=== PATIENT | male | born 1955 | race Caucasian/White ===

== ENCOUNTER 2018-12-29 21:54 | Emergency (ER) | payer MEDICAID ==
[~2018-12-29] VITALS: Ht 177.8 cm; Wt 84.8 kg
--- OUTSIDE RECORDS SUMMARY | 2018-12-29 22:01 | XMS REPORT | Continuity of Care Document ---
Author Organization Unknown Address Unknown Phone Unavailable Allergies Active Description Code Type Severity Reaction Onset Reported/Identified Relationship to Patient Clinical Status Yes PENICILLIN G SODIUM UNKNOWN UNKNOWN Medications Medication Packaging Start Date Stop Date Route Dosage Sig NORMAL SALINE 500CC IV BAG INJ 0.9 % (NS 500CC IV BAG) ml 11/21/2018 12/06/2018 CONTINUOUSEVERY 0 Hour ACETAMINOPHEN ORAL TABLET 325mg(Tylenol) MG 11/21/2018 12/21/2018 PRN EVERY 6 Hour Normal SALINE 0.9 % (NS 100cc) (plain bag) ml 11/21/2018 11/23/2018 CONTINUOUSEVERY 0 Hour NORMAL SALINE 1000CC IV BAG INJ 0.9 % (NS 1000CC IV BAG) ml 11/21/2018 12/06/2018 CONTINUOUSEVERY 0 Hour ALBUTEROL SVN 2.5MG/3CC LIQ 2.5 MG (PROVENTIL ROBERTA 2.5MG/3CC) MG 11/21/2018 12/01/2018 PRN QID ONDANSETRON VIAL INJ 4 MG/2CC (ZOFRAN 2CC VIAL) MG 11/21/2018 11/28/2018 PRN Q4H HALOPERIDOL VIAL INJ 5 MG/CC (HALDOL 1CC VIAL) MG 11/21/2018 11/28/2018 PRN Q4H OLANZAPINE IM VIAL INJ 10 MG/VIAL (ZYPREXA IM VIAL) MG 11/21/2018 12/21/2018 PRN BID LORAZEPAM 1CC VIAL INJ 2 MG/CC (ATIVAN VIAL) MG 11/21/2018 11/28/2018 PRN Q4H DIPHENHYDRAMINE VIAL INJ 50 MG/CC (BENADRYL VIAL) MG 11/21/2018 11/24/2018 PRN Q6H BENZTROPINE TAB 1 MG (COGENTIN) MG 11/21/2018 12/21/2018 BID&0800,2000 QUETIAPINE TAB 100 MG (SEROQUEL) MG 11/21/2018 12/20/2018 QHS&2100 METOPROLOL-XL TAB 50 MG (TOPROL XL) MG 11/21/2018 12/20/2018 QHS&2100 SIMVASTATIN TAB 40 MG (ZOCOR) MG 11/21/2018 12/20/2018 QHS&2100 PANTOPRAZOLE TAB 20 MG (PROTONIX) MG 11/22/2018 12/21/2018 Daily&0600 PAROXETINE TAB 20 MG (PAXIL) MG 11/22/2018 12/21/2018 Daily&0900 LISINOPRIL TAB 10 MG (ZESTRIL) MG 11/22/2018 12/21/2018 Daily&0900 ZONISAMIDE CAP 100 MG (ZONEGRAN) MG 11/22/2018 12/21/2018 Daily&0900 ASPIRIN ENTERIC COATED TAB 81 MG (BABY ASPIRIN EC) MG 11/22/2018 12/21/2018 Daily&0900 FUROSEMIDE TAB 20 MG (LASIX) MG 11/22/2018 12/22/2018 Daily&0900 MONTELUKAST TAB 10 MG (SINGULAIR) MG 11/22/2018 12/21/2018 Daily&0900 CETIRIZINE TAB 10 MG (ZYRTEC) MG 11/22/2018 12/21/2018 Daily&0900 NICOTINE PATCH PAT 14 MG (NICODERM) MG 11/22/2018 11/28/2018 Daily&0900 ACETAMINOPHEN ORAL TABLET 325mg(Tylenol) MG 11/22/2018 12/22/2018 PRN EVERY 6 Hour CLONIDINE TAB 0.1 MG (CATAPRES) MG 11/22/2018 11/29/2018 PRN Q4H CALMOSEPTINE OINT TUBE (RISAMINE OINT) camilla 11/22/2018 11/29/2018 PRN QID LOPERAMIDE CAP 2 MG (IMMODIUM) MG 11/22/2018 11/29/2018 PRN QID POLYETHYLENE GLYCOL POWDER UD PWD (MIRALAX 17GM UNIT DOSE PAKS) gm 11/22/2018 12/02/2018 PRN Q3H ALUM/MAG/SIMETH 30CC LIQ (MYLANTA PLUS) cc 11/22/2018 12/02/2018 PRN Q4H QUETIAPINE TAB 100 MG (SEROQUEL) MG 11/22/2018 12/21/2018 QHS&2000 BENZTROPINE TAB 1 MG (COGENTIN) MG 11/22/2018 12/22/2018 BID&0800,2000 MILK OF SAWYER LUIS ml 11/22/2018 12/22/2018 PRN BID QUETIAPINE TAB 100 MG (SEROQUEL) MG 11/22/2018 12/21/2018 QHS&2099 METOPROLOL-XL TAB 50 MG (TOPROL XL) MG 11/22/2018 12/21/2018 QHS&2100 QUETIAPINE TAB 100 MG (SEROQUEL) MG 11/23/2018 12/22/2018 BID&0800,1999 PAROXETINE TAB 20 MG (PAXIL) MG 11/23/2018 12/22/2018 Daily&0900 LISINOPRIL TAB 10 MG (ZESTRIL) MG 11/23/2018 12/22/2018 Daily&0900 ZONISAMIDE CAP 100 MG (ZONEGRAN) MG 11/23/2018 12/22/2018 Daily&0900 ASPIRIN ENTERIC COATED TAB 81 MG (BABY ASPIRIN EC) MG 11/23/2018 12/22/2018 Daily&0900 MONTELUKAST TAB 10 MG (SINGULAIR) MG 11/23/2018 12/22/2018 Daily&0900 PANTOPRAZOLE TAB 20 MG (PROTONIX) MG 11/23/2018 12/22/2018 Daily&0900 CETIRIZINE TAB 10 MG (ZYRTEC) MG 11/23/2018 12/22/2018 Daily&0900 BISACODYL SUPPOS 10 MG (DULCOLAX SUPPOS) MG 11/23/2018 11/29/2018 PRN Daily NICOTINE PATCH PAT 14 MG (NICODERM) MG 11/23/2018 12/22/2018 Daily&0900 FUROSEMIDE TAB 20 MG (LASIX) MG 11/24/2018 12/24/2018 Daily&0900 Problems Date Dx Coded Attending Type Code Diagnosis Diagnosed By 11/21/2018 Isabel Frankel 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 Results Test Result Range Creatine Kinase - 11/21/18 14:28 CK 272 U/L 26-174 Thyroid Stimulating Hormone - 11/21/18 14:28 TSH 3.34 mIU/mL 0.32-5.00 MRSA Screen - 11/21/18 14:28 FINAL CULTURE RESULTS MRSA Negative Nasal Culture Hemoglobin A1C - 11/21/18 14:35 % A1C 6.30 % 5.40-6.60 AvGlu 146 mg/dL 70-110 EKG - 11/21/18 15:32 EKG Complete Comprehensive Metabolic Panel - 11/22/18 06:57 Albumin 3.9 g/dL 3.6-5.1 ALP 95 U/L 35-130 ALT 32 U/L 6-45 Anion Gap 17 6-14 AST 23 U/L 2-40 BUN 72 mg/dL 5-25 Calcium 8.2 mg/dL 8.3-10.4 Chloride 113 mmol/L 95-114 CO2 16 mEq/L 22-33 Creat 3.96 mg/dL 0.50-1.50 eGFR 15 mL/min/1.73m2 >59 Globulin 2.5 g/dL 2.3-3.5 Glucose 130 mg/dL 70-110 Osmo 309 280-295 Potassium 6.5 mmol/L 3.5-5.3 Sodium 139 mmol/L 134-148 TBil 0.4 mg/dL 0.2-1.2 TP 6.4 g/dL 6.0-8.3 Lipid Panel - 11/22/18 06:57 C/HDL 3.8 3.7-6.7 Cholesterol 102 mg/dL 100-240 HDL 27 mg/dL 30-85 LDL-Calculated 61 mg/dL 0-100 Trig 72 mg/dL 35-160 VLDL 14 mg/dL 0-42 BMP - 11/22/18 13:30 Anion Gap 15 6-14 BUN 71 mg/dL 5-25 Calcium 8.4 mg/dL 8.3-10.4 Chloride 111 mmol/L 95-114 CO2 17 mEq/L 22-33 Creat 3.97 mg/dL 0.50-1.50 eGFR 15 mL/min/1.73m2 >59 Glucose 198 mg/dL 70-110 Osmo 308 280-295 Potassium 5.8 mmol/L 3.5-5.3 Sodium 137 mmol/L 134-148 Encounters ACCT No. Visit Date/Time Discharge Status Pt. Type Provider Facility Loc./Unit Complaint [id number] 01/19/2014 12:02:00 01/19/2014 23:59:59 CLS Outpatient JAY ORTIZ MD [id number] 05/13/2013 11:07:00 05/13/2013 23:59:59 CLS Outpatient JAY ORTIZ MD [id number] 07/23/2018 11:49:27 07/23/2018 23:59:59 DIS Outpatient JAY ORTIZ [facility] KOKI RT G40.219 [id number] 11/21/2018 15:45:00 Document Registration [id number] 11/22/2018 15:00:00 11/22/2018 21:56:00 DIS Inpatient [place] [facility] DONNELL [id number] 11/21/2018 13:51:00 11/22/2018 15:15:00 DIS Outpatient [facility] ICU [id number] 11/21/2018 14:30:21 Document Registration
--- NOTE | 2018-12-29 22:09 | ED Fall/Injury ---
General Chief Complaint: Trauma-Non Activation Stated Complaint: FALL Source: patient (LIMITED HISTORIAN, AND SOMEWHAT MUMBLED SPEECH PATTERN ), correction records (ALL PMH IS FROM OLD RECORDS) History of Present Illness Date Seen by Provider: Dec 29, 2018 Time Seen by Provider: 21:59 Initial Comments PT ARRIVES VIA EMS FROM CUSTODIAL--+ CERVICAL COLLAR PT STATES HE WAS SITTING ON THE SIDE OF THE BED AND HE FELL OFF THE BED, HITTING HIS HEAD ON THE FLOOR CUSTODIAL REPORTED BRIEF LOSS OF CONSCIOUSNESS, PT WAS UNAWARE OF THIS C/O PAIN TO LEFT FOREHEAD AREA NO NECK OR BACK PAIN NO CHEST OR ABDOMINAL PAIN NO PAIN TO ARMS OR LEGS NO DIZZINESS NO VISION CHANGES NO NAUSEA/VOMITING NO PARESTHESIAS OR MOTOR DEFICITS NO INCONTINENCE PT WAS JUST ADMITTED TO THEIR FACILITY 12/16/18--HAD BEEN AT [facility], WITH PREVIOUS ADDRESS IN [place], [place] PCP: DR. CODY Allergies and Home Medications Patient Home Medication List Home Medication List Reviewed: Yes Review of Systems Review of Systems Constitutional: no symptoms reported Eyes: No Symptoms Reported Ears, Nose, Mouth, Throat: no symptoms reported Respiratory: no symptoms reported Cardiovascular: no symptoms reported Gastrointestinal: no symptoms reported Genitourinary: no symptoms reported Musculoskeletal: no symptoms reported Skin: no symptoms reported Psychiatric/Neurological: See HPI Past Lfbboyg-Zdrbos-Ggftjd Hx Patient Social History Recent Foreign Travel: No Contact w/Someone Who Travel: No Past Medical History Cardiac: Yes Coronary Artery Disease, High Cholesterol, Hypertension Genitourinary: Yes Renal Failure Endocrine: Yes Diabetes, Non-Insulin dep Psychosocial: Yes Sleep Difficulties, PTSD, Schizophrenia, Depression Physical Exam Vital Signs Vital Signs - First Documented 12/29/18 21:57 Temp 96.9 Pulse 98 Resp 18 B/P (MAP) 194/105 (134) Pulse Ox 93 O2 Delivery Room Air Capillary Refill : Height, Weight, BMI Height: '" Weight: lbs. oz. kg; BMI Method: General Appearance: WD/WN, no apparent distress, other (UNKEMPT; CERVICAL COLLAR IN PLACE; CONSTANT MOUTH MOVEMENTS) HEENT: other (EDENTULOUS; NO EXTERNAL EVIDENCE OF TRAUMA TO HEAD OR ANYWHERE ELSE ON BODY) Neck: non-tender Cardiovascular: regular rate, rhythm, no murmur Respiratory: chest non-tender, no respiratory distress, no accessory muscle use, other (UPPER AIRWAY NOISE WITH CERVICAL COLLAR IN PLACE) Gastrointestinal: non tender, soft Back: no CVA tenderness, no vertebral tenderness Extremities: normal range of motion, non-tender, normal inspection, no pedal edema, normal capillary refill 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, no motor/sensory deficits, alert, normal mood/affect, oriented x 3 Skin: normal color Yonatan Coma Score Best Eye Response: (4) Open Spontaneously Best Verbal Response: (5) Oriented Best Motor Response: (6) Obeys Commands [place] Total: 15 Progress/Results/Core Measures Results/Orders My Orders Orders - TONY ZAMUDIO DO Ct Head/Face/Cervical Wo (12/29/18 22:02) Chest 1 View, Ap/Pa Only (12/29/18 ) Vital Signs/I&O 12/29/18 12/29/18 21:57 23:05 Temp 96.9 97.9 Pulse 98 106 Resp 18 20 B/P (MAP) 194/105 (134) 171/96 (121) Pulse Ox 93 97 O2 Delivery Room Air Room Air Progress Progress Note : Progress Note 2249--PT RIPPED OFF HIS CERVICAL COLLAR AND IS SITTING UP IN BED, DESPITE BEING TOLD THAT HE NEEDS TO LEAVE IN ON UNTIL CT SCAN RESULTS WERE BACK. UPPER AIRWAY NOISE IS GONE NOW PT DENIES ANY HEAD OR NECK PAIN AT THIS TIME Diagnostic Imaging Comments CXR--CHRONIC APPEARING CHANGES IN LUNG BASES--RIGHT > LEFT, PENDING RADIOLOGIST REVIEW CT HEAD/MAXILLOFACIALS/CERVICAL SPINE--NO ACUTE PROCESS, PER [facility] VIA FAX AT 3900 Reviewed: Reviewed by Me Departure Impression Primary Impression: S/P FALL FROM SITTING POSITION ON BED Additional Impression: MINOR HEAD INJURY WITH BRIEF LOSS OF CONSCIOUSNESS Disposition: 03 XFER SNF Condition: Stable Departure-Patient Inst. Referrals: GIOVANNY CODY DO (PCP/Family) Primary Care Physician Patient Instructions: Concussion, Adult (DC), Preventing Falls in the Older Adult Add. Discharge Instructions: HOME, REST CONTINUE YOUR CURRENT MEDICATIONS PRESCRIBED FOLLOW UP WITH YOUR DR NEEDED All discharge instructions reviewed with patient and/or family. Voiced understanding. TONY ZAMUDIO DO Dec 29, 2018 22:09
--- NOTE | 2018-12-29 22:51 | NUR ---
Upon entering pt room, pt noted to be taking off c-collar despite prompting from ED staff to not do so. Pt reports collar in uncomfortable and doesn't want it on. Risks and benefits of keeping c-collar in placed reviewed with pt whom verbalized understanding.
--- NOTE | 2018-12-29 22:56 | NUR ---
Spoke with Coby from [facility] regarding pt findings and care recieved. This RN request transfer back to facility.
[2018-12-29 23:05] VITALS: BP 171/96
--- NOTE | 2018-12-29 23:08 | NUR ---
[facility] STAFF ONSITE TO TRANSPORT PT, PT LEAVES THE ED AMBULATORY IN STABLE CONDITION
--- NOTE | 2018-12-30 05:53 | Diagnostic Imaging Report ---
PROCEDURE: CT head, face, and cervical spine without contrast. TECHNIQUE: Multiple contiguous axial images were obtained through the head, neck, and facial bones without the use of intravenous contrast. Sagittal and coronal reformations through the cervical spine and facial bones were also performed. Auto Exposure Controls were utilized during the CT exam to meet ALARA standards for radiation dose reduction. INDICATION: Fall. Scalp abrasion. Neck pain. COMPARISON: CT head on 08/23/2010 FINDINGS: CT head: The ventricles and cortical sulci are age-appropriate. There is no midline shift or mass-effect. No acute intracranial hemorrhage is seen. There is no CT evidence of acute territorial ischemia. No focal masses or collections are present. The calvarium is intact. Scalp abrasion is seen overlying the left forehead. CT face: No acute facial fractures are visualized. The mandible and TMJ are intact. The zygomatic processes and pterygoid plates demonstrate no acute fractures. No fracture is seen in the nasal bone or the nasal septum. The nasal septum is slightly deviated to the left posteriorly. The visualized paranasal sinuses are clear. CT cervical spine: No acute fracture or dislocation is seen in the cervical spine. No focal osseous lesions. Vertebral body heights are well-maintained. The craniocervical junction is well-maintained. Mild degenerative changes are seen in the cervical spine with disc osteophyte complexes and uncovertebral arthropathy. Soft tissues of the neck are unremarkable. IMPRESSION: 1. No hemorrhage or focal intra-axial mass. No CT evidence of large acute territorial ischemia. 2. No acute facial fractures 3. No acute fracture or dislocation in the cervical spine. Agree with overnight report. Dictated by: Dictated on workstation # [id number]
--- NOTE | 2018-12-30 07:24 | Diagnostic Imaging Report ---
INDICATION: CONGESTION. TECHNIQUE: Single frontal view of the chest COMPARISON: 09/01/2010 FINDINGS: Lung volumes are normal. Bilateral pleural effusions are seen, right greater than left, with bibasilar opacities. Atelectasis is seen in the mid right lung. No large pneumothorax. Prominent cardiac silhouette with post CABG changes. No evidence of overt pulmonary edema. No acute osseous abnormalities. IMPRESSION: Bilateral pleural effusions with bibasilar opacities. Cardiomegaly without overt pulmonary edema. Dictated by: Dictated on workstation # [id number]
== END 2018-12-29 23:06 | disposition home or self-care (01) ==
LOC: ER 21:58
DX: S06.9X9A Unspecified intracranial injury with loss of consciousness of unspecified duration, initial encounter (principal); I10 Essential (primary) hypertension; E78.00 Pure hypercholesterolemia, unspecified; I25.10 Atherosclerotic heart disease of native coronary artery without angina pectoris; E11.9 Type 2 diabetes mellitus without complications; F32.9 Major depressive disorder, single episode, unspecified; F20.9 Schizophrenia, unspecified; F43.10 Post-traumatic stress disorder, unspecified; W06.XXXA Fall from bed, initial encounter
CPT/HCPCS: 70450; 70486; 71045; 72125

== ENCOUNTER 2018-12-31 02:22 | Inpatient (IN) | payer MEDICAID ==
[2018-12-31] VITALS (8 sets, daily range): BP systolic 124–175; BP diastolic 65–89
[~2018-12-31] VITALS: Ht 172.7 cm; Wt 77.6 kg
[2018-12-31] MEDS ORDERED: NS IV 1000 ML 1,000 ML IV SCH ×2 (02:34)
[2018-12-31 02:36] LABS: ABG BASE EXCESS 1.4 MMOL/L (-2.5-2.5); ABG OXYGEN SATURATION 92 % (94-100); ABG PCO2 46 MMHG (35-45); ABG PH 7.38 (7.37-7.43); ABG PO2 63 MMHG (79-93); ABG TCO2 27.5 MMOL/L (21.0-31.0); ALLENS TEST YES-POS
[2018-12-31 02:37] LABS: INSPIRED O2 ROOM AIR; PATIENT TEMP 98.3; VENTILATOR NO
[2018-12-31] MEDS ORDERED: CARV3.122 PO (02:37)
[2018-12-31] MEDS ORDERED: EXEN2PEN SC (02:37)
[2018-12-31] MEDS ORDERED: GABA-488 PO (02:37)
[2018-12-31] MEDS ORDERED: TAMS0.4C98 PO (02:37)
[2018-12-31] MEDS ORDERED: DIVA125C10 PO (02:37)
[2018-12-31] MEDS ORDERED: ATOR40TA70 PO (02:37)
[2018-12-31] MEDS ORDERED: MONT10TA24 PO (02:37)
[2018-12-31] MEDS ORDERED: SEVE800T7 PO (02:37)
[2018-12-31] MEDS ORDERED: PANT40TA3 PO (02:37)
[2018-12-31] MEDS ORDERED: FLUT16SP22 NS (02:37)
[2018-12-31] MEDS ORDERED: ASPI-983 PO (02:37)
[2018-12-31] MEDS ORDERED: OMEP20CA13 (02:37)
[2018-12-31] MEDS ORDERED: CETI10TA17 PO (02:37)
[2018-12-31 02:43] LABS: BASOPHILS # (AUTO) 0.1 10^3/uL (0.0-0.1); BASOPHILS % (AUTO) 0 % (0-10); EOSINOPHILS # (AUTO) 0.8 10^3/uL (0.0-0.3); EOSINOPHILS % (AUTO) 6 % (0-10); HEMATOCRIT 35 % (40-54); HEMOGLOBIN 11.7 G/DL (13.3-17.7); LYMPHOCYTES % (AUTO) 8 % (12-44); MEAN CORPUSCULAR HEMOGLOBIN 30 PG (25-34); MEAN CORPUSCULAR HGB CONC 33 G/DL (32-36); MEAN CORPUSCULAR VOLUME 91 FL (80-99); MEAN PLATELET VOLUME 9.6 FL (7.4-10.4); MONOCYTES # (AUTO) 0.7 X 10^3 (0.0-1.0); MONOCYTES % (AUTO) 6 % (0-12); NEUTROPHILS # (AUTO) 9.9 X 10^3 (1.8-7.8); NEUTROPHILS % (AUTO) 80 % (42-75); PLATELET COUNT 239 10^3/uL (130-400); RED CELL DISTRIBUTION WIDTH 12.8 % (10.0-14.5); WHITE BLOOD COUNT 12.3 10^3/uL (4.3-11.0)
--- NOTE | 2018-12-31 02:44 | ED Respiratory ---
General Chief Complaint: Respiratory Problems Stated Complaint: CP,SOB Source: patient, EMS, [facility] records Exam Limitations: no limitations History of Present Illness Date Seen by Provider: Dec 31, 2018 Time Seen by Provider: 02:24 Initial Comments Patient presents to ER by EMS from [facility] with chief complaint of shortness of breath cough no fever or chills. His cough was productive of green sputum. No history of COPD or asthma. He does not smoke cigarettes or drink alcohol or use recreational drugs. He had a fall yesterday and was examined in the ER and told he might have a mild concussion. He has a history of coronary disease with CABG. Staff called 911 and reported to EMS he had chest pain that the patient denies having any chest pain. His oxygen sats were 84% per EMS. He had wheezes all rodriguez so EMS gave him a DuoNeb which cleared up his wheezes and his oxygenation improved to 98% on room air. EMS reports blood sugar was in the low 100s. Primary care by Dr. Cody. Allergies and Home Medications Allergies Coded Allergies: Penicillins (Verified Allergy, Unknown, 12/31/18) chlorpromazine (Verified Allergy, Unknown, 12/31/18) Patient Home Medication List Home Medication List Reviewed: Yes Review of Systems Review of Systems Constitutional: No chills, No diaphoresis EENTM: No hearing loss Respiratory: cough, phlegm, short of breath Cardiovascular: No chest pain, No edema; Hx of Intervention; No palpitations, No syncope Gastrointestinal: No abdominal pain, No constipation, No diarrhea, No dysphagia, No heartburn Genitourinary: No discharge, No dysuria Skin: No change in color, No rash Psychiatric/Neurological: Denies Headache, Denies Numbness Past Aeoaxzf-Lplcqu-Qbqjxk Hx Patient Social History Alcohol Use: Denies Use Recreational Drug Use: Yes Drug of Choice: HX THC Smoking Status: Former Smoker Type Used: Cigarettes 2nd Hand Smoke Exposure: Yes Recent Foreign Travel: No Contact w/Someone Who Travel: No Recent Hopitalizations: No Seasonal Allergies Seasonal Allergies: No Past Medical History Surgeries: No Respiratory: No Cardiac: Yes Coronary Artery Disease, High Cholesterol, Hypertension Genitourinary: Yes Renal Failure Musculoskeletal: No Endocrine: Yes Diabetes, Non-Insulin dep HEENT: No Cancer: No Psychosocial: Yes Sleep Difficulties, PTSD, Schizophrenia, Depression Integumentary: No Physical Exam Vital Signs - First Documented 12/31/18 12/31/18 02:25 02:50 Temp 98.7 Pulse 103 Resp 30 B/P (MAP) 148/88 (108) Pulse Ox 93 O2 Delivery Room Air O2 Flow Rate 2.00 Capillary Refill : Height: 5'10.00" Weight: 187lbs. oz. 84.694511lu; BMI Method:Stated General Appearance: WD/WN, no apparent distress Eyes: Bilateral Eye Normal Inspection, Bilateral Eye PERRL, Bilateral Eye EOMI HEENT: PERRL/EOMI, normal ENT inspection, TMs normal, pharynx normal Neck: non-tender, full range of motion, supple, normal inspection Respiratory: chest non-tender, no accessory muscle use, respiratory distress (respiratory rate in the mid 20s) Cardiovascular: normal peripheral pulses, regular rate, rhythm, no edema, tachycardia Gastrointestinal: normal bowel sounds, non tender, soft Neurologic/Psychiatric: alert, normal mood/affect, oriented x 3 Focused Exam Lactate Level 12/31/18 02:34: Lactic Acid Level 1.40 Lactic Acid Level Laboratory Tests Test 12/31/18 02:34 Lactic Acid Level 1.40 MMOL/L (0.50-2.00) Progress/Results/Core Measures Suspected Sepsis SIRS Temperature: Pulse: Respiratory Rate: Laboratory Tests 12/31/18 02:25: White Blood Count 12.3H Blood Pressure / Mean: 12/31/18 02:34: Lactic Acid Level 1.40 Laboratory Tests 12/31/18 02:25: Creatinine 1.64H, INR Comment 1.0, Platelet Count 239, Total Bilirubin 0.2 Results/Orders Lab Results Laboratory Tests Test 12/31/18 02:25 12/31/18 02:28 12/31/18 02:34 Range/Units White Blood Count 12.3 H 4.3-11.0 10^3/uL Red Blood Count 3.88 L 4.35-5.85 10^6/uL Hemoglobin 11.7 L 13.3-17.7 G/DL Hematocrit 35 L 40-54 % Mean Corpuscular Volume 91 80-99 FL Mean Corpuscular Hemoglobin 30 25-34 PG Mean Corpuscular Hemoglobin Concent 33 32-36 G/DL Red Cell Distribution Width 12.8 10.0-14.5 % Platelet Count 239 130-400 10^3/uL Mean Platelet Volume 9.6 7.4-10.4 FL Neutrophils (%) (Auto) 80 H 42-75 % Lymphocytes (%) (Auto) 8 L 12-44 % Monocytes (%) (Auto) 6 0-12 % Eosinophils (%) (Auto) 6 0-10 % Basophils (%) (Auto) 0 0-10 % Neutrophils # (Auto) 9.9 H 1.8-7.8 X 10^3 Lymphocytes # (Auto) 1.0 1.0-4.0 X 10^3 Monocytes # (Auto) 0.7 0.0-1.0 X 10^3 Eosinophils # (Auto) 0.8 H 0.0-0.3 10^3/uL Basophils # (Auto) 0.1 0.0-0.1 10^3/uL Prothrombin Time 13.3 12.2-14.7 SEC INR Comment 1.0 0.8-1.4 Activated Partial Thromboplast Time 33 24-35 SEC Sodium Level 137 135-145 MMOL/L Potassium Level 4.4 3.6-5.0 MMOL/L Chloride Level 101 98-107 MMOL/L Carbon Dioxide Level 24 21-32 MMOL/L Anion Gap 12 5-14 MMOL/L Blood Urea Nitrogen 22 H 7-18 MG/DL Creatinine 1.64 H 0.60-1.30 MG/DL Estimat Glomerular Filtration Rate 43 BUN/Creatinine Ratio 13 Glucose Level 191 H 70-105 MG/DL Calcium Level 9.5 8.5-10.1 MG/DL Corrected Calcium 9.7 8.5-10.1 MG/DL Total Bilirubin 0.2 0.1-1.0 MG/DL Aspartate Amino Transf (AST/SGOT) 14 5-34 U/L Alanine Aminotransferase (ALT/SGPT) 10 0-55 U/L Alkaline Phosphatase 83 40-136 U/L Troponin I 0.043 H <0.028 NG/ML Total Protein 7.3 6.4-8.2 GM/DL Albumin 3.8 3.2-4.5 GM/DL Blood Gas Puncture Site LEFT RADIAL Blood Gas Patient Temperature 98.3 Arterial Blood pH 7.38 7.37-7.43 Arterial Blood Partial Pressure CO2 46 H 35-45 MMHG Arterial Blood Partial Pressure O2 63 L 79-93 MMHG Arterial Blood HCO3 26 23-27 MMOL/L Arterial Blood Total CO2 27.5 21.0-31.0 MMOL/L Arterial Blood Oxygen Saturation 92 L 94-100 % Arterial Blood Base Excess 1.4 -2.5-2.5 MMOL/L Osei Test YES-POS Blood Gas Ventilator Setting NO Blood Gas Inspired Oxygen ROOM AIR Lactic Acid Level 1.40 0.50-2.00 MMOL/L My Orders Orders - FREDRICK MENJIVAR Ekg Tracing (12/31/18 02:23) Continuous Ekg Monitoring (12/31/18 02:23) Arterial Blood Gas (12/31/18 02:30) Cbc With Automated Diff (12/31/18 02:34) Comprehensive Metabolic Panel (12/31/18 02:34) Blood Culture (12/31/18 02:34) Sputum Culture (12/31/18 02:34) Urinalysis (12/31/18 02:34) Urine Culture (12/31/18 02:34) Protime With Inr (12/31/18 02:34) Partial Thromboplastin Time (12/31/18 02:34) Chest 1 View, Ap/Pa Only (12/31/18 02:34) Ed Iv/Invasive Line Start (12/31/18 02:34) Ed Iv/Invasive Line Start (12/31/18 02:34) Troponin I (12/31/18 02:34) Vital Signs Adult Sepsis Patie Q15M (12/31/18 02:34) O2 (12/31/18 02:34) Remove Rings In Anticipation O (12/31/18 02:34) Lactic Acid Analyzer (12/31/18 02:34) Ns Iv 1000 Ml (Sodium Chloride 0.9%) (12/31/18 02:34) Cefepime Injection (Maxipime Injection) (12/31/18 02:45) Ed Iv/Invasive Line Start (12/31/18 02:34) Ns Iv 1000 Ml (Sodium Chloride 0.9%) (12/31/18 02:34) Arterial Blood Draw (12/31/18 02:26) Ekg Tracing (12/31/18 03:03) Aspirin Chewable Tablet (Baby Aspirin Ch (12/31/18 03:15) Medications Given in ED Current Medications Medications Dose Ordered Sig/Juan Route Start Time Stop Time Status Last Admin Dose Admin Cefepime HCl 1000 mg/Sterile Water 10 ml @ 200 mls/hr ONCE ONCE IV 12/31/18 02:45 12/31/18 02:47 DC 12/31/18 02:50 200 MLS/HR Vital Signs/I&O 12/31/18 12/31/18 02:25 02:50 Temp 98.7 Pulse 103 Resp 30 B/P (MAP) 148/88 (108) Pulse Ox 93 93 O2 Delivery Room Air Nasal Cannula O2 Flow Rate 2.00 Capillary Refill : Progress Note #1: Time: 02:45 Progress Note Septic workup, EKG, troponin and an ABG. His DuoNeb per EMS has taken care of his wheezing but he still has some crackles on the right base we will get a chest x-ray. We selected cefepime for healthcare acquired pneumonia most likely and 2 L of IV fluids would be well more than 20 mL/kg. No previous EKGs to compare the nonspecific changes so we will repeat another one in 30 minutes. Progress Note #2: Time: 03:04 Progress Note Troponin is noted to be marginally above negative so we'll plan to repeat it and give the patient aspirin. Delta EKG now. ECG Initial ECG Impression Date: Dec 31, 2018 Initial ECG Impression Time: 02:26 Initial ECG Rate: 102 Initial ECG Rhythm: S.Tach Initial ECG Intervals: QT Initial ECG Impression: Normal, Nonspecific Changes Initial ECG Comparisson: No Previous ECG Available, Unchanged Comment Clinically significant ST elevation or depression but there are some nonspecific changes and bundle-branch block. EKG : EKG Time: 03:07 Rate: 90 Rhythm: Normal Sinus Intervals: QT (504) ECG Comparisson: Unchanged ECG Impression: Normal, Nonspecific Changes Comment Right bundle-branch block with otherwise normal sinus rhythm no longer tachycardic. Unchanged from previous EKG from 0226 today. No clinically significant ST elevation or depression. Diagnostic Imaging Diagonstic Imaging: Xray Plain Films/CT/US/NM/MRI: chest (1v) Comments Right basilar infiltrate. Bilateral mild pleural effusion right worse than left. Reviewed: Reviewed by Me Departure Communication (Admissions) Time/Spoke to Admitting Phy: 03:10 Discussed the case with Dr. Cody and he agrees to admit the patient on cefepime. He agrees with the pain the troponins and consult cardiology in the morning unless the repeat EKG shows something interesting. Impression Primary Impression: Pneumonia Qualified Codes: J18.1 - Lobar pneumonia, unspecified organism Additional Impressions: Chest pain Qualified Codes: R07.9 - Chest pain, unspecified Sepsis Qualified Codes: A41.9 - Sepsis, unspecified organism Disposition: ADMITTED INPATIENT Condition: Stable Admissions Decision to Admit Reason: Admit from ER (General) Decision to Admit/Date: Dec 31, 2018 Time/Decision to Admit Time: 03:07 Departure-Patient Inst. Referrals: GIOVANNY CODY DO (PCP/Family) Primary Care Physician FREDRICK MENJIVAR Dec 31, 2018 02:44
[2018-12-31] MEDS ORDERED: CEFEPIME INJECTION 1,000 MG in WATER (STERILE) FOR INJECTION 10 ML IV ONE (02:45)
[2018-12-31 02:49] LABS: PROTHROMBIN TIME PATIENT 13.3 SEC (12.2-14.7)
[2018-12-31 02:55] LABS: ALBUMIN 3.8 GM/DL (3.2-4.5); BILIRUBIN,TOTAL 0.2 MG/DL (0.1-1.0); CALCIUM 9.5 MG/DL (8.5-10.1); CREATININE SERUM 1.64 MG/DL (0.60-1.30); POTASSIUM 4.4 MMOL/L (3.6-5.0); TOTAL PROTEIN 7.3 GM/DL (6.4-8.2)
[2018-12-31] MEDS ORDERED: ASPIRIN 81 MG CHEW (CHILDREN'S ASA) PO ONE (03:15)
--- OUTSIDE RECORDS SUMMARY | 2018-12-31 03:53 | XMS REPORT | Continuity of Care Document ---
[...] Status Pt. Type Provider Facility Loc./Unit Complaint [id number] 01/19/2014 12:02:00 01/19/2014 23:59:59 CLS Outpatient JAY ORTIZ MD [id number] 05/13/2013 11:07:00 05/13/2013 23:59:59 CLS Outpatient JAY ORTIZ MD [id number] 07/23/2018 11:49:27 07/23/2018 23:59:59 DIS Outpatient JAY ORTIZ [facility] KOKI RT [id number] 11/21/2018 15:45:00 Document Registration [id number] 11/22/2018 15:00:00 11/22/2018 21:56:00 DIS Inpatient [place] [facility] DONNELL [id number] 11/21/2018 13:51:00 11/22/2018 15:15:00 [id number] 11/21/2018 14:30:21 Document Registration
--- OUTSIDE RECORDS SUMMARY | 2018-12-31 03:53 | XMS REPORT | Continuity of Care Document ---
[...] Status Pt. Type Provider Facility Loc./Unit Complaint [id number] 01/19/2014 12:02:00 01/19/2014 23:59:59 CLS Outpatient JAY ORTIZ MD [id number] 05/13/2013 11:07:00 05/13/2013 23:59:59 CLS Outpatient JAY ORTIZ MD [id number] 07/23/2018 11:49:27 07/23/2018 23:59:59 DIS Outpatient JAY ORTIZ [facility] KOKI RT [id number] 11/21/2018 15:45:00 Document Registration [id number] 11/22/2018 15:00:00 11/22/2018 21:56:00 DIS Inpatient [place] [facility] DONNELL [id number] 11/21/2018 13:51:00 11/22/2018 15:15:00 [id number] 11/21/2018 14:30:21 Document Registration
[2018-12-31] MEDS ORDERED: RT-ALBUTEROL/IPRATROPIUM 3 ML (DUONEB) VIAL INH PRN (05:00)
[2018-12-31] MEDS ORDERED: ANTACID SUSP 30 ML UDC (MYLANTA) PO PRN (05:15)
[2018-12-31] MEDS ORDERED: ACETAMINOPHEN 500 MG TAB (TYLENOL) PO PRN (05:15)
[2018-12-31] MEDS ORDERED: morphine INJ 4 MG/ML 1 ML (VIAL/SYRINGE) IV PRN (05:15)
[2018-12-31] MEDS ORDERED: ONDANSETRON 4 MG/2 ML (SDV) Z0FRAN IV PRN (05:15)
[2018-12-31] MEDS ORDERED: NITROGLYCERIN 0.4 MG SL TABS BTL 25'S SL PRN (05:15)
[2018-12-31] MEDS: NS IV 1000 ML 1,000 ML IV SCH ×2 (05:20→17:20)
--- NOTE | 2018-12-31 06:36 | NUR ---
pt was admitted from er dx chest pain pneumonia resp distress.. upon arrival to room 419 pt denies chest pain and is no distress. sl patent o2 2l per nc tele applied.. pt wanting to go home this am.. encouraged pt to rest and wait for dr arrival
[2018-12-31] MEDS: inSUlin ASPART (NovoLOG) 1 UNIT/0.01 ML (CHARGE PER UNIT) SC SCH ×4 (06:45→21:49)
[2018-12-31 06:50] LABS: BASOPHILS % (AUTO) 0 % (0-10); EOSINOPHILS # (AUTO) 0.9 10^3/uL (0.0-0.3); EOSINOPHILS % (AUTO) 6 % (0-10); HEMATOCRIT 33 % (40-54); HEMOGLOBIN 10.8 G/DL (13.3-17.7); LYMPHOCYTES # (AUTO) 0.8 X 10^3 (1.0-4.0); LYMPHOCYTES % (AUTO) 6 % (12-44); MEAN CORPUSCULAR HEMOGLOBIN 30 PG (25-34); MEAN CORPUSCULAR HGB CONC 33 G/DL (32-36); MEAN CORPUSCULAR VOLUME 92 FL (80-99); MEAN PLATELET VOLUME 9.4 FL (7.4-10.4); MONOCYTES # (AUTO) 0.8 X 10^3 (0.0-1.0); MONOCYTES % (AUTO) 6 % (0-12); NEUTROPHILS # (AUTO) 11.1 X 10^3 (1.8-7.8); NEUTROPHILS % (AUTO) 82 % (42-75); PLATELET COUNT 231 10^3/uL (130-400); RED CELL DISTRIBUTION WIDTH 12.7 % (10.0-14.5); WHITE BLOOD COUNT 13.6 10^3/uL (4.3-11.0)
[2018-12-31 07:10] LABS: ALBUMIN 3.4 GM/DL (3.2-4.5); BILIRUBIN,TOTAL 0.2 MG/DL (0.1-1.0); CALCIUM 9.2 MG/DL (8.5-10.1); CREATININE SERUM 1.47 MG/DL (0.60-1.30); POTASSIUM 4.7 MMOL/L (3.6-5.0); TOTAL PROTEIN 6.5 GM/DL (6.4-8.2)
--- NOTE | 2018-12-31 07:40 | Diagnostic Imaging Report ---
INDICATION: Shortness of air and chest pain. TECHNIQUE: Frontal view of the chest. COMPARISON: 12/29/2018. FINDINGS: Right lung volume is mildly low. There is blunting of the right costophrenic angle, appears to represent a mildly increased small right pleural effusion. The cardiac silhouette is stable in size. No pneumothorax is seen. Postsurgical changes are noted in the chest. There are degenerative changes in the spine and shoulders. IMPRESSION: 1. Small right pleural effusion with associated airspace opacities, appears mildly increased compared to the prior study. Dictated by: Dictated on workstation # [id number]
--- NOTE | 2018-12-31 08:03 | History & Physicial ---
History of Present Illness History of Present Illness Reason for visit/HPI Patient resident of detention. Patient short of breath and coughing. Patient coughing up green sputum. Patient complaining of chest pain. Patient brought to the emergency room by EMS. Chest x-ray shows pneumonia. Patient has UTI. Patient has chest pain. Patient admitted area To be evaluated by cardiology Date of Admission Dec 31, 2018 at 03:15 Time Seen by a Provider: 07:59 I consulted on this patient on 12/31/18 07:58 Attending Physician Leonardo Cody DO Admitting Physician Leonardo Cody DO Consult Allergies and Home Medications Allergies Coded Allergies: Penicillins (Verified Allergy, Unknown, 12/31/18) chlorpromazine (Verified Allergy, Unknown, 12/31/18) Patient Home Medication List Home Medication List Reviewed: No Past Plaalue-Pajewl-Lttwsc Hx Patient Social History Employed/Student: unemployed Alcohol Use: Denies Use Recreational Drug Use: Yes Drug of Choice: HX THC Smoking Status: Former Smoker Type Used: Cigarettes 2nd Hand Smoke Exposure: Yes Recent Foreign Travel: No Contact w/other who traveled: No Recent Hopitalizations: No Recent Infectious Disease Expo: No Immunizations Up To Date Tetanus Booster (TDap): Unknown Date of Pneumonia Vaccine: Dec 31, 2017 Seasonal Allergies Seasonal Allergies: No Surgeries Yes CABG, Vasectomy Respiratory No Cardiovascular Yes Coronary Artery Disease, High Cholesterol, Hypertension Neurological No Genitourinary Yes Renal Failure Gastrointestinal Yes Gastroesophageal Reflux Musculoskeletal No Endocrine History of Endocrine Disorders: Yes Endocrine Disorders: Diabetes, Non-Insulin dep HEENT History of HEENT Disorders: No Cancer No Psychosocial History of Psychiatric Problem: Yes Behavioral Health Disorders: Sleep Difficulties, PTSD, Schizophrenia, Depression Integumentary History of Skin or Integumenta: No Blood Transfusions History of Blood Disorders: No Review of Systems Constitutional: weakness EENTM: no symptoms reported Respiratory: cough Cardiovascular: chest pain Gastrointestinal: no symptoms reported Genitourinary: no symptoms reported Physical Exam Vital Signs Vital Signs - First Documented 12/31/18 12/31/18 12/31/18 02:25 02:50 04:41 Temp 98.7 Pulse 103 Resp 30 B/P (MAP) 148/88 (108) Pulse Ox 93 O2 Delivery Room Air O2 Flow Rate 2.00 FiO2 21 Capillary Refill : Less Than 3 SecondsLess Than 3 Seconds Height, Weight, BMI Height: 5'8.00" Weight: 171lbs. 0.0oz. [id number]; 26.0 BMI Method:Stated General Appearance: No Apparent Distress, WD/WN Eyes: Bilateral Eye Normal Inspection HEENT: Normal ENT Inspection Neck: Full Range of Motion, Normal Inspection Respiratory: No Accessory Muscle Use, No Respiratory Distress, Decreased Breath Sounds Cardiovascular: Regular Rate, Rhythm, No Murmur Gastrointestinal: Non Tender, Soft Assessment/Plan Assessment and Plan Renal insufficiency. Pneumonia. Short of breath. Coronary artery disease. Chest pain. Hypoxic pulse ox 84 percent. Wheezing. CABG. Hypertension Admission Diagnosis Admission Status: Inpatient Order (span 2 midnights) Reason for Inpatient Admission: Pneumonia. UTI.. Chest pain. Clinical Quality Measures DVT/VTE Risk/Contraindication: Risk Factor Score Per Nursin RFS Level Per Nursing on Admit: 4+=Very High LEONARDO CODY DO Dec 31, 2018 08:03
[2018-12-31] MEDS: RT-ALBUTEROL/IPRATROPIUM 3 ML (DUONEB) VIAL INH SCH ×3 (08:58→20:42)
[2018-12-31] MEDS ORDERED: PANTOPRAZOLE 40 MG (PROTONIX) VIAL IV SCH (09:00)
[2018-12-31] MEDS: DIVALPROX SPRINKLE 125 MG (DEPAKOTE) CAP PO SCH ×2 (09:56→21:42)
[2018-12-31] MEDS: LORATADINE (CLARITIN) 10 MG TAB PO SCH (09:56)
[2018-12-31] MEDS: PANTOPRAZOLE 40 MG (PROTONIX) TAB PO SCH (09:56)
[2018-12-31] MEDS: ASPIRIN E.C. 81 MG (ECOTRIN) TAB PO SCH (09:56)
[2018-12-31] MEDS: CARVEDILOL 3.125 MG (COREG) TABLET PO SCH ×2 (09:56→21:42)
[2018-12-31] MEDS: ENOXAPARIN 40 MG/0.4 ML (LOVENOX) SYR SC SCH (09:57)
[2018-12-31] MEDS: OLANZapine 5 MG (ZyPREXA) TAB PO SCH ×2 (09:57→21:41)
[2018-12-31] MEDS: lisINopril 5 MG (PRINIVIL) TABLET PO SCH (09:57)
--- NOTE | 2018-12-31 09:57 | Consultation-Cardiology ---
HPI-Cardiology Cardiology Consultation Date of Consultation 12/31/18 Date of Admission Time Seen by Provider: 09:51 Indication: chest pain HPI 63 years old gentleman with history of coronary artery disease, CABG, hypertension hyperlipidemia. Has been having fever and chills, he is a halfway resident, poor historian, unable to provide history, has been having recurrent chest pain. Reducible in the retrosternal area. Had abnormal EKGs. I was called for evaluation for his chest pain Home Medications & Allergies Allergies: Coded Allergies: Penicillins (Verified Allergy, Unknown, 12/31/18) chlorpromazine (Verified Allergy, Unknown, 12/31/18) Home Medication List Reviewed: Yes YWE-Pysxap-Lynmfe Hx Patient Social History Employed/Student: unemployed Alcohol Use: Denies Use Recreational Drug Use: Yes Drug of Choice: HX THC Smoking Status: Former Smoker Type Used: Cigarettes 2nd Hand Smoke Exposure: Yes Recent Foreign Travel: No Recent Infectious Disease Expo: No Recent Hopitalizations: No Immunizations Up To Date Tetanus Booster (TDap): Unknown Date of Pneumonia Vaccine: Dec 31, 2017 Past Medical History discussed below, patient is a poor historian Family Medical History Family Medical Hx noncontributory Review of Systems-General Review of Systems Constitutional: fever, malaise, weakness EENTM: see HPI, no symptoms reported Respiratory: see HPI, cough, dyspnea on exertion; No hemoptysis, No orthopnea, No phlegm, No short of breath, No stridor, No wheezing, No other Cardiovascular: see HPI, chest pain; No edema, No Hx of Intervention, No palpitations, No syncope, No vascular heart diseas, No other Gastrointestinal: no symptoms reported, see HPI Genitourinary: no symptoms reported, see HPI Musculoskeletal: no symptoms reported, see HPI Skin: No change in color, No rash Psychiatric/Neurological: Denies Headache, Denies Numbness Reviewed Test Results Reviewed Test Results Lab Laboratory Tests Test 12/31/18 02:25 12/31/18 02:28 12/31/18 02:34 12/31/18 05:11 Range/Units White Blood Count 12.3 H 4.3-11.0 10^3/uL Red Blood Count 3.88 L 4.35-5.85 10^6/uL Hemoglobin 11.7 L 13.3-17.7 G/DL Hematocrit 35 L 40-54 % Mean Corpuscular Volume 91 80-99 FL Mean Corpuscular Hemoglobin 30 25-34 PG Mean Corpuscular Hemoglobin Concent 33 32-36 G/DL Red Cell Distribution Width 12.8 10.0-14.5 % Platelet Count 239 130-400 10^3/uL Mean Platelet Volume 9.6 7.4-10.4 FL Neutrophils (%) (Auto) 80 H 42-75 % Lymphocytes (%) (Auto) 8 L 12-44 % Monocytes (%) (Auto) 6 0-12 % Eosinophils (%) (Auto) 6 0-10 % Basophils (%) (Auto) 0 0-10 % Neutrophils # (Auto) 9.9 H 1.8-7.8 X 10^3 Lymphocytes # (Auto) 1.0 1.0-4.0 X 10^3 Monocytes # (Auto) 0.7 0.0-1.0 X 10^3 Eosinophils # (Auto) 0.8 H 0.0-0.3 10^3/uL Basophils # (Auto) 0.1 0.0-0.1 10^3/uL Prothrombin Time 13.3 12.2-14.7 SEC INR Comment 1.0 0.8-1.4 Activated Partial Thromboplast Time 33 24-35 SEC Sodium Level 137 135-145 MMOL/L Potassium Level 4.4 3.6-5.0 MMOL/L Chloride Level 101 98-107 MMOL/L Carbon Dioxide Level 24 21-32 MMOL/L Anion Gap 12 5-14 MMOL/L Blood Urea Nitrogen 22 H 7-18 MG/DL Creatinine 1.64 H 0.60-1.30 MG/DL Estimat Glomerular Filtration Rate 43 BUN/Creatinine Ratio 13 Glucose Level 191 H 70-105 MG/DL Calcium Level 9.5 8.5-10.1 MG/DL Corrected Calcium 9.7 8.5-10.1 MG/DL Total Bilirubin 0.2 0.1-1.0 MG/DL Aspartate Amino Transf (AST/SGOT) 14 5-34 U/L Alanine Aminotransferase (ALT/SGPT) 10 0-55 U/L Alkaline Phosphatase 83 40-136 U/L Troponin I 0.043 H <0.028 NG/ML Total Protein 7.3 6.4-8.2 GM/DL Albumin 3.8 3.2-4.5 GM/DL Blood Gas Puncture Site LEFT RADIAL Blood Gas Patient Temperature 98.3 Arterial Blood pH 7.38 7.37-7.43 Arterial Blood Partial Pressure CO2 46 H 35-45 MMHG Arterial Blood Partial Pressure O2 63 L 79-93 MMHG Arterial Blood HCO3 26 23-27 MMOL/L Arterial Blood Total CO2 27.5 21.0-31.0 MMOL/L Arterial Blood Oxygen Saturation 92 L 94-100 % Arterial Blood Base Excess 1.4 -2.5-2.5 MMOL/L Osei Test YES-POS Blood Gas Ventilator Setting NO Blood Gas Inspired Oxygen ROOM AIR Lactic Acid Level 1.40 0.50-2.00 MMOL/L Glucometer 130 H 70-110 MG/DL Test 12/31/18 06:24 12/31/18 08:33 Range/Units White Blood Count 13.6 H 4.3-11.0 10^3/uL Red Blood Count 3.59 L 4.35-5.85 10^6/uL Hemoglobin 10.8 L 13.3-17.7 G/DL Hematocrit 33 L 40-54 % Mean Corpuscular Volume 92 80-99 FL Mean Corpuscular Hemoglobin 30 25-34 PG Mean Corpuscular Hemoglobin Concent 33 32-36 G/DL Red Cell Distribution Width 12.7 10.0-14.5 % Platelet Count 231 130-400 10^3/uL Mean Platelet Volume 9.4 7.4-10.4 FL Neutrophils (%) (Auto) 82 H 42-75 % Lymphocytes (%) (Auto) 6 L 12-44 % Monocytes (%) (Auto) 6 0-12 % Eosinophils (%) (Auto) 6 0-10 % Basophils (%) (Auto) 0 0-10 % Neutrophils # (Auto) 11.1 H 1.8-7.8 X 10^3 Lymphocytes # (Auto) 0.8 L 1.0-4.0 X 10^3 Monocytes # (Auto) 0.8 0.0-1.0 X 10^3 Eosinophils # (Auto) 0.9 H 0.0-0.3 10^3/uL Basophils # (Auto) 0.0 0.0-0.1 10^3/uL Sodium Level 139 135-145 MMOL/L Potassium Level 4.7 3.6-5.0 MMOL/L Chloride Level 105 98-107 MMOL/L Carbon Dioxide Level 26 21-32 MMOL/L Anion Gap 8 5-14 MMOL/L Blood Urea Nitrogen 19 H 7-18 MG/DL Creatinine 1.47 H 0.60-1.30 MG/DL Estimat Glomerular Filtration Rate 49 BUN/Creatinine Ratio 13 Glucose Level 135 H 70-105 MG/DL Calcium Level 9.2 8.5-10.1 MG/DL Corrected Calcium 9.7 8.5-10.1 MG/DL Total Bilirubin 0.2 0.1-1.0 MG/DL Aspartate Amino Transf (AST/SGOT) 11 5-34 U/L Alanine Aminotransferase (ALT/SGPT) 10 0-55 U/L Alkaline Phosphatase 74 40-136 U/L Total Protein 6.5 6.4-8.2 GM/DL Albumin 3.4 3.2-4.5 GM/DL Triglycerides Level 99 <150 MG/DL Cholesterol Level 84 < 200 MG/DL LDL Cholesterol Direct 39 1-129 MG/DL VLDL Cholesterol 20 5-40 MG/DL HDL Cholesterol 28 L 40-60 MG/DL Troponin I 0.099 H <0.028 NG/ML Physical Exam Physical Exam Vital Signs Vital Signs - First Documented 12/31/18 12/31/18 12/31/18 02:25 02:50 04:41 Temp 98.7 Pulse 103 Resp 30 B/P (MAP) 148/88 (108) Pulse Ox 93 O2 Delivery Room Air O2 Flow Rate 2.00 FiO2 21 Capillary Refill : Less Than 3 SecondsLess Than 3 Seconds Height, Weight, BMI Height: 5'8.00" Weight: 171lbs. 0.0oz. 77.152680wt; 26.0 BMI Method:Stated General Appearance: No Apparent Distress, WD/WN Eyes: Bilateral Eye Normal Inspection, Bilateral Eye PERRL, Bilateral Eye EOMI HEENT: Normal ENT Inspection Neck: Full Range of Motion, Normal Inspection Respiratory: No Accessory Muscle Use, No Respiratory Distress, Decreased Breath Sounds Cardiovascular: Regular Rate, Rhythm, No Gallop, No JVD, No Murmur, Systolic M urmur Gastrointestinal: Non Tender, Soft Back: Normal Inspection, No CVA Tenderness, No Vertebral Tenderness Extremity: Normal Capillary Refill, Normal Inspection, Normal Range of Motion, Non Tender, No Calf Tenderness, No Pedal Edema Neurologic/Psychiatric: Alert, Oriented x3, No Motor/Sensory Deficits, Normal Mood/Affect Skin: Normal Color, Warm/Dry Lymphatic: No Adenopathy A/P-Cardiology Admission Diagnosis Chest pain nonspecific etiology Coronary artery disease Pneumonia Hypertension Assessment/Plan chest pain, non-specific etiology, reporting inducible, probably muscu loskeletal, has abnormal EKG, cardiac enzymes are negative. Continue to monitor Coronary artery disease, patient is a poor historian reporting history of CABG and multiple intervention the past. I do not have any records on him. Continue to monitor cardiac enzymes, evaluate echocardiogram Hypertension, restart home medication monitor blood pressure Pneumonia, managed by primary care physician, receiving antibiotics Shortness of breath secondary to pneumonia. Hyperlipidemia, continue current medications Clinical Quality Measures DVT/VTE Risk/Contraindication: Risk Factor Score Per Nursin RFS Level Per Nursing on Admit: 4+=Very High AARON DAWSON MD Dec 31, 2018 09:57
[2018-12-31] MEDS ORDERED: GABA-486 PO (11:29)
[2018-12-31] MEDS ORDERED: OLAN5TAB25 PO ×2 (11:29)
[2018-12-31] MEDS ORDERED: ACET325T38 PO (11:29)
[2018-12-31] MEDS ORDERED: MAG30ORA2 PO (11:29)
--- NOTE | 2018-12-31 11:36 | NUR ---
UPDATED MED REC WITH ORDER SUMMARY REPORT FROM [facility]. THE EXT MED HX SHOWS SEVERAL MEDICATIONS THAT ARE NOT ADDRESSED ON THE MED LIST FROM THE ALF. I CALLED THEM AND THEY VERIFIED THE LIST THEY SENT OVER IS UP TO DATE. THEY REPORT HE WAS IN THE HOSPITAL IN [place] RECENTLY AND THEY MADE SEVERAL CHANGES.
[2018-12-31] MEDS: SEVELAMER CARBONATE 800 MG TABLET (RENVELA) PO SCH ×3 (13:07→17:20)
--- NOTE | 2018-12-31 14:16 | Physician Query Clarification ---
PQ-Conflicting Diagnosis Admission/Discharge Admission Date: Dec 31, 2018 at 03:15 Discharge Date: The medical record reflects the following clinical scenario: History/Risk Factors: Pneumonia UTI Clinical Findings: T98.7, Pulse 103, Resp 30, BP 148/88, WBC 12.3, Lactic acid 1.40. Treatment:IV Cefepime HCI Question: Do you agree with the impression of Sepsis per Dr. Diomedes Aguillon, ED physician? Please document a response in Progress Note or Discharge Summary. 1. Yes 2. No 3. Other, with explanation of clinical findings 4. Clinically undetermined, no explanation for clinical findings. PHYSICIAN RESPONSE Do you agree w/Consulting Dx?: Yes Please remember a lack of response to the above will prompt a phone page by CDI/Coding staff. In responding to this query, please exercise your independent professional judgment. The purpose of this communication is to more accurately reflect the complexity of your patients condition. The fact that a question is asked does not imply that any particular answer is desired or expected. Thank you for your timely response to this clarification. Requestors name: Soraya Mahoney CCS,CCDS Phone # ext [phone] or [phone] THIS PHYSICIAN QUERY FORM IS A PERMANENT PART OF THE MEDICAL RECORD SORAYA MAHONEY Dec 31, 2018 14:15 GIOVANNY CODY DO Jan 04, 2019 07:38
[2018-12-31] MEDS: NICOTINE 21 MG (NICODERM) PATCH TD SCH (15:02)
[2018-12-31] MEDS: TAMSULOSIN 0.4 MG (FLOMAX) CAP PO SCH (17:20)
[2018-12-31] MEDS: CEFEPIME INJECTION 2,000 MG in WATER (STERILE) FOR INJECTION 20 ML IV SCH (21:41)
[2018-12-31] MEDS: GABAPENTIN 100 MG (NEURONTIN) CAP PO SCH (21:42)
[2018-12-31] MEDS: ATORVASTATIN 80 MG (LIPITOR) TABLET PO SCH (21:42)
[2018-12-31] MEDS: MONTELUKAST 10 MG (SINGULAIR) TAB PO SCH (21:43)
[2019-01-01] VITALS: BP 140/78
[2019-01-01] MEDS: RT-ALBUTEROL/IPRATROPIUM 3 ML (DUONEB) VIAL INH SCH ×4 (02:15→20:20)
[2019-01-01 04:00] VITALS: BP 151/90
[2019-01-01 05:50] LABS: BASOPHILS # (AUTO) 0.1 10^3/uL (0.0-0.1); BASOPHILS % (AUTO) 1 % (0-10); EOSINOPHILS # (AUTO) 0.8 10^3/uL (0.0-0.3); EOSINOPHILS % (AUTO) 10 % (0-10); HEMATOCRIT 35 % (40-54); HEMOGLOBIN 11.4 G/DL (13.3-17.7); LYMPHOCYTES # (AUTO) 1.1 X 10^3 (1.0-4.0); LYMPHOCYTES % (AUTO) 13 % (12-44); MEAN CORPUSCULAR HEMOGLOBIN 30 PG (25-34); MEAN CORPUSCULAR HGB CONC 33 G/DL (32-36); MEAN CORPUSCULAR VOLUME 93 FL (80-99); MEAN PLATELET VOLUME 9.4 FL (7.4-10.4); MONOCYTES # (AUTO) 0.8 X 10^3 (0.0-1.0); MONOCYTES % (AUTO) 9 % (0-12); NEUTROPHILS # (AUTO) 5.6 X 10^3 (1.8-7.8); NEUTROPHILS % (AUTO) 68 % (42-75); PLATELET COUNT 215 10^3/uL (130-400); RED CELL DISTRIBUTION WIDTH 12.8 % (10.0-14.5); WHITE BLOOD COUNT 8.3 10^3/uL (4.3-11.0)
[2019-01-01 06:16] LABS: ALBUMIN 3.3 GM/DL (3.2-4.5); BILIRUBIN,TOTAL 0.2 MG/DL (0.1-1.0); CALCIUM 8.9 MG/DL (8.5-10.1); CREATININE SERUM 1.8 MG/DL (0.60-1.30); POTASSIUM 4.5 MMOL/L (3.6-5.0); TOTAL PROTEIN 6.5 GM/DL (6.4-8.2)
[2019-01-01] MEDS: SEVELAMER CARBONATE 800 MG TABLET (RENVELA) PO SCH ×3 (06:28→17:23)
[2019-01-01] MEDS: inSUlin ASPART (NovoLOG) 1 UNIT/0.01 ML (CHARGE PER UNIT) SC SCH ×4 (06:28→22:16)
[2019-01-01 07:47] VITALS: BP 142/75
[2019-01-01] MEDS: CARVEDILOL 3.125 MG (COREG) TABLET PO SCH ×2 (08:59→22:20)
[2019-01-01] MEDS: LORATADINE (CLARITIN) 10 MG TAB PO SCH (08:59)
[2019-01-01] MEDS: lisINopril 5 MG (PRINIVIL) TABLET PO SCH (08:59)
[2019-01-01] MEDS: OLANZapine 5 MG (ZyPREXA) TAB PO SCH ×2 (08:59→22:23)
[2019-01-01] MEDS: ASPIRIN E.C. 81 MG (ECOTRIN) TAB PO SCH (08:59)
[2019-01-01] MEDS: ENOXAPARIN 40 MG/0.4 ML (LOVENOX) SYR SC SCH (08:59)
[2019-01-01] MEDS ORDERED: NICOTINE 21 MG (NICODERM) PATCH TD SCH (09:00)
[2019-01-01] MEDS: NICOTINE 21 MG (NICODERM) PATCH TD SCH (09:00)
[2019-01-01] MEDS: FLUTICASONE NASAL SPRAY (FLONASE) 16 GM BTL NS SCH (09:01)
[2019-01-01] MEDS: DIVALPROX SPRINKLE 125 MG (DEPAKOTE) CAP PO SCH ×2 (09:01→22:20)
[2019-01-01] MEDS: PANTOPRAZOLE 40 MG (PROTONIX) TAB PO SCH (09:04)
[2019-01-01] MEDS: NS IV 1000 ML 1,000 ML IV SCH (09:04)
--- NOTE | 2019-01-01 09:33 | Diagnostic Imaging Report ---
INDICATION: Pneumonia, followup. TECHNIQUE: Two view chest at 8:48 AM CORRELATION STUDY: 12/31/2018 FINDINGS: Poststernotomy changes. Heart size and mediastinum stable. Vasculature perhaps slightly increased. Scattered pulmonary parenchymal densities are noted throughout both lung rodriguez, right greater than left. Likely pleural thickening versus pleural effusions, right greater than left. Visualized osseous structures are unremarkable. IMPRESSION: 1. Scattered pulmonary parenchymal densities along with pleural thickening versus less likely pleural effusion is overall generally stable. No definitive adverse interval change. Dictated by: Dictated on workstation # [id number]
--- NOTE | 2019-01-01 10:41 | Cardiology Progress Note ---
Subjective Date Seen by Provider: Jan 01, 2019 Time Seen by Provider: 10:39 Subjective/Events-last exam patient is laying down in bed, asking to go back to the residential, denied any chest pain or shortness of breath at this time. No palpitation Review of Systems General: No Chills, No Night Sweats, No Fatigue, No Malaise, No Appetite, No Other HEENT: No Head Aches, No Visual Changes, No Eye Pain, No Ear Pain, No Dysphasia, No Sinus Congestion, No Post Nasal Drip, No Sore Throat, No Other Pulmonary: No Dyspnea, No Cough, No Pleuritic Chest Pain, No Other Cardiovascular: No: Chest Pain, Palpitations, Orthopnea, Paroxysmal Noc. Dyspnea, Edema, Lt Headedness, Other Focused Exam Lactate Level 12/31/18 02:34: Lactic Acid Level 1.40 Objective-Cardiology Exam Last Set of Vital Signs Vital Signs 12/31/18 12/31/18 01/01/19 01/01/19 04:41 20:00 07:47 08:00 Temp 97.0 Pulse 72 Resp 20 B/P (MAP) 142/75 (97) Pulse Ox 94 O2 Delivery Room Air O2 Flow Rate 2.00 FiO2 21 Capillary Refill : Less Than 3 SecondsLess Than 3 Seconds I&O Intake and Output 01/01/19 00:00 Intake Total 4770 ml Output Total 1750 ml Balance 3020 ml Intake Oral 2760 ml IV Total 2010 ml Output Urine Total 1750 ml # Voids 4 # Bowel Movements 1 Daily Weight Change No No General: Alert, Oriented X3, Cooperative HEENT: Atraumatic, PERRLA Neck: Supple, No JVD, No Thyromegaly Lungs: Normal Air Movement, Other (bilateral rhonchi) Heart: Regular Rate, Normal S1, Normal S2, No Murmurs Abdomen: Normal Bowel Sounds, Soft, No Tenderness, No Hepatosplenomegaly, No Masses Extremities: No Clubbing, No Cyanosis, No Edema, Normal Pulses, No Tenderness/Swelling Skin: No Rashes, No Breakdown, No Significant Lesion Neuro: Normal Tone, Sensation Intact, Other Psych/Mental Status: Mood NL Results Lab Laboratory Tests 01/01/19 05:18 A/P-Cardiology Admission Diagnosis Chest pain nonspecific etiology Coronary artery disease Pneumonia Hypertension Assessment/Plan Chest pain, non-specific etiology, reporting inducible, probably musculoskeletal, has abnormal EKG, has slight elevation in troponin level, still below 0.3. Continue to monitor the trend and continue on aspirin Coronary artery disease, patient is a poor historian reporting history of CABG and multiple intervention the past. I do not have any records on him. I will evaluate echo, planning to do stress test once clinically more stable Hypertension, good control at this time, continue to monitor blood pressure Pneumonia, managed by primary care physician, receiving antibiotics Shortness of breath, bilateral pulmonary rhonchi, receiving antibiotic. Hyperlipidemia, continue current medications Clinical Quality Measures DVT/VTE Risk/Contraindication: Risk Factor Score Per Nursin RFS Level Per Nursing on Admit: 4+=Very High AARON DAWSON MD Jan 01, 2019 10:41
--- NOTE | 2019-01-01 11:41 | Progress Note - Hospitalist ---
Subjective HPI/CC On Admission Date Seen by Provider: Jan 01, 2019 Time Seen by Provider: 11:00 Subjective/Events-last exam patient is asking when he can go home. patient complains of urinary incontinence. Bladder scan shows a 700 mL residual. he denies shortness of breath. He has been afebrile overnight. Troponin has increased a little bit. Review of Systems Pulmonary: Cough Genitourinary: Incontinence Neurological: Weakness Focused Exam Lactate Level 12/31/18 02:34: Lactic Acid Level 1.40 Objective Exam Vital Signs Vital Signs Date Time Temp Pulse Resp B/P (MAP) Pulse Ox O2 Delivery O2 Flow Rate FiO2 01/02/19 08:00 97.6 76 20 136/86 (103) 91 Room Air 12/31/18 20:00 2.00 12/31/18 04:41 21 Capillary Refill : Less Than 3 SecondsLess Than 3 Seconds General Appearance: Chronically ill HEENT: Other (edentulous) Neck: Limited Range of Motion Respiratory: Chest Non Tender, No Accessory Muscle Use, No Respiratory Distres s, Crackles Cardiovascular: Regular Rate, Rhythm, No Gallop, No Murmur Gastrointestinal: Non Tender, Soft Extremity: No Pedal Edema Neurologic/Psychiatric: Alert, Oriented x3, No Motor/Sensory Deficits, Depressed Affect Results/Procedures Lab Laboratory Tests 01/02/19 05:49 Patient resulted labs reviewed. Assessment/Plan Assessment and Plan Assess & Plan/Chief Complaint 1. Pneumonia- 2. elevated troponin with a history of heart disease appreciate Dr. Cabrales- stress test as patient stabilizes 3. renal failure worsening will need renal sono and consideration for urology consult for urinary retention 4. history of schizophrenia. 5. Tobaccoism Clinical Quality Measures DVT/VTE Risk/Contraindication: Risk Factor Score Per Nursin RFS Level Per Nursing on Admit: 4+=Very High ELDA DAILEY MD Jan 01, 2019 11:41
[2019-01-01 12:00] VITALS: BP 128/67
[2019-01-01 15:35] VITALS: BP 135/81
[2019-01-01] MEDS: TAMSULOSIN 0.4 MG (FLOMAX) CAP PO SCH (17:23)
[2019-01-01 19:40] VITALS: BP 129/79
[2019-01-01] MEDS: ATORVASTATIN 80 MG (LIPITOR) TABLET PO SCH (22:20)
[2019-01-01] MEDS: GABAPENTIN 100 MG (NEURONTIN) CAP PO SCH (22:20)
[2019-01-01] MEDS: MONTELUKAST 10 MG (SINGULAIR) TAB PO SCH (22:20)
[2019-01-01] MEDS: CEFEPIME INJECTION 2,000 MG in WATER (STERILE) FOR INJECTION 20 ML IV SCH ×2 (22:21→23:24)
[2019-01-02 00:21] VITALS: BP 134/75
[2019-01-02 04:25] VITALS: BP 107/72
[2019-01-02 06:03] LABS: BASOPHILS % (AUTO) 1 % (0-10); EOSINOPHILS # (AUTO) 0.7 10^3/uL (0.0-0.3); EOSINOPHILS % (AUTO) 12 % (0-10); HEMATOCRIT 36 % (40-54); HEMOGLOBIN 11.7 G/DL (13.3-17.7); LYMPHOCYTES % (AUTO) 17 % (12-44); MEAN CORPUSCULAR HEMOGLOBIN 30 PG (25-34); MEAN CORPUSCULAR HGB CONC 33 G/DL (32-36); MEAN CORPUSCULAR VOLUME 93 FL (80-99); MEAN PLATELET VOLUME 9.1 FL (7.4-10.4); MONOCYTES # (AUTO) 0.7 X 10^3 (0.0-1.0); MONOCYTES % (AUTO) 11 % (0-12); NEUTROPHILS # (AUTO) 3.5 X 10^3 (1.8-7.8); NEUTROPHILS % (AUTO) 59 % (42-75); PLATELET COUNT 225 10^3/uL (130-400); RED CELL DISTRIBUTION WIDTH 12.9 % (10.0-14.5); WHITE BLOOD COUNT 5.9 10^3/uL (4.3-11.0)
[2019-01-02 06:31] LABS: ALBUMIN 3.2 GM/DL (3.2-4.5); BILIRUBIN,TOTAL 0.2 MG/DL (0.1-1.0); CALCIUM 8.9 MG/DL (8.5-10.1); CREATININE SERUM 1.9 MG/DL (0.60-1.30); POTASSIUM 4.5 MMOL/L (3.6-5.0); TOTAL PROTEIN 6.5 GM/DL (6.4-8.2)
[2019-01-02] MEDS: SEVELAMER CARBONATE 800 MG TABLET (RENVELA) PO SCH ×3 (06:31→17:31)
[2019-01-02] MEDS: inSUlin ASPART (NovoLOG) 1 UNIT/0.01 ML (CHARGE PER UNIT) SC SCH ×4 (06:31→22:59)
[2019-01-02 08:00] VITALS: BP 136/86
[2019-01-02] MEDS: lisINopril 5 MG (PRINIVIL) TABLET PO SCH (08:44)
[2019-01-02] MEDS: CARVEDILOL 3.125 MG (COREG) TABLET PO SCH ×2 (08:44→22:04)
[2019-01-02] MEDS: NICOTINE 21 MG (NICODERM) PATCH TD SCH (08:44)
[2019-01-02] MEDS: LORATADINE (CLARITIN) 10 MG TAB PO SCH (08:44)
[2019-01-02] MEDS: PANTOPRAZOLE 40 MG (PROTONIX) TAB PO SCH (08:44)
[2019-01-02] MEDS: ENOXAPARIN 40 MG/0.4 ML (LOVENOX) SYR SC SCH (08:44)
[2019-01-02] MEDS: ASPIRIN E.C. 81 MG (ECOTRIN) TAB PO SCH (08:44)
[2019-01-02] MEDS: OLANZapine 5 MG (ZyPREXA) TAB PO SCH ×2 (08:44→22:04)
[2019-01-02] MEDS: FLUTICASONE NASAL SPRAY (FLONASE) 16 GM BTL NS SCH (08:45)
[2019-01-02] MEDS: DIVALPROX SPRINKLE 125 MG (DEPAKOTE) CAP PO SCH ×2 (08:45→22:04)
[2019-01-02] MEDS: PATCH REMOVAL TP SCH (08:59)
--- NOTE | 2019-01-02 09:59 | Cardiology Progress Note ---
Subjective Date Seen by Provider: Jan 02, 2019 Time Seen by Provider: 09:56 Subjective/Events-last exam Patient is in bed, feeling better, complaining of incontinence, no chest pain Review of Systems General: No Chills, No Night Sweats, No Fatigue, No Malaise, No Appetite, No Other HEENT: No Head Aches, No Visual Changes, No Eye Pain, No Ear Pain, No Dysphasia, No Sinus Congestion, No Post Nasal Drip, No Sore Throat, No Other Pulmonary: No Dyspnea, No Cough, No Pleuritic Chest Pain, No Other Cardiovascular: No: Chest Pain, Palpitations, Orthopnea, Paroxysmal Noc. Dyspnea, Edema, Lt Headedness, Other Focused Exam Lactate Level 12/31/18 02:34: Lactic Acid Level 1.40 Objective-Cardiology Exam Last Set of Vital Signs Vital Signs 12/31/18 12/31/18 01/02/19 01/02/19 01/02/19 04:41 20:00 04:25 07:00 07:42 Temp 98.5 Pulse 68 Resp 18 B/P (MAP) 107/72 (84) Pulse Ox 94 O2 Delivery Room Air O2 Flow Rate 2.00 FiO2 21 Capillary Refill : Less Than 3 SecondsLess Than 3 Seconds I&O Intake and Output 01/02/19 00:00 Intake Total 2680 ml Balance 2680 ml Intake Oral 1780 ml IV Total 900 ml # Voids 7 # Bowel Movements 2 General: Alert, Oriented X3, Cooperative HEENT: Atraumatic, PERRLA Neck: Supple, No JVD, No Thyromegaly Lungs: Clear to Auscultation, Normal Air Movement Heart: Regular Rate, Normal S1, Normal S2, No Murmurs Abdomen: Normal Bowel Sounds, Soft, No Tenderness, No Hepatosplenomegaly, No Masses Extremities: No Clubbing, No Cyanosis, No Edema, Normal Pulses, No Tenderness/Swelling Skin: No Rashes, No Breakdown, No Significant Lesion Neuro: Normal Tone, Sensation Intact, Other Psych/Mental Status: Mood NL Results Lab Laboratory Tests 01/02/19 05:49 A/P-Cardiology Admission Diagnosis Chest pain nonspecific etiology Coronary artery disease Pneumonia Hypertension Assessment/Plan Chest pain, non-specific etiology, reporting inducible, probably musculoskeletal, has abnormal EKG, has slight elevation in troponin level, still below 0.3. Continue to monitor the trend and continue on aspirin, planning for stress test as an outpatient Coronary artery disease, patient is a poor historian reporting history of CABG and multiple intervention the past. I do not have any records on him, currently stable, continue to monitor Hypertension, good control at this time, continue to monitor blood pressure Acute on chronic renal failure, worsening renal function, could be secondary to SATHISH inhibitor. I will continue to monitor for now. Will consider discontinuation of SATHISH inhibitor if he continued to have worsening renal function Urinary incontinence, probably overflow, managed by primary carenext Diabetes mellitus, followed and managed by primary care physician Pneumonia, managed by primary care physician, receiving antibiotics Shortness of breath, reporting improvement. Continue to monitor Hyperlipidemia, continue current medications Clinical Quality Measures DVT/VTE Risk/Contraindication: Risk Factor Score Per Nursin RFS Level Per Nursing on Admit: 4+=Very High AARON DAWSON MD Jan 02, 2019 09:59
[2019-01-02] MEDS: RT-ALBUTEROL/IPRATROPIUM 3 ML (DUONEB) VIAL INH SCH ×3 (10:19→22:45)
--- NOTE | 2019-01-02 10:32 | Progress Note - Hospitalist ---
Subjective HPI/CC On Admission Date Seen by Provider: Jan 02, 2019 Time Seen by Provider: 10:00 Subjective/Events-last exam patient wants to go back home but he does not know what facility he was at. He continues to complain of incontinence, post void residual was 700 mL. He is already on Flomax, will begin to try and straight catheter him Twice a day to see if that doesn't help. he denies having any chest pain or any shortness of air Review of Systems Genitourinary: Incontinence Focused Exam Lactate Level 12/31/18 02:34: Lactic Acid Level 1.40 Objective Exam Vital Signs Vital Signs Date Time Temp Pulse Resp B/P (MAP) Pulse Ox O2 Delivery O2 Flow Rate FiO2 01/02/19 08:00 97.6 76 20 136/86 (103) 91 Room Air 12/31/18 20:00 2.00 12/31/18 04:41 21 Capillary Refill : Less Than 3 SecondsLess Than 3 Seconds General Appearance: No Apparent Distress, WD/WN HEENT: Other (is edentulous) Neck: Full Range of Motion, Non Tender, Supple Respiratory: Lungs Clear, Normal Breath Sounds, No Accessory Muscle Use, No Respiratory Distress Cardiovascular: Regular Rate, Rhythm, No Gallop, No JVD, No Murmur, Normal Peripheral Pulses Gastrointestinal: Normal Bowel Sounds, Non Tender, Soft Rectal: Deferred Extremity: Normal Capillary Refill, Normal Range of Motion, No Pedal Edema Results/Procedures Lab Laboratory Tests 01/02/19 05:49 Patient resulted labs reviewed. Assessment/Plan Assessment and Plan Assess & Plan/Chief Complaint 1. Pneumonia-chest x-ray is cleared still on cefepime 2. elevated troponin with a history of heart disease appreciate Dr. Cabrales input- stress test as patient stabilizes as an outpatient 3. renal failure worsening will need renal sono in am and consideration for urology consult for urinary retention- we'll begin straight catheter twice a day 4. history of schizophrenia. 5. Tobaccoism- curtailed Clinical Quality Measures DVT/VTE Risk/Contraindication: Risk Factor Score Per Nursin RFS Level Per Nursing on Admit: 4+=Very High ELDA DAILEY MD Jan 02, 2019 10:32
[2019-01-02 12:00] VITALS: BP 155/101
[2019-01-02 16:26] VITALS: BP 176/88
[2019-01-02] MEDS: TAMSULOSIN 0.4 MG (FLOMAX) CAP PO SCH (17:31)
[2019-01-02 19:24] VITALS: BP 170/82
[2019-01-02 19:47] LABS: BILIRUBIN,URINE NEGATIVE (NEGATIVE); CLARITY,URINE MUCOUS; COLOR,URINE YELLOW; GLUCOSE, URINE (UA) NEGATIVE (NEGATIVE); KETONES,URINE NEGATIVE (NEGATIVE); LEUKOCYTE ESTERASE ,URINE 3+ (NEGATIVE); NITRITE,URINE POSITIVE (NEGATIVE); PH,URINE 7 (5-9); PROTEIN,URINE 3+ (NEGATIVE); UROBILINOGEN,URINE NORMAL (NORMAL)
[2019-01-02 19:57] LABS: BACTERIA,URINE LARGE /HPF; SQUAMOUS EPITHELIAL CELL,UR RARE /HPF; WBC,URINE 25-50 /HPF
[2019-01-02] MEDS: ATORVASTATIN 80 MG (LIPITOR) TABLET PO SCH (22:04)
[2019-01-02] MEDS: GABAPENTIN 100 MG (NEURONTIN) CAP PO SCH (22:04)
[2019-01-02] MEDS: CEFEPIME INJECTION 2,000 MG in WATER (STERILE) FOR INJECTION 20 ML IV SCH (22:04)
[2019-01-02] MEDS: MONTELUKAST 10 MG (SINGULAIR) TAB PO SCH (22:05)
[2019-01-03] VITALS (7 sets, daily range): BP systolic 115–173; BP diastolic 63–98
[2019-01-03] MEDS: CEFEPIME INJECTION 2,000 MG in WATER (STERILE) FOR INJECTION 20 ML IV SCH (00:57)
--- NOTE | 2019-01-03 00:58 | NUR ---
patient IV infiltrated when this RN flushed it before administering antibiotics. this RN attempted but failed to start an IV. three more attempts to start an IV were done by two other RNs. After the 4th attempt, patient states he does not want to be poked anymore. This RN explained the importance of receiving the IV antibiotics for his recovery, and the potential outcomes if he does not receive it. Patient still refused getting an IV to receive antibiotics.
[2019-01-03] MEDS: RT-ALBUTEROL/IPRATROPIUM 3 ML (DUONEB) VIAL INH SCH ×3 (03:09→15:00)
[2019-01-03 05:30] LABS: BASOPHILS # (AUTO) 0.1 10^3/uL (0.0-0.1); BASOPHILS % (AUTO) 1 % (0-10); EOSINOPHILS # (AUTO) 0.7 10^3/uL (0.0-0.3); EOSINOPHILS % (AUTO) 11 % (0-10); HEMATOCRIT 35 % (40-54); HEMOGLOBIN 11.8 G/DL (13.3-17.7); LYMPHOCYTES # (AUTO) 1.5 X 10^3 (1.0-4.0); LYMPHOCYTES % (AUTO) 21 % (12-44); MEAN CORPUSCULAR HEMOGLOBIN 31 PG (25-34); MEAN CORPUSCULAR HGB CONC 34 G/DL (32-36); MEAN CORPUSCULAR VOLUME 91 FL (80-99); MEAN PLATELET VOLUME 9.4 FL (7.4-10.4); MONOCYTES # (AUTO) 0.7 X 10^3 (0.0-1.0); MONOCYTES % (AUTO) 10 % (0-12); NEUTROPHILS % (AUTO) 57 % (42-75); PLATELET COUNT 212 10^3/uL (130-400); RED CELL DISTRIBUTION WIDTH 12.3 % (10.0-14.5)
[2019-01-03 05:54] LABS: CALCIUM 8.8 MG/DL (8.5-10.1); CREATININE SERUM 1.82 MG/DL (0.60-1.30); POTASSIUM 4.7 MMOL/L (3.6-5.0)
[2019-01-03] MEDS: inSUlin ASPART (NovoLOG) 1 UNIT/0.01 ML (CHARGE PER UNIT) SC SCH ×2 (06:10→11:00)
[2019-01-03] MEDS: SEVELAMER CARBONATE 800 MG TABLET (RENVELA) PO SCH ×2 (06:25→12:15)
--- NOTE | 2019-01-03 08:13 | Progress Note ---
Subjective Time Seen by a Provider: 08:11 Subjective/Events-last exam Patient refusing IV antibiotics. Patient did not complain of chest pain. GFR 38 yesterday 36 Objective Exam Vital Signs Date Time Temp Pulse Resp B/P (MAP) Pulse Ox O2 Delivery O2 Flow Rate FiO2 01/03/19 07:00 78 01/03/19 04:00 97.9 80 18 115/67 (83) 94 Room Air 01/03/19 01:00 74 01/03/19 00:00 98.6 75 16 173/98 (123) 96 Room Air 01/02/19 20:00 Room Air 01/02/19 19:24 97.9 71 20 170/82 (111) 100 Room Air 01/02/19 19:03 67 01/02/19 16:26 97.6 63 18 176/88 (117) 99 Room Air 01/02/19 16:11 95 Room Air 01/02/19 12:32 74 01/02/19 12:00 97.8 60 20 155/101 (119) 100 Room Air I & O 01/03/19 07:00 Intake Total 3064 ml Balance 3064 ml Capillary Refill : Less Than 3 SecondsLess Than 3 Seconds General Appearance: No Apparent Distress, WD/WN HEENT: Normal ENT Inspection Neck: Full Range of Motion, Normal Inspection Respiratory: No Accessory Muscle Use, No Respiratory Distress, Other (Course) Cardiovascular: Regular Rate, Rhythm, No Murmur Gastrointestinal: non tender, soft Results Lab Laboratory Tests 01/03/19 04:50 Laboratory Tests 01/02/19 11:12: Glucometer 125H 01/02/19 16:29: Glucometer 148H 01/02/19 17:30: Urine Color YELLOW, Urine Clarity MUCOUS, Urine pH 7, Urine Specific [place] 1.010L, Urine Protein 3+H, Urine Glucose (UA) NEGATIVE, Urine Ketones NEGATIVE, Urine Nitrite POSITIVEH, Urine Bilirubin NEGATIVE, Urine Urobilinogen NORMAL, Urine Leukocyte Esterase 3+H, Urine RBC (Auto) 4+H, Urine RBC 10-25H, Urine WBC 25-50H, Urine Squamous Epithelial Cells RARE, Urine Crystals NONE, Urine Bacteria LARGEH, Urine Casts NONE, Urine Mucus LARGEH, Urine Culture Indicated CULTURE PENDING 01/02/19 22:09: Glucometer 226H 01/02/19 22:58: Glucometer 168H 01/03/19 04:50: White Blood Count 7.0, Red Blood Count 3.86L, Hemoglobin 11.8L, Hematocrit 35L, Mean Corpuscular Volume 91, Mean Corpuscular Hemoglobin 31, Mean Corpuscular Hemoglobin Concent 34, Red Cell Distribution Width 12.3, Platelet Count 212, Mean Platelet Volume 9.4, Neutrophils (%) (Auto) 57, Lymphocytes (%) (Auto) 21, Monocytes (%) (Auto) 10, Eosinophils (%) (Auto) 11H, Basophils (%) (Auto) 1, Neutrophils # (Auto) 4.0, Lymphocytes # (Auto) 1.5, Monocytes # (Auto) 0.7, Eosinophils # (Auto) 0.7H, Basophils # (Auto) 0.1, Sodium Level 143, Potassium Level 4.7, Chloride Level 105, Carbon Dioxide Level 25, Anion Gap 13, Blood Urea Nitrogen 37H, Creatinine 1.82H, Estimat Glomerular Filtration Rate 38, BUN/C reatinine Ratio 20, Glucose Level 101, Calcium Level 8.8 01/03/19 05:50: Glucometer 100 Microbiology 12/31/18 Blood Culture - Preliminary, Resulted No growth Assessment/Plan Assessment/Plan Assess & Plan/Chief Complaint Pneumonia. Sepsis. Nonspecific chest pain. Patient feeling better today. Waiting on chest x-ray results. Patient refuses IV antibiotics Clinical Quality Measures Admission Status Admission Dx Renal insufficiency. Pneumonia. Short of breath. Coronary artery disease. Chest pain. Hypoxic pulse ox 84 percent. Wheezing. CABG. Hypertension DVT/VTE Risk/Contraindication: Risk Factor Score Per Nursin RFS Level Per Nursing on Admit: 4+=Very High GIOVANNY CODY DO Jan 03, 2019 08:13
--- NOTE | 2019-01-03 08:53 | Diagnostic Imaging Report ---
PROCEDURE: US Renal Bilateral. TECHNIQUE: Multiple real-time grayscale images were obtained over the kidneys in various projections bilaterally. INDICATION: Renal insufficiency. FINDINGS: Right kidney measures 11.3 x 5.3 x 6.2 cm and the left kidney measures 12.8 x 5.8 x 6.3 cm. Cortical thickness is normal. There is moderate hydronephrosis bilaterally. No calculi are seen. The bladder wall appears to be thickened. Ureteral jets were not visualized. IMPRESSION: Moderate bilateral hydronephrosis. There is also bladder wall thickening, indeterminate between mass versus cystitis. Dictated by: Dictated on workstation # [id number]
[2019-01-03] MEDS ORDERED: CEFDINIR 300 MG (OMNICEF) CAP PO SCH (09:00)
--- NOTE | 2019-01-03 09:01 | Cardiology Progress Note ---
Subjective Date Seen by Provider: Jan 03, 2019 Time Seen by Provider: 09:00 Subjective/Events-last exam Patient is sitting up in bed, no new complaints. Denies any further episode of chest pain. Objective-Cardiology Exam Last Set of Vital Signs Vital Signs 12/31/18 12/31/18 01/03/19 04:41 20:00 08:00 Temp 96.4 Pulse 76 Resp 20 B/P (MAP) 143/83 (103) Pulse Ox 99 O2 Delivery Room Air O2 Flow Rate 2.00 FiO2 21 Capillary Refill : Less Than 3 SecondsLess Than 3 Seconds I&O Intake and Output 01/03/19 00:00 Intake Total 2910 ml Balance 2910 ml Intake Oral 2890 ml IV Total 20 ml # Voids 7 # Bowel Movements 1 General: Alert, Oriented X3, Cooperative HEENT: Atraumatic, PERRLA Neck: Supple, No JVD, No Thyromegaly Lungs: Clear to Auscultation, Normal Air Movement Heart: Regular Rate, Normal S1, Normal S2, No Murmurs Abdomen: Normal Bowel Sounds, Soft, No Tenderness, No Hepatosplenomegaly, No Masses Extremities: No Clubbing, No Cyanosis, No Edema, Normal Pulses, No Tenderness/Swelling Skin: No Rashes, No Breakdown, No Significant Lesion Neuro: Normal Tone, Sensation Intact, Other Psych/Mental Status: Mood NL Results Lab Laboratory Tests 01/03/19 04:50 A/P-Cardiology Admission Diagnosis Chest pain nonspecific etiology Coronary artery disease Pneumonia Hypertension Assessment/Plan Chest pain, non-specific etiology, reporting inducible, probably musculoskeletal, has abnormal EKG, has slight elevation in troponin level, still below 0.3. Continue to monitor the trend and continue on aspirin, planning for stress test as an outpatient Coronary artery disease, patient is a poor historian reporting history of CABG and multiple intervention the past. I do not have any records on him, currently stable, continue to monitor Hypertension, good control at this time, continue to monitor blood pressure Acute on chronic renal failure, worsening renal function, could be secondary to SATHISH inhibitor. I will continue to monitor for now. Will consider discontinuation of SATHISH inhibitor if he continued to have worsening renal function Urinary incontinence, probably overflow, managed by primary carenext Diabetes mellitus, followed and managed by primary care physician Pneumonia, managed by primary care physician, receiving antibiotics Shortness of breath, reporting improvement. Continue to monitor Hyperlipidemia, continue current medications Clinical Quality Measures DVT/VTE Risk/Contraindication: Risk Factor Score Per Nursin RFS Level Per Nursing on Admit: 4+=Very High LAMONT DONAHUE Jan 03, 2019 09:01
[2019-01-03] MEDS: NICOTINE 21 MG (NICODERM) PATCH TD SCH (09:03)
[2019-01-03] MEDS: OLANZapine 5 MG (ZyPREXA) TAB PO SCH (09:04)
[2019-01-03] MEDS: LORATADINE (CLARITIN) 10 MG TAB PO SCH (09:04)
[2019-01-03] MEDS: CARVEDILOL 3.125 MG (COREG) TABLET PO SCH (09:04)
[2019-01-03] MEDS: PANTOPRAZOLE 40 MG (PROTONIX) TAB PO SCH (09:04)
[2019-01-03] MEDS: ENOXAPARIN 40 MG/0.4 ML (LOVENOX) SYR SC SCH (09:04)
[2019-01-03] MEDS: ASPIRIN E.C. 81 MG (ECOTRIN) TAB PO SCH (09:05)
[2019-01-03] MEDS: lisINopril 5 MG (PRINIVIL) TABLET PO SCH (09:05)
[2019-01-03] MEDS: FLUTICASONE NASAL SPRAY (FLONASE) 16 GM BTL NS SCH (09:05)
[2019-01-03] MEDS: PATCH REMOVAL TP SCH (09:05)
--- NOTE | 2019-01-03 09:24 | Diagnostic Imaging Report ---
Examination: Chest one view. History: Followup pneumonia. Findings: Comparison is 01/01/2019. Median sternotomy wires are unchanged. Coronary artery bypass graft clips are seen. Heart size and mediastinal contours are unchanged without cardiomegaly. There is no pneumothorax. Skinfold or overlying clothing projects over the right chest. Right base airspace opacity appears similar to prior exam keeping with pneumonia. There is a small right pleural effusion, unchanged. Impression: 1. Stable right base airspace opacity and small right pleural effusion in keeping with pneumonia. Dictated by: Dictated on workstation # [id number]
--- NOTE | 2019-01-03 09:30 | Cardiology Progress Note ---
Subjective Date Seen by Provider: Jan 03, 2019 Time Seen by Provider: 09:28 Subjective/Events-last exam Patient is in bed, asking to go home, no chest pain Review of Systems General: No Chills, No Night Sweats, No Fatigue, No Malaise, No Appetite, No Other HEENT: No Head Aches, No Visual Changes, No Eye Pain, No Ear Pain, No Dysphasia, No Sinus Congestion, No Post Nasal Drip, No Sore Throat, No Other Pulmonary: No Dyspnea, No Cough, No Pleuritic Chest Pain, No Other Cardiovascular: No: Chest Pain, Palpitations, Orthopnea, Paroxysmal Noc. Dyspnea, Edema, Lt Headedness, Other Objective-Cardiology Exam Last Set of Vital Signs Vital Signs 12/31/18 12/31/18 01/03/19 01/03/19 04:41 20:00 08:00 08:57 Temp 96.4 Pulse 76 Resp 20 B/P (MAP) 143/83 (103) Pulse Ox 95 O2 Delivery Room Air O2 Flow Rate 2.00 FiO2 21 Capillary Refill : Less Than 3 SecondsLess Than 3 Seconds I&O Intake and Output 01/03/19 00:00 Intake Total 2910 ml Balance 2910 ml Intake Oral 2890 ml IV Total 20 ml # Voids 7 # Bowel Movements 1 General: Alert, Oriented X3, Cooperative HEENT: Atraumatic, PERRLA Neck: Supple, No JVD, No Thyromegaly Lungs: Clear to Auscultation, Normal Air Movement Heart: Regular Rate, Normal S1, Normal S2, No Murmurs Abdomen: Normal Bowel Sounds, Soft, No Tenderness, No Hepatosplenomegaly, No Masses Extremities: No Clubbing, No Cyanosis, No Edema, Normal Pulses, No Tenderness/ Swelling Skin: No Rashes, No Breakdown, No Significant Lesion Neuro: Normal Tone, Sensation Intact, Other Psych/Mental Status: Mood NL Other physical findings Laboratory Tests Test 01/02/19 11:12 01/02/19 16:29 01/02/19 17:30 01/02/19 22:09 Range/Units Glucometer 125 H 148 H 226 H 70-110 MG/DL Urine Color YELLOW Urine Clarity MUCOUS Urine pH 7 5-9 Urine Specific [place] 1.010 L 1.016-1.022 Urine Protein 3+ H NEGATIVE Urine Glucose (UA) NEGATIVE NEGATIVE Urine Ketones NEGATIVE NEGATIVE Urine Nitrite POSITIVE H NEGATIVE Urine Bilirubin NEGATIVE NEGATIVE Urine Urobilinogen NORMAL NORMAL MG/DL Urine Leukocyte Esterase 3+ H NEGATIVE Urine RBC (Auto) 4+ H NEGATIVE Urine RBC 10-25 H /HPF Urine WBC 25-50 H /HPF Urine Squamous Epithelial Cells RARE /HPF Urine Crystals NONE /LPF Urine Bacteria LARGE H /HPF Urine Casts NONE /LPF Urine Mucus LARGE H /LPF Urine Culture Indicated CULTURE PENDING Test 01/02/19 22:58 01/03/19 04:50 01/03/19 05:50 Range/Units Glucometer 168 H 100 70-110 MG/DL White Blood Count 7.0 4.3-11.0 10^3/uL Red Blood Count 3.86 L 4.35-5.85 10^6/uL Hemoglobin 11.8 L 13.3-17.7 G/DL Hematocrit 35 L 40-54 % Mean Corpuscular Volume 91 80-99 FL Mean Corpuscular Hemoglobin 31 25-34 PG Mean Corpuscular Hemoglobin Concent 34 32-36 G/DL Red Cell Distribution Width 12.3 10.0-14.5 % Platelet Count 212 130-400 10^3/uL Mean Platelet Volume 9.4 7.4-10.4 FL Neutrophils (%) (Auto) 57 42-75 % Lymphocytes (%) (Auto) 21 12-44 % Monocytes (%) (Auto) 10 0-12 % Eosinophils (%) (Auto) 11 H 0-10 % Basophils (%) (Auto) 1 0-10 % Neutrophils # (Auto) 4.0 1.8-7.8 X 10^3 Lymphocytes # (Auto) 1.5 1.0-4.0 X 10^3 Monocytes # (Auto) 0.7 0.0-1.0 X 10^3 Eosinophils # (Auto) 0.7 H 0.0-0.3 10^3/uL Basophils # (Auto) 0.1 0.0-0.1 10^3/uL Sodium Level 143 135-145 MMOL/L Potassium Level 4.7 3.6-5.0 MMOL/L Chloride Level 105 98-107 MMOL/L Carbon Dioxide Level 25 21-32 MMOL/L Anion Gap 13 5-14 MMOL/L Blood Urea Nitrogen 37 H 7-18 MG/DL Creatinine 1.82 H 0.60-1.30 MG/DL Estimat Glomerular Filtration Rate 38 BUN/Creatinine Ratio 20 Glucose Level 101 70-105 MG/DL Calcium Level 8.8 8.5-10.1 MG/DL Results Lab Laboratory Tests 01/03/19 04:50 A/P-Cardiology Admission Diagnosis Chest pain nonspecific etiology Coronary artery disease Pneumonia Hypertension Assessment/Plan Chest pain, non-specific etiology, reporting inducible, probably musculoskeletal, has abnormal EKG, has slight elevation in troponin level, still below 0.3. Continue to monitor the trend and continue on aspirin, planning for stress test as an outpatient Coronary artery disease, patient is a poor historian reporting history of CABG and multiple intervention the past. I do not have any records on him, currently stable, continue to monitor Hypertension, good control at this time, continue to monitor blood pressure Acute on chronic renal failure, worsening renal function, bilateral hydron ephrosis, incontinence, managed by primary care team Urinary incontinence, probably overflow, managed by primary care Diabetes mellitus, followed and managed by primary care physician Pneumonia, managed by primary care physician, receiving antibiotics Shortness of breath, reporting improvement. Continue to monitor Hyperlipidemia, continue current medications Clinical Quality Measures DVT/VTE Risk/Contraindication: Risk Factor Score Per Nursin RFS Level Per Nursing on Admit: 4+=Very High AARON DAWSON MD Jan 03, 2019 09:30
[2019-01-03] MEDS: DIVALPROX SPRINKLE 125 MG (DEPAKOTE) CAP PO SCH (10:25)
--- NOTE | 2019-01-03 15:33 | NUR ---
CM/SS. Patient has established placement with [facility] and will return there when medically stable. Patient appears to be insured Medicaid [employer] only and, therefore, has no skilled benefits to access. Appropriate services for discharge care plan should be ordered, including therapies, regardless of insurance, but patient can not be "skilled" status. Patient has legal guardian, Sylvia Reece, in [place], [place], appointed 08/10/18 in [place], [place]. Patient has a separate payee, [employer], [address] [place] [address].
[2019-01-03] MEDS ORDERED: CEFD300C3 PO (15:52)
--- NOTE | 2019-01-03 16:00 | NUR ---
PT. WALKED OFF FLOOR AND OUTSIDE. THIS NURSE FOLLOWED PT. AND CALLED DR. CODY THAT PT. WANTED TO GO HOME. PT. STATED HE WOULD COME BACK TO FLOOR IF HE COULD GO HOME. DR. CODY OK'D PT TO GO TO [facility] ON PO ANTIBIOTICS.AND TO FOLLOW UP WITH DR. JARAMILLO ON THURSDAY. APPOINTMENT MADE WITH DR. JARAMILLO.
--- NOTE | 2019-01-03 16:00 | NUR ---
REPORT CALLED TO ADAM SHEN AT [facility].
--- NOTE | 2019-01-03 16:45 | NUR ---
CAPO KELLEY demonstrates understanding of discharge instructions and accurately returns instructions upon questioning. Copy of Post-Discharge Instructions given to PT. CAPO KELLEY is able to manage continuing needs after discharge WITH [facility]ANCE OF [facility]. Patients belongings returned to PT. Patient discharged from [facility] on 01/03/19 at 1645. CAPO KELLEY left floor via W/C, accompanied by STAFF AND FAMILY PER AUTO.
--- NOTE | 2019-01-04 07:51 | Discharge Summary ---
Diagnosis/Chief Complaint Date of Admission Dec 31, 2018 at 03:15 Date of Discharge Jan 03, 2019 at 16:45 Discharge Date: Jan 03, 2019 Discharge Time: 07:48 Discharge Diagnosis Right lower lobe pneumonia. Chest pain. Minimally elevated troponin. Anemia. Renal insufficiency. Urine culture contamination. Bladder wall thickness. Bilateral moderate hydronephrosis. Coronary artery disease. CABG. Hypertension. Fever. Hypoxia Reason Hospital Visit Patient resident of group home. Patient short of breath and coughing. Patient coughing up green sputum. Patient complaining of chest pain. Patient brought to the emergency room by EMS. Chest x-ray shows pneumonia. Patient has UTI. Patient has chest pain. Patient admitted area To be evaluated by cardiology Discharge Summary Consultations Cardiology Discharge Physical Examination Allergies: Coded Allergies: Penicillins (Verified Allergy, Unknown, 12/31/18) chlorpromazine (Verified Allergy, Unknown, 12/31/18) Vitals & I&Os Vital Signs Date Time Temp Pulse Resp B/P (MAP) Pulse Ox O2 Delivery O2 Flow Rate FiO2 01/03/19 16:45 71 18 130/63 94 Room Air 01/03/19 16:00 97.4 01/03/19 15:02 21 12/31/18 20:00 2.00 Hospital Course Patient left the hospital to walk back to the group home. Patient told to go back to hospital and will discharge him Patient to see urologist as outpatient next week since urologist on vacation this week Labs (last 24 hrs) Laboratory Tests 12/31/18 02:25: White Blood Count 12.3H, Red Blood Count 3.88L, Hemoglobin 11.7L, Hematocrit 35L , Mean Corpuscular Volume 91, Mean Corpuscular Hemoglobin 30, Mean Corpuscular Hemoglobin Concent 33, Red Cell Distribution Width 12.8, Platelet Count 239, Mean Platelet Volume 9.6, Neutrophils (%) (Auto) 80H, Lymphocytes (%) (Auto) 8L, Monocytes (%) (Auto) 6, Eosinophils (%) (Auto) 6, Basophils (%) (Auto) 0, Neutrophils # (Auto) 9.9H, Lymphocytes # (Auto) 1.0, Monocytes # (Auto) 0.7, Eosinophils # (Auto) 0.8H, Basophils # (Auto) 0.1, Prothrombin Time 13.3, INR Comment 1.0, Activated Partial Thromboplast Time 33, Sodium Level 137, Potassium Level 4.4, Chloride Level 101, Carbon Dioxide Level 24, Anion Gap 12, Blood Urea Nitrogen 22H, Creatinine 1.64H, Estimat Glomerular Filtration Rate 43, BUN/Creatinine Ratio 13, Glucose Level 191H, Calcium Level 9.5, Corrected Calcium 9.7, Total Bilirubin 0.2, Aspartate Amino Transf (AST/SGOT) 14, Alanine Aminotransferase (ALT/SGPT) 10, Alkaline Phosphatase 83, Troponin I 0.043H, Total Protein 7.3, Albumin 3.8 12/31/18 02:28: Blood Gas Puncture Site LEFT RADIAL, Blood Gas Patient Temperature 98.3, Arterial Blood pH 7.38, Arterial Blood Partial Pressure CO2 46H, Arterial Blood Partial Pressure O2 63L, Arterial Blood HCO3 26, Arterial Blood Total CO2 27.5, Arterial Blood Oxygen Saturation 92L, Arterial Blood Base Excess 1.4, Osei Test YES-POS, Blood Gas Ventilator Setting NO, Blood Gas Inspired Oxygen ROOM AIR 12/31/18 02:34: Lactic Acid Level 1.40 12/31/18 05:11: Glucometer 130H 12/31/18 06:24: White Blood Count 13.6H, Red Blood Count 3.59L, Hemoglobin 10.8L, Hematocrit 33L , Mean Corpuscular Volume 92, Mean Corpuscular Hemoglobin 30, Mean Corpuscular Hemoglobin Concent 33, Red Cell Distribution Width 12.7, Platelet Count 231, Mean Platelet Volume 9.4, Neutrophils (%) (Auto) 82H, Lymphocytes (%) (Auto) 6L, Monocytes (%) (Auto) 6, Eosinophils (%) (Auto) 6, Basophils (%) (Auto) 0, Neutrophils # (Auto) 11.1H, Lymphocytes # (Auto) 0.8L, Monocytes # (Auto) 0.8, Eosinophils # (Auto) 0.9H, Basophils # (Auto) 0.0, Sodium Level 139, Potassium Level 4.7, Chloride Level 105, Carbon Dioxide Level 26, Anion Gap 8, Blood Urea Nitrogen 19H, Creatinine 1.47H, Estimat Glomerular Filtration Rate 49, BUN/Creatinine Ratio 13, Glucose Level 135H, Calcium Level 9.2, Corrected Calcium 9.7, Total Bilirubin 0.2, Aspartate Amino Transf (AST/SGOT) 11, Alanine Aminotransferase (ALT/SGPT) 10, Alkaline Phosphatase 74, Total Protein 6.5, Albumin 3.4, Triglycerides Level 99, Cholesterol Level 84, LDL Cholesterol Direct 39, VLDL Cholesterol 20, HDL Cholesterol 28L 12/31/18 08:33: Troponin I 0.099H 12/31/18 11:17: Glucometer 186H 12/31/18 14:47: Troponin I 0.101H 12/31/18 16:11: Glucometer 138H 12/31/18 21:24: Glucometer 161H 01/01/19 05:18: White Blood Count 8.3, Red Blood Count 3.76L, Hemoglobin 11.4L, Hematocrit 35L, Mean Corpuscular Volume 93, Mean Corpuscular Hemoglobin 30, Mean Corpuscular Hemoglobin Concent 33, Red Cell Distribution Width 12.8, Platelet Count 215, Mean Platelet Volume 9.4, Neutrophils (%) (Auto) 68, Lymphocytes (%) (Auto) 13, Monocytes (%) (Auto) 9, Eosinophils (%) (Auto) 10, Basophils (%) (Auto) 1, Neutrophils # (Auto) 5.6, Lymphocytes # (Auto) 1.1, Monocytes # (Auto) 0.8, Eosinophils # (Auto) 0.8H, Basophils # (Auto) 0.1, Sodium Level 142, Potassium Level 4.5, Chloride Level 105, Carbon Dioxide Level 25, Anion Gap 12, Blood Urea Nitrogen 31H, Creatinine 1.80H, Estimat Glomerular Filtration Rate 38, BUN/Creatinine Ratio 17, Glucose Level 122H, Calcium Level 8.9, Corrected Calcium 9.5, Total Bilirubin 0.2, Aspartate Amino Transf (AST/SGOT) 12, Alanine Aminotransferase (ALT/SGPT) 13, Alkaline Phosphatase 67, Total Protein 6.5, Albumin 3.3 01/01/19 06:14: Glucometer 109 01/01/19 11:16: Glucometer 112H 01/01/19 16:14: Glucometer 226H 01/01/19 20:39: Glucometer 168H 01/02/19 05:19: Glucometer 102 01/02/19 05:49: White Blood Count 5.9, Red Blood Count 3.85L, Hemoglobin 11.7L, Hematocrit 36L, Mean Corpuscular Volume 93, Mean Corpuscular Hemoglobin 30, Mean Corpuscular Hemoglobin Concent 33, Red Cell Distribution Width 12.9, Platelet Count 225, Mean Platelet Volume 9.1, Neutrophils (%) (Auto) 59, Lymphocytes (%) (Auto) 17, Monocytes (%) (Auto) 11, Eosinophils (%) (Auto) 12H, Basophils (%) (Auto) 1, Neutrophils # (Auto) 3.5, Lymphocytes # (Auto) 1.0, Monocytes # (Auto) 0.7, Eosinophils # (Auto) 0.7H, Basophils # (Auto) 0.0, Sodium Level 144, Potassium Level 4.5, Chloride Level 107, Carbon Dioxide Level 22, Anion Gap 15H, Blood Urea Nitrogen 34H, Creatinine 1.90H, Estimat Glomerular Filtration Rate 36, BUN/ Creatinine Ratio 18, Glucose Level 107H, Calcium Level 8.9, Corrected Calcium 9 .5, Total Bilirubin 0.2, Aspartate Amino Transf (AST/SGOT) 9, Alanine Aminotransferase (ALT/SGPT) 8, Alkaline Phosphatase 74, Total Protein 6.5, Albumin 3.2 01/02/19 11:12: Glucometer 125H 01/02/19 16:29: Glucometer 148H 01/02/19 17:30: Urine Color YELLOW, Urine Clarity MUCOUS, Urine pH 7, Urine Specific [place] 1.010L, Urine Protein 3+H, Urine Glucose (UA) NEGATIVE, Urine Ketones NEGATIVE, Urine Nitrite POSITIVEH, Urine Bilirubin NEGATIVE, Urine Urobilinogen NORMAL, Urine Leukocyte Esterase 3+H, Urine RBC (Auto) 4+H, Urine RBC 10-25H, Urine WBC 25-50H, Urine Squamous Epithelial Cells RARE, Urine Crystals NONE, Urine Bacteria LARGEH, Urine Casts NONE, Urine Mucus LARGEH, Urine Culture Indicated CULTURE PENDING 01/02/19 22:09: Glucometer 226H 01/02/19 22:58: Glucometer 168H 01/03/19 04:50: White Blood Count 7.0, Red Blood Count 3.86L, Hemoglobin 11.8L, Hematocrit 35L, Mean Corpuscular Volume 91, Mean Corpuscular Hemoglobin 31, Mean Corpuscular Hemoglobin Concent 34, Red Cell Distribution Width 12.3, Platelet Count 212, Mean Platelet Volume 9.4, Neutrophils (%) (Auto) 57, Lymphocytes (%) (Auto) 21, Monocytes (%) (Auto) 10, Eosinophils (%) (Auto) 11H, Basophils (%) (Auto) 1, Neutrophils # (Auto) 4.0, Lymphocytes # (Auto) 1.5, Monocytes # (Auto) 0.7, Eosinophils # (Auto) 0.7H, Basophils # (Auto) 0.1, Sodium Level 143, Potassium Level 4.7, Chloride Level 105, Carbon Dioxide Level 25, Anion Gap 13, Blood Urea Nitrogen 37H, Creatinine 1.82H, Estimat Glomerular Filtration Rate 38, BUN/Creatinine Ratio 20, Glucose Level 101, Calcium Level 8.8 01/03/19 05:50: Glucometer 100 01/03/19 11:23: Glucometer 103 01/03/19 15:25: Glucometer 178H Microbiology 12/31/18 Blood Culture - Preliminary, Resulted No growth 01/02/19 Urine Culture - Final, Complete 3 or more isolates Laboratory Tests 12/31/18 02:25 12/31/18 06:24 01/01/19 05:18 01/02/19 05:49 01/03/19 04:50 Pending Labs Microbiology Date/Time Source Procedure Growth Status 12/31/18 02:50 Peripheral Rt Ac Blood Culture - Preliminary No growth Resulted 12/31/18 02:34 Peripheral Lt Ac Blood Culture - Preliminary No growth Resulted 01/02/19 17:30 Urine Clean Catch Urine Culture - Final 3 or more isolates Complete Laboratory Tests 12/31/18 02:25: White Blood Count 12.3, Red Blood Count 3.88, Hemoglobin 11.7, Hematocrit 35, Mean Corpuscular Volume 91, Mean Corpuscular Hemoglobin 30, Mean Corpuscular Hemoglobin Concent 33, Red Cell Distribution Width 12.8, Platelet Count 239, Sameera n Platelet Volume 9.6, Neutrophils (%) (Auto) 80, Lymphocytes (%) (Auto) 8, Monocytes (%) (Auto) 6, Eosinophils (%) (Auto) 6, Basophils (%) (Auto) 0, Neutrophils # (Auto) 9.9, Lymphocytes # (Auto) 1.0, Monocytes # (Auto) 0.7, Eosinophils # (Auto) 0.8, Basophils # (Auto) 0.1, Prothrombin Time 13.3, INR Comment 1.0, Activated Partial Thromboplast Time 33, Sodium Level 137, Potassium Level 4.4, Chloride Level 101, Carbon Dioxide Level 24, Anion Gap 12, Blood Urea Nitrogen 22, Creatinine 1.64, Estimat Glomerular Filtration Rate 43, BUN/Creatinine Ratio 13, Glucose Level 191, Calcium Level 9.5, Corrected Calcium 9.7, Total Bilirubin 0.2, Aspartate Amino Transf (AST/SGOT) 14, Alanine Aminotransferase (ALT/SGPT) 10, Alkaline Phosphatase 83, Troponin I 0.043, Total Protein 7.3, Albumin 3.8 12/31/18 02:28: Blood Gas Puncture Site LEFT RADIAL, Blood Gas Patient Temperature 98.3, Arterial Blood pH 7.38, Arterial Blood Partial Pressure CO2 46, Arterial Blood Partial Pressure O2 63, Arterial Blood HCO3 26, Arterial Blood Total CO2 27.5, Arterial Blood Oxygen Saturation 92, Arterial Blood Base Excess 1.4, Osei Test YES-POS, Blood Gas Ventilator Setting NO, Blood Gas Inspired Oxygen ROOM AIR 12/31/18 02:34: Lactic Acid Level 1.40 12/31/18 05:11: Glucometer 130 12/31/18 06:24: White Blood Count 13.6, Red Blood Count 3.59, Hemoglobin 10.8, Hematocrit 33, Mean Corpuscular Volume 92, Mean Corpuscular Hemoglobin 30, Mean Corpuscular Hemoglobin Concent 33, Red Cell Distribution Width 12.7, Platelet Count 231, Mean Platelet Volume 9.4, Neutrophils (%) (Auto) 82, Lymphocytes (%) (Auto) 6, Monocytes (%) (Auto) 6, Eosinophils (%) (Auto) 6, Basophils (%) (Auto) 0, Neutrophils # (Auto) 11.1, Lymphocytes # (Auto) 0.8, Monocytes # (Auto) 0.8, Eosinophils # (Auto) 0.9, Basophils # (Auto) 0.0, Sodium Level 139, Potassium Level 4.7, Chloride Level 105, Carbon Dioxide Level 26, Anion Gap 8, Blood Urea Nitrogen 19, Creatinine 1.47, Estimat Glomerular Filtration Rate 49, BUN/Creatinine Ratio 13, Glucose Level 135, Calcium Level 9.2, Corrected Calcium 9.7, Total Bilirubin 0.2, Aspartate Amino Transf (AST/SGOT) 11, Alanine Aminotransferase (ALT/SGPT) 10, Alkaline Phosphatase 74, Total Protein 6.5, Albumin 3.4, Triglycerides Level 99, Cholesterol Level 84, LDL Cholesterol Direct 39, VLDL Cholesterol 20, HDL Cholesterol 28 8/9/19 08:33: Troponin I 0.099 12/31/18 11:17: Glucometer 186 12/31/18 14:47: Troponin I 0.101 12/31/18 16:11: Glucometer 138 12/31/18 21:24: Glucometer 161 01/01/19 05:18: White Blood Count 8.3, Red Blood Count 3.76, Hemoglobin 11.4, Hematocrit 35, Mean Corpuscular Volume 93, Mean Corpuscular Hemoglobin 30, Mean Corpuscular Hemoglobin Concent 33, Red Cell Distribution Width 12.8, Platelet Count 215, Mean Platelet Volume 9.4, Neutrophils (%) (Auto) 68, Lymphocytes (%) (Auto) 13, Monocytes (%) (Auto) 9, Eosinophils (%) (Auto) 10, Basophils (%) (Auto) 1, Neutrophils # (Auto) 5.6, Lymphocytes # (Auto) 1.1, Monocytes # (Auto) 0.8, Eosinophils # (Auto) 0.8, Basophils # (Auto) 0.1, Sodium Level 142, Potassium Level 4.5, Chloride Level 105, Carbon Dioxide Level 25, Anion Gap 12, Blood Urea Nitrogen 31, Creatinine 1.80, Estimat Glomerular Filtration Rate 38, BUN/Creatinine Ratio 17, Glucose Level 122, Calcium Level 8.9, Corrected Calcium 9.5, Total Bilirubin 0.2, Aspartate Amino Transf (AST/SGOT) 12, Alanine Aminotransferase (ALT/SGPT) 13, Alkaline Phosphatase 67, Total Protein 6.5, Albumin 3.3 01/01/19 06:14: Glucometer 109 01/01/19 11:16: Glucometer 112 01/01/19 16:14: Glucometer 226 01/01/19 20:39: Glucometer 168 01/02/19 05:19: Glucometer 102 01/02/19 05:49: White Blood Count 5.9, Red Blood Count 3.85, Hemoglobin 11.7, Hematocrit 36, Mean Corpuscular Volume 93, Mean Corpuscular Hemoglobin 30, Mean Corpuscular Hemoglobin Concent 33, Red Cell Distribution Width 12.9, Platelet Count 225, Mean Platelet Volume 9.1, Neutrophils (%) (Auto) 59, Lymphocytes (%) (Auto) 17, Monocytes (%) (Auto) 11, Eosinophils (%) (Auto) 12, Basophils (%) (Auto) 1, Neutrophils # (Auto) 3.5, Lymphocytes # (Auto) 1.0, Monocytes # (Auto) 0.7, Eosinophils # (Auto) 0.7, Basophils # (Auto) 0.0, Sodium Level 144, Potassium Level 4.5, Chloride Level 107, Carbon Dioxide Level 22, Anion Gap 15, Blood Urea Nitrogen 34, Creatinine 1.90, Estimat Glomerular Filtration Rate 36, BUN/Creatinine Ratio 18, Glucose Level 107, Calcium Level 8.9, Corrected Calcium 9.5, Total Bilirubin 0.2, Aspartate Amino Transf (AST/SGOT) 9, Alanine Aminotransferase (ALT/SGPT) 8, Alkaline Phosphatase 74, Total Protein 6.5, Albumin 3.2 01/02/19 11:12: Glucometer 125 01/02/19 16:29: Glucometer 148 01/02/19 17:30: Urine Color YELLOW, Urine Clarity MUCOUS, Urine pH 7, Urine Specific [place] 1.010, Urine Protein 3+, Urine Glucose (UA) NEGATIVE, Urine Ketones NEGATIVE, Urine Nitrite POSITIVE, Urine Bilirubin NEGATIVE, Urine Urobilinogen NORMAL, Urine Leukocyte Esterase 3+, Urine RBC (Auto) 4+, Urine RBC 10-25, Urine WBC 25- 50, Urine Squamous Epithelial Cells RARE, Urine Crystals NONE, Urine Bacteria LARGE, Urine Casts NONE, Urine Mucus LARGE, Urine Culture Indicated CULTURE PENDING 01/02/19 22:09: Glucometer 226 01/02/19 22:58: Glucometer 168 01/03/19 04:50: White Blood Count 7.0, Red Blood Count 3.86, Hemoglobin 11.8, Hematocrit 35, Mean Corpuscular Volume 91, Mean Corpuscular Hemoglobin 31, Mean Corpuscular Hemoglobin Concent 34, Red Cell Distribution Width 12.3, Platelet Count 212, Mean Platelet Volume 9.4, Neutrophils (%) (Auto) 57, Lymphocytes (%) (Auto) 21, Monocytes (%) (Auto) 10, Eosinophils (%) (Auto) 11, Basophils (%) (Auto) 1, Neutrophils # (Auto) 4.0, Lymphocytes # (Auto) 1.5, Monocytes # (Auto) 0.7, Eosinophils # (Auto) 0.7, Basophils # (Auto) 0.1, Sodium Level 143, Potassium Level 4.7, Chloride Level 105, Carbon Dioxide Level 25, Anion Gap 13, Blood Urea Nitrogen 37, Creatinine 1.82, Estimat Glomerular Filtration Rate 38, BUN/Crea tinine Ratio 20, Glucose Level 101, Calcium Level 8.8 01/03/19 05:50: Glucometer 100 01/03/19 11:23: Glucometer 103 01/03/19 15:25: Glucometer 178 Discussion & Recommendations Patient to be seen by urologist. Patient to be seen by me in the office Discharge Home Medications: Active Scripts Active Cefdinir 300 Mg Capsule 300 Mg PO BID Reported Olanzapine 5 Mg Tablet 10 Mg PO HS Olanzapine 5 Mg Tablet 5 Mg PO DAILY Mylanta Suspension (Al Hydrox/Mg Hydrox/Simethicone) 30 Ml Oral.susp 30 Ml PO Q4H PRN Tylenol (Acetaminophen) 325 Mg Tablet 650 Mg PO Q6H PRN Gabapentin 100 Mg Capsule 100 Mg PO HS Montelukast Sodium 10 Mg Tablet 10 Mg PO DAILY Renvela (Sevelamer Carbonate) 800 Mg Tablet 800 Mg PO WM Flomax (Tamsulosin HCl) 0.4 Mg Cap 0.4 Mg PO HS Aspirin EC (Aspirin) 81 Mg Tablet.dr 81 Mg PO DAILY Cetirizine HCl 10 Mg Tablet 10 Mg PO DAILY Pantoprazole Sodium 40 Mg Tablet.dr 40 Mg PO DAILY Bydureon Pen (Exenatide Microspheres) 2 Mg/0.65 Ml Pen.injctr 2 Mg SC MO Carvedilol 3.125 Mg Tablet 3.125 Mg PO BID Atorvastatin Calcium 40 Mg Tablet 40 Mg PO HS Divalproex Sodium 125 Mg Cap.sprink 750 Mg PO BID TAKES 6 (125MG) CAPSULES Fluticasone Propionate 16 Gm [place].susp 2 Sprays NS DAILY 10 Days 10 DAY SUPPLY START DATE 12-31-18 END DATE 01-10-19 Instructions to patient/family Please see electronic discharge instructions given to patient. Clinical Quality Measures DVT/VTE Risk/Contraindication: Risk Factor Score Per Nursin RFS Level Per Nursing on Admit: 4+=Very High GIOVANNY CODY DO Jan 04, 2019 07:51
== END 2019-01-03 16:45 | DRG 871 ==
LOC: EDUNIT# 02:22 → ER 02:23 → 4TH 03:15
PROVIDERS: ADMIT Family Medicine; ATTEND Family Medicine
DX: A41.9 Sepsis, unspecified organism (principal); J18.1 Lobar pneumonia, unspecified organism; N13.6 Pyonephrosis; R07.89 Other chest pain; N17.9 Acute kidney failure, unspecified; R09.02 Hypoxemia; I12.9 Hypertensive chronic kidney disease with stage 1 through stage 4 chronic kidney disease, or unspecified chronic kidney disease; N18.9 Chronic kidney disease, unspecified; R94.31 Abnormal electrocardiogram [ECG] [EKG]; I25.10 Atherosclerotic heart disease of native coronary artery without angina pectoris; E78.5 Hyperlipidemia, unspecified; E11.9 Type 2 diabetes mellitus without complications; R78.89 Finding of other specified substances, not normally found in blood; G47.9 Sleep disorder, unspecified; F43.10 Post-traumatic stress disorder, unspecified; F20.9 Schizophrenia, unspecified; F32.9 Major depressive disorder, single episode, unspecified; Z95.1 Presence of aortocoronary bypass graft; Z87.891 Personal history of nicotine dependence
CPT/HCPCS: 36415; 36600; 71045; 71046; 76770; 80048; 80053; 80061; 81000; 82805; 82962; 83605; 84484; 85025; 85610; 85730; 87040; 87088; 93005; 93306; 94640; 94664; 94760

== ENCOUNTER → 2019-01-10 | Outpatient (CLI) | payer MEDICAID ==
[~2019-01-10] MED LIST: ACET325T38 PO; ASPI-983 PO; ATOR40TA70 PO; CARV3.122 PO; CEFD300C3 PO; CETI10TA17 PO; DIVA125C10 PO; EXEN2PEN SC; FLUT16SP22 NS; GABA-486 PO; GABA-488 PO; MAG30ORA2 PO; MONT10TA24 PO; OLAN5TAB25 PO; OMEP20CA13; PANT40TA3 PO; SEVE800T7 PO; TAMS0.4C98 PO
== END ==
LOC: LAB 15:57
PROVIDERS: ATTEND Urology
DX: N40.1 Benign prostatic hyperplasia with lower urinary tract symptoms (principal)
CPT/HCPCS: 36415; 84153

== ENCOUNTER → 2019-01-27 | Outpatient (CLI) | payer MEDICAID ==
[2019-01-27 14:57] LABS: BASOPHILS # (AUTO) 0.1 10^3/uL (0.0-0.1); BASOPHILS % (AUTO) 1 % (0-10); EOSINOPHILS # (AUTO) 1.3 10^3/uL (0.0-0.3); EOSINOPHILS % (AUTO) 13 % (0-10); HEMATOCRIT 36 % (40-54); HEMOGLOBIN 11.7 G/DL (13.3-17.7); LYMPHOCYTES # (AUTO) 1.3 X 10^3 (1.0-4.0); LYMPHOCYTES % (AUTO) 13 % (12-44); MEAN CORPUSCULAR HEMOGLOBIN 31 PG (25-34); MEAN CORPUSCULAR HGB CONC 32 G/DL (32-36); MEAN CORPUSCULAR VOLUME 95 FL (80-99); MEAN PLATELET VOLUME 8.8 FL (7.4-10.4); MONOCYTES % (AUTO) 10 % (0-12); NEUTROPHILS # (AUTO) 6.3 X 10^3 (1.8-7.8); NEUTROPHILS % (AUTO) 63 % (42-75); PLATELET COUNT 228 10^3/uL (130-400); RED CELL DISTRIBUTION WIDTH 13.9 % (10.0-14.5)
--- NOTE | 2019-01-27 15:00 | Diagnostic Imaging Report ---
INDICATION: Shortness of air. Wheezing. COMPARISON: 01/03/2019 FINDINGS: Frontal and lateral radiographic views of the chest were obtained and show persistent mild to moderate right-sided effusion and trace left basilar effusion. There are patchy alveolar opacities as well, right greater than left. No pneumothorax is seen on either side. Cardiac silhouette and pulmonary vasculature are within normal limits. Sternotomy wires are noted. IMPRESSION: 1. Persistent bilateral pleural effusions, right greater than left. 2. Patchy alveolar opacities concerning for infiltrate as well, right greater than left. Dictated by: Dictated on workstation # [id number]
[2019-01-27 15:19] LABS: CALCIUM 8.6 MG/DL (8.5-10.1); CREATININE SERUM 1.75 MG/DL (0.60-1.30)
[2019-01-27 16:08] LABS: BAND NEUTROPHILS 2 %; EOSINOPHILS % (MANUAL) 17 %; LYMPHOCYTES % (MANUAL) 18 %; MONOCYTES % (MANUAL) 9 %; NEUTROPHILS % (MANUAL) 54 %; RBC MORPH NORMAL
== END ==
LOC: LAB 14:12
PROVIDERS: ATTEND Family Medicine
DX: J90 Pleural effusion, not elsewhere classified (principal)
CPT/HCPCS: 36415; 71046; 80048; 83880; 85007; 85027

== ENCOUNTER → 2019-04-27 | Outpatient (CLI) | payer MEDICAID ==
[~2019-04-27] MED LIST changes: +AZIT250T PO; +ONDA4TAB10 PO; +RT-ALBUINH INH
--- NOTE | 2019-04-27 11:09 | Diagnostic Imaging Report ---
INDICATION: Cough, wheeze, tremors. TECHNIQUE: Two-view chest at 10:19 a.m. CORRELATION STUDY: 01/27/2019. FINDINGS: Post-sternotomy changes. Heart size and mediastinal configuration are stable. Vasculature appears unchanged. Scattered pulmonary parenchymal densities and likely pleural thickening, right greater than left, appear generally stable. Slight improvement in aeration at the right lung base. Underlying right pleural effusion however is suspected. IMPRESSION: 1. Scattered pulmonary parenchymal densities persisting, overall relatively stable to slightly improved at the particularly right lung base. Likely small right pleural effusion. Dictated by: Dictated on workstation # [id number]
== END ==
LOC: RAD 10:06
PROVIDERS: ATTEND Family Medicine
DX: J98.4 Other disorders of lung (principal); R05 Cough; R06.2 Wheezing; R25.1 Tremor, unspecified; R06.02 Shortness of breath
CPT/HCPCS: 71046

== ENCOUNTER 2019-05-02 08:02 | Inpatient (IN) | payer MEDICAID ==
[2019-05-02] VITALS (7 sets, daily range): BP systolic 118–188; BP diastolic 79–133
[~2019-05-02] VITALS: Ht 175.3 cm; Wt 87.8 kg
[~2019-05-02 08:02] MED LIST changes: -AZIT250T PO; -ONDA4TAB10 PO; -RT-ALBUINH INH
[2019-05-02 08:41] LABS: BASOPHILS % (AUTO) 0 % (0-10); EOSINOPHILS # (AUTO) 0.5 10^3/uL (0.0-0.3); EOSINOPHILS % (AUTO) 4 % (0-10); HEMATOCRIT 45 % (40-54); HEMOGLOBIN 15.1 G/DL (13.3-17.7); LYMPHOCYTES # (AUTO) 1.2 X 10^3 (1.0-4.0); LYMPHOCYTES % (AUTO) 10 % (12-44); MEAN CORPUSCULAR HEMOGLOBIN 31 PG (25-34); MEAN CORPUSCULAR HGB CONC 34 G/DL (32-36); MEAN CORPUSCULAR VOLUME 91 FL (80-99); MEAN PLATELET VOLUME 8.6 FL (7.4-10.4); MONOCYTES # (AUTO) 1.2 X 10^3 (0.0-1.0); MONOCYTES % (AUTO) 9 % (0-12); NEUTROPHILS # (AUTO) 9.6 X 10^3 (1.8-7.8); NEUTROPHILS % (AUTO) 77 % (42-75); PLATELET COUNT 303 10^3/uL (130-400); RED CELL DISTRIBUTION WIDTH 14.3 % (10.0-14.5); WHITE BLOOD COUNT 12.6 10^3/uL (4.3-11.0)
--- NOTE | 2019-05-02 08:42 | ED Cough/URI ---
General Chief Complaint: Respiratory Problems Stated Complaint: CONGESTION,SOB Nursing Triage Note: Pt c/o SOB and productive cough with white sputum that has persisted for a couple days. Sepsis Screen: No Definite Risk Source: caregiver Exam Limitations: no limitations History of Present Illness Date Seen by Provider: May 02, 2019 Time Seen by Provider: 08:36 Initial Comments This 61-year-old white male presents with progressive shortness of breath and productive cough for the last several days. The patient has end-stage renal failure. He denies fever or chills. He has had no chest pain. He denies palpitations, nausea or vomiting, or dysuria. Allergies and Home Medications Allergies Coded Allergies: Penicillins (Verified Allergy, Unknown, 12/31/18) chlorpromazine (Verified Allergy, Unknown, 12/31/18) Home Medications Acetaminophen 325 Mg Tablet, 650 MG PO Q6H PRN for PAIN-MILD, (Reported) Aspirin 81 Mg Tablet.dr, 81 MG PO DAILY, (Reported) Atorvastatin Calcium 40 Mg Tablet, 40 MG PO HS, (Reported) Carvedilol 3.125 Mg Tablet, 3.125 MG PO BID, (Reported) Cefdinir 300 Mg Capsule, 300 MG PO BID Prescribed by: GIL PRUETT on 01/03/19 1552 Cetirizine HCl 10 Mg Tablet, 10 MG PO DAILY, (Reported) Divalproex Sodium 125 Mg Cap.sprink, 750 MG PO BID, (Reported) TAKES 6 (125MG) CAPSULES Exenatide Microspheres 2 Mg/0.65 Ml Pen.injctr, 2 MG SC Mo, (Reported) Fluticasone Propionate 16 Gm [place].susp, 2 SPRAYS NS DAILY, (Reported) 10 DAY SUPPLY START DATE 12-31-18 END DATE 01-10-19 Gabapentin 100 Mg Capsule, 100 MG PO HS, (Reported) Mag Hydrox/Al Hydrox/Simeth 30 Ml Oral.susp, 30 ML PO Q4H PRN for INDIGESTION, (Reported) Montelukast Sodium 10 Mg Tablet, 10 MG PO DAILY, (Reported) Olanzapine 5 Mg Tablet, 5 MG PO DAILY, (Reported) Olanzapine 5 Mg Tablet, 10 MG PO HS, (Reported) Pantoprazole Sodium 40 Mg Tablet.dr, 40 MG PO DAILY, (Reported) Sevelamer Carbonate 800 Mg Tablet, 800 MG PO WM, (Reported) Tamsulosin HCl 0.4 Mg Cap, 0.4 MG PO HS, (Reported) Patient Home Medication List Home Medication List Reviewed: Yes Review of Systems Review of Systems Constitutional: No chills, No fever EENTM: no symptoms reported Respiratory: see HPI, cough, phlegm, short of breath Cardiovascular: No chest pain, No palpitations Gastrointestinal: No abdominal pain, No diarrhea, No nausea, No vomiting Genitourinary: No dysuria, No frequency Musculoskeletal: No back pain Skin: No change in color, No rash Psychiatric/Neurological: Other (schizophrenia) Hematologic/Lymphatic: No Symptoms Reported Immunological/Allergic: no symptoms reported Past Ielrnxp-Scjrod-Lgtuze Hx Past Med/Social Hx: Reviewed Nursing Past Med/Soc Hx Patient Social History Alcohol Use: Denies Use Recreational Drug Use: Yes Drug of Choice: HX THC Smoking Status: Current Everyday Smoker Type Used: Cigarettes 2nd Hand Smoke Exposure: Yes Recent Foreign Travel: No Contact w/Someone Who Travel: No Recent Infectious Disease Expo: No Recent Hopitalizations: No Physical Abuse: No Sexual Abuse: No Mistreated: No Fear: No Immunizations Up To Date Tetanus Booster (TDap): Unknown Date of Pneumonia Vaccine: Dec 31, 2017 Seasonal Allergies Seasonal Allergies: No Past Medical History Surgeries: Yes CABG, Vasectomy Respiratory: No Cardiac: Yes Coronary Artery Disease, High Cholesterol, Hypertension Neurological: No Genitourinary: Yes Renal Failure Gastrointestinal: Yes Gastroesophageal Reflux Musculoskeletal: No Endocrine: Yes Diabetes, Non-Insulin dep HEENT: No Cancer: No Psychosocial: Yes Sleep Difficulties, PTSD, Schizophrenia, Depression Integumentary: No Blood Disorders: No Physical Exam Vital Signs - First Documented 05/02/19 05/02/19 08:05 08:17 Temp 36.1 Pulse 96 Resp 27 B/P (MAP) 147/96 (113) Pulse Ox 91 O2 Delivery Room Air O2 Flow Rate 2.00 Capillary Refill : Less Than 3 Seconds Height: 5'8.00" Weight: 171lbs. 0.0oz. 77.752470kg; 29.00 BMI Method:Stated General Appearance: WD/WN, mild distress Eyes: Bilateral Eye Normal Inspection HEENT: normal ENT inspection Neck: full range of motion, supple Respiratory: decreased breath sounds Cardiovascular: regular rate, rhythm Gastrointestinal: normal bowel sounds, non tender Extremities: normal range of motion, non-tender Neurologic/Psychiatric: no motor/sensory deficits, alert, normal mood/affect Skin: normal color, warm/dry Focused Exam Lactate Level 05/02/19 08:17: Lactic Acid Level 2.96*H Lactic Acid Level Laboratory Tests Test 05/02/19 08:17 Lactic Acid Level 2.96 MMOL/L (0.50-2.00) *H Progress/Results/Core Measures Suspected Sepsis Recent Fever Within 48 Hours: No Infection Criteria Present: None New/Unexplained Altered Menta: No Sepsis Screen: No Definite Risk SIRS Temperature: Pulse: 96 Respiratory Rate: 27 Laboratory Tests 05/02/19 08:17: White Blood Count 12.6H Blood Pressure 147 /96 Mean: 113 05/02/19 08:17: Lactic Acid Level 2.96*H Laboratory Tests 05/02/19 08:17: Creatinine 1.76H, Platelet Count 303, Total Bilirubin 0.2 Results/Orders Lab Results Laboratory Tests Test 05/02/19 08:17 05/02/19 09:54 Range/Units White Blood Count 12.6 H 4.3-11.0 10^3/uL Red Blood Count 4.92 4.35-5.85 10^6/uL Hemoglobin 15.1 13.3-17.7 G/DL Hematocrit 45 40-54 % Mean Corpuscular Volume 91 80-99 FL Mean Corpuscular Hemoglobin 31 25-34 PG Mean Corpuscular Hemoglobin Concent 34 32-36 G/DL Red Cell Distribution Width 14.3 10.0-14.5 % Platelet Count 303 130-400 10^3/uL Mean Platelet Volume 8.6 7.4-10.4 FL Neutrophils (%) (Auto) 77 H 42-75 % Lymphocytes (%) (Auto) 10 L 12-44 % Monocytes (%) (Auto) 9 0-12 % Eosinophils (%) (Auto) 4 0-10 % Basophils (%) (Auto) 0 0-10 % Neutrophils # (Auto) 9.6 H 1.8-7.8 X 10^3 Lymphocytes # (Auto) 1.2 1.0-4.0 X 10^3 Monocytes # (Auto) 1.2 H 0.0-1.0 X 10^3 Eosinophils # (Auto) 0.5 H 0.0-0.3 10^3/uL Basophils # (Auto) 0.0 0.0-0.1 10^3/uL D-Dimer 0.83 H 0.00-0.49 UG/ML Sodium Level 132 L 135-145 MMOL/L Potassium Level 4.8 3.6-5.0 MMOL/L Chloride Level 92 L 98-107 MMOL/L Carbon Dioxide Level 27 21-32 MMOL/L Anion Gap 13 5-14 MMOL/L Blood Urea Nitrogen 16 7-18 MG/DL Creatinine 1.76 H 0.60-1.30 MG/DL Estimat Glomerular Filtration Rate 39 BUN/Creatinine Ratio 9 Glucose Level 399 H 70-105 MG/DL Lactic Acid Level 2.96 *H 0.50-2.00 MMOL/L Calcium Level 9.1 8.5-10.1 MG/DL Corrected Calcium 9.0 8.5-10.1 MG/DL Total Bilirubin 0.2 0.1-1.0 MG/DL Aspartate Amino Transf (AST/SGOT) 15 5-34 U/L Alanine Aminotransferase (ALT/SGPT) 11 0-55 U/L Alkaline Phosphatase 75 40-136 U/L B-Type Natriuretic Peptide 360.9 H <100.0 PG/ML Total Protein 7.7 6.4-8.2 GM/DL Albumin 4.1 3.2-4.5 GM/DL My Orders Orders - JULIO RODRIGUES MD Cbc With Automated Diff (05/02/19 08:25) Comprehensive Metabolic Panel (05/02/19 08:25) BNP (05/02/19 08:25) Blood Culture (05/02/19 08:25) Fibrin Degradation Products (05/02/19 08:25) Ekg Tracing (05/02/19:25) O2 (05/02/19 08:25) Ed Iv/Invasive Line Start (05/02/19 08:25) Monitor-Rhythm Ecg Trace Only (05/02/19 08:25) Lactic Acid Analyzer (05/02/19 08:25) Ua Culture If Indicated (05/02/19 08:25) Chest Pa/Lat (2 View) (05/02/19 08:25) Ns Iv 1000 Ml (Sodium Chloride 0.9%) (05/02/19 08:45) Sputum Culture (05/02/19 08:34) Albuterol/Ipra Inhalation Soln (Duoneb I (05/02/19 08:45) Svn Small Volume Nebulizer (05/02/19 08:35) Ceftriaxone For Iv Use (Rocephin For I (05/02/19 10:15) Azithromycin Injection (Zithromax Inject (05/02/19 10:15) Normal Saline Bolus 3,000ml (05/02/19 10:15) Medications Given in ED Current Medications Medications Dose Ordered Sig/Juan Route Start Time Stop Time Status Last Admin Dose Admin Albuterol/ Ipratropium 3 ml ONCE ONCE INH 05/02/19 08:45 05/02/19 08:46 DC 05/02/19 08:47 3 ML Vital Signs/I&O 05/02/19 05/02/19 05/02/19 08:05 08:17 08:48 Temp 36.1 Pulse 96 Resp 27 B/P (MAP) 147/96 (113) Pulse Ox 91 92 95 O2 Delivery Room Air Nasal Cannula Nasal Cannula O2 Flow Rate 2.00 2.00 Capillary Refill : Less Than 3 Seconds Blood Pressure Mean: 113 POS Progress Note : Time: 10:15 Progress Note Patient demonstrated a leukocytosis and a lactic acid of 3. Chest x-ray was consistent with an infiltrative process. Telephone consultation was undertaken with Dr. Cody who is kind enough to admit the patient. Dr. Heard was consulted. Sepsis orders written. Rocephin and azithromycin were initiated. Departure Communication (Admissions) Time/Spoke to Admitting Phy: 10:16 Dr. Cody Time/Spoke to Consulting Phy: 10:16 Dr. Heard Impression Primary Impression: Sepsis due to pneumonia Disposition: ADMITTED INPATIENT Condition: Improved Admissions Decision to Admit Reason: Admit from ER (General) Decision to Admit/Date: May 02, 2019 Time/Decision to Admit Time: 10:17 Departure-Patient Inst. Referrals: GIOVANNY CODY DO (PCP/Family) Primary Care Physician JULIO RODRIGUES MD May 02, 2019 08:42 POS
[2019-05-02] MEDS ORDERED: RT-ALBUTEROL/IPRATROPIUM 3 ML (DUONEB) VIAL INH ONE (08:45)
[2019-05-02] MEDS ORDERED: NS IV 1000 ML 1,000 ML IV SCH ×2 (08:45→10:15)
[2019-05-02 08:53] LABS: ALBUMIN 4.1 GM/DL (3.2-4.5); BILIRUBIN,TOTAL 0.2 MG/DL (0.1-1.0); CALCIUM 9.1 MG/DL (8.5-10.1); CREATININE SERUM 1.76 MG/DL (0.60-1.30); POTASSIUM 4.8 MMOL/L (3.6-5.0); TOTAL PROTEIN 7.7 GM/DL (6.4-8.2)
--- NOTE | 2019-05-02 09:28 | Diagnostic Imaging Report ---
INDICATION: Congestion, shortness of breath. TECHNIQUE: Two view chest 9:04 AM CORRELATION STUDY: 04/27/2019 FINDINGS: Poststernotomy changes. Heart size and mediastinal configuration appearing generally stable. Vasculature appears unchanged. Scattered pulmonary parenchymal densities are again demonstrated. This appears most pronounced at the right lung base, does appear to be slightly increased. Likely underlying pleural effusion or pleural thickening is present. Mildly advanced degenerative changes thoracic spine. Cholecystectomy clips in the right upper quadrant. IMPRESSION: 1. Post sternotomy changes. Vasculature appears unchanged. 2. Scattered pulmonary parenchymal densities are again demonstrated. Overall appears slightly increased at the right lung base. Dictated by: Dictated on workstation # [id number]
[2019-05-02 10:15] LABS: BILIRUBIN,URINE NEGATIVE (NEGATIVE); CLARITY,URINE CLEAR; COLOR,URINE YELLOW; GLUCOSE, URINE (UA) 3+ (NEGATIVE); KETONES,URINE NEGATIVE (NEGATIVE); LEUKOCYTE ESTERASE ,URINE NEGATIVE (NEGATIVE); NITRITE,URINE NEGATIVE (NEGATIVE); PROTEIN,URINE 1+ (NEGATIVE)
[2019-05-02] MEDS ORDERED: cefTRIAXone FOR IV USE 2,000 MG in WATER (STERILE) FOR INJECTION 20 ML IV ONE (10:15)
[2019-05-02] MEDS ORDERED: AZITHROMYCIN INJECTION 500 MG in NS (IVPB) 250 ML IV ONE (10:15)
[2019-05-02 10:22] LABS: BACTERIA,URINE NEGATIVE /HPF; RBC,URINE RARE /HPF; SQUAMOUS EPITHELIAL CELL,UR RARE /HPF
--- NOTE | 2019-05-02 11:45 | NUR ---
CAPO KELLEY admitted to room 432-1, with an admitting diagnosis of PNEUMONIA AND SEPSIS, on 05/02/19 from ED via W/C, accompanied by ED STAFF. CAPO KELLEY introduced to surroundings, call light, bed controls, phone, TV, temperature control, lights, meal times, smoking policy, visitor policy, side rail policy, bathrooms and showers. Patient Rights given to patient in the handbook. CAPO KELLEY verbalizes understanding that [facility] is not responsible for the loss or damage to any personal effects or valuables that are kept in the patients possession during their hospitalization.
[2019-05-02] MEDS: NS IV 1000 ML 1,000 ML IV SCH ×4 (12:17→20:49)
[2019-05-02 12:22] LABS: ABG OXYGEN SATURATION 96 % (94-100); ABG PCO2 49 MMHG (35-45); ABG PO2 78 MMHG (79-93); ABG TCO2 31.2 MMOL/L (21.0-31.0)
[2019-05-02 12:24] LABS: ALLENS TEST YES-POS; INSPIRED O2 2L; PATIENT TEMP 36.7; VENTILATOR NO
[2019-05-02] MEDS ORDERED: ONDA4TAB10 PO (14:03)
[2019-05-02] MEDS ORDERED: RT-ALBUINH INH (14:03)
--- NOTE | 2019-05-02 14:07 | NUR ---
UPDATED MED REC WITH MAR FROM [facility] AND [facility]. THE MAR DID NOT INCLUDE THE BYDUREON. I CALLED AND THEY VERIFIED THE PATIENT IS STILL RECEIVING THAT WEEKLY ON MONDAYS BUT HE DID NOT GET IT THIS MORNING BEFORE BEING ADMITTED. HE DID RECEIVE IT LAST Thursday04-25-19. THEY ALSO VERIFIED THE ALBUTEROL INHALER IS 2 PUFFS, THIS WAS CUT OFF ON THE FAX.
--- NOTE | 2019-05-02 19:04 | Diagnostic Imaging Report ---
EXAMINATION: Chest radiograph, portable AP view. DATE: 05/02/2019 6:59 PM hours. INDICATION: 63-year-old male, shortness of breath. COMPARISON: May 02, 2019 at 0904 hours. FINDINGS: There are median sternotomy wires. Stable overall appearance of the cardiomediastinal silhouette. There is no identified pneumothorax. There is blunting of the right lateral costophrenic angle. There is nonspecific airspace consolidation in both lungs which appears more prominent since earlier exam. IMPRESSION: 1. Nonspecific multifocal lung consolidation bilaterally which appears more prominent since comparison exam. 2. Probable right pleural effusion. Dictated by: Dictated on workstation # [id number]
--- NOTE | 2019-05-02 19:13 | Consultation-Cardiology ---
HPI-Cardiology Cardiology Consultation Date of Consultation 05/02/19 Date of Admission Time Seen by Provider: 19:08 Indication: hypertensive emergency HPI 63 years old gentleman with history of coronary artery disease, hypertension hyperlipidemia, mental disability, has been in the half-way, return for evaluation for increasing shortness of breath and fatigue. Patient does not know why he is in the hospital. Has been having shortness of breath and wheezing. No chest pain. No palpitation. Was noted to be in renal failure, during monitoring him on the floor he was noted to have severe hypertension, patient was transferred to the intensive care unit and I was called for consultation. Home Medications & Allergies Allergies: Coded Allergies: Penicillins (Verified Allergy, Unknown, 12/31/18) chlorpromazine (Verified Allergy, Unknown, 12/31/18) Home Medication List Reviewed: Yes RXI-Onrqok-Bsvwqv Hx Patient Social History Marital Status: single Employed/Student: unemployed Alcohol Use: Denies Use Recreational Drug Use: Yes Drug of Choice: HX THC Smoking Status: Current Everyday Smoker Type Used: Cigarettes 2nd Hand Smoke Exposure: Yes Recent Foreign Travel: No Recent Infectious Disease Expo: No Recent Hopitalizations: No Immunizations Up To Date Tetanus Booster (TDap): Unknown Date of Pneumonia Vaccine: Dec 31, 2017 Date of Influenza Vaccine: Mar 11, 2019 Past Medical History Discussed below Family Medical History Family Medical Hx Non contributory Review of Systems-General Review of Systems Constitutional: see HPI; No chills, No fever; malaise, weakness EENTM: see HPI, no symptoms reported Respiratory: see HPI, cough, dyspnea on exertion, phlegm, short of breath Cardiovascular: see HPI; No chest pain, No edema, No Hx of Intervention, No palpitations, No syncope, No vascular heart diseas, No other Gastrointestinal: no symptoms reported, see HPI; No abdominal pain, No diarrhea, No nausea, No vomiting Genitourinary: see HPI; No dysuria, No frequency Musculoskeletal: no symptoms reported, see HPI; No back pain Skin: no symptoms reported, see HPI; No change in color, No rash Psychiatric/Neurological: Anxiety, Other (schizophrenia) Reviewed Test Results Reviewed Test Results Lab Laboratory Tests Test 05/02/19 08:17 05/02/19 09:54 05/02/19 10:20 05/02/19 12:12 Range/Units White Blood Count 12.6 H 4.3-11.0 10^3/uL Red Blood Count 4.92 4.35-5.85 10^6/uL Hemoglobin 15.1 13.3-17.7 G/DL Hematocrit 45 40-54 % Mean Corpuscular Volume 91 80-99 FL Mean Corpuscular Hemoglobin 31 25-34 PG Mean Corpuscular Hemoglobin Concent 34 32-36 G/DL Red Cell Distribution Width 14.3 10.0-14.5 % Platelet Count 303 130-400 10^3/uL Mean Platelet Volume 8.6 7.4-10.4 FL Neutrophils (%) (Auto) 77 H 42-75 % Lymphocytes (%) (Auto) 10 L 12-44 % Monocytes (%) (Auto) 9 0-12 % Eosinophils (%) (Auto) 4 0-10 % Basophils (%) (Auto) 0 0-10 % Neutrophils # (Auto) 9.6 H 1.8-7.8 X 10^3 Lymphocytes # (Auto) 1.2 1.0-4.0 X 10^3 Monocytes # (Auto) 1.2 H 0.0-1.0 X 10^3 Eosinophils # (Auto) 0.5 H 0.0-0.3 10^3/uL Basophils # (Auto) 0.0 0.0-0.1 10^3/uL D-Dimer 0.83 H 0.00-0.49 UG/ML Sodium Level 132 L 135-145 MMOL/L Potassium Level 4.8 3.6-5.0 MMOL/L Chloride Level 92 L 98-107 MMOL/L Carbon Dioxide Level 27 21-32 MMOL/L Anion Gap 13 5-14 MMOL/L Blood Urea Nitrogen 16 7-18 MG/DL Creatinine 1.76 H 0.60-1.30 MG/DL Estimat Glomerular Filtration Rate 39 BUN/Creatinine Ratio 9 Glucose Level 399 H 70-105 MG/DL Lactic Acid Level 2.96 *H 2.26 *H 0.50-2.00 MMOL/L Calcium Level 9.1 8.5-10.1 MG/DL Corrected Calcium 9.0 8.5-10.1 MG/DL Total Bilirubin 0.2 0.1-1.0 MG/DL Aspartate Amino Transf (AST/SGOT) 15 5-34 U/L Alanine Aminotransferase (ALT/SGPT) 11 0-55 U/L Alkaline Phosphatase 75 40-136 U/L B-Type Natriuretic Peptide 360.9 H <100.0 PG/ML Total Protein 7.7 6.4-8.2 GM/DL Albumin 4.1 3.2-4.5 GM/DL Urine Color YELLOW Urine Clarity CLEAR Urine pH 7.0 5-9 Urine Specific [place] 1.015 L 1.016-1.022 Urine Protein 1+ H NEGATIVE Urine Glucose (UA) 3+ H NEGATIVE Urine Ketones NEGATIVE NEGATIVE Urine Nitrite NEGATIVE NEGATIVE Urine Bilirubin NEGATIVE NEGATIVE Urine Urobilinogen 0.2 < = 1.0 MG/DL Urine Leukocyte Esterase NEGATIVE NEGATIVE Urine RBC (Auto) NEGATIVE NEGATIVE Urine RBC RARE /HPF Urine WBC NONE /HPF Urine Squamous Epithelial Cells RARE /HPF Urine Crystals NONE /LPF Urine Bacteria NEGATIVE /HPF Urine Casts NONE /LPF Urine Mucus NEGATIVE /LPF Urine Culture Indicated NO Blood Gas Puncture Site LR Blood Gas Patient Temperature 36.7 Arterial Blood pH 7.40 7.37-7.43 Arterial Blood Partial Pressure CO2 49 H 35-45 MMHG Arterial Blood Partial Pressure O2 78 L 79-93 MMHG Arterial Blood HCO3 30 H 23-27 MMOL/L Arterial Blood Total CO2 31.2 H 21.0-31.0 MMOL/L Arterial Blood Oxygen Saturation 96 94-100 % Arterial Blood Base Excess 5.0 H -2.5-2.5 MMOL/L Osei Test YES-POS Blood Gas Ventilator Setting NO Blood Gas Inspired Oxygen 2L Test 05/02/19 17:00 Range/Units Lactic Acid Level 1.38 0.50-2.00 MMOL/L Physical Exam Physical Exam Vital Signs Vital Signs - First Documented 05/02/19 05/02/19 08:05 08:17 Temp 36.1 Pulse 96 Resp 27 B/P (MAP) 147/96 (113) Pulse Ox 91 O2 Delivery Room Air O2 Flow Rate 2.00 Capillary Refill : Less Than 3 Seconds Height, Weight, BMI Height: 5'8.00" Weight: 171lbs. 0.0oz. 77.562498ip; 30.16 BMI Method:Stated General Appearance: WD/WN, Mild Distress Eyes: Bilateral Eye Normal Inspection HEENT: PERRL/EOMI, TMs Normal, Normal ENT Inspection, Pharynx Normal, Moist Mucous Membranes Neck: Full Range of Motion, Normal Inspection, Non Tender, Supple, Carotid Bruit Respiratory: Chest Non Tender, Normal Breath Sounds, No Accessory Muscle Use, No Respiratory Distress Cardiovascular: Regular Rate, Rhythm, No JVD, Normal Peripheral Pulses, Systolic Murmur, Gallop/S3 Gastrointestinal: Normal Bowel Sounds, No Organomegaly, No Pulsatile Mass, Non Tender, Soft Back: Normal Inspection, No CVA Tenderness, No Vertebral Tenderness Extremity: Normal Capillary Refill, Normal Inspection, Normal Range of Motion, Non Tender, No Calf Tenderness, No Pedal Edema Neurologic/Psychiatric: Alert, Oriented x3, No Motor/Sensory Deficits, Normal Mood/Affect Skin: Normal Color, Warm/Dry Lymphatic: No Adenopathy A/P-Cardiology Admission Diagnosis Shortness of breath Hypertensive urgency Coronary artery disease Congestive heart failure Assessment/Plan Shortness of breath, worsening recently, appear to have mild degree of congestive heart failure and fluid overload, probably acute left ventricular diastolic dysfunction secondary to hypertensive heart disease Hypertensive emergency, transferred to intensive care unit, restart Coreg and start nitroglycerin drip and titrate to achieve adequate blood pressure control. Coronary artery disease, patient is a poor historian reporting history of CABG and multiple intervention the past. unable to provide any history. Continue to monitor for now Acute on chronic renal failure, worsening renal function, bilateral hydronephrosis, incontinence, managed by primary care team Urinary incontinence, probably overflow, managed by primary care Diabetes mellitus, followed and managed by primary care physician Shortness of breath, reporting improvement. Continue to monitor Hyperlipidemia, continue current medications Clinical Quality Measures DVT/VTE Risk/Contraindication: Risk Factor Score Per Nursin RFS Level Per Nursing on Admit: 4+=Very High AARON DAWSON MD May 02, 2019 19:13 POS
[2019-05-02] MEDS: NITRO DRIP 25000 MCG/D5W 250 ML IV SCH (19:22)
--- NOTE | 2019-05-02 19:37 | History & Physical ---
History of Present Illness History of Present Illness Reason for visit/HPI Patient resident of [facility]. I received a call from nurse at patient's pulse ox went down and having trouble breathing. Patient sent out to the emergency room. Lactic acid 2.9. X-ray shows pneumonia. Patient in room in hospital has malignant hypertension. Blood pressure 220. Patient transferred to ICU patient has malignant hypertension, pneumonia, sepsis, schizophrenia Date of Admission May 02, 2019 at 10:15 Time Seen by a Provider: 19:32 I consulted on this patient on 05/02/19 19:31 Attending Physician Leonardo Cody DO Admitting Physician Leonardo Cody DO Consult Allergies and Home Medications Allergies Coded Allergies: Penicillins (Verified Allergy, Unknown, 12/31/18) chlorpromazine (Verified Allergy, Unknown, 12/31/18) Home Medications Acetaminophen 325 Mg Tablet, 650 MG PO Q6H PRN for PAIN-MILD, (Reported) Albuterol Sulfate 1 Puff Puff, 2 PUFF INH QID, (Reported) Aspirin 81 Mg Tablet.dr, 81 MG PO DAILY, (Reported) Atorvastatin Calcium 40 Mg Tablet, 40 MG PO HS, (Reported) Carvedilol 3.125 Mg Tablet, 3.125 MG PO BID, (Reported) Cetirizine HCl 10 Mg Tablet, 10 MG PO DAILY, (Reported) Divalproex Sodium 125 Mg Cap.sprink, 750 MG PO BID, (Reported) TAKES 6 (125MG) CAPSULES Exenatide Microspheres 2 Mg/0.65 Ml Pen.injctr, 2 MG SC Mo, (Reported) Gabapentin 100 Mg Capsule, 100 MG PO HS, (Reported) Mag Hydrox/Al Hydrox/Simeth 30 Ml Oral.susp, 30 ML PO Q4H PRN for INDIGESTION, (Reported) Montelukast Sodium 10 Mg Tablet, 10 MG PO DAILY, (Reported) Olanzapine 5 Mg Tablet, 5 MG PO DAILY, (Reported) Olanzapine 5 Mg Tablet, 10 MG PO HS, (Reported) Ondansetron HCl 4 Mg Tablet, 4 MG PO Q8H PRN for NAUSEA/VOMITING-1ST LINE, (Reported) Pantoprazole Sodium 40 Mg Tablet.dr, 40 MG PO DAILY, (Reported) Sevelamer Carbonate 800 Mg Tablet, 800 MG PO TIDWM, (Reported) Tamsulosin HCl 0.4 Mg Cap, 0.4 MG PO HS, (Reported) Patient Home Medication List Home Medication List Reviewed: Yes Past Yehfezx-Uovbvm-Jmoaqo Hx Past Med/Social Hx: Reviewed Nursing Past Med/Soc Hx Patient Social History Marrital Status: single Employed/Student: unemployed Alcohol Use: Denies Use Recreational Drug Use: Yes Drug of Choice: HX THC Smoking Status: Current Everyday Smoker Type Used: Cigarettes 2nd Hand Smoke Exposure: Yes Recent Foreign Travel: No Contact w/other who traveled: No Recent Hopitalizations: No Recent Infectious Disease Expo: No Immunizations Up To Date Tetanus Booster (TDap): Unknown Date of Pneumonia Vaccine: Dec 31, 2017 Date of Influenza Vaccine: Mar 11, 2019 Seasonal Allergies Seasonal Allergies: No Past Medical History Surgeries: CABG, Vasectomy Respiratory: COPD Cardiac: Coronary Artery Disease, High Cholesterol, Hypertension Genitourinary: Renal Failure Gastrointestinal: Gastroesophageal Reflux Endocrine: Diabetes, Non-Insulin dep Psychosocial: Sleep Difficulties, PTSD, Schizophrenia, Depression History of Blood Disorders: No Review of Systems Constitutional: weakness EENTM: no symptoms reported Respiratory: dyspnea on exertion, short of breath Gastrointestinal: no symptoms reported Genitourinary: no symptoms reported Psychiatric/Neurological: Other (Schizophrenic) Physical Exam Vital Signs Vital Signs - First Documented 05/02/19 05/02/19 08:05 08:17 Temp 36.1 Pulse 96 Resp 27 B/P (MAP) 147/96 (113) Pulse Ox 91 O2 Delivery Room Air O2 Flow Rate 2.00 Capillary Refill : Less Than 3 Seconds Height, Weight, BMI Height: 5'8.00" Weight: 171lbs. 0.0oz. 77.500687or; 30.16 BMI Method:Stated General Appearance: No Apparent Distress, WD/WN Eyes: Bilateral Eye Normal Inspection HEENT: Normal ENT Inspection Neck: Full Range of Motion, Normal Inspection Respiratory: No Accessory Muscle Use, No Respiratory Distress, Decreased Breath Sounds Cardiovascular: Regular Rate, Rhythm Gastrointestinal: Non Tender, Soft Assessment/Plan Assessment and Plan Sepsis. Pneumonia. Dyspnea. Malignant hypertension. Schizophrenia area Renal insufficiency Admission Diagnosis Admission Status: Inpatient Order (span 2 midnights) Reason for Inpatient Admission: Malignant hypertension. Sepsis. COPD Clinical Quality Measures DVT/VTE Risk/Contraindication: Risk Factor Score Per Nursin RFS Level Per Nursing on Admit: 4+=Very High LEONARDO CODY DO May 02, 2019 19:37 POS
[2019-05-02] MEDS ORDERED: ACETAMINOPHEN 325 MG TABLET PO PRN (19:45)
[2019-05-02] MEDS ORDERED: NON-FORMULARY MEDICATION 1 EA EA (Olanzapine 10 MG) PO SCH (21:00)
[2019-05-02] MEDS ORDERED: NON-FORMULARY MEDICATION 1 EA EA (Carvedilol 3.125 MG) PO SCH (21:00)
[2019-05-02 21:04] LABS: BASOPHILS % (AUTO) 0 % (0-10); EOSINOPHILS # (AUTO) 0.4 10^3/uL (0.0-0.3); EOSINOPHILS % (AUTO) 2 % (0-10); HEMATOCRIT 41 % (40-54); HEMOGLOBIN 13.6 G/DL (13.3-17.7); LYMPHOCYTES # (AUTO) 0.7 X 10^3 (1.0-4.0); LYMPHOCYTES % (AUTO) 4 % (12-44); MEAN CORPUSCULAR HEMOGLOBIN 31 PG (25-34); MEAN CORPUSCULAR HGB CONC 33 G/DL (32-36); MEAN CORPUSCULAR VOLUME 93 FL (80-99); MEAN PLATELET VOLUME 8.5 FL (7.4-10.4); MONOCYTES # (AUTO) 1.4 X 10^3 (0.0-1.0); MONOCYTES % (AUTO) 9 % (0-12); NEUTROPHILS # (AUTO) 13.8 X 10^3 (1.8-7.8); NEUTROPHILS % (AUTO) 85 % (42-75); PLATELET COUNT 263 10^3/uL (130-400); WHITE BLOOD COUNT 16.3 10^3/uL (4.3-11.0)
[2019-05-02 21:20] LABS: ALBUMIN 3.7 GM/DL (3.2-4.5); BILIRUBIN,TOTAL 0.2 MG/DL (0.1-1.0); CALCIUM 8.6 MG/DL (8.5-10.1); CREATININE SERUM 1.4 MG/DL (0.60-1.30); POTASSIUM 5.1 MMOL/L (3.6-5.0); TOTAL PROTEIN 7.1 GM/DL (6.4-8.2)
[2019-05-02 21:24] LABS: BAND NEUTROPHILS 2 %; EOSINOPHILS % (MANUAL) 1 %; LYMPHOCYTES % (MANUAL) 6 %; MONOCYTES % (MANUAL) 9 %; NEUTROPHILS % (MANUAL) 82 %
[2019-05-02] MEDS: DIVALPROX SPRINKLE 125 MG (DEPAKOTE) CAP PO SCH (21:24)
[2019-05-02] MEDS: OLANZapine 5 MG (ZyPREXA) TAB PO SCH (21:24)
[2019-05-02] MEDS: CARVEDILOL 3.125 MG (COREG) TABLET PO SCH (21:24)
[2019-05-02] MEDS: GABAPENTIN 100 MG (NEURONTIN) CAP PO SCH (21:24)
[2019-05-02] MEDS: TAMSULOSIN 0.4 MG (FLOMAX) CAP PO SCH (21:24)
[2019-05-02] MEDS: ENOXAPARIN 40 MG/0.4 ML (LOVENOX) SYR SC SCH (21:29)
[2019-05-03] VITALS (14 sets, daily range): BP systolic 82–179; BP diastolic 52–95
[2019-05-03] MEDS: NS IV 1000 ML 1,000 ML IV SCH ×4 (02:30→23:58)
[2019-05-03 03:23] LABS: BASOPHILS % (AUTO) 0 % (0-10); EOSINOPHILS # (AUTO) 0.5 10^3/uL (0.0-0.3); EOSINOPHILS % (AUTO) 3 % (0-10); HEMATOCRIT 41 % (40-54); HEMOGLOBIN 13.4 G/DL (13.3-17.7); LYMPHOCYTES # (AUTO) 1.7 X 10^3 (1.0-4.0); LYMPHOCYTES % (AUTO) 12 % (12-44); MEAN CORPUSCULAR HEMOGLOBIN 30 PG (25-34); MEAN CORPUSCULAR HGB CONC 33 G/DL (32-36); MEAN CORPUSCULAR VOLUME 93 FL (80-99); MEAN PLATELET VOLUME 8.8 FL (7.4-10.4); MONOCYTES # (AUTO) 1.5 X 10^3 (0.0-1.0); MONOCYTES % (AUTO) 10 % (0-12); NEUTROPHILS # (AUTO) 10.9 X 10^3 (1.8-7.8); NEUTROPHILS % (AUTO) 75 % (42-75); PLATELET COUNT 254 10^3/uL (130-400); WHITE BLOOD COUNT 14.7 10^3/uL (4.3-11.0)
[2019-05-03 03:47] LABS: ALBUMIN 3.5 GM/DL (3.2-4.5); BILIRUBIN,TOTAL 0.2 MG/DL (0.1-1.0); CALCIUM 8.7 MG/DL (8.5-10.1); CREATININE SERUM 1.25 MG/DL (0.60-1.30); POTASSIUM 4.8 MMOL/L (3.6-5.0); TOTAL PROTEIN 6.8 GM/DL (6.4-8.2)
[2019-05-03 04:40] LABS: MAGNESIUM 1.6 MG/DL (1.6-2.4); PHOSPHORUS 3.9 MG/DL (2.3-4.7)
[2019-05-03] MEDS ORDERED: MAGNESIUM 1 GM/100 ML IVPB 200 ML IV ONE (05:16)
[2019-05-03] MEDS ORDERED: FUROSEMIDE 40 MG/4 ML INJ (LASIX) IVP ONE (05:45)
[2019-05-03] MEDS: MAGNESIUM 1 GM/100 ML IVPB 100 ML IV SCH ×3 (05:52→07:00)
[2019-05-03] MEDS: cefTRIAXone FOR IV USE 1,000 MG in WATER (STERILE) FOR INJECTION 10 ML IV SCH (06:28)
[2019-05-03] MEDS: KCL 20 MEQ TAB (K-DUR) PO SCH (06:30)
[2019-05-03] MEDS: POTASSIUM CL 10MEQ/50ML IVPB 50 ML IV SCH (06:30)
[2019-05-03] MEDS: inSUlin ASPART (NovoLOG) 1 UNIT/0.01 ML (CHARGE PER UNIT) SC SCH ×4 (07:00→20:14)
--- NOTE | 2019-05-03 07:13 | Diagnostic Imaging Report ---
INDICATION: Pneumonia, sepsis. TECHNIQUE: Single view chest 3:44 AM. CORRELATION STUDY: 05/02/2016 FINDINGS: Poststernotomy changes. Cardiac enlargement, prominent mediastinum overall stable. Bilateral pulmonary infiltrates are present but overall does appear to be slightly improved. More pronounced areas of consolidation at the right lung base does remain. Blunting of the right costophrenic angle. IMPRESSION: 1. Some overall improvement aeration through the lung rodriguez. Residual infiltrate or perhaps scarring at the right lung base along with blunting right costophrenic angle does persist. Dictated by: Dictated on workstation # [id number]
--- NOTE | 2019-05-03 07:23 | Cardiology Progress Note ---
Subjective Date Seen by Provider: May 03, 2019 Time Seen by Provider: 07:21 Subjective/Events-last exam Patient is laying down in bed, feeling better, breathing better. Asking to go home. Review of Systems General: No Chills, No Night Sweats; Fatigue; No Malaise, No Appetite, No Other HEENT: No Head Aches, No Visual Changes, No Eye Pain, No Ear Pain, No Dysphasia, No Sinus Congestion, No Post Nasal Drip, No Sore Throat, No Other Pulmonary: No Dyspnea, No Cough, No Pleuritic Chest Pain, No Other Cardiovascular: No: Chest Pain, Palpitations, Orthopnea, Paroxysmal Noc. Dyspnea, Edema, Lt Headedness, Other Focused Exam Lactate Level 05/02/19 08:17: Lactic Acid Level 2.96*H 05/02/19 10:20: Lactic Acid Level 2.26*H 05/02/19 17:00: Lactic Acid Level 1.38 Objective-Cardiology Exam Last Set of Vital Signs Vital Signs 05/03/19 05/03/19 04:15 06:00 Temp 36.9 Pulse 98 Resp 30 B/P (MAP) 149/90 (109) Pulse Ox 96 O2 Delivery Nasal Cannula O2 Flow Rate 2.00 Capillary Refill : Less Than 3 Seconds I&O Intake and Output 05/03/19 00:00 Intake Total 4410 ml Output Total 1375 ml Balance 3035 ml Intake Oral 1140 ml IV Total 3270 ml Output Urine Total 1375 ml # Voids 2 # Urine Diapers 2 # Bowel Movements 1 Daily Weight Change No No General: Alert, Oriented X3, Cooperative HEENT: Atraumatic, PERRLA Neck: Supple, No JVD, No Thyromegaly Lungs: Normal Air Movement, Other (Vanessa,) Heart: Regular Rate, Normal S1, Normal S2, No Murmurs Abdomen: Normal Bowel Sounds, Soft, No Tenderness, No Hepatosplenomegaly, No Masses Extremities: No Clubbing, No Cyanosis, No Edema, Normal Pulses, No Tenderness/Swelling Skin: No Rashes, No Breakdown, No Significant Lesion Neuro: Strength at 5/5 X4 Ext, Normal Tone, Sensation Intact Psych/Mental Status: Mental Status NL, Mood NL Results Lab Laboratory Tests 05/02/19 08:17 05/02/19 20:55 05/03/19 03:00 A/P-Cardiology Admission Diagnosis Shortness of breath Hypertensive urgency Coronary artery disease Congestive heart failure Assessment/Plan Shortness of breath, pneumonia and sepsis, receiving antibiotic, managed by Dr. Perez. Type II myocardial infarction, mild elevation in troponin secondary to malignant hypertension and hypoxemia. Has history of coronary artery disease, conservative management is recommended Hypertensive emergency, blood pressure is better, still having some elevation in his blood pressure. Continue to monitor Coronary artery disease, patient is a poor historian reporting history of CABG and multiple intervention the past. unable to provide any history. Will consider stress test as an outpatient Acute on chronic renal failure, worsening renal function, bilateral hydronephrosis, incontinence, managed by primary care team Urinary incontinence, probably overflow, managed by primary care Diabetes mellitus, followed and managed by primary care physician Shortness of breath, reporting improvement. Continue to monitor Hyperlipidemia, continue current medications Clinical Quality Measures DVT/VTE Risk/Contraindication: Risk Factor Score Per Nursin RFS Level Per Nursing on Admit: 4+=Very High AARON DAWSON MD May 03, 2019 07:23 POS
--- NOTE | 2019-05-03 08:36 | Progress Note ---
Subjective Time Seen by a Provider: 08:34 Subjective/Events-last exam Patient feeling better today. Blood pressure has improved. BNP elevated. Troponin minimally elevated. Schizophrenia Focused Exam Lactate Level 05/02/19 08:17: Lactic Acid Level 2.96*H 05/02/19 10:20: Lactic Acid Level 2.26*H 05/02/19 17:00: Lactic Acid Level 1.38 Objective Exam Vital Signs Date Time Temp Pulse Resp B/P (MAP) Pulse Ox O2 Delivery O2 Flow Rate FiO2 05/03/19 08:10 36.6 05/03/19 08:03 91 Nasal Cannula 4.00 05/03/19 08:00 96 32 172/94 (120) Nasal Cannula 2.00 05/03/19 07:00 96 05/03/19 07:00 102 22 179/95 (123) Nasal Cannula 2.00 05/03/19 06:00 98 30 149/90 (109) 96 Nasal Cannula 2.00 05/03/19 05:00 83 11 117/68 (84) 95 Nasal Cannula 2.00 05/03/19 04:15 36.9 05/03/19 04:00 85 26 103/64 (77) 89 Nasal Cannula 2.00 05/03/19 04:00 92 Nasal Cannula 4.00 05/03/19 03:00 93 25 136/85 (102) 95 Nasal Cannula 2.00 05/03/19 02:00 86 10 140/83 (102) 92 Nasal Cannula 2.00 05/03/19 01:00 84 26 114/69 (84) 92 Nasal Cannula 2.00 05/03/19 00:45 87 05/03/19 00:00 37.1 05/03/19 00:00 78 24 90/52 (65) 91 Nasal Cannula 2.00 05/03/19 00:00 95 Nasal Cannula 4.00 05/02/19 23:30 77/47 05/02/19 23:00 105 20 141/79 (99) 93 Nasal Cannula 2.00 05/02/19 22:00 105 8 168/98 (121) 90 Nasal Cannula 2.00 05/02/19 21:00 114 17 118/82 (94) 95 Nasal Cannula 2.00 05/02/19 20:59 112 05/02/19 20:00 101 38 173/133 (146) 98 Nasal Cannula 2.00 05/02/19 20:00 37.0 05/02/19 20:00 95 Nasal Cannula 4.00 05/02/19 19:22 201/121 05/02/19 19:00 19 188/117 (140) 94 Nasal Cannula 2.00 05/02/19 16:53 36.7 88 22 141/84 (103) 96 Nasal Cannula 2.00 05/02/19 15:09 Nasal Cannula 2.00 05/02/19 13:18 86 05/02/19 12:29 36.7 73 18 144/80 97 Room Air 05/02/19 11:03 73 20 149/97 93 Nasal Cannula 2.00 05/02/19 08:48 95 Nasal Cannula 2.00 I & O 05/03/19 07:00 Intake Total 5680 ml Output Total 1375 ml Balance 4305 ml Capillary Refill : Less Than 3 Seconds General Appearance: No Apparent Distress, WD/WN HEENT: Normal ENT Inspection Neck: Full Range of Motion, Normal Inspection Respiratory: No Accessory Muscle Use, No Respiratory Distress, Decreased Breath Sounds Cardiovascular: Regular Rate, Rhythm, No Murmur Gastrointestinal: non tender, soft Results Lab Laboratory Tests 05/02/19 20:55 05/03/19 03:00 Laboratory Tests 05/02/19 09:54: Urine Color YELLOW, Urine Clarity CLEAR, Urine pH 7.0, Urine Specific [place] 1.015L, Urine Protein 1+H, Urine Glucose (UA) 3+H, Urine Ketones NEGATIVE, Urine Nitrite NEGATIVE, Urine Bilirubin NEGATIVE, Urine Urobilinogen 0.2, Urine Leukocyte Esterase NEGATIVE, Urine RBC (Auto) NEGATIVE, Urine RBC RARE, Urine WBC NONE, Urine Squamous Epithelial Cells RARE, Urine Crystals NONE, Urine Bacteria NEGATIVE, Urine Casts NONE, Urine Mucus NEGATIVE, Urine Culture Indicated NO 05/02/19 10:20: Lactic Acid Level 2.26*H 05/02/19 12:12: Blood Gas Puncture Site LR, Blood Gas Patient Temperature 36.7, Arterial Blood pH 7.40, Arterial Blood Partial Pressure CO2 49H, Arterial Blood Partial Pressure O2 78L, Arterial Blood HCO3 30H, Arterial Blood Total CO2 31.2H, Arterial Blood Oxygen Saturation 96, Arterial Blood Base Excess 5.0H, Osei Test YES-POS, Blood Gas Ventilator Setting NO, Blood Gas Inspired Oxygen 2L 05/02/19 17:00: Lactic Acid Level 1.38 05/02/19 20:55: White Blood Count 16.3H, Red Blood Count 4.42, Hemoglobin 13.6, Hematocrit 41, Mean Corpuscular Volume 93, Mean Corpuscular Hemoglobin 31, Mean Corpuscular Hemoglobin Concent 33, Red Cell Distribution Width 14.0, Platelet Count 263, Mean Platelet Volume 8.5, Neutrophils (%) (Auto) 85H, Lymphocytes (%) (Auto) 4L, Monocytes (%) (Auto) 9, Eosinophils (%) (Auto) 2, Basophils (%) (Auto) 0, Neutrophils # (Auto) 13.8H, Lymphocytes # (Auto) 0.7L, Monocytes # (Auto) 1.4H, Eosinophils # (Auto) 0.4H, Basophils # (Auto) 0.0, Neutrophils % (Manual) 82, Lymphocytes % (Manual) 6, Monocytes % (Manual) 9, Eosinophils % (Manual) 1, Band Neutrophils 2, Blood Morphology Comment N, Sodium Level 135, Potassium Level 5.1H, Chloride Level 97L, Carbon Dioxide Level 27, Anion Gap 11, Blood Urea Nitrogen 11, Creatinine 1.40H, Estimat Glomerular Filtration Rate 51, BUN/Creatinine Ratio 8, Glucose Level 303H, Calcium Level 8.6, Corrected Calcium 8.8, Total Bilirubin 0.2, Aspartate Amino Transf (AST/SGOT) 17, Alanine Aminotransferase (ALT/SGPT) 15, Alkaline Phosphatase 72, Troponin I 0.110H, B- Type Natriuretic Peptide 515.0H, Total Protein 7.1, Albumin 3.7 05/03/19 03:00: White Blood Count 14.7H, Red Blood Count 4.41, Hemoglobin 13.4, Hematocrit 41, Mean Corpuscular Volume 93, Mean Corpuscular Hemoglobin 30, Mean Corpuscular Hemoglobin Concent 33, Red Cell Distribution Width 14.0, Platelet Count 254, Mean Platelet Volume 8.8, Neutrophils (%) (Auto) 75, Lymphocytes (%) (Auto) 12, Monocytes (%) (Auto) 10, Eosinophils (%) (Auto) 3, Basophils (%) (Auto) 0, Neutrophils # (Auto) 10.9H, Lymphocytes # (Auto) 1.7, Monocytes # (Auto) 1.5H, Eosinophils # (Auto) 0.5H, Basophils # (Auto) 0.0, Sodium Level 137, Potassium Level 4.8, Chloride Level 100, Carbon Dioxide Level 25, Anion Gap 12, Blood Urea Nitrogen 11, Creatinine 1.25, Estimat Glomerular Filtration Rate 59, BUN/Creatinine Ratio 9, Glucose Level 180H, Calcium Level 8.7, Corrected Calcium 9.1, Total Bilirubin 0.2, Aspartate Amino Transf (AST/SGOT) 15, Alanine Aminotransferase (ALT/SGPT) 14, Alkaline Phosphatase 70, Total Protein 6.8, Albumin 3.5, Phosphorus Level 3.9, Magnesium Level 1.6 05/03/19 06:57: Glucometer 173H Microbiology 05/02/19 Gram Stain - Final, Resulted 05/02/19 Sputum Culture, Resulted Pending Assessment/Plan Assessment/Plan Assess & Plan/Chief Complaint Pneumonia. Sepsis. Short of breath. Hypertensive urgency. CAD. CHF type II [place]. . Schizophrenia Clinical Quality Measures Admission Status Admission Dx Sepsis. Pneumonia. Dyspnea. Malignant hypertension. Schizophrenia area Renal insufficiency DVT/VTE Risk/Contraindication: Risk Factor Score Per Nursin RFS Level Per Nursing on Admit: 4+=Very High GIOVANNY CODY DO May 03, 2019 08:36 POS
[2019-05-03] MEDS ORDERED: AZITHROMYCIN INJECTION 250 MG in NS (IVPB) 250 ML IV SCH (09:00)
[2019-05-03] MEDS ORDERED: NON-FORMULARY MEDICATION 1 EA EA (Olanzapine 5 MG) PO SCH (09:00)
[2019-05-03 09:20] LABS: RBC MORPH NORMAL
[2019-05-03] MEDS: DIVALPROX SPRINKLE 125 MG (DEPAKOTE) CAP PO SCH ×2 (09:59→20:09)
[2019-05-03] MEDS: OLANZapine 5 MG (ZyPREXA) TAB PO SCH ×2 (10:00→20:10)
[2019-05-03] MEDS: CARVEDILOL 3.125 MG (COREG) TABLET PO SCH ×2 (10:00→20:10)
[2019-05-03] MEDS: ASPIRIN E.C. 81 MG (ECOTRIN) TAB PO SCH (10:00)
[2019-05-03] MEDS: PANTOPRAZOLE 40 MG (PROTONIX) TAB PO SCH (10:00)
--- NOTE | 2019-05-03 13:05 | NUR ---
Report received, patient to room 415, call light within reach, will assume care of patient at this time.
--- NOTE | 2019-05-03 13:34 | NUR ---
Report given to Marie SHEN. Pt transported to 415 at 1305 via wheel chair. Pt belongings transported with pt. RN to assume care at this time
--- NOTE | 2019-05-03 14:45 | NUR ---
Report given to Josiah SHEN at this time.
[2019-05-03] MEDS: ENOXAPARIN 40 MG/0.4 ML (LOVENOX) SYR SC SCH (20:09)
[2019-05-03] MEDS: TAMSULOSIN 0.4 MG (FLOMAX) CAP PO SCH (20:10)
[2019-05-03] MEDS: GABAPENTIN 100 MG (NEURONTIN) CAP PO SCH (20:10)
[2019-05-03] MEDS: NITRO DRIP 25000 MCG/D5W 250 ML IV SCH (20:14)
[2019-05-04] VITALS (7 sets, daily range): BP systolic 112–166; BP diastolic 61–98
[2019-05-04 04:31] LABS: BASOPHILS % (AUTO) 0 % (0-10); EOSINOPHILS # (AUTO) 0.5 10^3/uL (0.0-0.3); EOSINOPHILS % (AUTO) 5 % (0-10); HEMATOCRIT 41 % (40-54); HEMOGLOBIN 13.3 G/DL (13.3-17.7); LYMPHOCYTES % (AUTO) 18 % (12-44); MEAN CORPUSCULAR HEMOGLOBIN 31 PG (25-34); MEAN CORPUSCULAR HGB CONC 33 G/DL (32-36); MEAN CORPUSCULAR VOLUME 94 FL (80-99); MEAN PLATELET VOLUME 8.6 FL (7.4-10.4); MONOCYTES # (AUTO) 1.3 X 10^3 (0.0-1.0); MONOCYTES % (AUTO) 11 % (0-12); NEUTROPHILS # (AUTO) 7.6 X 10^3 (1.8-7.8); NEUTROPHILS % (AUTO) 67 % (42-75); PLATELET COUNT 221 10^3/uL (130-400); WHITE BLOOD COUNT 11.4 10^3/uL (4.3-11.0)
[2019-05-04 04:49] LABS: CALCIUM 7.9 MG/DL (8.5-10.1); CREATININE SERUM 1.57 MG/DL (0.60-1.30); MAGNESIUM 1.6 MG/DL (1.6-2.4); PHOSPHORUS 3.9 MG/DL (2.3-4.7); POTASSIUM 5.1 MMOL/L (3.6-5.0)
[2019-05-04] MEDS ORDERED: cefTRIAXone 1,000 MG IV (ROCEPHIN) VIAL ONE (05:14)
[2019-05-04] MEDS ORDERED: WATER (STERILE) FOR INJECTION 10 ML ONE (05:14)
[2019-05-04] MEDS: NS IV 1000 ML 1,000 ML IV SCH ×2 (05:18→21:32)
[2019-05-04] MEDS: KCL 20 MEQ TAB (K-DUR) PO SCH (05:20)
[2019-05-04] MEDS: cefTRIAXone FOR IV USE 1,000 MG in WATER (STERILE) FOR INJECTION 10 ML IV SCH (05:20)
[2019-05-04] MEDS: POTASSIUM CL 10MEQ/50ML IVPB 50 ML IV SCH (05:20)
[2019-05-04] MEDS: MAGNESIUM 1 GM/100 ML IVPB 100 ML IV SCH (05:20)
[2019-05-04] MEDS: inSUlin ASPART (NovoLOG) 1 UNIT/0.01 ML (CHARGE PER UNIT) SC SCH ×4 (05:35→21:20)
--- NOTE | 2019-05-04 07:57 | Progress Note ---
Subjective Time Seen by a Provider: 07:54 Subjective/Events-last exam Patient feeling better today. Malignant hypertension good. Patient has pneumonia due to Moraxella catarrhalis. Sepsis better. GFR 45 today. Troponin 0.074 minimally elevated Focused Exam Lactate Level 05/02/19 08:17: Lactic Acid Level 2.96*H 05/02/19 10:20: Lactic Acid Level 2.26*H 05/02/19 17:00: Lactic Acid Level 1.38 Objective Exam Vital Signs Date Time Temp Pulse Resp B/P (MAP) Pulse Ox O2 Delivery O2 Flow Rate FiO2 05/04/19 07:37 36.6 71 20 160/87 (111) 94 Nasal Cannula 5.00 05/04/19 07:00 82 05/04/19 04:06 36.7 78 20 124/87 (99) 95 Nasal Cannula 5.00 05/04/19 00:30 36.8 86 18 112/61 (78) 92 Nasal Cannula 4.00 05/03/19 21:00 93 Room Air 4.00 05/03/19 19:45 37.0 82 20 120/65 (83) 93 Room Air 05/03/19 16:16 36.6 77 18 117/68 (84) 94 Nasal Cannula 4.00 05/03/19 15:40 Nasal Cannula 4.00 05/03/19 13:03 36.6 86 20 146/70 (95) 97 Nasal Cannula 4.00 05/03/19 12:37 75 05/03/19 12:25 36.7 80 18 134/93 (107) 93 Nasal Cannula 2.00 05/03/19 09:00 83 26 96/60 (72) Nasal Cannula 2.00 05/03/19 08:10 36.6 05/03/19 08:03 91 Nasal Cannula 4.00 05/03/19 08:00 96 32 172/94 (120) Nasal Cannula 2.00 I & O 05/04/19 07:00 Intake Total 2630 ml Output Total 3375 ml Balance -745 ml Capillary Refill : Less Than 3 SecondsLess Than 3 Seconds General Appearance: No Apparent Distress, WD/WN HEENT: Normal ENT Inspection Neck: Full Range of Motion, Normal Inspection Respiratory: Chest Non Tender, Lungs Clear, No Accessory Muscle Use, No Respiratory Distress Cardiovascular: Regular Rate, Rhythm, No Murmur Gastrointestinal: non tender, soft Results Lab Laboratory Tests 05/04/19 04:00 Laboratory Tests 05/03/19 10:11: Glucometer 148H 05/03/19 14:31: Glucometer 274H 05/03/19 19:27: Glucometer 129H 05/04/19 04:00: White Blood Count 11.4H, Red Blood Count 4.36, Hemoglobin 13.3, Hematocrit 41, Mean Corpuscular Volume 94, Mean Corpuscular Hemoglobin 31, Mean Corpuscular Hemoglobin Concent 33, Red Cell Distribution Width 14.0, Platelet Count 221, Mean Platelet Volume 8.6, Neutrophils (%) (Auto) 67, Lymphocytes (%) (Auto) 18, Monocytes (%) (Auto) 11, Eosinophils (%) (Auto) 5, Basophils (%) (Auto) 0, Neutrophils # (Auto) 7.6, Lymphocytes # (Auto) 2.0, Monocytes # (Auto) 1.3H, Eosinophils # (Auto) 0.5H, Basophils # (Auto) 0.0, Sodium Level 139, Potassium Level 5.1H, Chloride Level 101, Carbon Dioxide Level 27, Anion Gap 11, Blood Urea Nitrogen 15, Creatinine 1.57H, Estimat Glomerular Filtration Rate 45, BUN/Creatinine Ratio 10, Glucose Level 154H, Calcium Level 7.9L, Phosphorus Level 3.9, Magnesium Level 1.6, B-Type Natriuretic Peptide 233.3H 05/04/19 06:23: Troponin I 0.074H Microbiology 05/02/19 Blood Culture - Preliminary, Resulted No growth 05/02/19 Gram Stain - Final, Resulted 05/02/19 Sputum Culture - Preliminary, Resulted Moraxella catarrhalis Usual upper respiratory paulina Assessment/Plan Assessment/Plan Assess & Plan/Chief Complaint Pneumonia. Sepsis. Short of breath. Hypertensive urgency. CAD. CHF type II [place]. . Schizophrenia. . 05/04/19. Pneumonia due to Moraxella catarrhalis. Sepsis. Short of breath. Hypertensive urgency. CHF. Coronary artery disease. Type II [place] Clinical Quality Measures Admission Status Admission Dx Sepsis. Pneumonia. Dyspnea. Malignant hypertension. Schizophrenia area Renal insufficiency DVT/VTE Risk/Contraindication: Risk Factor Score Per Nursin RFS Level Per Nursing on Admit: 4+=Very High GIOVANNY CODY DO May 04, 2019 07:57 POS
[2019-05-04] MEDS: CARVEDILOL 3.125 MG (COREG) TABLET PO SCH ×2 (08:45→21:22)
[2019-05-04] MEDS: DIVALPROX SPRINKLE 125 MG (DEPAKOTE) CAP PO SCH ×2 (08:45→21:21)
[2019-05-04] MEDS: ASPIRIN E.C. 81 MG (ECOTRIN) TAB PO SCH (08:46)
[2019-05-04] MEDS: PANTOPRAZOLE 40 MG (PROTONIX) TAB PO SCH (08:46)
[2019-05-04] MEDS: OLANZapine 5 MG (ZyPREXA) TAB PO SCH ×2 (08:46→21:22)
[2019-05-04] MEDS: AZITHROMYCIN 250 MG TAB (ZITHROMAX) PO SCH (08:49)
--- NOTE | 2019-05-04 09:06 | Diagnostic Imaging Report ---
INDICATION: Pneumonia. COMPARISON: 05/03/2019. FINDINGS: There is right basilar atelectasis and/or pneumonitis. There is a right pleural effusion. There is cardiomegaly. There is no pneumothorax. There has been a previous median sternotomy. The mediastinum is unremarkable. IMPRESSION: Right basilar atelectasis and/or pneumonitis and a right pleural effusion. Cardiomegaly. Dictated by: Dictated on workstation # [id number]
--- NOTE | 2019-05-04 11:36 | NUR ---
CM/SS visited patient to assess for needs upon discharge. Plan: The patient plans to return to [facility] at discharge. The patient has been residing there for a while. Summary: The patient verbalized that he was told he would be leaving today. He reported that he did not have any other needs at this time. CM/SS will follow notes and speak with a nurse to arrange discharge with [facility].
--- NOTE | 2019-05-04 15:46 | NUR ---
Pastoral care visit.
--- NOTE | 2019-05-04 16:35 | Cardiology Progress Note ---
Subjective Date Seen by Provider: May 04, 2019 Time Seen by Provider: 16:34 Subjective/Events-last exam patient is laying down in bed, asking to go home. Review of Systems General: No Chills, No Night Sweats, No Fatigue, No Malaise, No Appetite, No Other HEENT: No Head Aches, No Visual Changes, No Eye Pain, No Ear Pain, No Dysphasia, No Sinus Congestion, No Post Nasal Drip, No Sore Throat, No Other Pulmonary: No Dyspnea, No Cough, No Pleuritic Chest Pain, No Other Cardiovascular: No: Chest Pain, Palpitations, Orthopnea, Paroxysmal Noc. Dyspnea, Edema, Lt Headedness, Other Focused Exam Lactate Level 05/02/19 08:17: Lactic Acid Level 2.96*H 05/02/19 10:20: Lactic Acid Level 2.26*H 05/02/19 17:00: Lactic Acid Level 1.38 Objective-Cardiology Exam Last Set of Vital Signs Vital Signs 05/04/19 16:31 Temp 36.7 Pulse 73 Resp 24 B/P (MAP) 164/84 (110) Pulse Ox 99 O2 Delivery Nasal Cannula O2 Flow Rate 4.00 Capillary Refill : Less Than 3 SecondsLess Than 3 Seconds I&O Intake and Output 05/04/19 00:00 Intake Total 3420 ml Output Total 2075 ml Balance 1345 ml Intake Oral 1320 ml IV Total 2100 ml Output Urine Total 2075 ml # Voids 2 # Urine Diapers 2 General: Alert, Oriented X3, Cooperative HEENT: Atraumatic, PERRLA Neck: Supple, No JVD, No Thyromegaly Lungs: Normal Air Movement, Other (Vanessa,) Heart: Regular Rate, Normal S1, Normal S2, No Murmurs Abdomen: Normal Bowel Sounds, Soft, No Tenderness, No Hepatosplenomegaly, No Masses Extremities: No Clubbing, No Cyanosis, No Edema, Normal Pulses, No Tenderness/Swelling Skin: No Rashes, No Breakdown, No Significant Lesion Neuro: Strength at 5/5 X4 Ext, Normal Tone, Sensation Intact Psych/Mental Status: Mental Status NL, Mood NL Results Lab Laboratory Tests 05/04/19 04:00 A/P-Cardiology Admission Diagnosis Shortness of breath Hypertensive urgency Coronary artery disease Congestive heart failure Assessment/Plan Shortness of breath, pneumonia and sepsis, receiving antibiotic, managed by Dr. Perez. Type II myocardial infarction, mild elevation in troponin secondary to malignant hypertension and hypoxemia. Has history of coronary artery disease, conservative management is recommended Hypertensive emergency, blood pressure is better, continue to monitor blood pressure Coronary artery disease, patient is a poor historian reporting history of CABG and multiple intervention the past. unable to provide any history. Will consider stress test as an outpatient Acute on chronic renal failure, worsening renal function, bilateral hydr onephrosis, incontinence, managed by primary care team Urinary incontinence, probably overflow, managed by primary care Diabetes mellitus, followed and managed by primary care physician Shortness of breath, reporting improvement. Continue to monitor Hyperlipidemia, continue current medications Schizophrenia, managed by primary care physician Clinical Quality Measures DVT/VTE Risk/Contraindication: Risk Factor Score Per Nursin RFS Level Per Nursing on Admit: 4+=Very High AARON DAWSON MD May 04, 2019 16:34 POS
[2019-05-04] MEDS: ENOXAPARIN 40 MG/0.4 ML (LOVENOX) SYR SC SCH (21:19)
[2019-05-04] MEDS: TAMSULOSIN 0.4 MG (FLOMAX) CAP PO SCH (21:21)
[2019-05-04] MEDS: GABAPENTIN 100 MG (NEURONTIN) CAP PO SCH (21:21)
[2019-05-05 03:00] VITALS: BP 99/64
[2019-05-05 05:12] LABS: BASOPHILS % (AUTO) 0 % (0-10); EOSINOPHILS # (AUTO) 0.4 10^3/uL (0.0-0.3); EOSINOPHILS % (AUTO) 5 % (0-10); HEMATOCRIT 42 % (40-54); HEMOGLOBIN 13.9 G/DL (13.3-17.7); LYMPHOCYTES # (AUTO) 1.3 X 10^3 (1.0-4.0); LYMPHOCYTES % (AUTO) 14 % (12-44); MEAN CORPUSCULAR HEMOGLOBIN 30 PG (25-34); MEAN CORPUSCULAR HGB CONC 33 G/DL (32-36); MEAN CORPUSCULAR VOLUME 92 FL (80-99); MEAN PLATELET VOLUME 8.7 FL (7.4-10.4); MONOCYTES # (AUTO) 1.1 X 10^3 (0.0-1.0); MONOCYTES % (AUTO) 12 % (0-12); NEUTROPHILS # (AUTO) 6.8 X 10^3 (1.8-7.8); NEUTROPHILS % (AUTO) 70 % (42-75); PLATELET COUNT 197 10^3/uL (130-400); RED CELL DISTRIBUTION WIDTH 13.6 % (10.0-14.5); WHITE BLOOD COUNT 9.7 10^3/uL (4.3-11.0)
[2019-05-05 05:28] LABS: CALCIUM 8.8 MG/DL (8.5-10.1); CREATININE SERUM 1.35 MG/DL (0.60-1.30); MAGNESIUM 1.7 MG/DL (1.6-2.4); PHOSPHORUS 4.1 MG/DL (2.3-4.7); POTASSIUM 4.6 MMOL/L (3.6-5.0)
[2019-05-05] MEDS: KCL 20 MEQ TAB (K-DUR) PO SCH (05:43)
[2019-05-05] MEDS: POTASSIUM CL 10MEQ/50ML IVPB 50 ML IV SCH (05:43)
[2019-05-05] MEDS: MAGNESIUM 1 GM/100 ML IVPB 100 ML IV SCH (05:43)
[2019-05-05] MEDS ORDERED: cefTRIAXone 1,000 MG IV (ROCEPHIN) VIAL ONE (05:57)
[2019-05-05] MEDS ORDERED: WATER (STERILE) FOR INJECTION 10 ML ONE (05:57)
[2019-05-05] MEDS: cefTRIAXone FOR IV USE 1,000 MG in WATER (STERILE) FOR INJECTION 10 ML IV SCH (06:05)
[2019-05-05] MEDS: inSUlin ASPART (NovoLOG) 1 UNIT/0.01 ML (CHARGE PER UNIT) SC SCH ×2 (06:05→09:52)
--- NOTE | 2019-05-05 07:40 | Progress Note ---
Subjective Time Seen by a Provider: 07:37 Subjective/Events-last exam Patient doing okay today. Patient breathing good. Plan to discharge patient today. Focused Exam Lactate Level 05/02/19 08:17: Lactic Acid Level 2.96*H 05/02/19 10:20: Lactic Acid Level 2.26*H 05/02/19 17:00: Lactic Acid Level 1.38 Objective Exam Vital Signs Date Time Temp Pulse Resp B/P (MAP) Pulse Ox O2 Delivery O2 Flow Rate FiO2 05/05/19 03:00 36.8 68 20 99/64 (76) 96 Nasal Cannula 5.00 05/05/19 01:00 81 05/04/19 23:25 36.7 85 21 152/82 (105) 95 Nasal Cannula 5.00 05/04/19 21:00 96 Nasal Cannula 5.00 05/04/19 19:30 36.7 87 22 166/98 (120) 94 Nasal Cannula 5.00 05/04/19 19:00 72 05/04/19 16:31 36.7 73 24 164/84 (110) 99 Nasal Cannula 4.00 05/04/19 13:00 91 05/04/19 11:21 36.8 146/83 (104) 92 Nasal Cannula 5.00 05/04/19 09:00 94 Nasal Cannula 200.00 I & O 05/05/19 07:00 Intake Total 3493 ml Output Total 3075 ml Balance 418 ml Capillary Refill : Less Than 3 SecondsLess Than 3 Seconds General Appearance: No Apparent Distress, WD/WN HEENT: Normal ENT Inspection Neck: Full Range of Motion, Normal Inspection Respiratory: Lungs Clear, No Accessory Muscle Use, No Respiratory Distress, Decreased Breath Sounds Cardiovascular: Regular Rate, Rhythm Gastrointestinal: non tender, soft Results Lab Laboratory Tests 05/05/19 04:54 Laboratory Tests 05/04/19 09:30: Glucometer 163H 05/04/19 14:20: Glucometer 161H 05/04/19 19:32: Glucometer 132H 05/05/19 04:54: White Blood Count 9.7, Red Blood Count 4.59, Hemoglobin 13.9, Hematocrit 42, Mean Corpuscular Volume 92, Mean Corpuscular Hemoglobin 30, Mean Corpuscular Hemoglobin Concent 33, Red Cell Distribution Width 13.6, Platelet Count 197, Mean Platelet Volume 8.7, Neutrophils (%) (Auto) 70, Lymphocytes (%) (Auto) 14, Monocytes (%) (Auto) 12, Eosinophils (%) (Auto) 5, Basophils (%) (Auto) 0, Neutrophils # (Auto) 6.8, Lymphocytes # (Auto) 1.3, Monocytes # (Auto) 1.1H, Eosinophils # (Auto) 0.4H, Basophils # (Auto) 0.0, Sodium Level 140, Potassium Level 4.6, Chloride Level 100, Carbon Dioxide Level 28, Anion Gap 12, Blood Urea Nitrogen 19H, Creatinine 1.35H, Estimat Glomerular Filtration Rate 54, BUN/Creatinine Ratio 14, Glucose Level 97, Calcium Level 8.8, Phosphorus Level 4.1, Magnesium Level 1.7 Microbiology 05/02/19 Blood Culture - Preliminary, Resulted No growth 05/03/19 MRSA Screen - Final, Complete MRSA not isolated Assessment/Plan Assessment/Plan Assess & Plan/Chief Complaint Pneumonia. Sepsis. Short of breath. Hypertensive urgency. CAD. CHF type II [place]. . Schizophrenia. . 05/04/19. Pneumonia due to Moraxella catarrhalis. Sepsis. Short of breath. Hypertensive urgency. CHF. Coronary artery disease. Type II [place]. . 05/05/19 pneumonia due to Moraxella catarrhalis. Sepsis. Right basilar pneumonia. Right pleural effusion. Hypertension urgency. Short of breath. CHF. Type II [place]. Patient doing better and plan to discharge today Clinical Quality Measures Admission Status Admission Dx Sepsis. Pneumonia. Dyspnea. Malignant hypertension. Schizophrenia area Renal insufficiency DVT/VTE Risk/Contraindication: Risk Factor Score Per Nursin RFS Level Per Nursing on Admit: 4+=Very High GIOVANNY CODY DO May 05, 2019 07:40 POS
[2019-05-05] MEDS ORDERED: AZIT250T PO (07:55)
[2019-05-05 08:00] VITALS: BP 126/76
--- NOTE | 2019-05-05 08:29 | Cardiology Progress Note ---
Subjective Date Seen by Provider: May 05, 2019 Time Seen by Provider: 08:27 Subjective/Events-last exam Patient is in bed, asking to go home. Denies any chest pain or dyspnea. Focused Exam Lactate Level 05/02/19 10:20: Lactic Acid Level 2.26*H 05/02/19 17:00: Lactic Acid Level 1.38 Objective-Cardiology Exam Last Set of Vital Signs Vital Signs 05/05/19 05/05/19 03:00 07:00 Temp 36.8 Pulse 77 Resp 20 B/P (MAP) 99/64 (76) Pulse Ox 96 O2 Delivery Nasal Cannula O2 Flow Rate 5.00 Capillary Refill : Less Than 3 SecondsLess Than 3 Seconds I&O Intake and Output 05/05/19 00:00 Intake Total 3298 ml Output Total 3150 ml Balance 148 ml Intake Oral 3298 ml Output Urine Total 3150 ml # Voids 3 # Bowel Movements 2 General: Alert, Oriented X3, Cooperative HEENT: Atraumatic, PERRLA Neck: Supple, No JVD, No Thyromegaly Lungs: Normal Air Movement, Other (bilateral rhonchi) Heart: Regular Rate, Normal S1, Normal S2, No Murmurs Abdomen: Normal Bowel Sounds, Soft, No Tenderness, No Hepatosplenomegaly, No Masses Extremities: No Clubbing, No Cyanosis, No Edema, Normal Pulses, No Tenderness/Swelling Skin: No Rashes, No Breakdown, No Significant Lesion Neuro: Strength at 5/5 X4 Ext, Normal Tone, Sensation Intact Psych/Mental Status: Mental Status NL, Mood NL Results Lab Laboratory Tests 05/05/19 04:54 A/P-Cardiology Admission Diagnosis Shortness of breath Hypertensive urgency Coronary artery disease Congestive heart failure Assessment/Plan Shortness of breath, pneumonia and sepsis, receiving antibiotic, managed by Dr. Perez. Type II myocardial infarction, mild elevation in troponin secondary to malignant hypertension and hypoxemia. Has history of coronary artery disease, conservative management is recommended Hypertensive emergency, blood pressure is better, continue to monitor blood pr essure Coronary artery disease, patient is a poor historian reporting history of CABG and multiple intervention the past. unable to provide any history. Will consider stress test as an outpatient Acute on chronic renal failure, worsening renal function, bilateral hydronephro sis, incontinence, managed by primary care team Urinary incontinence, probably overflow, managed by primary care Diabetes mellitus, followed and managed by primary care physician Doritaness of breath, reporting improvement. Continue to monitor Hyperlipidemia, continue current medications Schizophrenia, managed by primary care physician Clinical Quality Measures DVT/VTE Risk/Contraindication: Risk Factor Score Per Nursin RFS Level Per Nursing on Admit: 4+=Very High LAMONT DONAHUE May 05, 2019 08:28 POS
[2019-05-05] MEDS: CARVEDILOL 3.125 MG (COREG) TABLET PO SCH (08:36)
[2019-05-05] MEDS: AZITHROMYCIN 250 MG TAB (ZITHROMAX) PO SCH (08:36)
[2019-05-05] MEDS: DIVALPROX SPRINKLE 125 MG (DEPAKOTE) CAP PO SCH (08:36)
[2019-05-05] MEDS: ASPIRIN E.C. 81 MG (ECOTRIN) TAB PO SCH (08:36)
[2019-05-05] MEDS: PANTOPRAZOLE 40 MG (PROTONIX) TAB PO SCH (08:36)
[2019-05-05] MEDS: OLANZapine 5 MG (ZyPREXA) TAB PO SCH (08:36)
--- NOTE | 2019-05-05 09:16 | Diagnostic Imaging Report ---
PA and lateral chest at 8:43. Indication: Pneumonia. The heart size is within normal limits and the heart does seem less prominent than noted on the prior exam of 05/04/2019. The atelectasis/infiltrate and fluid involving the right lung base seen previously is also diminished since the prior exam. The right upper lung and left lung are generally clear. There are still a thin band atelectasis/infiltrate in the periphery of the left midlung. The sternotomy wires and surgical clips noted present are again evident and no different. The mediastinum is not widened. The osseous structures are intact. Impression: The appearance of the chest has improved since the prior exam as the right lung base does seem better aerated. There are still some residual atelectasis/infiltrate and fluid present however. A followup exam would be recommended for continued evaluation. Dictated by: Dictated on workstation # [id number]
--- NOTE | 2019-05-05 09:52 | NUR ---
REFUSED 2U INSULIN STATING "I AM DISCHARGED."
--- NOTE | 2019-05-05 11:10 | NUR ---
[facility]HEL[facility] AMBULATORY WITH PHR STAFF; R Addendum: 05/05/19 at 1115 by KAILEE BYERS RN REPORT CALLED TO PHR.
== END 2019-05-05 11:10 | DRG 871 ==
LOC: EDUNIT# 08:02 → ER 08:03 → 4TH 10:15 → ICU 18:45 → CSD 05-03 09:45 → 4TH 05-03 13:03
PROVIDERS: ADMIT Family Medicine; ATTEND Family Medicine
DX: A41.59 Other Gram-negative sepsis (principal); J18.9 Pneumonia, unspecified organism; I16.0 Hypertensive urgency; R09.02 Hypoxemia; I21.A1 Myocardial infarction type 2; I13.2 Hypertensive heart and chronic kidney disease with heart failure and with stage 5 chronic kidney disease, or end stage renal disease; N18.6 End stage renal disease; I50.31 Acute diastolic (congestive) heart failure; J44.0 Chronic obstructive pulmonary disease with (acute) lower respiratory infection; N13.30 Unspecified hydronephrosis; N17.9 Acute kidney failure, unspecified; N39.490 Overflow incontinence; I25.10 Atherosclerotic heart disease of native coronary artery without angina pectoris; E78.5 Hyperlipidemia, unspecified; E11.9 Type 2 diabetes mellitus without complications; F17.210 Nicotine dependence, cigarettes, uncomplicated; K21.9 Gastro-esophageal reflux disease without esophagitis; F20.9 Schizophrenia, unspecified; F41.9 Anxiety disorder, unspecified; G47.9 Sleep disorder, unspecified; F43.10 Post-traumatic stress disorder, unspecified; F32.9 Major depressive disorder, single episode, unspecified; Z95.1 Presence of aortocoronary bypass graft
CPT/HCPCS: 36415; 36600; 71045; 71046; 80048; 80053; 81000; 82805; 82962; 83605; 83735; 83880; 84100; 84443; 84484; 85007; 85025; 85027; 85379; 87040; 87070; 87077; 87081; 87185; 87205; 93005; 93041; 94640; 96361; 96374; 96375

== ENCOUNTER → 2019-06-03 | Outpatient (CLI) | payer MEDICAID ==
[~2019-06-03] MED LIST changes: +AZIT250T PO; +ONDA4TAB10 PO; +RT-ALBUINH INH
[2019-06-03 10:31] LABS: BASOPHILS # (AUTO) 0.1 10^3/uL (0.0-0.1); BASOPHILS % (AUTO) 1 % (0-10); EOSINOPHILS # (AUTO) 0.5 10^3/uL (0.0-0.3); EOSINOPHILS % (AUTO) 7 % (0-10); HEMATOCRIT 43 % (40-54); LYMPHOCYTES # (AUTO) 1.3 X 10^3 (1.0-4.0); LYMPHOCYTES % (AUTO) 16 % (12-44); MEAN CORPUSCULAR HEMOGLOBIN 30 PG (25-34); MEAN CORPUSCULAR HGB CONC 33 G/DL (32-36); MEAN CORPUSCULAR VOLUME 92 FL (80-99); MEAN PLATELET VOLUME 8.8 FL (7.4-10.4); MONOCYTES # (AUTO) 0.9 X 10^3 (0.0-1.0); MONOCYTES % (AUTO) 12 % (0-12); NEUTROPHILS # (AUTO) 5.3 X 10^3 (1.8-7.8); NEUTROPHILS % (AUTO) 66 % (42-75); PLATELET COUNT 202 10^3/uL (130-400); RED CELL DISTRIBUTION WIDTH 14.4 % (10.0-14.5); WHITE BLOOD COUNT 8.1 10^3/uL (4.3-11.0)
[2019-06-03 10:56] LABS: ALBUMIN 3.8 GM/DL (3.2-4.5); BILIRUBIN,TOTAL 0.2 MG/DL (0.1-1.0); CREATININE SERUM 1.67 MG/DL (0.60-1.30); TOTAL PROTEIN 7.4 GM/DL (6.4-8.2)
--- NOTE | 2019-06-03 11:14 | Diagnostic Imaging Report ---
INDICATION: Pneumonia, follow-up. TIME OF EXAM: 10:27 a.m. COMPARISON: Correlation is made with prior chest from 05/05/2019. FINDINGS: Heart size is stable. Changes of median sternotomy are noted. A right basilar infiltrate is similar. Left lung demonstrates some mild interstitial changes. Mid and upper lung rodriguez are clear. No effusion is seen. There is no pneumothorax. IMPRESSION: Stable right basilar infiltrate with some mild interstitial changes in the left base when compared with examination from one month earlier. Dictated by: Dictated on workstation # [id number]
== END ==
LOC: RAD 10:14
PROVIDERS: ATTEND Family Medicine
DX: J18.9 Pneumonia, unspecified organism (principal)
CPT/HCPCS: 36415; 71046; 80053; 84443; 85025

== ENCOUNTER 2019-08-02 08:59 | Emergency (ER) | payer MEDICAID ==
[~2019-08-02] VITALS: Ht 182.8 cm; Wt 95.3 kg
[~2019-08-02 08:59] MED LIST changes: -MONT10TA24 PO; +MONT10TA26 PO; -OMEP20CA13; +OMEP20CA18; +ONDA-105 PO; -ONDA4TAB10 PO; -TAMS0.4C98 PO; +TMSL.4C PO
[2019-08-02] MEDS ORDERED: NS IV 500 ML 500 ML IV ONE (09:16)
[2019-08-02 09:25] LABS: BASOPHILS % (AUTO) 1 % (0-10); EOSINOPHILS # (AUTO) 0.6 10^3/uL (0.0-0.3); EOSINOPHILS % (AUTO) 8 % (0-10); HEMATOCRIT 43 % (40-54); HEMOGLOBIN 14.5 G/DL (13.3-17.7); LYMPHOCYTES # (AUTO) 1.2 X 10^3 (1.0-4.0); LYMPHOCYTES % (AUTO) 17 % (12-44); MEAN CORPUSCULAR HEMOGLOBIN 31 PG (25-34); MEAN CORPUSCULAR HGB CONC 34 G/DL (32-36); MEAN CORPUSCULAR VOLUME 91 FL (80-99); MEAN PLATELET VOLUME 8.9 FL (7.4-10.4); MONOCYTES # (AUTO) 0.9 X 10^3 (0.0-1.0); MONOCYTES % (AUTO) 13 % (0-12); NEUTROPHILS # (AUTO) 4.3 X 10^3 (1.8-7.8); NEUTROPHILS % (AUTO) 61 % (42-75); PLATELET COUNT 190 10^3/uL (130-400); WHITE BLOOD COUNT 7.1 10^3/uL (4.3-11.0)
[2019-08-02] MEDS ORDERED: RT-ALBUTEROL/IPRATROPIUM 3 ML (DUONEB) VIAL INH ONE (09:30)
--- NOTE | 2019-08-02 09:32 | NUR ---
patient states he does cough up phlegm but doesn't know the color since he swallows it; RT encouraged patient to spit it out. He is on O2 at 1 L but does not use any O2 at NH
--- NOTE | 2019-08-02 09:40 | ED General ---
General Chief Complaint: Neurological Problems Stated Complaint: SEIZURE Nursing Triage Note: PT RBOUGHT IN BY [facility] FROM [facility] WITH COMPLAINT OF ABSENTEE SEIZURES AND WHEEZING. PER NH, PT HAD TWO EPISODES OF STARING OFF INTO SPACE. PT DENIES PAIN. Nursing Sepsis Screen: No Definite Risk Source of Information: Patient Exam Limitations: No Limitations History of Present Illness Date Seen by Provider: Aug 02, 2019 Time Seen by Provider: 09:02 Initial Comments Here by EMS with report of seizures while standing (absence seizures) and wheezing. Patient had 2 episodes today of the seizures which is not uncommon for him and he has seizures at least weekly. Also notes that he is wheezing and feels short of breath. States he is normally short of breath but more so today. Does smoke and does have history of COPD as well. No report of fevers recently. Denies nausea, vomiting, diarrhea or chest pain. Timing/Duration: 1 Hour Severity: Moderate Associated Systoms: No Chest Pain; Cough; No Fever/Chills, No Nausea/Vomiting; Seizure, Shortness of Air; No Weakness Allergies and Home Medications Allergies Coded Allergies: Penicillins (Verified Allergy, Unknown, 12/31/18) chlorpromazine (Verified Allergy, Unknown, 12/31/18) Home Medications Acetaminophen 325 Mg Tablet, 650 MG PO Q6H PRN for PAIN-MILD, (Reported) Albuterol Sulfate 1 Puff Puff, 2 PUFF INH QID, (Reported) Aspirin 81 Mg Tablet.dr, 81 MG PO DAILY, (Reported) Atorvastatin Calcium 40 Mg Tablet, 40 MG PO HS, (Reported) Azithromycin 250 Mg Tablet, 250 MG PO DAILY Prescribed by: KAILEE BYERS on 05/05/19 7465 Carvedilol 3.125 Mg Tablet, 3.125 MG PO BID, (Reported) Cetirizine HCl 10 Mg Tablet, 10 MG PO DAILY, (Reported) Divalproex Sodium 125 Mg Cap.sprink, 750 MG PO BID, (Reported) TAKES 6 (125MG) CAPSULES Exenatide Microspheres 2 Mg/0.65 Ml Pen.injctr, 2 MG SC Mo, (Reported) Gabapentin 100 Mg Capsule, 100 MG PO HS, (Reported) Mag Hydrox/Al Hydrox/Simeth 30 Ml Oral.susp, 30 ML PO Q4H PRN for INDIGESTION, (Reported) Montelukast Sodium 10 Mg Tablet, 10 MG PO DAILY, (Reported) Olanzapine 5 Mg Tablet, 5 MG PO DAILY, (Reported) Olanzapine 5 Mg Tablet, 10 MG PO HS, (Reported) Ondansetron HCl 4 Mg Tablet, 4 MG PO Q8H PRN for NAUSEA/VOMITING-1ST LINE, (Reported) Pantoprazole Sodium 40 Mg Tablet.dr, 40 MG PO DAILY, (Reported) Sevelamer Carbonate 800 Mg Tablet, 800 MG PO TIDWM, (Reported) Tamsulosin HCl 0.4 Mg Cap, 0.4 MG PO HS, (Reported) Patient Home Medication List Home Medication List Reviewed: Yes Review of Systems Review of Systems Constitutional: see HPI; No chills, No fever EENTM: no symptoms reported Respiratory: see HPI, short of breath, wheezing Cardiovascular: no symptoms reported Gastrointestinal: no symptoms reported Genitourinary: no symptoms reported Musculoskeletal: no symptoms reported Skin: no symptoms reported Psychiatric/Neurological: See HPI, Seizure, Weakness All Other Systems Reviewed Negative Unless Noted: Yes Past [id number]-[id number] Hx Past Med/Social Hx: Reviewed Nursing Past Med/Soc Hx Patient Social History Alcohol Use: Denies Use Recreational Drug Use: Yes Drug of Choice: HX THC Smoking Status: Current Everyday Smoker Type Used: Cigarettes 2nd Hand Smoke Exposure: Yes Recent Foreign Travel: No Contact w/Someone Who Travel: No Recent Infectious Disease Expo: No Recent Hopitalizations: No Physical Abuse: No Sexual Abuse: No Mistreated: No Fear: No Immunizations Up To Date Tetanus Booster (TDap): Unknown Date of Pneumonia Vaccine: Dec 31, 2017 Date of Influenza Vaccine: Mar 11, 2019 Seasonal Allergies Seasonal Allergies: No Past Medical History Surgeries: Yes CABG, Vasectomy Respiratory: No Cardiac: Yes Coronary Artery Disease, High Cholesterol, Hypertension Neurological: No Genitourinary: Yes Renal Failure Gastrointestinal: Yes Gastroesophageal Reflux Musculoskeletal: No Endocrine: Yes Diabetes, Non-Insulin dep HEENT: No Cancer: No Psychosocial: Yes Sleep Difficulties, PTSD, Schizophrenia, Depression Integumentary: No Blood Disorders: No Family Medical History Reviewed Nursing Family Hx Physical Exam Vital Signs Vital Signs - First Documented 08/02/19 08/02/19 09:00 09:24 Pulse 95 Resp 20 B/P (MAP) 144/103 (117) Pulse Ox 94 O2 Delivery Room Air O2 Flow Rate 1.00 Capillary Refill : Less Than 3 Seconds Height, Weight, BMI Height: 5'8.00" Weight: 171lbs. 0.0oz. 77.310226gv; 28.00 BMI Method:Stated General Appearance: WD/WN, Mild Distress HEENT: PERRL/EOMI, Pharynx Normal Neck: Non Tender, Supple Respiratory: Accessory Muscle Use, Decreased Breath Sounds, Wheezing Cardiovascular: Regular Rate, Rhythm, No Murmur Gastrointestinal: Non Tender, Soft Back: Normal Inspection, No CVA Tenderness, No Vertebral Tenderness Extremity: Normal Range of Motion, Non Tender Neurologic/Psychiatric: Alert, Oriented x3 Skin: Normal Color, Warm/Dry Progress/Results/Core Measures Suspected Sepsis Recent Fever Within 48 Hours: No Infection Criteria Present: None New/Unexplained Altered Menta: No Sepsis Screen: No Definite Risk SIRS Temperature: Pulse: 95 Respiratory Rate: 20 Laboratory Tests 08/02/19 09:10: White Blood Count 7.1 Blood Pressure 144 /103 Mean: 117 Laboratory Tests 08/02/19 09:10: Creatinine 1.42H, Platelet Count 190, Total Bilirubin 0.2 Results/Orders Lab Results Laboratory Tests Test 08/02/19 09:10 08/02/19 10:45 Range/Units White Blood Count 7.1 4.3-11.0 10^3/uL Red Blood Count 4.75 4.35-5.85 10^6/uL Hemoglobin 14.5 13.3-17.7 G/DL Hematocrit 43 40-54 % Mean Corpuscular Volume 91 80-99 FL Mean Corpuscular Hemoglobin 31 25-34 PG Mean Corpuscular Hemoglobin Concent 34 32-36 G/DL Red Cell Distribution Width 14.0 10.0-14.5 % Platelet Count 190 130-400 10^3/uL Mean Platelet Volume 8.9 7.4-10.4 FL Neutrophils (%) (Auto) 61 42-75 % Lymphocytes (%) (Auto) 17 12-44 % Monocytes (%) (Auto) 13 H 0-12 % Eosinophils (%) (Auto) 8 0-10 % Basophils (%) (Auto) 1 0-10 % Neutrophils # (Auto) 4.3 1.8-7.8 X 10^3 Lymphocytes # (Auto) 1.2 1.0-4.0 X 10^3 Monocytes # (Auto) 0.9 0.0-1.0 X 10^3 Eosinophils # (Auto) 0.6 H 0.0-0.3 10^3/uL Basophils # (Auto) 0.0 0.0-0.1 10^3/uL Sodium Level 135 135-145 MMOL/L Potassium Level 4.7 3.6-5.0 MMOL/L Chloride Level 97 L 98-107 MMOL/L Carbon Dioxide Level 29 21-32 MMOL/L Anion Gap 9 5-14 MMOL/L Blood Urea Nitrogen 19 H 7-18 MG/DL Creatinine 1.42 H 0.60-1.30 MG/DL Estimat Glomerular Filtration Rate 50 BUN/Creatinine Ratio 13 Glucose Level 257 H 70-105 MG/DL Calcium Level 8.9 8.5-10.1 MG/DL Corrected Calcium 9.1 8.5-10.1 MG/DL Magnesium Level 1.7 1.6-2.4 MG/DL Total Bilirubin 0.2 0.1-1.0 MG/DL Aspartate Amino Transf (AST/SGOT) 13 5-34 U/L Alanine Aminotransferase (ALT/SGPT) 10 0-55 U/L Alkaline Phosphatase 74 40-136 U/L C-Reactive Protein High Sensitivity 1.33 H 0.00-0.50 MG/DL Total Protein 7.4 6.4-8.2 GM/DL Albumin 3.8 3.2-4.5 GM/DL Urine Color YELLOW Urine Clarity SL CLOUDY Urine pH 7.5 5-9 Urine Specific [place] 1.015 L 1.016-1.022 Urine Protein 1+ H NEGATIVE Urine Glucose (UA) NEGATIVE NEGATIVE Urine Ketones NEGATIVE NEGATIVE Urine Nitrite NEGATIVE NEGATIVE Urine Bilirubin NEGATIVE NEGATIVE Urine Urobilinogen 0.2 < = 1.0 MG/DL Urine Leukocyte Esterase NEGATIVE NEGATIVE Urine RBC (Auto) NEGATIVE NEGATIVE Urine RBC NONE /HPF Urine WBC NONE /HPF Urine Squamous Epithelial Cells RARE /HPF Urine Crystals NONE /LPF Urine Bacteria NEGATIVE /HPF Urine Casts NONE /LPF Urine Mucus NEGATIVE /LPF Urine Culture Indicated NO Micro Results Microbiology 08/02/19 Influenza Types A,B Antigen (ED) - Final, Complete My Orders Orders - СЕРГЕЙ GANDARA MD Albuterol/Ipra Inhalation Soln (Duoneb I (08/02/19 09:30) Chest 1 View, Ap/Pa Only (08/02/19 09:16) Cbc With Automated Diff (08/02/19 09:16) Comprehensive Metabolic Panel (08/02/19 09:16) Hs C Reactive Protein (08/02/19 09:16) Magnesium (08/02/19 09:16) Ed Iv/Invasive Line Start (08/02/19 09:16) Ns Iv 500 Ml (Sodium Chloride 0.9%) (08/02/19 09:16) Svn Small Volume Nebulizer (08/02/19 09:16) Influenza A And B Antigens (08/02/19 09:40) Ua Culture If Indicated (08/02/19 10:46) Medications Given in ED Current Medications Medications Dose Ordered Sig/Juan Route Start Time Stop Time Status Last Admin Dose Admin Albuterol/ Ipratropium 3 ml ONCE ONCE INH 08/02/19 09:30 08/02/19 09:31 DC 08/02/19 09:23 3 ML Sodium Chloride 500 ml @ 0 mls/hr Q0M ONCE IV 08/02/19 09:16 08/02/19 09:17 DC 08/02/19 10:03 500 MLS/HR Vital Signs/I&O 08/02/19 08/02/19 09:00 09:24 Pulse 95 Resp 20 B/P (MAP) 144/103 (117) Pulse Ox 94 94 O2 Delivery Room Air Nasal Cannula O2 Flow Rate 1.00 Capillary Refill : Less Than 3 Seconds Blood Pressure Mean: 117 Progress Note : Progress Note Seen and evaluated. IV by EMS. Labs, chest x-ray and DuoNeb ordered. We will check influenza. Monitor patient. 1126: Overall doing better and patient would like to go back to skilled nursing. No significant acute findings currently. I believe this is likely his typical seizure and COPD disorder. Responded well with one treatment. Discharged home with return precautions. Patient verbalize understanding instructions and agreement with plan. Diagnostic Imaging Diagonstic Imaging: Xray Plain Films/CT/US/NM/MRI: chest Comments [facility]. [place], [place] NAME: CAPO KELLEY [facility] REC#: [id number] PT STATUS: REG ER : 1955 PHYSICIAN: СЕРГЕЙ GANDARA MD ADMIT DATE: 08/02/19/ER Signed Date of Exam:08/02/19 CHEST 1 VIEW, AP/PA ONLY INDICATION: Seizures and wheezing. Frontal chest obtained at 10:12 a.m. compared to 06/03/2019. FINDINGS: Heart is borderline in size. Patient has had prior sternotomy. There are chronic appearing increased interstitial markings with some right basilar scarring. There is chronic appearing blunting of the right costophrenic angle. There is no pneumothorax or new infiltrate. IMPRESSION: Poststernotomy changes. Chronic interstitial prominence and chronic scarring right lung base. No acute consolidation or pleural fluid. Dictated by: Dictated on workstation # [id number] Dict: 08/02/19 1021 Trans: 08/02/19 1054 [id number] Interpreted by: JOZEF STONE MD Electronically signed by: JOZEF STONE MD 08/02/19 1054 Departure Impression Primary Impression: Chronic bronchitis Qualified Codes: J42 - Unspecified chronic bronchitis Additional Impression: Seizure disorder Disposition: HOME, SELF-CARE Condition: Stable Departure-Patient Inst. Decision time for Depature: 11:27 Referrals: GIOVANNY CODY DO (PCP/Family) Primary Care Physician Patient Instructions: Seizures, Adult (DC), Chronic Bronchitis (DC) Add. Discharge Instructions: All discharge instructions reviewed with patient and/or family. Voiced understanding. Continue previous medications as prescribed. Continue breathing treatments as needed. Follow-up with your doctor this week for recheck and further evaluation. Return for worse pain, fever, vomiting, weakness, breathing problems or other concerns as needed. Copy Copies To 1: GIOVANNY CODY TIMOTHY D MD Aug 02, 2019 09:40
[2019-08-02 09:47] LABS: ALBUMIN 3.8 GM/DL (3.2-4.5); BILIRUBIN,TOTAL 0.2 MG/DL (0.1-1.0); CALCIUM 8.9 MG/DL (8.5-10.1); CREATININE SERUM 1.42 MG/DL (0.60-1.30); MAGNESIUM 1.7 MG/DL (1.6-2.4); POTASSIUM 4.7 MMOL/L (3.6-5.0); TOTAL PROTEIN 7.4 GM/DL (6.4-8.2)
--- NOTE | 2019-08-02 10:35 | Diagnostic Imaging Report ---
INDICATION: Seizures and wheezing. Frontal chest obtained at 10:12 a.m. compared to 06/03/2019. FINDINGS: Heart is borderline in size. Patient has had prior sternotomy. There are chronic appearing increased interstitial markings with some right basilar scarring. There is chronic appearing blunting of the right costophrenic angle. There is no pneumothorax or new infiltrate. IMPRESSION: Poststernotomy changes. Chronic interstitial prominence and chronic scarring right lung base. No acute consolidation or pleural fluid. Dictated by: Dictated on workstation # [id number]
[2019-08-02 10:51] LABS: BILIRUBIN,URINE NEGATIVE (NEGATIVE); CLARITY,URINE SL CLOUDY; COLOR,URINE YELLOW; GLUCOSE, URINE (UA) NEGATIVE (NEGATIVE); KETONES,URINE NEGATIVE (NEGATIVE); LEUKOCYTE ESTERASE ,URINE NEGATIVE (NEGATIVE); NITRITE,URINE NEGATIVE (NEGATIVE); PH,URINE 7.5 (5-9); PROTEIN,URINE 1+ (NEGATIVE)
[2019-08-02 11:04] LABS: BACTERIA,URINE NEGATIVE /HPF; SQUAMOUS EPITHELIAL CELL,UR RARE /HPF
[2019-08-02 11:38] VITALS: BP 136/83
--- OUTSIDE RECORDS SUMMARY | 2019-08-04 09:37 | XMS REPORT | Continuity of Care Document ---
Demographics Preferred Language Unknown Marital Status Unknown Buddhist Affiliation Unknown Race Unknown Ethnic Group Unknown Author Organization Unknown Address Unknown Phone Unavailable Allergies Active Description Code Type Severity Reaction Onset Reported/Identified Relationship to Patient Clinical Status Yes PENICILLIN G SODIUM UNKNOWN UNKNOWN Yes chlorpromazine [id number] Dr garcia Allergy Unknown N/A 12/31/2018 Yes Penicillins [id number] Drug Aller gy Unknown N/A 12/31/2018 Medications Medication Packaging Start Date St op Date Route Dosage Sig NORMAL SALINE 500CC IV BAG I NJ 0.9 % (NS 500CC IV BAG) ml [...] HALOPERIDOL VIAL INJ 5 MG/CC (HALDOL 1CC V IAL) MG 11/21/2018 11/28/2018 PRN Q4H OLANZAPINE IM VIAL INJ 10 MG /VIAL (ZYPREXA IM VIAL) MG 11/21/2018 12/21/2018 PRN BID LORAZEPAM 1CC VIAL INJ 2 MG/CC (ATIVAN VIA L) MG 11/21/2018 11/28/2018 PRN Q4H DIPHENHYDRAMINE VIAL [...] 11/22/2018 12/21/2018 Daily&0900 ASPIRIN ENTERIC COATED TAB 8 1 MG (BABY ASPIRIN EC) MG 11/22/2018 12/21/2018 [...] 11/22/2018 11/29/2018 PRN QID POLYETHYLENE GLYCOL POWDER U D PWD (MIRALAX 17GM UNIT DOSE PAKS) gm 11/22/2018 12/02/2018 PRN Q3H ALUM/MAG/SIMETH 30CC LIQ (MYLANTA PLUS) cc 11/22/2018 12/02/2018 PRN Q4H QUETIAPINE TAB 100 MG (SEROQUEL) MG 11/22/2018 12/21/2018 QHS&2000 BENZTROPINE TAB 1 MG (COGENTIN) MG 11/22/2018 12/22/2018 BID&0800,1999 MILK OF SAWYER RODRIGUEZQ ml 11/22/2018 12/22/2018 PRN BID QUETIAPINE TAB 100 MG (SEROQUEL) MG 11/22/2018 12/21/2018 QHS&2100 METOPROLOL-XL TAB 50 MG (TOPROL XL) MG 11/22/2018 12/21/2018 QHS&2100 QUETIAPINE TAB 100 MG (SEROQUEL) MG 11/23/2018 12/22/2018 BID&0800,2000 PAROXETINE TAB 20 MG (PAXIL) MG 11/23/2018 12/22/2018 Daily&0900 LISINOPRIL TAB 10 MG (ZESTRIL) MG 11/23/2018 12/22/2018 Daily&0900 ZONISAMIDE CAP 100 MG (ZONEGRAN) MG 11/23/2018 12/22/2018 Daily&0900 ASPIRIN ENTERIC COATED TAB 8 1 MG (BABY ASPIRIN EC) MG 11/23/2018 12/22/2018 [...] 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 11/22/2018 Isabel Frankel W 250.00 DIABETES MELLITUS WITHOUT MENTION OF COMPLICATION, TYPE II OR UNSPECIFIED TYPE, NOT STATED UNCONTROLLED 11/22/2018 Isabel Frankel W 272.4 OTHER AND UNSPECIFIED HYPERLIPIDEMIA 11/22/2018 Isabel Frankel W 276.51 DEHYDRATION 11/22/2018 Isabel Frankel W 295.80 OTHER SPECIFIED TYPES OF SCHIZOPHRENIA, UNSPECIFIED STATE 11/22/2018 Isabel Frankel W 401.0 MALIGNANT ESSENTIAL HYPERTENSION 11/22/2018 Isabel Frankel W 530.81 ESOPHAGEAL REFLUX 11/22/2018 Isabel Frankel W 585.9 CHRONIC KIDNEY DISEASE, UNSPECIFIED 11/22/2018 Isabel Frankel W 787.3 FLATULENCE, ERUCTATION, AND GAS PAIN 11/22/2018 Isabel Frankel W 992.6 HEAT FATIGUE, TRANSIENT 11/22/2018 Isabel Frankel W E11.9 TYPE 2 DIABETES MELLITUS WITHOUT COMPLICATIONS 11/22/2018 Isabel Frankel W E78.5 HYPERLIPIDEMIA, UNSPECIFIED 11/22/2018 Isabel Frankel W E86.0 DEHYDRATION 11/22/2018 Isabel Frankel W F20.89 OTHER SCHIZOPHRENIA 11/22/2018 Isabel Frankel W I10 ESSENTIAL (PRIMARY) HYPERTENSION 11/22/2018 Isabel Frankel W K21.9 GASTRO- ESOPHAGEAL REFLUX DISEASE WITHOUT ESOPHAGITIS 11/22/2018 Isabel Frankel W N17.9 ACUTE KIDNEY FAILURE, UNSPECIFIED 11/22/2018 Isabel Frankel W N18.9 CHRONIC KIDNEY DISEASE, UNSPECIFIED 11/22/2018 Isabel Frankel W R14.0 ABDOMINAL DISTENSION (GASEOUS) 11/22/2018 Isabel Frankel W T67.6XXA HEAT FATIGUE, TRANSIENT, INITIAL ENCOUNTER 11/22/2018 Isabel Frankel V15.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 11/22/2018 Isabel Frankel 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 11/22/2018 Isabel Frankel W 250.00 DIABETES MELLITUS WITHOUT MENTION OF COMPLICATION, TYPE II OR UNSPECIFIED TYPE, NOT STATED UNCONTROLLED 11/22/2018 Isabel Frankel W 272.4 OTHER AND UNSPECIFIED HYPERLIPIDEMIA 11/22/2018 Isabel Frankel W 295.70 SCHIZOAFFECTIVE DISORDER, UNSPECIFIED 11/22/2018 Isabel Frankel W 401.0 MALIGNANT ESSENTIAL HYPERTENSION 11/22/2018 Isabel Frankel W 530.81 ESOPHAGEAL REFLUX 11/22/2018 FrankelIsabel rosas W 584.9 ACUTE KIDNEY FAILURE, UNSPECIFIED 11/22/2018 FrankelIsabel rosas W 585.9 CHRONIC KIDNEY DISEASE, UNSPECIFIED 11/22/2018 Isabel Frankel W E11.9 TYPE 2 DIABETES MELLITUS WITHOUT COMPLICATIONS 11/22/2018 Isabel Frankel W E78.5 HYPERLIPIDEMIA, UNSPECIFIED 11/22/2018 Isabel Frankel W E86.0 DEHYDRATION 11/22/2018 Isabel Frankel W F20.89 OTHER SCHIZOPHRENIA 11/22/2018 Isabel Frankel W F25.0 SCHIZOAFFECTIVE DISORDER, BIPOLAR TYPE 11/22/2018 Isabel Frankel W I10 ESSENTIAL (PRIMARY) HYPERTENSION 11/22/2018 Isabel Frankel W K21.9 GASTRO- ESOPHAGEAL REFLUX DISEASE WITHOUT ESOPHAGITIS 11/22/2018 Jostin Isabel W N17.9 ACUTE KIDNEY FAILURE, UNSPECIFIED 11/22/2018 Isabel Frankel W N18.9 CHRONIC KIDNEY DISEASE, UNSPECIFIED 11/22/2018 Jostin Isabel W R14.0 ABDOMINAL DISTENSION (GASEOUS) 11/22/2018 oJstin Isabel W T67.6XXA HEAT FATIGUE, TRANSIENT, INITIAL ENCOUNTER 11/22/2018 Isabel Frankel W 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 12/29/2018 TONY ZAMUDIO DO Ot E11.9 TYPE 2 DIABETES MELLITUS WITHOUT COMPLIC 12/29/2018 TONY ZAMUDIO DO Ot E78.00 PURE HYPERCHOLESTEROLEMIA, UNSPECIFIED 12/29/2018 TONY ZAMUDIO DO Ot F20.9 SCHIZOPHRENIA, UNSPECIFIED 12/29/2018 TONY ZAMUDIO DO Ot F32.9 MAJOR DEPRESSIVE DISORDER, SINGLE EPISOD 12/29/2018 TONY ZAMUDIO DO Ot F43.10 POST-TRAUMATIC STRESS DISORDER, UNSPECIF 12/29/2018 TONY ZAMUDIO DO Ot I10 ESSENTIAL (PRIMARY) HYPERTENSION 12/29/2018 ROBB , TONY Senior Ot I25.10 ATHSCL HEART DISEASE OF [place] CORONARY 12/29/2018 ROBB , TONY Senior Ot S06.9X9 A UNSP INTRACRANIAL INJURY W LOC OF UNSP D 12/29/2018 ROBB GARCIA, TONY Senior Ot S09.90X A UNSPECIFIED INJURY OF HEAD, INITIAL ENCO 12/29/2018 ROBB GARCIA, TONY Senior Ot W06.XXX A FALL FROM BED, INITIAL ENCOUNTER 01/03/[address] [facility], GIOVANNY Bailey Ot E11.9 TYPE 2 DIABETES MELLITUS WITHOUT COMPLIC 01/03/[address] [facility], GIOVANNY Bailey Ot E78.00 PURE HYPERCHOLESTEROLEMIA, UNSPECIFIED 01/03/[address] [facility], GIOVANNY Bailey Ot F20.9 SCHIZOPHRENIA, UNSPECIFIED 01/03/[address] [facility], GIOVANNY Bailey Ot F32.9 MAJOR DEPRESSIVE DISORDER, SINGLE EPISOD 01/03/[address] [facility], GIOVANNY Bailey Ot F43.10 POST-TRAUMATIC STRESS DISORDER, UNSPECIF 01/03/[address] [facility], GIOVANNY Bailey Ot G47.9 SLEEP DISORDER, UNSPECIFIED 01/03/[address] [facility], GIOVANNY Bailey Ot I10 ESSENTIAL (PRIMARY) HYPERTENSION 01/03/[address] [facility], GIOVANNY Bailey Ot I25.10 ATHSCL HEART DISEASE OF [place] CORONARY 01/03/[address] [facility], GIOVANNY Bailey Ot J18.1 LOBAR PNEUMONIA, UNSPECIFIED ORGANISM 01/03/[address] [facility] Ot N28.9 DISORDER OF KIDNEY AND URETER, UNSPECIFI 01/03/[address] [facility] Ot N39.0 URINARY TRACT INFECTION, SITE NOT SPECIF 01/03/[address] [facility] Ot R07.89 OTHER CHEST PAIN 01/03/[address] Ot R09.02 HYPOXEMIA 01/03/[address] [facility] Ot R94.31 ABNORMAL ELECTROCARDIOGRAM [ECG] [EKG] 01/03/[address] [facility] Ot Z87.891 PERSONAL HISTORY OF NICOTINE DEPENDENCE 01/03/[address] [facility] Ot Z95.1 PRESENCE OF AORTOCORONARY BYPASS GRAFT 01/03/[address] Ot A41.9 SEPSIS, UNSPECIFIED ORGANISM 01/03/2019 GELLENDER DO, GIOVANNY Bailey Ot E11.9 TYPE 2 DIABETES MELLITUS WITHOUT COMPLIC 01/03/2019 GELDER DO, GIOVANNY Bailey Ot E78.00 PURE HYPERCHOLESTEROLEMIA, UNSPECIFIED 01/03/2019 GELLENDER DO, GIOVANNY Bailey Ot E78.5 HYPERLIPIDEMIA, UNSPECIFIED 01/03/2019 GELLENDER DO, GIOVANNY Bailey Ot F20.9 SCHIZOPHRENIA, UNSPECIFIED 01/03/2019 GELLENDER DO, GIOVANNY Bailey Ot F32.9 MAJOR DEPRESSIVE DISORDER, SINGLE EPISOD 01/03/2019 GELDER DO, GIOVANNY Bailey Ot F43.10 POST-TRAUMATIC STRESS DISORDER, UNSPECIF 01/03/2019 GELLENDER DO, GIOVANNY Bailey Ot G47.9 SLEEP DISORDER, UNSPECIFIED 01/03/2019 GELLENDER DO, GIOVANNY Bailey Ot I10 ESSENTIAL (PRIMARY) HYPERTENSION 01/03/2019 GELDER , GIOVANNY Bailey Ot I12.9 HYPERTENSIVE CHRONIC KIDNEY DISEASE W ST 01/03/2019 GELDER , GIOVANNY Bailey Ot I25.10 ATHSCL HEART DISEASE OF [place] CORONARY 01/03/2019, GIOVANNY Bailey Ot J18.1 LOBAR PNEUMONIA, UNSPECIFIED ORGANISM 01/03/2019 GELDER DO, GIOVANNY Bailey Ot N13.6 PYONEPHROSIS 01/03/2019 GELDER DO, GIOVANNY Bailey Ot N17.9 ACUTE KIDNEY FAILURE, UNSPECIFIED 01/03/2019 GELDER DO, GIOVANNY Bailey Ot N18.9 CHRONIC KIDNEY DISEASE, UNSPECIFIED 01/03/2019 GELLENDER DO, GIOVANNY Bailey Ot N28.9 DISORDER OF KIDNEY AND URETER, UNSPECIFI [facility]/03/[facility] Ot N39.0 URINARY TRACT INFECTION, SITE NOT SPECIF 01/03/2019 GELLENDER DO, GIOVANNY Bailey Ot R07.89 OTHER CHEST PAIN 01/03/2019 GELLENDER DO, GIOVANNY Bailey Ot R09.02 HYPOXEMIA 01/03/2019 GELLENDER DO, GIOVANNY Bailey Ot R78.89 FINDING OF OTH SUBSTANCES, NOT NORMALLY 01/03/2019 GELLENDER DO, GIOVANNY Bailey Ot R94.31 ABNORMAL ELECTROCARDIOGRAM [ECG] [EKG] 01/03/2019 GELDER DO, GIOVANNY Bailey Ot Z87.891 PERSONAL HISTORY OF NICOTINE DEPENDENCE [facility]/03/2019 [facility] Bailey Ot Z95.1 PRESENCE OF AORTOCORONARY BYPASS GRAFT 01/05/2019 ROBB , TONY Senior Ot E11.9 TYPE 2 DIABETES MELLITUS WITHOUT COMPLIC 01/05/2019 [place]A TONY GARCIA Ot E78.00 PURE HYPERCHOLESTEROLEMIA, UNSPECIFIED 01/05/2019 [place] , TONY Senior Ot F20.9 SCHIZOPHRENIA, UNSPECIFIED 01/05/2019 ROBB TONY Senior Ot F32.9 MAJOR DEPRESSIVE DISORDER, SINGLE EPISOD 01/05/2019 [place] TONY Senior Ot F43.10 POST-TRAUMATIC STRESS DISORDER, UNSPECIF 01/05/2019 ROBB TONY Senior Ot I10 ESSENTIAL (PRIMARY) HYPERTENSION 01/05/2019 [facility] TONY Senior Ot I25.10 ATHSCL HEART DISEASE OF [place] CORONARY 01/05/2019 ROBB TONY Senior Ot S06.9X9 A UNSP INTRACRANIAL INJURY W LOC OF UNSP D 01/05/2019 ROBB TONY GARCIA Ot S09.90X A UNSPECIFIED INJURY OF HEAD, INITIAL ENCO 01/05/2019 ROBB GARCIA TONY Senior Ot W06.XXX A FALL FROM BED, INITIAL ENCOUNTER 01/12/2019 [place], ESTUARDO Bailey Ot N40.1 BENIGN PROSTATIC HYPERPLASIA WITH LOWER 01/25/2019 [place], ESTUARDO Bailey Ot N40.1 BENIGN PROSTATIC HYPERPLASIA WITH LOWER 01/27/2019 [place], ESTUARDO Bailey Ot N40.1 BENIGN PROSTATIC HYPERPLASIA WITH LOWER 01/28/2019 [place], ESTUARDO Bailey Ot N40.1 BENIGN PROSTATIC HYPERPLASIA WITH LOWER 04/29/2019 GELLENDER DO, GIOVANNY Bailey Ot J98.4 OTHER DISORDERS OF LUNG 04/29/2019 GELLENDER DO, GIOVANNY Bailey Ot R05 COUGH 04/29/2019 GELLENDER DOGIOVANNY Ot R06.02 SHORTNESS OF BREATH 04/29/2019 GELLENDER DO, GIOVANNY Bailey Ot R06.2 WHEEZING 04/29/2019 GELLENDER DOGIOVANNY Ot R25.1 TREMOR, UNSPECIFIED 05/04/2019 GELLENDER DOGIOVANNY Ot A41.9 SEPSIS, UNSPECIFIED ORGANISM 05/04/2019 GELLENDER DOGIOVANNY Ot E11.9 TYPE 2 DIABETES MELLITUS WITHOUT COMPLIC 05/04/2019 GELLENDER DOGIOVANNY Ot E78.00 PURE HYPERCHOLESTEROLEMIA, UNSPECIFIED 05/04/2019 [facility] Bailey Ot F17.210 NICOTINE DEPENDENCE, CIGARETTES, UNCOMPL 05/04/2019 [facility] INCLUDES THE [facility] DO, GIOVANNY Bailey Ot F20.9 SCHIZOPHRENIA, UNSPECIFIED 05/04/2019 [facility] GIOV[facility]NY Bailey Ot F32.9 MAJOR DEPRESSIVE DISORDER, SINGLE EPISOD 05/04/2019 [facility] GIOVANNY aBiley Ot F41.9 ANXIETY DISORDER, UNSPECIFIED 05/04/2019 [facility] GIOVANNY Bailey Ot F43.10 POST-TRAUMATIC STRESS DISORDER, UNSPECIF 05/04/2019 [facility] GIOVANNY Bailey Ot G47.9 SLEEP DISORDER, UNSPECIFIED 05/04/2019 [facility] GIOVANNY Bailey Ot 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, GIOVANNY Bailey Ot I21.A1 MYOCARDIAL INFARCTION TYPE 2 05/04/[address] [facility] Ot I25.10 ATHSCL HEART DISEASE OF [place] CORONARY 05/04/[address] [facility], GIOVANNY Bailey Ot I50.31 ACUTE DIASTOLIC (CONGESTIVE) HEART FAILU 05/04/[address] [facility], GIOVANNY Bailey Ot J18.9 PNEUMONIA, UNSPECIFIED ORGANISM 05/04/[address] [facility], GIOVANNY Bailey Ot J44.0 CHR OBSTRUCTIVE PULMON DISEASE WITH (ACU 05/04/2019 [facility] Ot K21.9 GASTRO-ESOPHAGEAL REFLUX DISEASE WITHOUT 05/04/2019 [facility] Ot N13.30 UNSPECIFIED HYDRONEPHROSIS 05/04/[address] [facility] [address] Ot N18.6 END STAGE RENAL DISEASE 05/04/[address] [address] Ot N39.490 OVERFLOW INCONTINENCE 05/04/[address] [address] Ot R09.02 HYPOXEMIA 05/04/[address] [address] Ot Z95.1 PRESENCE OF AORTOCORONARY BYPASS GRAFT 05/05/2019 [facility] Ot A41.59 OTHER GRAM-NEGATIVE SEPSIS 05/05/[address] [facility] Ot A41.9 SEPSIS, UNSPECIFIED ORGANISM 05/05/[address] Ot E11.9 TYPE 2 DIABETES MELLITUS WITHOUT COMPLIC 05/05/2019 GELLENDER DO, GIOVANNY Bailey Ot E78.00 PURE HYPERCHOLESTEROLEMIA, UNSPECIFIED 05/05/2019 GELLENDER DO, GIOVANNY Bailey Ot E78.5 HYPERLIPIDEMIA, UNSPECIFIED 05/05/2019 GELLENDER DO, GIOVANNY Bailey Ot F17.210 NICOTINE DEPENDENCE, CIGARETTES, UNCOMPL 05/05/2019 GELLENDER DO, GIOVANNY Bailey Ot F20.9 SCHIZOPHRENIA, UNSPECIFIED 05/05/2019 GELLENDER DO, GIOVANNY Bailey Ot F32.9 MAJOR DEPRESSIVE DISORDER, SINGLE EPISOD 05/05/2019 GELDER DO, GIOVANNY Bailey Ot F41.9 ANXIETY DISORDER, UNSPECIFIED 05/05/2019 GELLENDER DO, GIOVANNY Bailey Ot F43.10 POST-TRAUMATIC STRESS DISORDER, UNSPECIF 05/05/2019 GELLENDER DO, GIOVANNY Bailey Ot G47.9 SLEEP DISORDER, UNSPECIFIED 05/05/2019 GELLENDER DO, GIOVANNY Bailey Ot 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 05/05/2019 GELLENDER , GIOVANNY Bailey Ot I16.0 HYPERTENSIVE URGENCY 05/05/2019 GELDER , GIOVANNY Bailey Ot I21.A1 MYOCARDIAL INFARCTION TYPE 2 05/05/2019 GELDER , GIOVANNY Bailey Ot I25.10 ATHSCL HEART DISEASE OF [place] CORONARY 05/05/2019, GIOVANNY Bailey Ot I50.31 ACUTE DIASTOLIC (CONGESTIVE) HEART FAILU 05/05/2019 GELLENDER DO, GIOVANNY Bailey Ot J15.6 PNEUMONIA DUE TO OTHER GRAM-NEGATIVE CARO 05/05/2019 GELDER , GIOVANNY Bailey Ot J18.9 PNEUMONIA, UNSPECIFIED ORGANISM 05/05/2019 GELLENDER , GIOVANNY Bailey Ot J44.0 CHR OBSTRUCTIVE PULMON DISEASE WITH (ACU 05/05/2019 GELLENDER DO, GIOVANNY Bailey Ot K21.9 GASTRO-ESOPHAGEAL REFLUX DISEASE WITHOUT 05/05/2019 GELLENDER DO, GIOVANNY Bailey Ot N13.30 UNSPECIFIED HYDRONEPHROSIS 05/05/2019 GELLENDER DO, GIOVANNY Bailey Ot N17.9 ACUTE KIDNEY FAILURE, UNSPECIFIED 05/05/2019 GELLENDER DO, GIOVANNY Bailey Ot N18.6 END STAGE RENAL DISEASE 05/05/2019 GELLENDER DO, GIOVANNY Bailey Ot N39.490 OVERFLOW INCONTINENCE 05/05/2019 GELLENDER DO, GIOVANNY Bailey Ot R09.02 HYPOXEMIA 05/05/2019 GIOVANNY CODY DO Ot Z95.1 PRESENCE OF AORTOCORONARY BYPASS GRAFT 05/11/2019 GIOVANNY CODY DO Ot J98.4 OTHER DISORDERS OF LUNG 05/11/2019 [facility] R05 COUGH 05/11/2019 GIOVANNY CODY DO Ot R06.02 SHORTNESS OF BREATH 05/11/2019 [facility] Ot R06.2 WHEEZING 05/11/2019 [facility] Ot R25.1 TREMOR, UNSPECIFIED 06/06/2019 GIOVANNY CODY DO Ot J18.9 PNEUMONIA, UNSPECIFIED ORGANISM 06/06/2019 [facility] GIOVANNY Bailey Ot J18.9 PNEUMONIA, UNSPECIFIED ORGANISM Procedures There is no data. Results Test Result Range Creatine Kinase - 11/21/18 14:28 CK 272 U/L 26-174 Thyroid Stimulating Hormone - 11/21/18 1 4:28 TSH 3.34 mIU/mL 0.32-5.00 MRSA Screen - [...] 5.8 mmol/L 3.5-5.3 Sodium 137 mmol/L 134-148 Complete blood count (CBC) with automate d white blood cell (WBC) differential - 12/31/18 02:25 Blood leukocytes automated count (number/volume) 12.3 10*3/uL 4.3-11.0 Blood erythrocytes automated count (number/volume) 3.88 10*6/uL 4.35-5.85 Venous blood hemoglobin measurement (mass/volume) 11.7 g/dL 13.3-17.7 Blood hematocrit (volume fraction) 35 % 40-54 Automated erythrocyte mean corpuscular volume 91 [ foz_us] 80-99 Automated erythrocyte mean corpuscular h emoglobin (mass per erythrocyte) 30 pg 25-34 Automated erythrocyte mean corpuscular h emoglobin concentration measurement (mass/volume) 33 g/dL 32-36 Automated erythrocyte distribution width ratio 12. 8 % 10.0- 14.5 Automated blood platelet count (count/volume) 239 10*3/uL 130-400 Automated blood platelet mean volume measurement 9.6 [foz_us] 7.4-10.4 Automated blood neutrophils/100 leukocytes 80 % 42-75 Automated blood lymphocytes/100 leukocytes 8 % 12-44 Blood monocytes/100 leukocytes 6 % 0-12 Automated blood eosinophils/100 leukocytes 6 % 0-10 Automated blood basophils/100 leukocytes 0 % 0-10 Blood neutrophils automated count (number/volume) 9.9 10*3 1.8-7.8 Blood lymphocytes automated count (number/volume) 1.0 10*3 1.0-4.0 Blood monocytes automated count (number/volume) 0. 7 10*3 0.0-1.0 Automated eosinophil count 0.8 10*3/uL 0 .0-0.3 Automated blood basophil count (count/volume) 0.1 10*3/uL 0.0-0.1 PT panel in platelet poor plasma by coag ulation assay - 12/31/18 02:25 Prothrombin time (PT) in platelet poor plasma by coagu lation assay 13.3 s 12.2-14.7 INR in platelet poor plasma or blood by coagulation as say 1.0 0.8-1.4 Activated partial thromboplastin time (a PTT) in platelet poor plasma bycoagulation assay - 12/31/18 02:25 Activated partial thromboplastin time (a PTT) in platelet poor plasma bycoagulation assay 33 s 24-35 Comprehensive metabolic panel - 12/31/18 02:25 Serum or plasma sodium measurement (moles/volume) 137 mmol/L 135-145 Serum or plasma potassium measurement (moles/volume) 4.4 mmol/L 3.6-5.0 Serum or plasma chloride measurement (moles/volume) 101 mmol/L 98-107 Carbon dioxide 24 mmol/L 21-32 Serum or plasma anion gap determination (moles/volume) 12 mmol/L 5-14 Serum or plasma urea nitrogen measurement (mass/volume ) 22 mg/dL 7-18 Serum or plasma creatinine measurement (mass/volume) 1.64 mg/dL 0.60-1.30 Serum or plasma urea nitrogen/creatinine mass ratio 13 NRG Serum or plasma creatinine measurement w ith calculation of estimated glomerular filtration rate 43 NRG Serum or plasma glucose measurement (mass/volume) 191 mg/dL 70-105 Serum or plasma calcium measurement (mass/volume) 9.5 mg/dL 8.5-10.1 Serum or plasma total bilirubin measurement (mass/volu me) 0.2 mg/dL 0.1-1.0 Serum or plasma alkaline phosphatase ana paula surement (enzymatic activity/volume) 83 U/L 40-136 Serum or plasma aspartate aminotransfera se measurement (enzymatic activity/volume) 14 U/L 5-34 Serum or plasma alanine aminotransferase measurement (enzymatic activity/volume) 10 U/L 0-55 Serum or plasma protein measurement (mass/volume) 7.3 g/dL 6.4-8.2 Serum or plasma albumin measurement (mass/volume) 3.8 g/dL 3.2-4.5 CALCIUM CORRECTED 9.7 mg/dL 8.5-10.1 Serum or plasma troponin i.cardiac measu rement (mass/volume) - 12/31/18 02:25 Serum or plasma troponin i.cardiac measurement (mass/v olume) 0.043 ng/mL <0.028 Arterial blood gas measurement - 9 02:28 Blood pCO2 46 mm[Hg] 35-45 Blood pO2 63 mm[Hg] 79-93 Arterial blood bicarbonate measurement (moles/volume) 26 mmol/L 23-27 Arterial blood base excess by calculation 1.4 mmol /L -2.5-2.5 Arterial blood oxygen saturation measurement 92 % 94-100 * Inhaled oxygen flow rate ROOM AIR NRG Arterial blood pH measurement with patient temperature correction 7.38 7.37-7.43 Arterial blood carbon dioxide, total measurement (mole s/volume) 27.5 mmol/L 21.0-31.0 Body site LEFT RADIAL NRG Assessment of wrist artery patency prior to arterial p uncture YES-POS NRG Setting of ventilation mode NO NR G Measurement of body temperature 98.3 NRG Blood lactic acid measurement (moles/vol ume) - 12/31/18 02:34 Blood lactic acid measurement (moles/volume) 1.40 mmol/L 0.50-2.00 Bacterial blood culture - 12/31/18 02:34 Bacterial blood culture NG NRG Bacterial blood culture - 12/31/18 02:50 Bacterial blood culture NG NRG Capillary blood glucose measurement by g lucometer (mass/volume) - 12/31/18 05:11 Capillary blood glucose measurement by glucometer (mas s/volume) 130 mg/dL 70-110 Complete blood count (CBC) with automate d white blood cell (WBC) differential - 12/31/18 06:24 Blood leukocytes automated count (number/volume) 13.6 10*3/uL 4.3-11.0 Blood erythrocytes automated count (number/volume) 3.59 10*6/uL 4.35-5.85 Venous blood hemoglobin measurement (mass/volume) 10.8 g/dL 13.3-17.7 Blood hematocrit (volume fraction) 33 % 40-54 Automated erythrocyte mean corpuscular volume 92 [ foz_us] 80-99 Automated erythrocyte mean corpuscular h emoglobin (mass per erythrocyte) 30 pg 25-34 Automated erythrocyte mean corpuscular h emoglobin concentration measurement (mass/volume) 33 g/dL 32-36 Automated erythrocyte distribution width ratio 12. 7 % 10.0- 14.5 Automated blood platelet count (count/volume) 231 10*3/uL 130-400 Automated blood platelet mean volume measurement 9.4 [foz_us] 7.4-10.4 Automated blood neutrophils/100 leukocytes 82 % 42-75 Automated blood lymphocytes/100 leukocytes 6 % 12-44 Blood monocytes/100 leukocytes 6 % 0-12 Automated blood eosinophils/100 leukocytes 6 % 0-10 Automated blood basophils/100 leukocytes 0 % 0-10 Blood neutrophils automated count (number/volume) 11.1 10*3 1.8-7.8 Blood lymphocytes automated count (number/volume) 0.8 10*3 1.0-4.0 Blood monocytes automated count (number/volume) 0. 8 10*3 0.0-1.0 Automated eosinophil count 0.9 10*3/uL 0 .0-0.3 Automated blood basophil count (count/volume) 0.0 10*3/uL 0.0-0.1 Comprehensive metabolic panel - 12/31/18 06:24 Serum or plasma sodium measurement (moles/volume) 139 mmol/L 135-145 Serum or plasma potassium measurement (moles/volume) 4.7 mmol/L 3.6-5.0 Serum or plasma chloride measurement (moles/volume) 105 mmol/L 98-107 Carbon dioxide 26 mmol/L 21-32 Serum or plasma anion gap determination (moles/volume) 8 mmol/L 5-14 Serum or plasma urea nitrogen measurement (mass/volume ) 19 mg/dL 7-18 Serum or plasma creatinine measurement (mass/volume) 1.47 mg/dL 0.60-1.30 Serum or plasma urea nitrogen/creatinine mass ratio 13 NRG Serum or plasma creatinine measurement w ith calculation of estimated glomerular filtration rate 49 NRG Serum or plasma glucose measurement (mass/volume) 135 mg/dL 70-105 Serum or plasma calcium measurement (mass/volume) 9.2 mg/dL 8.5-10.1 Serum or plasma total bilirubin measurement (mass/volu me) 0.2 mg/dL 0.1-1.0 Serum or plasma alkaline phosphatase ana paula surement (enzymatic activity/volume) 74 U/L 40-136 Serum or plasma aspartate aminotransfera se measurement (enzymatic activity/volume) 11 U/L 5-34 Serum or plasma alanine aminotransferase measurement (enzymatic activity/volume) 10 U/L 0-55 Serum or plasma protein measurement (mass/volume) 6.5 g/dL 6.4-8.2 Serum or plasma albumin measurement (mass/volume) 3.4 g/dL 3.2-4.5 CALCIUM CORRECTED 9.7 mg/dL 8.5-10.1 Lipid 1996 panel - 12/31/18 06:24 Serum or plasma triglyceride measurement (mass/volume) 99 mg/dL <150 Serum or plasma cholesterol measurement (mass/volume) 84 mg/dL < 200 Serum or plasma cholesterol in HDL measurement (mass/v olume) 28 mg/dL 40-60 Cholesterol in LDL [mass/volume] in serum or plasma by direct assay 39 mg/dL 1-129 Serum or plasma cholesterol in VLDL measurement (mass/ volume) 20 mg/dL 5-40 Serum or plasma troponin i.cardiac measu rement (mass/volume) - 12/31/18 08:33 Serum or plasma troponin i.cardiac measurement (mass/v olume) 0.099 ng/mL <0.028 Capillary blood glucose measurement by g lucometer (mass/volume) - 12/31/18 11:17 Capillary blood glucose measurement by glucometer (mas s/volume) 186 mg/dL 70-110 Serum or plasma troponin i.cardiac measu rement (mass/volume) - 12/31/18 14:47 Serum or plasma troponin i.cardiac measurement (mass/v olume) 0.101 ng/mL <0.028 Capillary blood glucose measurement by g lucometer (mass/volume) - 12/31/18 16:11 Capillary blood glucose measurement by glucometer (mas s/volume) 138 mg/dL 70-110 Capillary blood glucose measurement by g lucometer (mass/volume) - 12/31/18 21:24 Capillary blood glucose measurement by glucometer (mas s/volume) 161 mg/dL 70-110 Complete blood count (CBC) with automate d white blood cell (WBC) differential - 01/01/19 05:18 Blood leukocytes automated count (number/volume) 8.3 10*3/uL 4.3-11.0 Blood erythrocytes automated count (number/volume) 3.76 10*6/uL 4.35-5.85 Venous blood hemoglobin measurement (mass/volume) 11.4 g/dL 13.3-17.7 Blood hematocrit (volume fraction) 35 % 40-54 Automated erythrocyte mean corpuscular volume 93 [ foz_us] 80-99 Automated erythrocyte mean corpuscular h emoglobin (mass per erythrocyte) 30 pg 25-34 Automated erythrocyte mean corpuscular h emoglobin concentration measurement (mass/volume) 33 g/dL 32-36 Automated erythrocyte distribution width ratio 12. 8 % 10.0- 14.5 Automated blood platelet count (count/volume) 215 10*3/uL 130-400 Automated blood platelet mean volume measurement 9.4 [foz_us] 7.4-10.4 Automated blood neutrophils/100 leukocytes 68 % 42-75 Automated blood lymphocytes/100 leukocytes 13 % 12-44 Blood monocytes/100 leukocytes 9 % 0-12 Automated blood eosinophils/100 leukocytes 10 % 0-10 Automated blood basophils/100 leukocytes 1 % 0-10 Blood neutrophils automated count (number/volume) 5.6 10*3 1.8-7.8 Blood lymphocytes automated count (number/volume) 1.1 10*3 1.0-4.0 Blood monocytes automated count (number/volume) 0. 8 10*3 0.0-1.0 Automated eosinophil count 0.8 10*3/uL 0 .0-0.3 Automated blood basophil count (count/volume) 0.1 10*3/uL 0.0-0.1 Comprehensive metabolic panel - 01/01/19 05:18 Serum or plasma sodium measurement (moles/volume) 142 mmol/L 135-145 Serum or plasma potassium measurement (moles/volume) 4.5 mmol/L 3.6-5.0 Serum or plasma chloride measurement (moles/volume) 105 mmol/L 98-107 Carbon dioxide 25 mmol/L 21-32 Serum or plasma anion gap determination (moles/volume) 12 mmol/L 5-14 Serum or plasma urea nitrogen measurement (mass/volume ) 31 mg/dL 7-18 Serum or plasma creatinine measurement (mass/volume) 1.80 mg/dL 0.60-1.30 Serum or plasma urea nitrogen/creatinine mass ratio 17 NRG Serum or plasma creatinine measurement w ith calculation of estimated glomerular filtration rate 38 NRG Serum or plasma glucose measurement (mass/volume) 122 mg/dL 70-105 Serum or plasma calcium measurement (mass/volume) 8.9 mg/dL 8.5-10.1 Serum or plasma total bilirubin measurement (mass/volu me) 0.2 mg/dL 0.1-1.0 Serum or plasma alkaline phosphatase ana paula surement (enzymatic activity/volume) 67 U/L 40-136 Serum or plasma aspartate aminotransfera se measurement (enzymatic activity/volume) 12 U/L 5-34 Serum or plasma alanine aminotransferase measurement (enzymatic activity/volume) 13 U/L 0-55 Serum or plasma protein measurement (mass/volume) 6.5 g/dL 6.4-8.2 Serum or plasma albumin measurement (mass/volume) 3.3 g/dL 3.2-4.5 CALCIUM CORRECTED 9.5 mg/dL 8.5-10.1 Capillary blood glucose measurement by g lucometer (mass/volume) - 01/01/19 06:14 Capillary blood glucose measurement by glucometer (mas s/volume) 109 mg/dL 70-110 Capillary blood glucose measurement by g lucometer (mass/volume) - 01/01/19 11:16 Capillary blood glucose measurement by glucometer (mas s/volume) 112 mg/dL 70-110 Capillary blood glucose measurement by g lucometer (mass/volume) - 01/01/19 16:14 Capillary blood glucose measurement by glucometer (mas s/volume) 226 mg/dL 70-110 Capillary blood glucose measurement by g lucometer (mass/volume) - 01/01/19 20:39 Capillary blood glucose measurement by glucometer (mas s/volume) 168 mg/dL 70-110 Capillary blood glucose measurement by g lucometer (mass/volume) - 01/02/19 05:19 Capillary blood glucose measurement by glucometer (mas s/volume) 102 mg/dL 70-110 Complete blood count (CBC) with automate d white blood cell (WBC) differential - 01/02/19 05:49 Blood leukocytes automated count (number/volume) 5.9 10*3/uL 4.3-11.0 Blood erythrocytes automated count (number/volume) 3.85 10*6/uL 4.35-5.85 Venous blood hemoglobin measurement (mass/volume) 11.7 g/dL 13.3-17.7 Blood hematocrit (volume fraction) 36 % 40-54 Automated erythrocyte mean corpuscular volume 93 [ foz_us] 80-99 Automated erythrocyte mean corpuscular h emoglobin (mass per erythrocyte) 30 pg 25-34 Automated erythrocyte mean corpuscular h emoglobin concentration measurement (mass/volume) 33 g/dL 32-36 Automated erythrocyte distribution width ratio 12. 9 % 10.0- 14.5 Automated blood platelet count (count/volume) 225 10*3/uL 130-400 Automated blood platelet mean volume measurement 9.1 [foz_us] 7.4-10.4 Automated blood neutrophils/100 leukocytes 59 % 42-75 Automated blood lymphocytes/100 leukocytes 17 % 12-44 Blood monocytes/100 leukocytes 11 % 0-12 Automated blood eosinophils/100 leukocytes 12 % 0-10 Automated blood basophils/100 leukocytes 1 % 0-10 Blood neutrophils automated count (number/volume) 3.5 10*3 1.8-7.8 Blood lymphocytes automated count (number/volume) 1.0 10*3 1.0-4.0 Blood monocytes automated count (number/volume) 0. 7 10*3 0.0-1.0 Automated eosinophil count 0.7 10*3/uL 0 .0-0.3 Automated blood basophil count (count/volume) 0.0 10*3/uL 0.0-0.1 Comprehensive metabolic panel - 01/02/19 05:49 Serum or plasma sodium measurement (moles/volume) 144 mmol/L 135-145 Serum or plasma potassium measurement (moles/volume) 4.5 mmol/L 3.6-5.0 Serum or plasma chloride measurement (moles/volume) 107 mmol/L 98-107 Carbon dioxide 22 mmol/L 21-32 Serum or plasma anion gap determination (moles/volume) 15 mmol/L 5-14 Serum or plasma urea nitrogen measurement (mass/volume ) 34 mg/dL 7-18 Serum or plasma creatinine measurement (mass/volume) 1.90 mg/dL 0.60-1.30 Serum or plasma urea nitrogen/creatinine mass ratio 18 NRG Serum or plasma creatinine measurement w ith calculation of estimated glomerular filtration rate 36 NRG Serum or plasma glucose measurement (mass/volume) 107 mg/dL 70-105 Serum or plasma calcium measurement (mass/volume) 8.9 mg/dL 8.5-10.1 Serum or plasma total bilirubin measurement (mass/volu me) 0.2 mg/dL 0.1-1.0 Serum or plasma alkaline phosphatase ana paula surement (enzymatic activity/volume) 74 U/L 40-136 Serum or plasma aspartate aminotransfera se measurement (enzymatic activity/volume) 9 U/L 5-34 Serum or plasma alanine aminotransferase measurement (enzymatic activity/volume) 8 U/L 0-55 Serum or plasma protein measurement (mass/volume) 6.5 g/dL 6.4-8.2 Serum or plasma albumin measurement (mass/volume) 3.2 g/dL 3.2-4.5 CALCIUM CORRECTED 9.5 mg/dL 8.5-10.1 Capillary blood glucose measurement by g lucometer (mass/volume) - 01/02/19 11:12 Capillary blood glucose measurement by glucometer (mas s/volume) 125 mg/dL 70-110 Capillary blood glucose measurement by g lucometer (mass/volume) - 01/02/19 16:29 Capillary blood glucose measurement by glucometer (mas s/volume) 148 mg/dL 70-110 Complete urinalysis with reflex to cultu re - 01/02/19 17:30 Urine color determination YELLOW NRG Urine clarity determination MUCOUS NR G Urine pH measurement by test strip 7 5-9 Specific gravity of urine by test strip 1.010 1.016-1.022 Urine protein assay by test strip, semi-quantitative 3+ NEGATIVE Urine glucose detection by automated test strip NE GATIVE NEGATIVE Erythrocytes detection in urine sediment by light micr oscopy 4+ NEGATIVE Urine ketones detection by automated test strip NE GATIVE NEGATIVE Urine nitrite detection by test strip POSITIVE NEGATIVE Urine total bilirubin detection by test strip NEGA TIVE NEGATIVE Urine urobilinogen measurement by automated test strip (mass/volume) NORMAL NORMAL Urine leukocyte esterase detection by dipstick 3+ NEGATIVE Automated urine sediment erythrocyte cou nt by microscopy (number/high power field) [HPF] NRG Automated urine sediment leukocyte count by microscopy (number/high power field) [HPF] NRG Bacteria detection in urine sediment by light microsco py LARGE NRG Squamous epithelial cells detection in u rine sediment by light microscopy RARE NRG Crystals detection in urine sediment by light microsco py NONE NRG Casts detection in urine sediment by light microscopy NONE NRG Mucus detection in urine sediment by light microscopy LARGE NRG Complete urinalysis with reflex to culture CULTURE PENDING NRG Bacterial urine culture - 01/02/19 17:30 Bacterial urine culture 3 OR MORE NRG COLONY COUNT 40,000 CFU/ML NRG FTX;REPORTABLE (GRAM POSITIVE) SUGGESTING PROBABLE NRG FREE TEXT ENTRY 2 COLLECTION CONTAMINATION WITH SK IN NRG FREE TEXT ENTRY 3 SOTO. NO SUSCEPTIBILITY PERFOR MED NRG Capillary blood glucose measurement by g lucometer (mass/volume) - 01/02/19 22:09 Capillary blood glucose measurement by glucometer (mas s/volume) 226 mg/dL 70-110 Capillary blood glucose measurement by g lucometer (mass/volume) - 01/02/19 22:58 Capillary blood glucose measurement by glucometer (mas s/volume) 168 mg/dL 70-110 Complete blood count (CBC) with automate d white blood cell (WBC) differential - 01/03/19 04:50 Blood leukocytes automated count (number/volume) 7.0 10*3/uL 4.3-11.0 Blood erythrocytes automated count (number/volume) 3.86 10*6/uL 4.35-5.85 Venous blood hemoglobin measurement (mass/volume) 11.8 g/dL 13.3-17.7 Blood hematocrit (volume fraction) 35 % 40-54 Automated erythrocyte mean corpuscular volume 91 [ foz_us] 80-99 Automated erythrocyte mean corpuscular h emoglobin (mass per erythrocyte) 31 pg 25-34 Automated erythrocyte mean corpuscular h emoglobin concentration measurement (mass/volume) 34 g/dL 32-36 Automated erythrocyte distribution width ratio 12. 3 % 10.0- 14.5 Automated blood platelet count (count/volume) 212 10*3/uL 130-400 Automated blood platelet mean volume measurement 9.4 [foz_us] 7.4-10.4 Automated blood neutrophils/100 leukocytes 57 % 42-75 Automated blood lymphocytes/100 leukocytes 21 % 12-44 Blood monocytes/100 leukocytes 10 % 0-12 Automated blood eosinophils/100 leukocytes 11 % 0-10 Automated blood basophils/100 leukocytes 1 % 0-10 Blood neutrophils automated count (number/volume) 4.0 10*3 1.8-7.8 Blood lymphocytes automated count (number/volume) 1.5 10*3 1.0-4.0 Blood monocytes automated count (number/volume) 0. 7 10*3 0.0-1.0 Automated eosinophil count 0.7 10*3/uL 0 .0-0.3 Automated blood basophil count (count/volume) 0.1 10*3/uL 0.0-0.1 Whole blood basic metabolic panel - 12/23 07/13 04:50 Serum or plasma sodium measurement (moles/volume) 143 mmol/L 135-145 Serum or plasma potassium measurement (moles/volume) 4.7 mmol/L 3.6-5.0 Serum or plasma chloride measurement (moles/volume) 105 mmol/L 98-107 Carbon dioxide 25 mmol/L 21-32 Serum or plasma anion gap determination (moles/volume) 13 mmol/L 5-14 Serum or plasma urea nitrogen measurement (mass/volume ) 37 mg/dL 7-18 Serum or plasma creatinine measurement (mass/volume) 1.82 mg/dL 0.60-1.30 Serum or plasma urea nitrogen/creatinine mass ratio 20 NRG Serum or plasma creatinine measurement w ith calculation of estimated glomerular filtration rate 38 NRG Serum or plasma glucose measurement (mass/volume) 101 mg/dL 70-105 Serum or plasma calcium measurement (mass/volume) 8.8 mg/dL 8.5-10.1 Capillary blood glucose measurement by g lucometer (mass/volume) - 01/03/19 05:50 Capillary blood glucose measurement by glucometer (mas s/volume) 100 mg/dL 70-110 Capillary blood glucose measurement by g lucometer (mass/volume) - 01/03/19 11:23 Capillary blood glucose measurement by glucometer (mas s/volume) 103 mg/dL 70-110 Capillary blood glucose measurement by g lucometer (mass/volume) - 01/03/19 15:25 Capillary blood glucose measurement by glucometer (mas s/volume) 178 mg/dL 70-110 Prostate specific ag [mass/volume] in se rum or plasma - 01/10/19 16:00 PSA EQUIMOLAR (LIAN) 0.50 % 0.00-4.0 0 Complete blood count (CBC) with automate d white blood cell (WBC) differential - 01/27/19 14:54 Blood leukocytes automated count (number/volume) 10.0 10*3/uL 4.3-11.0 Blood erythrocytes automated count (number/volume) 3.83 10*6/uL 4.35-5.85 Venous blood hemoglobin measurement (mass/volume) 11.7 g/dL 13.3-17.7 Blood hematocrit (volume fraction) 36 % 40-54 Automated erythrocyte mean corpuscular volume 95 [ foz_us] 80-99 Automated erythrocyte mean corpuscular h emoglobin (mass per erythrocyte) 31 pg 25-34 Automated erythrocyte mean corpuscular h emoglobin concentration measurement (mass/volume) 32 g/dL 32-36 Automated erythrocyte distribution width ratio 13. 9 % 10.0- 14.5 Automated blood platelet count (count/volume) 228 10*3/uL 130-400 Automated blood platelet mean volume measurement 8.8 [foz_us] 7.4-10.4 Automated blood neutrophils/100 leukocytes 63 % 42-75 Automated blood lymphocytes/100 leukocytes 13 % 12-44 Blood monocytes/100 leukocytes 10 % 0-12 Automated blood eosinophils/100 leukocytes 13 % 0-10 Automated blood basophils/100 leukocytes 1 % 0-10 Blood neutrophils automated count (number/volume) 6.3 10*3 1.8-7.8 Blood lymphocytes automated count (number/volume) 1.3 10*3 1.0-4.0 Blood monocytes automated count (number/volume) 1. 0 10*3 0.0-1.0 Automated eosinophil count 1.3 10*3/uL 0 .0-0.3 Automated blood basophil count (count/volume) 0.1 10*3/uL 0.0-0.1 Whole blood basic metabolic panel - 10/10 14:54 Serum or plasma sodium measurement (moles/volume) 137 mmol/L 135-145 Serum or plasma potassium measurement (moles/volume) 5.0 mmol/L 3.6-5.0 Serum or plasma chloride measurement (moles/volume) 100 mmol/L 98-107 Carbon dioxide 28 mmol/L 21-32 Serum or plasma anion gap determination (moles/volume) 9 mmol/L 5-14 Serum or plasma urea nitrogen measurement (mass/volume ) 25 mg/dL 7-18 Serum or plasma creatinine measurement (mass/volume) 1.75 mg/dL 0.60-1.30 Serum or plasma urea nitrogen/creatinine mass ratio 14 NRG Serum or plasma creatinine measurement w ith calculation of estimated glomerular filtration rate 40 NRG Serum or plasma glucose measurement (mass/volume) 320 mg/dL 70-105 Serum or plasma calcium measurement (mass/volume) 8.6 mg/dL 8.5-10.1 Serum or plasma lithium measurement (mol es/volume) - 01/27/19 14:54 BNP PT 319.9 pg/mL <100.0 Manual absolute plasma cell count - 10/10 14:54 Blood monocytes/100 leukocytes 9 % NRG Manual blood segmented neutrophils/100 leukocytes 54 % NRG Blood band neutrophils/100 leukocytes 2 % NRG Manual blood lymphocytes/100 leukocytes 18 % NRG Manual eosinophils/100 leukocytes in nose 17 % NRG Blood erythrocyte morphology finding identification NORMAL NRG Complete blood count (CBC) with automate d white blood cell (WBC) differential - 05/02/19 08:17 Blood leukocytes automated count (number/volume) 12.6 10*3/uL 4.3-11.0 Blood erythrocytes automated count (number/volume) 4.92 10*6/uL 4.35-5.85 Venous blood hemoglobin measurement (mass/volume) 15.1 g/dL 13.3-17.7 Blood hematocrit (volume fraction) 45 % 40-54 Automated erythrocyte mean corpuscular volume 91 [ foz_us] 80-99 Automated erythrocyte mean corpuscular h emoglobin (mass per erythrocyte) 31 pg 25-34 Automated erythrocyte mean corpuscular h emoglobin concentration measurement (mass/volume) 34 g/dL 32-36 Automated erythrocyte distribution width ratio 14. 3 % 10.0- 14.5 Automated blood platelet count (count/volume) 303 10*3/uL 130-400 Automated blood platelet mean volume measurement 8.6 [foz_us] 7.4-10.4 Automated blood neutrophils/100 leukocytes 77 % 42-75 Automated blood lymphocytes/100 leukocytes 10 % 12-44 Blood monocytes/100 leukocytes 9 % 0-12 Automated blood eosinophils/100 leukocytes 4 % 0-10 Automated blood basophils/100 leukocytes 0 % 0-10 Blood neutrophils automated count (number/volume) 9.6 10*3 1.8-7.8 Blood lymphocytes automated count (number/volume) 1.2 10*3 1.0-4.0 Blood monocytes automated count (number/volume) 1. 2 10*3 0.0-1.0 Automated eosinophil count 0.5 10*3/uL 0 .0-0.3 Automated blood basophil count (count/volume) 0.0 10*3/uL 0.0-0.1 Fibrin D-dimer FEU measurement in platel et poor plasma (mass/volume) - 05/02/19 08:17 Fibrin D-dimer FEU measurement in platelet poor plasma (mass/volume) 0.83 ug/mL 0.00-0.49 Comprehensive metabolic panel - 05/02/19 08:17 Serum or plasma sodium measurement (moles/volume) 132 mmol/L 135-145 Serum or plasma potassium measurement (moles/volume) 4.8 mmol/L 3.6-5.0 Serum or plasma chloride measurement (moles/volume) 92 mmol/L 98-107 Carbon dioxide 27 mmol/L 21-32 Serum or plasma anion gap determination (moles/volume) 13 mmol/L 5-14 Serum or plasma urea nitrogen measurement (mass/volume ) 16 mg/dL 7-18 Serum or plasma creatinine measurement (mass/volume) 1.76 mg/dL 0.60-1.30 Serum or plasma urea nitrogen/creatinine mass ratio 9 NRG Serum or plasma creatinine measurement w ith calculation of estimated glomerular filtration rate 39 NRG Serum or plasma glucose measurement (mass/volume) 399 mg/dL 70-105 Serum or plasma calcium measurement (mass/volume) 9.1 mg/dL 8.5-10.1 Serum or plasma total bilirubin measurement (mass/volu me) 0.2 mg/dL 0.1-1.0 Serum or plasma alkaline phosphatase ana paula surement (enzymatic activity/volume) 75 U/L 40-136 Serum or plasma aspartate aminotransfera se measurement (enzymatic activity/volume) 15 U/L 5-34 Serum or plasma alanine aminotransferase measurement (enzymatic activity/volume) 11 U/L 0-55 Serum or plasma protein measurement (mass/volume) 7.7 g/dL 6.4-8.2 Serum or plasma albumin measurement (mass/volume) 4.1 g/dL 3.2-4.5 CALCIUM CORRECTED 9.0 mg/dL 8.5-10.1 Serum or plasma lithium measurement (mol es/volume) - 05/02/19 08:17 BNP PT 360.9 pg/mL <100.0 Blood lactic acid measurement (moles/vol ume) - 05/02/19 08:17 Blood lactic acid measurement (moles/volume) 2.96 mmol/L 0.50-2.00 Sputum Gram stain - 05/02/19 08:17 Sputum Gram stain Mixed Bacterial Soto NRG Bacterial sputum culture - 05/02/19 08:1 7 FREE TEXT EXTERNAL BETA LACTAMASE POSITIVE NRG QUANTITY OF GROWTH . NRG Bacterial sputum culture SEE COMMEN NRG Bacterial blood culture - 05/02/19 08:17 Bacterial blood culture NG NRG Complete urinalysis with reflex to cultu re - 05/02/19 09:54 Urine color determination YELLOW NRG Urine clarity determination CLEAR NR G Urine pH measurement by test strip 7.0 5-9 Specific gravity of urine by test strip 1.015 1.016-1.022 Urine protein assay by test strip, semi-quantitative 1+ NEGATIVE Urine glucose detection by automated test strip 3+ NEGATIVE Erythrocytes detection in urine sediment by light micr oscopy NEGATIVE NEGATIVE Urine ketones detection by automated test strip NE GATIVE NEGATIVE Urine nitrite detection by test strip NEGATIVE NEGATIVE Urine total bilirubin detection by test strip NEGA TIVE NEGATIVE Urine urobilinogen measurement by automated test strip (mass/volume) 0.2 mg/dL < = 1.0 Urine leukocyte esterase detection by dipstick NEG ATIVE NEGATIVE Automated urine sediment erythrocyte cou nt by microscopy (number/high power field) RARE NRG Automated urine sediment leukocyte count by microscopy (number/high power field) NONE NRG Bacteria detection in urine sediment by light microsco py NEGATIVE NRG Squamous epithelial cells detection in u rine sediment by light microscopy RARE NRG Crystals detection in urine sediment by light microsco py NONE NRG Casts detection in urine sediment by light microscopy NONE NRG Mucus detection in urine sediment by light microscopy NEGATIVE NRG Complete urinalysis with reflex to culture NO NRG Serum or plasma lactate measurement (mol es/volume) - 05/02/19 10:20 Serum or plasma lactate measurement (moles/volume) 2.26 mmol/L 0.50-2.00 Bacterial blood culture - 05/02/19 10:20 Bacterial blood culture NG NRG Arterial blood gas measurement - 9 12:12 Blood pCO2 49 mm[Hg] 35-45 Blood pO2 78 mm[Hg] 79-93 Arterial blood bicarbonate measurement (moles/volume) 30 mmol/L 23-27 Arterial blood base excess by calculation 5.0 mmol /L -2.5-2.5 Arterial blood oxygen saturation measurement 96 % 94-100 * Inhaled oxygen flow rate 2L NRG Arterial blood pH measurement with patient temperature correction 7.40 7.37-7.43 Arterial blood carbon dioxide, total measurement (mole s/volume) 31.2 mmol/L 21.0-31.0 Body site LR NRG Assessment of wrist artery patency prior to arterial p uncture YES-POS NRG Setting of ventilation mode NO NR G Measurement of body temperature 36.7 NRG Blood lactic acid measurement (moles/vol ume) - 05/02/19 17:00 Blood lactic acid measurement (moles/volume) 1.38 mmol/L 0.50-2.00 Complete blood count (CBC) with automate d white blood cell (WBC) differential - 05/02/19 20:55 Blood leukocytes automated count (number/volume) 16.3 10*3/uL 4.3-11.0 Blood erythrocytes automated count (number/volume) 4.42 10*6/uL 4.35-5.85 Venous blood hemoglobin measurement (mass/volume) 13.6 g/dL 13.3-17.7 Blood hematocrit (volume fraction) 41 % 40-54 Automated erythrocyte mean corpuscular volume 93 [ foz_us] 80-99 Automated erythrocyte mean corpuscular h emoglobin (mass per erythrocyte) 31 pg 25-34 Automated erythrocyte mean corpuscular h emoglobin concentration measurement (mass/volume) 33 g/dL 32-36 Automated erythrocyte distribution width ratio 14. 0 % 10.0- 14.5 Automated blood platelet count (count/volume) 263 10*3/uL 130-400 Automated blood platelet mean volume measurement 8.5 [foz_us] 7.4-10.4 Automated blood neutrophils/100 leukocytes 85 % 42-75 Automated blood lymphocytes/100 leukocytes 4 % 12-44 Blood monocytes/100 leukocytes 9 % 0-12 Automated blood eosinophils/100 leukocytes 2 % 0-10 Automated blood basophils/100 leukocytes 0 % 0-10 Blood neutrophils automated count (number/volume) 13.8 10*3 1.8-7.8 Blood lymphocytes automated count (number/volume) 0.7 10*3 1.0-4.0 Blood monocytes automated count (number/volume) 1. 4 10*3 0.0-1.0 Automated eosinophil count 0.4 10*3/uL 0 .0-0.3 Automated blood basophil count (count/volume) 0.0 10*3/uL 0.0-0.1 Comprehensive metabolic panel - 05/02/19 20:55 Serum or plasma sodium measurement (moles/volume) 135 mmol/L 135-145 Serum or plasma potassium measurement (moles/volume) 5.1 mmol/L 3.6-5.0 Serum or plasma chloride measurement (moles/volume) 97 mmol/L 98-107 Carbon dioxide 27 mmol/L 21-32 Serum or plasma anion gap determination (moles/volume) 11 mmol/L 5-14 Serum or plasma urea nitrogen measurement (mass/volume ) 11 mg/dL 7-18 Serum or plasma creatinine measurement (mass/volume) 1.40 mg/dL 0.60-1.30 Serum or plasma urea nitrogen/creatinine mass ratio 8 NRG Serum or plasma creatinine measurement w ith calculation of estimated glomerular filtration rate 51 NRG Serum or plasma glucose measurement (mass/volume) 303 mg/dL 70-105 Serum or plasma calcium measurement (mass/volume) 8.6 mg/dL 8.5-10.1 Serum or plasma total bilirubin measurement (mass/volu me) 0.2 mg/dL 0.1-1.0 Serum or plasma alkaline phosphatase ana paula surement (enzymatic activity/volume) 72 U/L 40-136 Serum or plasma aspartate aminotransfera se measurement (enzymatic activity/volume) 17 U/L 5-34 Serum or plasma alanine aminotransferase measurement (enzymatic activity/volume) 15 U/L 0-55 Serum or plasma protein measurement (mass/volume) 7.1 g/dL 6.4-8.2 Serum or plasma albumin measurement (mass/volume) 3.7 g/dL 3.2-4.5 CALCIUM CORRECTED 8.8 mg/dL 8.5-10.1 Manual absolute plasma cell count - 02/10 20:55 Blood monocytes/100 leukocytes 9 % NRG Manual blood segmented neutrophils/100 leukocytes 82 % NRG Blood band neutrophils/100 leukocytes 2 % NRG Manual blood lymphocytes/100 leukocytes 6 % NRG Manual eosinophils/100 leukocytes in nose 1 % NRG Blood erythrocyte morphology finding identification NORMAL NRG Serum or plasma troponin i.cardiac measu rement (mass/volume) - 05/02/19 20:55 Serum or plasma troponin i.cardiac measurement (mass/v olume) 0.110 ng/mL <0.028 Serum or plasma lithium measurement (mol es/volume) - 05/02/19 20:55 BNP PT 515.0 pg/mL <100.0 Complete blood count (CBC) with automate d white blood cell (WBC) differential - 05/03/19 03:00 Blood leukocytes automated count (number/volume) 14.7 10*3/uL 4.3-11.0 Blood erythrocytes automated count (number/volume) 4.41 10*6/uL 4.35-5.85 Venous blood hemoglobin measurement (mass/volume) 13.4 g/dL 13.3-17.7 Blood hematocrit (volume fraction) 41 % 40-54 Automated erythrocyte mean corpuscular volume 93 [ foz_us] 80-99 Automated erythrocyte mean corpuscular h emoglobin (mass per erythrocyte) 30 pg 25-34 Automated erythrocyte mean corpuscular h emoglobin concentration measurement (mass/volume) 33 g/dL 32-36 Automated erythrocyte distribution width ratio 14. 0 % 10.0- 14.5 Automated blood platelet count (count/volume) 254 10*3/uL 130-400 Automated blood platelet mean volume measurement 8.8 [foz_us] 7.4-10.4 Automated blood neutrophils/100 leukocytes 75 % 42-75 Automated blood lymphocytes/100 leukocytes 12 % 12-44 Blood monocytes/100 leukocytes 10 % 0-12 Automated blood eosinophils/100 leukocytes 3 % 0-10 Automated blood basophils/100 leukocytes 0 % 0-10 Blood neutrophils automated count (number/volume) 10.9 10*3 1.8-7.8 Blood lymphocytes automated count (number/volume) 1.7 10*3 1.0-4.0 Blood monocytes automated count (number/volume) 1. 5 10*3 0.0-1.0 Automated eosinophil count 0.5 10*3/uL 0 .0-0.3 Automated blood basophil count (count/volume) 0.0 10*3/uL 0.0-0.1 Comprehensive metabolic panel - 05/03/19 03:00 Serum or plasma sodium measurement (moles/volume) 137 mmol/L 135-145 Serum or plasma potassium measurement (moles/volume) 4.8 mmol/L 3.6-5.0 Serum or plasma chloride measurement (moles/volume) 100 mmol/L 98-107 Carbon dioxide 25 mmol/L 21-32 Serum or plasma anion gap determination (moles/volume) 12 mmol/L 5-14 Serum or plasma urea nitrogen measurement (mass/volume ) 11 mg/dL 7-18 Serum or plasma creatinine measurement (mass/volume) 1.25 mg/dL 0.60-1.30 Serum or plasma urea nitrogen/creatinine mass ratio 9 NRG Serum or plasma creatinine measurement w ith calculation of estimated glomerular filtration rate 59 NRG Serum or plasma glucose measurement (mass/volume) 180 mg/dL 70-105 Serum or plasma calcium measurement (mass/volume) 8.7 mg/dL 8.5-10.1 Serum or plasma total bilirubin measurement (mass/volu me) 0.2 mg/dL 0.1-1.0 Serum or plasma alkaline phosphatase ana paula surement (enzymatic activity/volume) 70 U/L 40-136 Serum or plasma aspartate aminotransfera se measurement (enzymatic activity/volume) 15 U/L 5-34 Serum or plasma alanine aminotransferase measurement (enzymatic activity/volume) 14 U/L 0-55 Serum or plasma protein measurement (mass/volume) 6.8 g/dL 6.4-8.2 Serum or plasma albumin measurement (mass/volume) 3.5 g/dL 3.2-4.5 CALCIUM CORRECTED 9.1 mg/dL 8.5-10.1 Serum or plasma phosphate measurement (m ass/volume) - 05/03/19 03:00 Serum or plasma phosphate measurement (mass/volume) 3.9 mg/dL 2.3-4.7 Magnesium - 05/03/19 03:00 Magnesium 1.6 mg/dL 1.6-2.4 THYROID STIMULATING HORMONE - 05/03/19 0 3:00 THYROID STIMULATING HORMONE 1.47 u[iU]/mL 0.35-4.94 Capillary blood glucose measurement by g lucometer (mass/volume) - 05/03/19 06:57 Capillary blood glucose measurement by glucometer (mas s/volume) 173 mg/dL 70-110 Capillary blood glucose measurement by g lucometer (mass/volume) - 05/03/19 10:11 Capillary blood glucose measurement by glucometer (mas s/volume) 148 mg/dL 70-110 Capillary blood glucose measurement by g lucometer (mass/volume) - 05/03/19 14:31 Capillary blood glucose measurement by glucometer (mas s/volume) 274 mg/dL 70-110 Methicillin resistant Staphylococcus aur eus (MRSA) screening culture - 05/03/19 15:15 Methicillin resistant Staphylococcus aureus (MRSA) scr eening culture NEG NRG Capillary blood glucose measurement by g lucometer (mass/volume) - 05/03/19 19:27 Capillary blood glucose measurement by glucometer (mas s/volume) 129 mg/dL 70-110 Complete blood count (CBC) with automate d white blood cell (WBC) differential - 05/04/19 04:00 Blood leukocytes automated count (number/volume) 11.4 10*3/uL 4.3-11.0 Blood erythrocytes automated count (number/volume) 4.36 10*6/uL 4.35-5.85 Venous blood hemoglobin measurement (mass/volume) 13.3 g/dL 13.3-17.7 Blood hematocrit (volume fraction) 41 % 40-54 Automated erythrocyte mean corpuscular volume 94 [ foz_us] 80-99 Automated erythrocyte mean corpuscular h emoglobin (mass per erythrocyte) 31 pg 25-34 Automated erythrocyte mean corpuscular h emoglobin concentration measurement (mass/volume) 33 g/dL 32-36 Automated erythrocyte distribution width ratio 14. 0 % 10.0- 14.5 Automated blood platelet count (count/volume) 221 10*3/uL 130-400 Automated blood platelet mean volume measurement 8.6 [foz_us] 7.4-10.4 Automated blood neutrophils/100 leukocytes 67 % 42-75 Automated blood lymphocytes/100 leukocytes 18 % 12-44 Blood monocytes/100 leukocytes 11 % 0-12 Automated blood eosinophils/100 leukocytes 5 % 0-10 Automated blood basophils/100 leukocytes 0 % 0-10 Blood neutrophils automated count (number/volume) 7.6 10*3 1.8-7.8 Blood lymphocytes automated count (number/volume) 2.0 10*3 1.0-4.0 Blood monocytes automated count (number/volume) 1. 3 10*3 0.0-1.0 Automated eosinophil count 0.5 10*3/uL 0 .0-0.3 Automated blood basophil count (count/volume) 0.0 10*3/uL 0.0-0.1 Whole blood basic metabolic panel - 04/24 06/12 04:00 Serum or plasma sodium measurement (moles/volume) 139 mmol/L 135-145 Serum or plasma potassium measurement (moles/volume) 5.1 mmol/L 3.6-5.0 Serum or plasma chloride measurement (moles/volume) 101 mmol/L 98-107 Carbon dioxide 27 mmol/L 21-32 Serum or plasma anion gap determination (moles/volume) 11 mmol/L 5-14 Serum or plasma urea nitrogen measurement (mass/volume ) 15 mg/dL 7-18 Serum or plasma creatinine measurement (mass/volume) 1.57 mg/dL 0.60-1.30 Serum or plasma urea nitrogen/creatinine mass ratio 10 NRG Serum or plasma creatinine measurement w ith calculation of estimated glomerular filtration rate 45 NRG Serum or plasma glucose measurement (mass/volume) 154 mg/dL 70-105 Serum or plasma calcium measurement (mass/volume) 7.9 mg/dL 8.5-10.1 Serum or plasma phosphate measurement (m ass/volume) - 05/04/19 04:00 Serum or plasma phosphate measurement (mass/volume) 3.9 mg/dL 2.3-4.7 Magnesium - 05/04/19 04:00 Magnesium 1.6 mg/dL 1.6-2.4 Serum or plasma lithium measurement (mol es/volume) - 05/04/19 04:00 BNP PT 233.3 pg/mL <100.0 Serum or plasma troponin i.cardiac measu rement (mass/volume) - 05/04/19 06:23 Serum or plasma troponin i.cardiac measurement (mass/v olume) 0.074 ng/mL <0.028 Capillary blood glucose measurement by g lucometer (mass/volume) - 05/04/19 09:30 Capillary blood glucose measurement by glucometer (mas s/volume) 163 mg/dL 70-110 Capillary blood glucose measurement by g lucometer (mass/volume) - 05/04/19 14:20 Capillary blood glucose measurement by glucometer (mas s/volume) 161 mg/dL 70-110 Capillary blood glucose measurement by g lucometer (mass/volume) - 05/04/19 19:32 Capillary blood glucose measurement by glucometer (mas s/volume) 132 mg/dL 70-110 Complete blood count (CBC) with automate d white blood cell (WBC) differential - 05/05/19 04:54 Blood leukocytes automated count (number/volume) 9.7 10*3/uL 4.3-11.0 Blood erythrocytes automated count (number/volume) 4.59 10*6/uL 4.35-5.85 Venous blood hemoglobin measurement (mass/volume) 13.9 g/dL 13.3-17.7 Blood hematocrit (volume fraction) 42 % 40-54 Automated erythrocyte mean corpuscular volume 92 [ foz_us] 80-99 Automated erythrocyte mean corpuscular h emoglobin (mass per erythrocyte) 30 pg 25-34 Automated erythrocyte mean corpuscular h emoglobin concentration measurement (mass/volume) 33 g/dL 32-36 Automated erythrocyte distribution width ratio 13. 6 % 10.0- 14.5 Automated blood platelet count (count/volume) 197 10*3/uL 130-400 Automated blood platelet mean volume measurement 8.7 [foz_us] 7.4-10.4 Automated blood neutrophils/100 leukocytes 70 % 42-75 Automated blood lymphocytes/100 leukocytes 14 % 12-44 Blood monocytes/100 leukocytes 12 % 0-12 Automated blood eosinophils/100 leukocytes 5 % 0-10 Automated blood basophils/100 leukocytes 0 % 0-10 Blood neutrophils automated count (number/volume) 6.8 10*3 1.8-7.8 Blood lymphocytes automated count (number/volume) 1.3 10*3 1.0-4.0 Blood monocytes automated count (number/volume) 1. 1 10*3 0.0-1.0 Automated eosinophil count 0.4 10*3/uL 0 .0-0.3 Automated blood basophil count (count/volume) 0.0 10*3/uL 0.0-0.1 Whole blood basic metabolic panel - 04/24 07/13 04:54 Serum or plasma sodium measurement (moles/volume) 140 mmol/L 135-145 Serum or plasma potassium measurement (moles/volume) 4.6 mmol/L 3.6-5.0 Serum or plasma chloride measurement (moles/volume) 100 mmol/L 98-107 Carbon dioxide 28 mmol/L 21-32 Serum or plasma anion gap determination (moles/volume) 12 mmol/L 5-14 Serum or plasma urea nitrogen measurement (mass/volume ) 19 mg/dL 7-18 Serum or plasma creatinine measurement (mass/volume) 1.35 mg/dL 0.60-1.30 Serum or plasma urea nitrogen/creatinine mass ratio 14 NRG Serum or plasma creatinine measurement w ith calculation of estimated glomerular filtration rate 54 NRG Serum or plasma glucose measurement (mass/volume) 97 mg/dL 70-105 Serum or plasma calcium measurement (mass/volume) 8.8 mg/dL 8.5-10.1 Serum or plasma phosphate measurement (m ass/volume) - 05/05/19 04:54 Serum or plasma phosphate measurement (mass/volume) 4.1 mg/dL 2.3-4.7 Magnesium - 05/05/19 04:54 Magnesium 1.7 mg/dL 1.6-2.4 Capillary blood glucose measurement by g lucometer (mass/volume) - 05/05/19 09:47 Capillary blood glucose measurement by glucometer (mas s/volume) 132 mg/dL 70-110 Complete blood count (CBC) with automate d white blood cell (WBC) differential - 06/03/19 10:27 Blood leukocytes automated count (number/volume) 8.1 10*3/uL 4.3-11.0 Blood erythrocytes automated count (number/volume) 4.62 10*6/uL 4.35-5.85 Venous blood hemoglobin measurement (mass/volume) 14.0 g/dL 13.3-17.7 Blood hematocrit (volume fraction) 43 % 40-54 Automated erythrocyte mean corpuscular volume 92 [ foz_us] 80-99 Automated erythrocyte mean corpuscular h emoglobin (mass per erythrocyte) 30 pg 25-34 Automated erythrocyte mean corpuscular h emoglobin concentration measurement (mass/volume) 33 g/dL 32-36 Automated erythrocyte distribution width ratio 14. 4 % 10.0- 14.5 Automated blood platelet count (count/volume) 202 10*3/uL 130-400 Automated blood platelet mean volume measurement 8.8 [foz_us] 7.4-10.4 Automated blood neutrophils/100 leukocytes 66 % 42-75 Automated blood lymphocytes/100 leukocytes 16 % 12-44 Blood monocytes/100 leukocytes 12 % 0-12 Automated blood eosinophils/100 leukocytes 7 % 0-10 Automated blood basophils/100 leukocytes 1 % 0-10 Blood neutrophils automated count (number/volume) 5.3 10*3 1.8-7.8 Blood lymphocytes automated count (number/volume) 1.3 10*3 1.0-4.0 Blood monocytes automated count (number/volume) 0. 9 10*3 0.0-1.0 Automated eosinophil count 0.5 10*3/uL 0 .0-0.3 Automated blood basophil count (count/volume) 0.1 10*3/uL 0.0-0.1 Comprehensive metabolic panel - 06/03/19 10:27 Serum or plasma sodium measurement (moles/volume) 132 mmol/L 135-145 Serum or plasma potassium measurement (moles/volume) 5.0 mmol/L 3.6-5.0 Serum or plasma chloride measurement (moles/volume) 96 mmol/L 98-107 Carbon dioxide 25 mmol/L 21-32 Serum or plasma anion gap determination (moles/volume) 11 mmol/L 5-14 Serum or plasma urea nitrogen measurement (mass/volume ) 26 mg/dL 7-18 Serum or plasma creatinine measurement (mass/volume) 1.67 mg/dL 0.60-1.30 Serum or plasma urea nitrogen/creatinine mass ratio 16 NRG Serum or plasma creatinine measurement w ith calculation of estimated glomerular filtration rate 42 NRG Serum or plasma glucose measurement (mass/volume) 350 mg/dL 70-105 Serum or plasma calcium measurement (mass/volume) 9.0 mg/dL 8.5-10.1 Serum or plasma total bilirubin measurement (mass/volu me) 0.2 mg/dL 0.1-1.0 Serum or plasma alkaline phosphatase ana paula surement (enzymatic activity/volume) 72 U/L 40-136 Serum or plasma aspartate aminotransfera se measurement (enzymatic activity/volume) 12 U/L 5-34 Serum or plasma alanine aminotransferase measurement (enzymatic activity/volume) 10 U/L 0-55 Serum or plasma protein measurement (mass/volume) 7.4 g/dL 6.4-8.2 Serum or plasma albumin measurement (mass/volume) 3.8 g/dL 3.2-4.5 CALCIUM CORRECTED 9.2 mg/dL 8.5-10.1 THYROID STIMULATING HORMONE - 06/03/19 1 0:27 THYROID STIMULATING HORMONE 2.27 u[iU]/mL 0.35-4.94 Complete blood count (CBC) with automate d white blood cell (WBC) differential - 08/02/19 09:10 Blood leukocytes automated count (number/volume) 7.1 10*3/uL 4.3-11.0 Blood erythrocytes automated count (number/volume) 4.75 10*6/uL 4.35-5.85 Venous blood hemoglobin measurement (mass/volume) 14.5 g/dL 13.3-17.7 Blood hematocrit (volume fraction) 43 % 40-54 Automated erythrocyte mean corpuscular volume 91 [ foz_us] 80-99 Automated erythrocyte mean corpuscular h emoglobin (mass per erythrocyte) 31 pg 25-34 Automated erythrocyte mean corpuscular h emoglobin concentration measurement (mass/volume) 34 g/dL 32-36 Automated erythrocyte distribution width ratio 14. 0 % 10.0- 14.5 Automated blood platelet count (count/volume) 190 10*3/uL 130-400 Automated blood platelet mean volume measurement 8.9 [foz_us] 7.4-10.4 Automated blood neutrophils/100 leukocytes 61 % 42-75 Automated blood lymphocytes/100 leukocytes 17 % 12-44 Blood monocytes/100 leukocytes 13 % 0-12 Automated blood eosinophils/100 leukocytes 8 % 0-10 Automated blood basophils/100 leukocytes 1 % 0-10 Blood neutrophils automated count (number/volume) 4.3 10*3 1.8-7.8 Blood lymphocytes automated count (number/volume) 1.2 10*3 1.0-4.0 Blood monocytes automated count (number/volume) 0. 9 10*3 0.0-1.0 Automated eosinophil count 0.6 10*3/uL 0 .0-0.3 Automated blood basophil count (count/volume) 0.0 10*3/uL 0.0-0.1 Comprehensive metabolic panel - 08/02/19 09:10 Serum or plasma sodium measurement (moles/volume) 135 mmol/L 135-145 Serum or plasma potassium measurement (moles/volume) 4.7 mmol/L 3.6-5.0 Serum or plasma chloride measurement (moles/volume) 97 mmol/L 98-107 Carbon dioxide 29 mmol/L 21-32 Serum or plasma anion gap determination (moles/volume) 9 mmol/L 5-14 Serum or plasma urea nitrogen measurement (mass/volume ) 19 mg/dL 7-18 Serum or plasma creatinine measurement (mass/volume) 1.42 mg/dL 0.60-1.30 Serum or plasma urea nitrogen/creatinine mass ratio 13 NRG Serum or plasma creatinine measurement w ith calculation of estimated glomerular filtration rate 50 NRG Serum or plasma glucose measurement (mass/volume) 257 mg/dL 70-105 Serum or plasma calcium measurement (mass/volume) 8.9 mg/dL 8.5-10.1 Serum or plasma total bilirubin measurement (mass/volu me) 0.2 mg/dL 0.1-1.0 Serum or plasma alkaline phosphatase ana paula surement (enzymatic activity/volume) 74 U/L 40-136 Serum or plasma aspartate aminotransfera se measurement (enzymatic activity/volume) 13 U/L 5-34 Serum or plasma alanine aminotransferase measurement (enzymatic activity/volume) 10 U/L 0-55 Serum or plasma protein measurement (mass/volume) 7.4 g/dL 6.4-8.2 Serum or plasma albumin measurement (mass/volume) 3.8 g/dL 3.2-4.5 CALCIUM CORRECTED 9.1 mg/dL 8.5-10.1 Magnesium - 08/02/19 09:10 Magnesium 1.7 mg/dL 1.6-2.4 Serum or plasma C reactive protein measu rement (mass/volume) - 08/02/19 09:10 Serum or plasma C reactive protein measurement (mass/v olume) 1.33 mg/dL 0.00-0.50 Influenza virus A and B antigen detectio n - 08/02/19 10:25 FLU RESULT NEGATIVE FOR INFLUENZA A AND B ANTIGENS BY IA NRG Complete urinalysis with reflex to cultu re - 08/02/19 10:45 Urine color determination YELLOW NRG Urine clarity determination SL CLOUDY N RG Urine pH measurement by test strip 7.5 5-9 Specific gravity of urine by test strip 1.015 1.016-1.022 Urine protein assay by test strip, semi-quantitative 1+ NEGATIVE Urine glucose detection by automated test strip NE GATIVE NEGATIVE Erythrocytes detection in urine sediment by light micr oscopy NEGATIVE NEGATIVE Urine ketones detection by automated test strip NE GATIVE NEGATIVE Urine nitrite detection by test strip NEGATIVE NEGATIVE Urine total bilirubin detection by test strip NEGA TIVE NEGATIVE Urine urobilinogen measurement by automated test strip (mass/volume) 0.2 mg/dL < = 1.0 Urine leukocyte esterase detection by dipstick NEG ATIVE NEGATIVE Automated urine sediment erythrocyte cou nt by microscopy (number/high power field) NONE NRG Automated urine sediment leukocyte count by microscopy (number/high power field) NONE NRG Bacteria detection in urine sediment by light microsco py NEGATIVE NRG Squamous epithelial cells detection in u rine sediment by light microscopy RARE NRG Crystals detection in urine sediment by light microsco py NONE NRG Casts detection in urine sediment by light microscopy NONE NRG Mucus detection in urine sediment by light microscopy NEGATIVE NRG Complete urinalysis with reflex to culture NO NRG Encounters ACCT No. Visit Date/Time Discharge Status Pt. Type Provider Facility Loc./Unit Complaint [id number] 11/26/2018 12:30:12 Document Registration [id number] 07/23/2018 11:49:27 23:59:59 DIS Outpatient JAY ORTIZ [facility] KOKI RT G40.219 [id number] 01/19/2014 12:02:00 01/19/2014 23:59: 59 CLS Outpatient JAY ORTIZ MD [id number] 05/13/2013 11:07:00 05/13/2013 23:59: 59 CLS Outpatient JAY ORTIZ MD [id number] 11/21/2018 15:45:00 Document Registration [id number] 08/02/2019 09:00:00 11:47:00 DIS Emergency СЕРГЕЙ GNADARA MD [facility] ER SEIZURE [id number] 06/03/2019 10:14:00 23:59:59 CLS Outpatient GIOVANNY CODY DO [facility] RAD PNEUMONIA [id number] 05/02/2019 10:15:00 11:10:00 DIS Outpatient GIOVANNY CODY DO [facility] 4TH PNEUMONIA, SEPS IS [id number] 04/27/2019 10:06:00 23:59:59 CLS Outpatient GIOVANNY CODY DO [facility] RAD SOB, WHEEZING, TREMORS [id number] 01/27/2019 14:12:00 23:59:59 CLS Outpatient GIOVANNY CODY DO [facility] LAB SOB [id number] 01/25/2019 15:05:00 23:59:59 CLS Preadmit ESTUARDO JARAMILLO MD [facility] RAD BILATERAL HYDEONEPHROSI S BY US [id number] 01/10/2019 15:57:00 23:59:59 CLS Outpatient ESTUARDO JARAMILLO MD [facility] LAB N40.1 [id number] 12/31/2018 03:15:00 16:45:00 DIS Inpatient GIOVANNY CODY DO [facility] 4TH PNA,SEPSIS,CP R /O ACS ANGINA,ACUTE RESP DISTRESS W [id number] 12/29/2018 21:58:00 23:06:00 DIS Emergency TONY ZAMUDIO DO a [facility] ER FALL [id number] 11/22/2018 15:00:00 11/22/2018 21:56: 00 DIS Inpatient [facility] enter DONNELL [id number] 11/21/2018 13:51:00 11/22/2018 15:15: 00 DIS Outpatient [facility] ICU [id number] 11/21/2018 14:30:21 Document Registration
== END 2019-08-02 11:47 | disposition home or self-care (01) ==
LOC: EDUNIT# 08:59 → ER 09:00
DX: J42 Unspecified chronic bronchitis (principal); G40.909 Epilepsy, unspecified, not intractable, without status epilepticus; I10 Essential (primary) hypertension; E78.00 Pure hypercholesterolemia, unspecified; I25.10 Atherosclerotic heart disease of native coronary artery without angina pectoris; J44.9 Chronic obstructive pulmonary disease, unspecified; E11.9 Type 2 diabetes mellitus without complications; K21.9 Gastro-esophageal reflux disease without esophagitis; F32.9 Major depressive disorder, single episode, unspecified; F20.9 Schizophrenia, unspecified; F17.210 Nicotine dependence, cigarettes, uncomplicated; Z95.1 Presence of aortocoronary bypass graft; Z88.0 Allergy status to penicillin; Z88.8 Allergy status to other drugs, medicaments and biological substances; Z79.82 Long term (current) use of aspirin
CPT/HCPCS: 36415; 71045; 80053; 81000; 83735; 85025; 86141; 87804; 94640

== ENCOUNTER 2019-11-07 16:00 | Emergency (ER) | payer MEDICAID ==
[~2019-11-07] VITALS: Ht 182 cm; Wt 95.0 kg
--- NOTE | 2019-11-07 16:08 | ED General ---
General Stated Complaint: FALL Source of Information: Patient Exam Limitations: No Limitations History of Present Illness Date Seen by Provider: Nov 07, 2019 Time Seen by Provider: 16:07 Initial Comments To ER by EMS from [place]. Rehabilitation with reports of a fall and subsequent head injury. He states that he was outside got dizzy and fell backwards striking the back of his head. Complains of a little pain at the back of his head. He does not feel dizzy anymore, otherwise feels fine. Timing/Duration: 1/2 Hour Severity: Mild Associated Systoms: Denies Symptoms Allergies and Home Medications Allergies Coded Allergies: Penicillins (Verified Allergy, Unknown, 12/31/18) chlorpromazine (Verified Allergy, Unknown, 12/31/18) Home Medications Acetaminophen 325 Mg Tablet, 650 MG PO Q6H PRN for PAIN-MILD, (Reported) Albuterol Sulfate 1 Puff Puff, 2 PUFF INH QID, (Reported) Aspirin 81 Mg Tablet.dr, 81 MG PO DAILY, (Reported) Atorvastatin Calcium 40 Mg Tablet, 40 MG PO HS, (Reported) Azithromycin 250 Mg Tablet, 250 MG PO DAILY Prescribed by: KAILEE BYERS on 05/05/19 0755 Carvedilol 3.125 Mg Tablet, 3.125 MG PO BID, (Reported) Cetirizine HCl 10 Mg Tablet, 10 MG PO DAILY, (Reported) Divalproex Sodium 125 Mg Cap.sprink, 750 MG PO BID, (Reported) TAKES 6 (125MG) CAPSULES Exenatide Microspheres 2 Mg/0.65 Ml Pen.injctr, 2 MG SC Mo, (Reported) Gabapentin 100 Mg Capsule, 100 MG PO HS, (Reported) Mag Hydrox/Al Hydrox/Simeth 30 Ml Oral.susp, 30 ML PO Q4H PRN for INDIGESTION, (Reported) Montelukast Sodium 10 Mg Tablet, 10 MG PO DAILY, (Reported) Olanzapine 5 Mg Tablet, 5 MG PO DAILY, (Reported) Olanzapine 5 Mg Tablet, 10 MG PO HS, (Reported) Ondansetron HCl 4 Mg Tablet, 4 MG PO Q8H PRN for NAUSEA/VOMITING-1ST LINE, (Reported) Pantoprazole Sodium 40 Mg Tablet.dr, 40 MG PO DAILY, (Reported) Sevelamer Carbonate 800 Mg Tablet, 800 MG PO TIDWM, (Reported) Tamsulosin HCl 0.4 Mg Cap, 0.4 MG PO HS, (Reported) Patient Home Medication List Home Medication List Reviewed: Yes Review of Systems Review of Systems Constitutional: see HPI EENTM: see HPI Respiratory: no symptoms reported Cardiovascular: no symptoms reported Genitourinary: no symptoms reported Musculoskeletal: no symptoms reported Skin: no symptoms reported Psychiatric/Neurological: Headache Hematologic/Lymphatic: No Symptoms Reported Past [id number]-[id number]-[id number] Hx Patient Social History Drug of Choice: HX THC Type Used: Cigarettes 2nd Hand Smoke Exposure: Yes Recent Hopitalizations: No Immunizations Up To Date Tetanus Booster (TDap): Unknown Date of Pneumonia Vaccine: Dec 31, 2017 Date of Influenza Vaccine: Mar 11, 2019 Seasonal Allergies Seasonal Allergies: No Past Medical History Surgeries: Yes CABG, Vasectomy Respiratory: No Cardiac: Yes Coronary Artery Disease, High Cholesterol, Hypertension Neurological: No Genitourinary: Yes Renal Failure Gastrointestinal: Yes Gastroesophageal Reflux Musculoskeletal: No Endocrine: Yes Diabetes, Non-Insulin dep HEENT: No Cancer: No Psychosocial: Yes Sleep Difficulties, PTSD, Schizophrenia, Depression Integumentary: No Blood Disorders: No Physical Exam Vital Signs Vital Signs - First Documented 11/07/19 16:00 Temp 37.6 Pulse 103 Resp 18 B/P (MAP) 131/83 (99) Pulse Ox 94 O2 Delivery Room Air Capillary Refill : Height, Weight, BMI Height: 5'8.00" Weight: 171lbs. 0.0oz. 77.858844jd; 28.00 BMI Method:Stated General Appearance: No Apparent Distress, WD/WN Eyes: Bilateral Eye Normal Inspection, Bilateral Eye PERRL, Bilateral Eye EOMI HEENT: PERRL/EOMI, TMs Normal Respiratory: No Accessory Muscle Use, No Respiratory Distress Cardiovascular: Regular Rate, Rhythm, Normal Peripheral Pulses Gastrointestinal: Non Tender, Soft Extremity: Normal Capillary Refill, Normal Inspection Neurologic/Psychiatric: Alert, Oriented x3 Skin: Normal Color, Warm/Dry Progress/Results/Core Measures Suspected Sepsis SIRS Temperature: Pulse: Respiratory Rate: Laboratory Tests 11/07/19 16:25: White Blood Count 8.0 Blood Pressure / Mean: Laboratory Tests 11/07/19 16:25: Creatinine 1.44H, Platelet Count 213 Results/Orders Lab Results Laboratory Tests Test 11/07/19 16:25 11/07/19 16:32 Range/Units White Blood Count 8.0 4.3-11.0 10^3/uL Red Blood Count 4.47 4.35-5.85 10^6/uL Hemoglobin 14.0 13.3-17.7 G/DL Hematocrit 41 40-54 % Mean Corpuscular Volume 92 80-99 FL Mean Corpuscular Hemoglobin 31 25-34 PG Mean Corpuscular Hemoglobin Concent 34 32-36 G/DL Red Cell Distribution Width 13.6 10.0-14.5 % Platelet Count 213 130-400 10^3/uL Mean Platelet Volume 9.0 7.4-10.4 FL Neutrophils (%) (Auto) 62 42-75 % Lymphocytes (%) (Auto) 22 12-44 % Monocytes (%) (Auto) 9 0-12 % Eosinophils (%) (Auto) 7 0-10 % Basophils (%) (Auto) 0 0-10 % Neutrophils # (Auto) 5.0 1.8-7.8 X 10^3 Lymphocytes # (Auto) 1.8 1.0-4.0 X 10^3 Monocytes # (Auto) 0.7 0.0-1.0 X 10^3 Eosinophils # (Auto) 0.6 H 0.0-0.3 10^3/uL Basophils # (Auto) 0.0 0.0-0.1 10^3/uL Sodium Level 137 135-145 MMOL/L Potassium Level 4.1 3.6-5.0 MMOL/L Chloride Level 98 98-107 MMOL/L Carbon Dioxide Level 28 21-32 MMOL/L Anion Gap 11 5-14 MMOL/L Blood Urea Nitrogen 20 H 7-18 MG/DL Creatinine 1.44 H 0.60-1.30 MG/DL Estimat Glomerular Filtration Rate 50 BUN/Creatinine Ratio 14 Glucose Level 269 H 70-105 MG/DL Calcium Level 8.9 8.5-10.1 MG/DL Urine Color YELLOW Urine Clarity CLEAR Urine pH 7.0 5-9 Urine Specific [place] <=1.005 1.016-1.022 Urine Protein 1+ H NEGATIVE Urine Glucose (UA) 1+ H NEGATIVE Urine Ketones NEGATIVE NEGATIVE Urine Nitrite NEGATIVE NEGATIVE Urine Bilirubin NEGATIVE NEGATIVE Urine Urobilinogen 0.2 < = 1.0 MG/DL Urine Leukocyte Esterase NEGATIVE NEGATIVE Urine RBC (Auto) NEGATIVE NEGATIVE Urine RBC NONE /HPF Urine WBC NONE /HPF Urine Squamous Epithelial Cells NONE /HPF Urine Crystals NONE /LPF Urine Bacteria NEGATIVE /HPF Urine Casts NONE /LPF Urine Mucus NEGATIVE /LPF Urine Culture Indicated NO My Orders Orders - SAM RODRIGUEZ APRN Cbc With Automated Diff (11/07/19 16:05) Basic Metabolic Panel (11/07/19 16:05) Ct Head/Cervical Spine Wo (11/07/19 16:15) Ns Iv 1000 Ml (Sodium Chloride 0.9%) (11/07/19 16:30) Ed Iv/Invasive Line Start (11/07/19 16:28) Vital Signs/I&O 11/07/19 16:00 Temp 37.6 Pulse 103 Resp 18 B/P (MAP) 131/83 (99) Pulse Ox 94 O2 Delivery Room Air Capillary Refill : Departure Impression Primary Impression: Orthostatic hypotension Additional Impressions: Fall Minor head injury Disposition: 01 HOME, SELF-CARE Condition: Stable Departure-Patient Inst. Decision time for Depature: 17:37 Referrals: GIOVANNY CODY DO (PCP/Family) Primary Care Physician Patient Instructions: Preventing Falls SAM RODRIGUEZ APRN Nov 07, 2019 16:08
[2019-11-07] MEDS ORDERED: NS IV 1000 ML 1,000 ML IV SCH (16:30)
[2019-11-07 16:33] LABS: BASOPHILS % (AUTO) 0 % (0-10); EOSINOPHILS # (AUTO) 0.6 10^3/uL (0.0-0.3); EOSINOPHILS % (AUTO) 7 % (0-10); HEMATOCRIT 41 % (40-54); LYMPHOCYTES # (AUTO) 1.8 X 10^3 (1.0-4.0); LYMPHOCYTES % (AUTO) 22 % (12-44); MEAN CORPUSCULAR HEMOGLOBIN 31 PG (25-34); MEAN CORPUSCULAR HGB CONC 34 G/DL (32-36); MEAN CORPUSCULAR VOLUME 92 FL (80-99); MONOCYTES # (AUTO) 0.7 X 10^3 (0.0-1.0); MONOCYTES % (AUTO) 9 % (0-12); NEUTROPHILS % (AUTO) 62 % (42-75); PLATELET COUNT 213 10^3/uL (130-400); RED CELL DISTRIBUTION WIDTH 13.6 % (10.0-14.5)
[2019-11-07 16:40] LABS: BILIRUBIN,URINE NEGATIVE (NEGATIVE); CLARITY,URINE CLEAR; COLOR,URINE YELLOW; GLUCOSE, URINE (UA) 1+ (NEGATIVE); KETONES,URINE NEGATIVE (NEGATIVE); LEUKOCYTE ESTERASE ,URINE NEGATIVE (NEGATIVE); NITRITE,URINE NEGATIVE (NEGATIVE); PROTEIN,URINE 1+ (NEGATIVE)
[2019-11-07 16:49] LABS: BACTERIA,URINE NEGATIVE /HPF
[2019-11-07 16:50] LABS: CALCIUM 8.9 MG/DL (8.5-10.1); CREATININE SERUM 1.44 MG/DL (0.60-1.30); POTASSIUM 4.1 MMOL/L (3.6-5.0)
--- NOTE | 2019-11-07 17:35 | Diagnostic Imaging Report ---
PROCEDURE: CT head and CT cervical spine without contrast. TECHNIQUE: Multiple contiguous axial images were obtained through the brain and cervical spine without the use of intravenous contrast. Sagittal and coronal reformations through the cervical spine were then performed. Auto Exposure Controls were utilized during the CT exam to meet ALARA standards for radiation dose reduction. INDICATION: Fall. Trauma to the head. Dizziness. COMPARISON: 12/29/2018. FINDINGS: CT head: There is moderate image degradation secondary to motion artifact. The ventricles and cortical sulci are diffusely prominent, compatible with age-related volume loss. There are confluent areas of abnormal, low attenuation in the periventricular white matter. This is consistent with chronic small vessel ischemic changes. There is no midline shift or mass-effect. No acute intra-axial hemorrhage is seen. There are no abnormal areas of increased or decreased density to suggest acute hemorrhage or edema. No extra-axial masses or collections are present. The bony calvarium is intact. The visualized paranasal sinuses are unremarkable. The mastoid air cells are clear. CT cervical spine: Moderate image degradation of the cervical spine is also present secondary to motion artifact. Evaluation of static alignment shows mild grade 1 anterolisthesis at C4-C5. There is no evidence of jumped facets. Vertebral body heights are grossly maintained. There is no convincing evidence of acute fracture. No bony fragments are seen within the spinal canal. There are multilevel degenerative changes consistent with intervertebral disc height loss as well as multilevel facet arthropathy. Pre and paravertebral soft tissue structures are unremarkable. Note is made of calcified carotid atherosclerosis. Included portions of the lung apices are clear. IMPRESSION: 1. Moderate image degradation of the head and cervical spine secondary to motion artifact. 2. No gross acute intracranial abnormality. No CT evidence of mass, acute infarct or intracranial hemorrhage. 3. Chronic small vessel ischemic changes in the deep white matter. 4. No gross acute fracture or dislocation of the cervical spine. Dictated by: Dictated on workstation # [id number]
[2019-11-07 18:14] VITALS: BP 131/83
--- OUTSIDE RECORDS SUMMARY | 2019-11-07 20:14 | XMS REPORT ---
Author Author Bakari Loya Doctor Organization [facility] Address Unknown Phone Unavailable Care Team Providers Care Reconciliation Coordinator Name Role Phone Migration, Doctor Unavailable Unavailable PROBLEMS Unknown Problems ALLERGIES No Information ENCOUNTERS [facility]counter [facility] Date [facility] [address] [place] [address] Dec, [facility] [address] [facility] [id number] [place] [id number] Dec, [facility] [address] [place] [address] Apr, [facility] [address] [facility] [id number] [address] [place] [address] Apr, IMMUNIZATIONS No Known Immunizations SOCIAL HISTORY Never Assessed REASON FOR VISIT PLAN OF CARE VITAL SIGNS MEDICATIONS Unknown Medications RESULTS No Results PROCEDURES No Known procedures INSTRUCTIONS MEDICATIONS ADMINISTERED No Known Medications
--- OUTSIDE RECORDS SUMMARY | 2019-11-07 20:15 | XMS REPORT | Continuity of Care Document ---
Demographics Preferred Language Unknown Marital Status Unknown Mandaen Affiliation Unknown Race Unknown Ethnic Group Unknown Author Organization Unknown Address Unknown Phone Unavailable Allergies Active Description Code Type Severity Reaction Onset Reported/Identified Relationship to Patient Clinical Status Yes PENICILLIN G SODIUM UNKNOWN UNKNOWN Yes chlorpromazine [id number] Dr garcia Allergy Unknown N/A 12/31/2018 Yes Penicillins [id number] Drug Aller gy Unknown N/A 12/31/2018 Medications [...] Isabel W R14.0 ABDOMINAL DISTENSION (GASEOUS) 11/22/2018 Jostin Isabel W T67.6XXA HEAT FATIGUE, TRANSIENT, INITIAL [...] Senior Ot I25.10 ATHSCL HEART DISEASE OF [place] CORONARY 12/29/2018 ROBB , TONY Senior Ot S06.9X9 A UNSP INTRACRANIAL INJURY W LOC OF UNSP D 12/29/2018 ROBB GARCIA, TONY Senior Ot S09.90X A UNSPECIFIED INJURY OF HEAD, INITIAL ENCO 12/29/2018 ROBB GARCIA, TONY Senior Ot W06.XXX A FALL FROM BED, INITIAL ENCOUNTER 01/03/2019 [facility], GIOVANNY Bailey Ot E11.9 TYPE 2 DIABETES MELLITUS WITHOUT COMPLIC 01/03/2019 [facility], GIOVANNY Bailey Ot E78.00 PURE HYPERCHOLESTEROLEMIA, UNSPECIFIED 01/03/2019 [facility], GIOVANNY Bailey Ot F20.9 SCHIZOPHRENIA, UNSPECIFIED 01/03/2019 [facility], GIOVANNY Bailey Ot F32.9 MAJOR DEPRESSIVE DISORDER, SINGLE EPISOD 01/03/2019 [facility], GIOVANNY Bailey Ot F43.10 POST-TRAUMATIC STRESS DISORDER, UNSPECIF 01/03/2019 [facility], GIOVANNY Bailey Ot G47.9 SLEEP DISORDER, UNSPECIFIED 01/03/2019 [facility], GIOVANNY Bailey Ot I10 ESSENTIAL (PRIMARY) HYPERTENSION 01/03/2019 [facility], GIOVANNY Bailey Ot I25.10 ATHSCL HEART DISEASE OF [place] CORONARY 01/03/2019 [facility], GIOVANNY Bailey Ot J18.1 LOBAR PNEUMONIA, UNSPECIFIED ORGANISM 01/03/2019 [facility] Ot N28.9 DISORDER OF KIDNEY AND URETER, UNSPECIFI 01/03/2019 [facility] N39.0 URINARY TRACT INFECTION, SITE NOT SPECIF 01/03/2019 [facility] R07.89 OTHER CHEST PAIN 01/03/2019 [facility] R09.02 HYPOXEMIA 01/03/2019 [facility] R94.31 ABNORMAL ELECTROCARDIOGRAM [ECG] [EKG] 01/03/2019 [facility] Z87.891 PERSONAL HISTORY OF NICOTINE DEPENDENCE 01/03/2019 [facility] Z95.1 PRESENCE OF AORTOCORONARY BYPASS GRAFT 01/03/2019 [facility] Ot A41.9 SEPSIS, UNSPECIFIED ORGANISM 01/03/2019 GELLENDER [...] Bailey Ot I25.10 ATHSCL HEART DISEASE OF [place] CORONARY 01/03/2019, GIOVANNY Bailey Ot J18.1 LOBAR PNEUMONIA, UNSPECIFIED ORGANISM 01/03/2019 GELDER DO, GIOVANNY Bailey Ot N13.6 PYONEPHROSIS 01/03/2019 GELDER DO, GIOVANNY Bailey Ot N17.9 ACUTE KIDNEY FAILURE, UNSPECIFIED 01/03/2019 GELDER DO, GIOVANNY Bailey Ot N18.9 CHRONIC KIDNEY DISEASE, UNSPECIFIED 01/03/2019 GELLENDER DO, GIOVANNY Bailey Ot N28.9 DISORDER OF KIDNEY AND URETER, UNSPECIFI [facility] N39.0 [...] Z87.891 PERSONAL HISTORY OF NICOTINE DEPENDENCE 01/03/2019 [facility] GI[facility] Bailey Ot Z95.1 PRESENCE OF AORTOCORONARY BYPASS GRAFT 01/05/2019 ROBB , TONY Senior Ot E11.9 TYPE 2 DIABETES MELLITUS WITHOUT COMPLIC 01/05/2019 [place] TONY GARCIA Ot E78.00 PURE HYPERCHOLESTEROLEMIA, UNSPECIFIED 01/05/2019 [place] , TONY Senoir Ot F20.9 SCHIZOPHRENIA, UNSPECIFIED 01/05/2019 ROBB TONY Senior Ot F32.9 MAJOR DEPRESSIVE DISORDER, SINGLE EPISOD 01/05/2019 [place] TONY Senior Ot F43.10 POST-TRAUMATIC STRESS DISORDER, UNSPECIF 01/05/2019 ROBB TONY Senior Ot I10 ESSENTIAL (PRIMARY) HYPERTENSION 01/05/2019 [facility] TONY Senior Ot I25.10 ATHSCL HEART DISEASE OF [place] CORONARY 01/05/2019 ROBB TONY Senior Ot S06.9X9 [...] DOGIOVANNY Ot E78.00 PURE HYPERCHOLESTEROLEMIA, UNSPECIFIED 05/04/2019 [facility], GIOVANNY Bailey Ot F17.210 NICOTINE DEPENDENCE, CIGARETTES, UNCOMPL 05/04/2019 [facility], GIOVANNY Bailey Ot F20.9 SCHIZOPHRENIA, UNSPECIFIED 05/04/2019 [facility], GIOVANNY Bailey Ot F32.9 MAJOR DEPRESSIVE DISORDER, SINGLE EPISOD 05/04/2019 [facility], GIOVANNY Bailey Ot F41.9 ANXIETY DISORDER, UNSPECIFIED 05/04/2019 [facility], GIOVANNY Bailey Ot F43.10 POST-TRAUMATIC STRESS DISORDER, UNSPECIF 05/04/2019 [facility], GIOVANNY Bailey Ot G47.9 SLEEP DISORDER, UNSPECIFIED 05/04/2019 [facility], GIOVANNY Bailey Ot 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 05/04/2019 [facility], GIOVANNY Bailey Ot I16.0 HYPERTENSIVE URGENCY 05/04/2019 [facility], GIOVANNY Bailey Ot I21.A1 MYOCARDIAL INFARCTION TYPE 2 05/04/2019 [facility] I25.10 ATHSCL HEART DISEASE OF [place] CORONARY 05/04/2019 [facility], GIOVANNY Bailey Ot I50.31 ACUTE DIASTOLIC (CONGESTIVE) HEART FAILU 05/04/2019 [facility], GIOVANNY Bailey Ot J18.9 PNEUMONIA, UNSPECIFIED ORGANISM 05/04/2019 [facility], GIOVANNY Bailey Ot J44.0 CHR OBSTRUCTIVE PULMON DISEASE WITH (ACU 05/04/2019 [facility] GIOVANNY Ot K21.9 GASTRO-ESOPHAGEAL REFLUX DISEASE WITHOUT 05/04/2019 [facility] GIOVANNY Ot N13.30 UNSPECIFIED HYDRONEPHROSIS 05/04/2019 [facility] N18.6 END STAGE RENAL DISEASE 05/04/2019 [facility] N39.490 OVERFLOW INCONTINENCE 05/04/2019 [facility] Ot R09.02 HYPOXEMIA 05/04/2019 [facility] Ot Z95.1 PRESENCE OF AORTOCORONARY BYPASS GRAFT 05/05/2019 [facility] GIOVANNY Ot A41.59 OTHER GRAM-NEGATIVE SEPSIS 05/05/2019 [facility] A41.9 SEPSIS, UNSPECIFIED ORGANISM 05/05/2019 [facility] E11.9 TYPE 2 DIABETES MELLITUS WITHOUT [...] Bailey Ot I25.10 ATHSCL HEART DISEASE OF [place] CORONARY 05/05/2019, GIOVANNY Bailey Ot I50.31 ACUTE [...] DO, GIOVANNY Bailey Ot R09.02 HYPOXEMIA 05/05/2019 RUBENDER DO, GIOVANNY Bailey Ot Z95.1 PRESENCE OF AORTOCORONARY BYPASS GRAFT 05/11/2019 ESCOBAR DO, GIOVANNY Bailey Ot J98.4 OTHER DISORDERS OF LUNG 05/11/2019 JATINDERLENDER DO, GIOVANNY Bailey Ot R05 COUGH 05/11/2019 GELLENDER DO, GIOVANNY Bailey Ot R06.02 SHORTNESS OF BREATH 05/11/2019 GELLENDER DO, GIOVANNY Bailey Ot R06.2 WHEEZING 05/11/2019 GELLENDER DO, GIOVANNY Bailey Ot R25.1 TREMOR, UNSPECIFIED 06/06/2019 GELLENDER DO, GIOVANNY Leo Ot J18.9 PNEUMONIA, UNSPECIFIED ORGANISM 06/06/2019 GELLENDER DO, GIOVANNY Leo Ot J18.9 PNEUMONIA, UNSPECIFIED ORGANISM 08/02/2019 СЕРГЕЙ GANDARA MD Ot E11.9 TYPE 2 DIABETES MELLITUS WITHOUT COMPLIC 08/02/2019 СЕРГЕЙ GANDARA MD Ot E78.00 PURE HYPERCHOLESTEROLEMIA, UNSPECIFIED 08/02/2019 СЕРГЕЙ GANDARA MD Ot F17.210 NICOTINE DEPENDENCE, CIGARETTES, UNCOMPL 08/02/2019 СЕРГЕЙ GANDARA MD Ot F20.9 SCHIZOPHRENIA, UNSPECIFIED 08/02/2019 СЕРГЕЙ GANDARA MD Ot F32.9 MAJOR DEPRESSIVE DISORDER, SINGLE EPISOD 08/02/2019 СЕРГЕЙ GANDARA MD Ot G40.909 EPILEPSY, UNSP, NOT INTRACTABLE, WITHOUT 08/02/2019 СЕРГЕЙ GANDARA MD Ot I10 ESSENTIAL (PRIMARY) HYPERTENSION 08/02/2019 СЕРГЕЙ GANDARA MD Ot I25.10 ATHSCL HEART DISEASE OF [place] CORONARY 08/02/2019 СЕРГЕЙ GANDARA MD Ot J42 UNSPECIFIED CHRONIC BRONCHITIS 08/02/2019 СЕГРЕЙ GANDARA MD Ot J44.9 CHRONIC OBSTRUCTIVE PULMONARY DISEASE, U 08/02/2019 СЕРГЕЙ GANDARA MD Ot K21.9 GASTRO-ESOPHAGEAL REFLUX DISEASE WITHOUT 08/02/2019 СЕРГЕЙ GANDARA MD Ot R56.9 UNSPECIFIED CONVULSIONS 08/02/2019 СЕРГЕЙ GANDARA MD Ot Z79.82 HALF-WAY (CURRENT) USE OF ASPIRIN 08/02/2019 СЕРГЕЙ GANDARA MD Ot Z88.0 ALLERGY STATUS TO PENICILLIN 08/02/2019 NICHOL MATA, СЕРГЕЙ Smith Ot Z88.8 ALLERGY STATUS TO OTH DRUG/MEDS/BIOL SUB 08/02/2019 NICHOL MATA, СЕРГЕЙ Smith Ot Z95.1 PRESENCE OF AORTOCORONARY BYPASS GRAFT Procedures There is no data. Results Test Result Range Creatine Kinase - 11/21/18 14:28 CK 272 U/L 26-174 Thyroid Stimulating Hormone - 11/21/18 1 4:28 TSH 3.34 mIU/mL 0.32-5.00 MRSA Screen - 11/21/18 14:28 FINAL CULTURE RESULTS MRSA Negative Nasal Culture Hemoglobin A1C - 11/21/18 14:35 % A1C 6.30 % 5.40-6.60 AvGlu 146 mg/dL 70-110 EKG - 11/21/18 15:32 EKG Complete Lipid Panel - 11/22/18 06:57 C/HDL 3.8 3.7-6.7 Cholesterol 102 mg/dL 100-240 HDL 27 mg/dL 30-85 LDL-Calculated 61 mg/dL 0-100 Trig 72 mg/dL 35-160 VLDL 14 mg/dL 0-42 Comprehensive Metabolic Panel - 11/22/18 06:57 Albumin [...] 0.4 mg/dL 0.2-1.2 TP 6.4 g/dL 6.0-8.3 [place] - 11/22/18 13:30 Anion Gap 15 6-14 [...] 8.5-10.1 Manual absolute plasma cell count - 1202/10 20:55 Blood monocytes/100 leukocytes 9 % NRG [...] urinalysis with reflex to culture NO NRG Complete blood count (CBC) with automate d white blood cell (WBC) differential - 11/07/19 16:25 Blood leukocytes automated count (number/volume) 8.0 10*3/uL 4.3-11.0 Blood erythrocytes automated count (number/volume) 4.47 10*6/uL 4.35-5.85 Venous blood hemoglobin measurement (mass/volume) 14.0 g/dL 13.3-17.7 Blood hematocrit (volume fraction) 41 % 40-54 Automated erythrocyte mean corpuscular volume 92 [ foz_us] 80-99 Automated erythrocyte mean corpuscular h emoglobin (mass per erythrocyte) 31 pg 25-34 Automated erythrocyte mean corpuscular h emoglobin concentration measurement (mass/volume) 34 g/dL 32-36 Automated erythrocyte distribution width ratio 13. 6 % 10.0- 14.5 Automated blood platelet count (count/volume) 213 10*3/uL 130-400 Automated blood platelet mean volume measurement 9.0 [foz_us] 7.4-10.4 Automated blood neutrophils/100 leukocytes 62 % 42-75 Automated blood lymphocytes/100 leukocytes 22 % 12-44 Blood monocytes/100 leukocytes 9 % 0-12 Automated blood eosinophils/100 leukocytes 7 % 0-10 Automated blood basophils/100 leukocytes 0 % 0-10 Blood neutrophils automated count (number/volume) 5.0 10*3 1.8-7.8 Blood lymphocytes automated count (number/volume) 1.8 10*3 1.0-4.0 Blood monocytes automated count (number/volume) 0. 7 10*3 0.0-1.0 Automated eosinophil count 0.6 10*3/uL 0 .0-0.3 Automated blood basophil count (count/volume) 0.0 10*3/uL 0.0-0.1 Whole blood basic metabolic panel - 10/23 10/11 16:25 Serum or plasma sodium measurement (moles/volume) 137 mmol/L 135-145 Serum or plasma potassium measurement (moles/volume) 4.1 mmol/L 3.6-5.0 Serum or plasma chloride measurement (moles/volume) 98 mmol/L 98-107 Carbon dioxide 28 mmol/L 21-32 Serum or plasma anion gap determination (moles/volume) 11 mmol/L 5-14 Serum or plasma urea nitrogen measurement (mass/volume ) 20 mg/dL 7-18 Serum or plasma creatinine measurement (mass/volume) 1.44 mg/dL 0.60-1.30 Serum or plasma urea nitrogen/creatinine mass ratio 14 NRG Serum or plasma creatinine measurement w ith calculation of estimated glomerular filtration rate 50 NRG Serum or plasma glucose measurement (mass/volume) 269 mg/dL 70-105 Serum or plasma calcium measurement (mass/volume) 8.9 mg/dL 8.5-10.1 Complete urinalysis with reflex to cultu re - 11/07/19 16:32 Urine color determination YELLOW NRG Urine clarity determination CLEAR NR G Urine pH measurement by test strip 7.0 5-9 Specific gravity of urine by test strip <= 1.016-1.022 Urine protein assay by test strip, semi-quantitative 1+ NEGATIVE Urine glucose detection by automated test strip 1+ NEGATIVE Erythrocytes detection in urine sediment by [...] in u rine sediment by light microscopy NONE NRG Crystals detection in urine sediment by light microsco py NONE NRG Casts detection in urine sediment by light microscopy NONE NRG Mucus detection in urine sediment by light microscopy NEGATIVE NRG Complete urinalysis with reflex to culture NO NRG Encounters ACCT No. Visit Date/Time Discharge Status Pt. Type Provider Facility Loc./Unit Complaint [id number] 11/26/2018 12:30:12 Document Registration [id number] 07/23/2018 11:49:27 9 23:59:59 DIS Outpatient JAY ORTIZ [facility] KOKI RT G40.219 [id number] 11/22/2018 15:00:00 11/22/2018 21:56: 00 DIS Inpatient Frankel, [facility] enter DONNELL [id number] 11/21/2018 13:51:00 11/22/2018 15:15: 00 DIS Outpatient Jostin [facility] ICU [id number] 11/21/2018 14:30:21 Document Registration [id number] 08/14/2015 12:37:24 08/14/2015 12:37 :24 DIS Unknown [id number] 01/19/2014 12:02:00 01/19/2014 23:59: 59 CLS Outpatient JAY ORTIZ MD [id number] 05/13/2013 11:07:00 05/13/2013 23:59: 59 CLS Outpatient JAY ORTIZ MD [id number] 11/21/2018 15:45:00 Document Registration [id number] 08/02/2019 09:00:00 11:47:00 DIS Emergency СЕРГЕЙ GANDARA MD [facility] ER SEIZURE [id number] 06/03/2019 10:14:00 23:59:59 CLS Outpatient JATINDERLENGIOVANNY YOUNG DO [facility] RAD PNEUMONIA [id number] 05/02/2019 10:15:00 11:10:00 DIS Outpatient JATINDERLENGIOVANNY YOUNG DO [facility] 4TH PNEUMONIA, SEPS IS [id number] 04/27/2019 10:06:00 23:59:59 CLS Outpatient GIOVANNY CODY DO [facility] RAD SOB, WHEEZING, TREMORS [id number] 01/27/2019 14:12:00 23:59:59 CLS Outpatient GELLENGIOVANNY YOUNG DO [facility] LAB SOB [id number] 01/25/2019 15:05:00 23:59:59 CLS Preadmit ESTUARDO JARAMILLO MD, [facility] RAD BILATERAL HYDEONEPHROSI S BY US [id number] 01/10/2019 15:57:00 23:59:59 CLS Outpatient ESTUARDO JARAMILLO MD [facility] LAB N40.1 [id number] 12/31/2018 03:15:00 019 16:45:00 DIS Inpatient GELADRIAN GARCIA, GIOVANNY Bailey [facility] 4TH PNA,SEPSIS,CP R /O ACS ANGINA,ACUTE RESP DISTRESS W [id number] 12/29/2018 21:58:00 019 23:06:00 DIS Emergency TONY ZAMUDIO DO [facility] ER FALL [id number] 11/07/2019 16:34:00 Document Registration [id number] 07/28/2018 11:07:04 07/28/2018 23:59:59 CLS Outpatient [id number] 07/28/2018 11:03:42 07/28/2018 23:59:59 CLS Outpatient [id number] 07/28/2018 08:13:32 07/28/2018 23:59:59 CLS Outpatient [id number] 07/28/2018 11:06:57 07/28/2018 11:06:58 DIS Outpatient [id number] 07/28/2018 11:03:38 07/28/2018 11:03:39 DIS Outpatient [id number] 07/27/2018 08:37:36 07/27/2018 08:37:36 DIS Outpatient [id number] 07/26/2018 12:38:06 07/26/2018 12:38:06 DIS Outpatient [id number] 07/26/2018 12:37:58 07/26/2018 12:37:58 DIS Outpatient
== END 2019-11-07 18:14 | disposition home or self-care (01) ==
LOC: ER 16:02 → EDUNIT# 16:02 → ER 18:14
DX: S09.90XA Unspecified injury of head, initial encounter (principal); I95.1 Orthostatic hypotension; I10 Essential (primary) hypertension; E78.00 Pure hypercholesterolemia, unspecified; I25.10 Atherosclerotic heart disease of native coronary artery without angina pectoris; K21.9 Gastro-esophageal reflux disease without esophagitis; E11.9 Type 2 diabetes mellitus without complications; F20.9 Schizophrenia, unspecified; F32.9 Major depressive disorder, single episode, unspecified; Z88.0 Allergy status to penicillin; Z79.82 Long term (current) use of aspirin; Z95.1 Presence of aortocoronary bypass graft; Z77.22 Contact with and (suspected) exposure to environmental tobacco smoke (acute) (chronic); W18.39XA Other fall on same level, initial encounter; W22.8XXA Striking against or struck by other objects, initial encounter
CPT/HCPCS: 36415; 70450; 72125; 80048; 81000; 85025; 93005

== ENCOUNTER 2020-01-14 09:33 | Emergency (ER) | payer MEDICAID ==
[~2020-01-14] VITALS: Ht 180 cm; Wt 90.7 kg
[2020-01-14 09:46] LABS: BASOPHILS % (AUTO) 1 % (0-10); EOSINOPHILS # (AUTO) 0.4 10^3/uL (0.0-0.3); EOSINOPHILS % (AUTO) 6 % (0-10); HEMATOCRIT 43 % (40-54); HEMOGLOBIN 14.5 G/DL (13.3-17.7); LYMPHOCYTES # (AUTO) 1.4 X 10^3 (1.0-4.0); LYMPHOCYTES % (AUTO) 25 % (12-44); MEAN CORPUSCULAR HEMOGLOBIN 31 PG (25-34); MEAN CORPUSCULAR HGB CONC 34 G/DL (32-36); MEAN CORPUSCULAR VOLUME 92 FL (80-99); MEAN PLATELET VOLUME 9.4 FL (7.4-10.4); MONOCYTES # (AUTO) 0.6 X 10^3 (0.0-1.0); MONOCYTES % (AUTO) 11 % (0-12); NEUTROPHILS # (AUTO) 3.2 X 10^3 (1.8-7.8); NEUTROPHILS % (AUTO) 57 % (42-75); PLATELET COUNT 185 10^3/uL (130-400); RED CELL DISTRIBUTION WIDTH 13.5 % (10.0-14.5); WHITE BLOOD COUNT 5.6 10^3/uL (4.3-11.0)
--- NOTE | 2020-01-14 09:48 | ED Fall/Injury ---
General Chief Complaint: Trauma-Non Activation Stated Complaint: FALL Source: patient Exam Limitations: no limitations History of Present Illness Date Seen by Provider: Jan 14, 2020 Time Seen by Provider: 09:29 Initial Comments The patient presents to ER by EMS from [facility] where he is doing rehabilitation after a stay in [place]. He had a seizure and fell striking the right side of his head causing him some discomfort. He has a histo ry of bipolar disorder, schizophrenia, diabetes and hypertension with chronic kidney disease. He does not take any blood thinners. He denies pain anywhere else. EMS put a c-collar on him and got a blood sugar of 290. Allergies and Home Medications Allergies Coded Allergies: Penicillins (Verified Allergy, Unknown, 12/31/18) chlorpromazine (Verified Allergy, Unknown, 12/31/18) Home Medications Acetaminophen 325 Mg Tablet, 650 MG PO Q6H PRN for PAIN-MILD, (Reported) Albuterol Sulfate 1 Puff Puff, 2 PUFF INH QID, (Reported) Aspirin 81 Mg Tablet.dr, 81 MG PO DAILY, (Reported) Atorvastatin Calcium 40 Mg Tablet, 40 MG PO HS, (Reported) Azithromycin 250 Mg Tablet, 250 MG PO DAILY Prescribed by: KAILEE BYERS on 05/05/19 0755 Carvedilol 3.125 Mg Tablet, 3.125 MG PO BID, (Reported) Cetirizine HCl 10 Mg Tablet, 10 MG PO DAILY, (Reported) Divalproex Sodium 125 Mg Cap.sprink, 750 MG PO BID, (Reported) TAKES 6 (125MG) CAPSULES Exenatide Microspheres 2 Mg/0.65 Ml Pen.injctr, 2 MG SC Mo, (Reported) Gabapentin 100 Mg Capsule, 100 MG PO HS, (Reported) Mag Hydrox/Al Hydrox/Simeth 30 Ml Oral.susp, 30 ML PO Q4H PRN for INDIGESTION, (Reported) Montelukast Sodium 10 Mg Tablet, 10 MG PO DAILY, (Reported) Olanzapine 5 Mg Tablet, 5 MG PO DAILY, (Reported) Olanzapine 5 Mg Tablet, 10 MG PO HS, (Reported) Ondansetron HCl 4 Mg Tablet, 4 MG PO Q8H PRN for NAUSEA/VOMITING-1ST LINE, (Reported) Pantoprazole Sodium 40 Mg Tablet.dr, 40 MG PO DAILY, (Reported) Sevelamer Carbonate 800 Mg Tablet, 800 MG PO TIDWM, (Reported) Tamsulosin HCl 0.4 Mg Cap, 0.4 MG PO HS, (Reported) Patient Home Medication List Home Medication List Reviewed: Yes Review of Systems Review of Systems Constitutional: No chills, No diaphoresis Eyes: Denies Blindness, Denies Blurred Vision Ears, Nose, Mouth, Throat: denies ear pain, denies ear discharge Respiratory: No cough, No dyspnea on exertion Cardiovascular: No chest pain, No edema Gastrointestinal: No abdominal pain, No nausea, No vomiting Genitourinary: No discharge, No dysuria Musculoskeletal: No back pain, No joint pain All Other Systems Reviewed Negative Unless Noted: Yes Past Fwbrbpr-Ngtekn-Pwaktd Hx Patient Social History Alcohol Use: Denies Use Recreational Drug Use: No Drug of Choice: HX THC Type Used: Cigarettes 2nd Hand Smoke Exposure: Yes Recent Hopitalizations: No Physical Abuse: No Sexual Abuse: No Mistreated: No Fear: No Immunizations Up To Date Tetanus Booster (TDap): Unknown Date of Pneumonia Vaccine: Dec 31, 2017 Date of Influenza Vaccine: Mar 11, 2019 Seasonal Allergies Seasonal Allergies: No Past Medical History Surgeries: Yes CABG, Vasectomy Respiratory: No Cardiac: Yes Coronary Artery Disease, High Cholesterol, Hypertension Neurological: No Genitourinary: Yes Renal Failure Gastrointestinal: Yes Gastroesophageal Reflux Musculoskeletal: No Endocrine: Yes Diabetes, Non-Insulin dep HEENT: No Cancer: No Psychosocial: Yes Sleep Difficulties, PTSD, Schizophrenia, Depression Integumentary: No Blood Disorders: No Physical Exam Vital Signs Vital Signs - First Documented 01/14/20 09:44 Temp 36.7 Pulse 86 Resp 18 B/P (MAP) 155/91 (112) Pulse Ox 95 Capillary Refill : Height, Weight, BMI Height: 5'8.00" Weight: 171lbs. 0.0oz. 77.165464ei; 28.00 BMI Method:Stated General Appearance: WD/WN, mild distress HEENT: PERRL/EOMI, normal ENT inspection, TMs normal, pharynx normal, other (negative for raccoon eyes, Singh sign or hemotympanum, mild hematoma right parietal scalp; mildly tender to palpation. No laceration.) Neck: non-tender, supple, normal inspection, other (c-collar in place) Cardiovascular: normal peripheral pulses, regular rate, rhythm, no edema Respiratory: lungs clear, normal breath sounds, no respiratory distress, no accessory muscle use Peripheral Pulses: 2+ Radial Pulses (R), 2+ Radial Pulses (L) Gastrointestinal: normal bowel sounds, non tender, soft Extremities: normal range of motion, non-tender, normal inspection, normal ca pillary refill Neurologic/Psychiatric: alert, normal mood/affect, oriented x 3 Skin: normal color, warm/dry [place] Coma Score Best Eye Response: (4) Open Spontaneously Best Verbal Response: (5) Oriented Best Motor Response: (6) Obeys Commands Yonatan Total: 15 Progress/Results/Core Measures Results/Orders Lab Results Laboratory Tests Test 01/14/20 09:36 Range/Units White Blood Count 5.6 4.3-11.0 10^3/uL Red Blood Count 4.63 4.35-5.85 10^6/uL Hemoglobin 14.5 13.3-17.7 G/DL Hematocrit 43 40-54 % Mean Corpuscular Volume 92 80-99 FL Mean Corpuscular Hemoglobin 31 25-34 PG Mean Corpuscular Hemoglobin Concent 34 32-36 G/DL Red Cell Distribution Width 13.5 10.0-14.5 % Platelet Count 185 130-400 10^3/uL Mean Platelet Volume 9.4 7.4-10.4 FL Neutrophils (%) (Auto) 57 42-75 % Lymphocytes (%) (Auto) 25 12-44 % Monocytes (%) (Auto) 11 0-12 % Eosinophils (%) (Auto) 6 0-10 % Basophils (%) (Auto) 1 0-10 % Neutrophils # (Auto) 3.2 1.8-7.8 X 10^3 Lymphocytes # (Auto) 1.4 1.0-4.0 X 10^3 Monocytes # (Auto) 0.6 0.0-1.0 X 10^3 Eosinophils # (Auto) 0.4 H 0.0-0.3 10^3/uL Basophils # (Auto) 0.0 0.0-0.1 10^3/uL Sodium Level 138 135-145 MMOL/L Potassium Level 4.8 3.6-5.0 MMOL/L Chloride Level 101 98-107 MMOL/L Carbon Dioxide Level 26 21-32 MMOL/L Anion Gap 11 5-14 MMOL/L Blood Urea Nitrogen 23 H 7-18 MG/DL Creatinine 1.44 H 0.60-1.30 MG/DL Estimat Glomerular Filtration Rate 50 BUN/Creatinine Ratio 16 Glucose Level 299 H 70-105 MG/DL Calcium Level 9.0 8.5-10.1 MG/DL Corrected Calcium 9.2 8.5-10.1 MG/DL Total Bilirubin 0.2 0.1-1.0 MG/DL Aspartate Amino Transf (AST/SGOT) 9 5-34 U/L Alanine Aminotransferase (ALT/SGPT) 10 0-55 U/L Alkaline Phosphatase 62 40-136 U/L Total Protein 6.9 6.4-8.2 GM/DL Albumin 3.7 3.2-4.5 GM/DL My Orders Orders - FREDRICK MENJIVAR Ct Head/Cervical Spine Wo (01/14/20 09:39) Cbc With Automated Diff (01/14/20 09:39) Comprehensive Metabolic Panel (01/14/20 09:39) Ekg Tracing (01/14/20 09:41) Vital Signs/I&O 01/14/20 09:44 Temp 36.7 Pulse 86 Resp 18 B/P (MAP) 155/91 (112) Pulse Ox 95 Progress Progress Note #1: Time: 09:48 Progress Note Patient is neurologically intact has a small hematoma on his right parietal scalp. A CT of the head and C-spine will be obtained. We'll check some basic labs. If his CT is okay then we'll downgrade the collar and give him something for his discomfort such as Tylenol or ibuprofen. Progress Note #2: Time: 10:37 Progress Note Patient has already downgraded his own c-collar. Initial ECG Impression Date: Jan 14, 2020 Initial ECG Impression Time: 09:40 Initial ECG Rate: 88 Initial ECG Rhythm: Normal Sinus Initial ECG Intervals: Normal Initial ECG Impression: Normal Comment Normal sinus rhythm with right bundle branch block. No clinically relevant ST elevation or depression. Diagnostic Imaging Diagonstic Imaging: CT Plain Films/CT/US/NM/MRI: c-spine, head Comments NAME: CAPO KELLEY MED REC#: [id number] PT STATUS: REG ER : 1955 PHYSICIAN: FREDRICK MENJIVAR MD ADMIT DATE: 01/14/20/ER Draft Date of Exam:01/14/20 CT HEAD/CERVICAL SPINE WO PROCEDURE: CT head and CT cervical spine without contrast. TECHNIQUE: Multiple contiguous axial images were obtained through the brain and cervical spine without the use of intravenous contrast. Sagittal and coronal reformations through the cervical spine were then performed. Auto Exposure Controls were utilized during the CT exam to meet ALARA standards for radiation dose reduction. INDICATION: Fall. Seizure. COMPARISON: CT head and cervical spine without contrast 11/07/2019. FINDINGS: CT HEAD: No intracranial hemorrhage, mass effect, hydrocephalus or extra-axial fluid collections. No CT evidence of territorial infarction. Osseous structures are intact. The visualized paranasal sinuses and mastoids are clear. CT CERVICAL SPINE: Normal alignment. Vertebral body heights preserved. No fractures. Mild degenerative endplate changes and scattered facet arthropathy. No evidence high-grade spinal canal stenosis on soft tissue windows. Mild atherosclerotic calcifications in the carotid bifurcations. Lung apices are clear. IMPRESSION: No acute intracranial or cervical spine CT findings. Dictated on workstation # [id number] Dict: 01/14/20 1005 Trans: 01/14/20 1011 [facility] [id number] Interpreted by: KINA ALSTON MD Electronically signed by: Reviewed: Reviewed by Me Departure Impression Primary Impression: Seizure Additional Impressions: Fall Qualified Codes: W19.XXXA - Unspecified fall, initial encounter Traumatic injury of head with hematoma of scalp Disposition: 01 HOME, SELF-CARE Condition: Stable Departure-Patient Inst. Decision time for Depature: 10:37 Referrals: GIOVANNY CODY DO (PCP/Family) Primary Care Physician Patient Instructions: Minor Head Injury Add. Discharge Instructions: Drink plenty of fluids. Tylenol 1000 mg every 8 hours as necessary for headache. Ibuprofen 600 mg every 6 hours as necessary for headache. All discharge instructions reviewed with patient and/or family. Voiced understanding. FREDRICK MENJIVAR Jan 14, 2020 09:48
[2020-01-14 10:03] LABS: ALBUMIN 3.7 GM/DL (3.2-4.5); BILIRUBIN,TOTAL 0.2 MG/DL (0.1-1.0); CREATININE SERUM 1.44 MG/DL (0.60-1.30); POTASSIUM 4.8 MMOL/L (3.6-5.0); TOTAL PROTEIN 6.9 GM/DL (6.4-8.2)
--- NOTE | 2020-01-14 10:05 | NUR ---
pt back from ct at this time.
--- NOTE | 2020-01-14 10:11 | Diagnostic Imaging Report ---
PROCEDURE: CT head and CT cervical spine without contrast. TECHNIQUE: Multiple contiguous axial images were obtained through the brain and cervical spine without the use of intravenous contrast. Sagittal and coronal reformations through the cervical spine were then performed. Auto Exposure Controls were utilized during the CT exam to meet ALARA standards for radiation dose reduction. INDICATION: Fall. Seizure. COMPARISON: CT head and cervical spine without contrast 11/07/2019. FINDINGS: CT HEAD: No intracranial hemorrhage, mass effect, hydrocephalus or extra-axial fluid collections. No CT evidence of territorial infarction. Osseous structures are intact. The visualized paranasal sinuses and mastoids are clear. CT CERVICAL SPINE: Normal alignment. Vertebral body heights preserved. No fractures. Mild degenerative endplate changes and scattered facet arthropathy. No evidence high-grade spinal canal stenosis on soft tissue windows. Mild atherosclerotic calcifications in the carotid bifurcations. Lung apices are clear. IMPRESSION: No acute intracranial or cervical spine CT findings. Dictated by: Dictated on workstation # [id number]
[2020-01-14 10:40] VITALS: BP 123/71
== END 2020-01-14 10:40 | disposition home or self-care (01) ==
LOC: EDUNIT# 09:33 → ER 09:34
DX: S09.90XA Unspecified injury of head, initial encounter (principal); S00.03XA Contusion of scalp, initial encounter; R56.9 Unspecified convulsions; E11.22 Type 2 diabetes mellitus with diabetic chronic kidney disease; I12.9 Hypertensive chronic kidney disease with stage 1 through stage 4 chronic kidney disease, or unspecified chronic kidney disease; N18.9 Chronic kidney disease, unspecified; F20.9 Schizophrenia, unspecified; F31.9 Bipolar disorder, unspecified; I25.10 Atherosclerotic heart disease of native coronary artery without angina pectoris; E78.00 Pure hypercholesterolemia, unspecified; K21.9 Gastro-esophageal reflux disease without esophagitis; Z88.0 Allergy status to penicillin; Z88.8 Allergy status to other drugs, medicaments and biological substances; Z79.82 Long term (current) use of aspirin; Z77.22 Contact with and (suspected) exposure to environmental tobacco smoke (acute) (chronic); Z95.1 Presence of aortocoronary bypass graft; W19.XXXA Unspecified fall, initial encounter; W22.8XXA Striking against or struck by other objects, initial encounter
CPT/HCPCS: 36415; 70450; 72125; 80053; 85025

== ENCOUNTER 2020-02-21 11:05 | Emergency (ER) | payer MEDICAID ==
[~2020-02-21] VITALS: Ht 177.8 cm; Wt 95.3 kg
[~2020-02-21 11:05] MED LIST changes: +ASPI-1238 PO; -ASPI-983 PO; -PANT40TA3 PO; +PANT40TA52 PO
--- NOTE | 2020-02-21 11:35 | ED Neurological Problem ---
General Chief Complaint: Neurological Problems Stated Complaint: SEIZURES Nursing Triage Note: Pt presents via [facility] ems cart from [facility] with c/o witnessed seizure activity. Ems advise facility staff report pt experienced x7 witnessed seizures on this day. Ems report upon arrival on scene, pts eyes were closed while pt was experiencing mild tremors. Ems advise briefly after arrival on scene, pt became alert with no posticle state. Upon arrival to this ER pt A&OX3. Pt reports while experiencing seizure on this day, he fell hit his head, with + LOC. Pt reports he experienced unknown number of seizures on 02/20/20. 3mm PERRLA. Equal gripth strength noted to bilat upper extremities. Pt reports his morning medications were adm. late on this day. Pt denies head, neck, or back pain. Nursing Sepsis Screen: No Definite Risk History of Present Illness Date Seen by Provider: Feb 21, 2020 Time Seen by Provider: 11:10 Initial Comments 64 year old male presents via EMS [facility] after having 4-5 seizures this am. He has a known seizure disorder and is on Depakote, his dose has been adjusted lately. He has no breakthrough seizure medications. When EMS arrived, they report no seizure activity, thought staff said he was having a seizure, and patient was not post-ictal. No incontinence. Patient and staff report he got his morning medications late today. Patient and staff deny any falls or hitting his head. Patient denies any pain at this time. Patient seen her approximately 1 month ago for similar symptoms. Timing/Duration: 1-3 hours Associated Symptoms: denies symptoms, seizures Allergies and Home Medications Allergies Coded Allergies: Penicillins (Verified Allergy, Unknown, 12/31/18) chlorpromazine (Verified Allergy, Unknown, 12/31/18) Home Medications Acetaminophen 325 Mg Tablet, 650 MG PO Q6H PRN for PAIN-MILD, (Reported) Albuterol Sulfate 1 Puff Puff, 2 PUFF INH QID, (Reported) Aspirin 81 Mg Tablet.dr, 81 MG PO DAILY, (Reported) Atorvastatin Calcium 40 Mg Tablet, 40 MG PO HS, (Reported) Azithromycin 250 Mg Tablet, 250 MG PO DAILY Prescribed by: KAILEE BYERS on 05/05/19 8591 Carvedilol 3.125 Mg Tablet, 3.125 MG PO BID, (Reported) Cetirizine HCl 10 Mg Tablet, 10 MG PO DAILY, (Reported) Divalproex Sodium 125 Mg Cap.sprink, 750 MG PO BID, (Reported) TAKES 6 (125MG) CAPSULES Exenatide Microspheres 2 Mg/0.65 Ml Pen.injctr, 2 MG SC Mo, (Reported) Gabapentin 100 Mg Capsule, 100 MG PO HS, (Reported) Mag Hydrox/Al Hydrox/Simeth 30 Ml Oral.susp, 30 ML PO Q4H PRN for INDIGESTION, (Reported) Metformin HCl 1,000 Mg Tablet, 1,000 MG PO BID Prescribed by: FRANKLIN CARSON on 02/21/20 1224 Montelukast Sodium 10 Mg Tablet, 10 MG PO DAILY, (Reported) Olanzapine 5 Mg Tablet, 5 MG PO DAILY, (Reported) Olanzapine 5 Mg Tablet, 10 MG PO HS, (Reported) Ondansetron HCl 4 Mg Tablet, 4 MG PO Q8H PRN for NAUSEA/VOMITING-1ST LINE, (Reported) Pantoprazole Sodium 40 Mg Tablet.dr, 40 MG PO DAILY, (Reported) Sevelamer Carbonate 800 Mg Tablet, 800 MG PO TIDWM, (Reported) Tamsulosin HCl 0.4 Mg Cap, 0.4 MG PO HS, (Reported) Patient Home Medication List Home Medication List Reviewed: Yes Review of Systems Review of Systems Constitutional: no symptoms reported Respiratory: no symptoms reported, see HPI Cardiovascular: no symptoms reported, see HPI; No chest pain Gastrointestinal: no symptoms reported, see HPI Psychiatric/Neurological: See HPI, Emotional Problems (history of schizophrenia); Denies Headache, Denies Numbness; [place] Seizures All Other Systems Reviewed Negative Unless Noted: Yes Past Gvukixs-Orhpya-Tkhyap Hx Past Med/Social Hx: Reviewed Nursing Past Med/Soc Hx Patient Social History Alcohol Use: Denies Use Recreational Drug Use: Yes Drug of Choice: HX THC Smoking Status: Current Everyday Smoker Type Used: Cigarettes 2nd Hand Smoke Exposure: Yes Recent Foreign Travel: No Contact w/Someone Who Travel: No Recent Infectious Disease Expo: No Recent Hopitalizations: No Immunizations Up To Date Tetanus Booster (TDap): Unknown Date of Pneumonia Vaccine: Dec 31, 2017 Date of Influenza Vaccine: Mar 11, 2019 Seasonal Allergies Seasonal Allergies: No Past Medical History Surgeries: Yes CABG, Vasectomy Respiratory: No Cardiac: Yes Coronary Artery Disease, High Cholesterol, Hypertension Neurological: No Genitourinary: Yes Renal Failure Gastrointestinal: Yes Gastroesophageal Reflux Musculoskeletal: No Endocrine: Yes Diabetes, Non-Insulin dep HEENT: No Cancer: No Psychosocial: Yes Sleep Difficulties, PTSD, Schizophrenia, Depression Integumentary: No Blood Disorders: No Physical Exam Vital Signs Vital Signs - First Documented 02/21/20 11:07 Temp 36.9 Pulse 67 Resp 18 B/P (MAP) 138/83 (101) Pulse Ox 97 O2 Delivery Room Air Capillary Refill : Less Than 3 Seconds Height, Weight, BMI Height: 5'8.00" Weight: 171lbs. 0.0oz. 77.669229it; 30.00 BMI Method:Stated General Appearance: WD/WN, no apparent distress HEENT: PERRL/EOMI, normal ENT inspection, TMs normal, pharynx normal Neck: non-tender, full range of motion, supple Respiratory: chest non-tender, lungs clear, normal breath sounds Cardiovascular: normal peripheral pulses, regular rate, rhythm, no murmur Gastrointestinal: normal bowel sounds, non tender, soft Neurologic/Psychiatric: no motor/sensory deficits, alert, normal mood/affect Crainal Nerves: normal hearing, normal speech, PERRL Coordination/Gait: normal finger to nose Motor/Sensory: no motor deficit, no sensory deficit Skin: normal color, warm/dry NIH 0, GCS 15. Progress/Results/Core Measures Results/Orders Lab Results Laboratory Tests Test 02/21/20 11:44 02/21/20 12:12 Range/Units White Blood Count 5.9 4.3-11.0 10^3/uL Red Blood Count 4.37 4.30-5.52 10^6/uL Hemoglobin 13.7 13.3-17.7 g/dL Hematocrit 41 40-54 % Mean Corpuscular Volume 93 80-99 fL Mean Corpuscular Hemoglobin 31 25-34 pg Mean Corpuscular Hemoglobin Concent 34 32-36 g/dL Red Cell Distribution Width 13.1 10.0-14.5 % Platelet Count 187 130-400 10^3/uL Mean Platelet Volume 9.3 9.0-12.2 fL Immature Granulocyte % (Auto) 1 % Neutrophils (%) (Auto) 61 42-75 % Lymphocytes (%) (Auto) 20 12-44 % Monocytes (%) (Auto) 11 0-12 % Eosinophils (%) (Auto) 7 0-10 % Basophils (%) (Auto) 1 0-10 % Neutrophils # (Auto) 3.6 1.8-7.8 10^3/uL Lymphocytes # (Auto) 1.1 1.0-4.0 10^3/uL Monocytes # (Auto) 0.6 0.0-1.0 10^3/uL Eosinophils # (Auto) 0.4 H 0.0-0.3 10^3/uL Basophils # (Auto) 0.1 0.0-0.1 10^3/uL Immature Granulocyte # (Auto) 0.1 0.0-0.1 10^3/uL Sodium Level 133 L 135-145 MMOL/L Potassium Level 5.5 H 3.6-5.0 MMOL/L Chloride Level 98 98-107 MMOL/L Carbon Dioxide Level 23 21-32 MMOL/L Anion Gap 12 5-14 MMOL/L Blood Urea Nitrogen 20 H 7-18 MG/DL Creatinine 1.42 H 0.60-1.30 MG/DL Estimat Glomerular Filtration Rate 50 BUN/Creatinine Ratio 14 Glucose Level 435 *H 70-105 MG/DL Calcium Level 8.5 8.5-10.1 MG/DL Corrected Calcium 8.7 8.5-10.1 MG/DL Total Bilirubin 0.3 0.1-1.0 MG/DL Aspartate Amino Transf (AST/SGOT) 12 5-34 U/L Alanine Aminotransferase (ALT/SGPT) 12 0-55 U/L Alkaline Phosphatase 72 40-136 U/L Total Protein 6.8 6.4-8.2 GM/DL Albumin 3.7 3.2-4.5 GM/DL Urine Color YELLOW Urine Clarity CLEAR Urine pH 7.0 5-9 Urine Specific [place] 1.010 L 1.016-1.022 Urine Protein 2+ H NEGATIVE Urine Glucose (UA) 3+ H NEGATIVE Urine Ketones NEGATIVE NEGATIVE Urine Nitrite NEGATIVE NEGATIVE Urine Bilirubin NEGATIVE NEGATIVE Urine Urobilinogen 0.2 < = 1.0 MG/DL Urine Leukocyte Esterase NEGATIVE NEGATIVE Urine RBC (Auto) NEGATIVE NEGATIVE Urine RBC NONE /HPF Urine WBC NONE /HPF Urine Squamous Epithelial Cells NONE /HPF Urine Crystals NONE /LPF Urine Bacteria NEGATIVE /HPF Urine Casts NONE /LPF Urine Mucus NEGATIVE /LPF Urine Culture Indicated NO Urine Opiates Screen NEGATIVE NEGATIVE Urine Oxycodone Screen NEGATIVE NEGATIVE Urine Methadone Screen NEGATIVE NEGATIVE Urine Propoxyphene Screen NEGATIVE NEGATIVE Urine Barbiturates Screen NEGATIVE NEGATIVE Ur Tricyclic Antidepressants Screen NEGATIVE NEGATIVE Urine Phencyclidine Screen NEGATIVE NEGATIVE Urine Amphetamines Screen NEGATIVE NEGATIVE Urine Methamphetamines Screen NEGATIVE NEGATIVE Urine Benzodiazepines Screen NEGATIVE NEGATIVE Urine Cocaine Screen NEGATIVE NEGATIVE Urine Cannabinoids Screen NEGATIVE NEGATIVE My Orders Orders - FRANKLIN CARSON Cbc With Automated Diff (02/21/20 11:09) Comprehensive Metabolic Panel (02/21/20 11:09) Ua Culture If Indicated (02/21/20 11:09) Drug Screen Stat (Urine) (02/21/20 11:09) Ct Head Wo (02/21/20 11:17) Prolactin (02/21/20 12:14) Insulin (Regular) Human (Novolin R (Per (02/21/20 12:21) Vital Signs/I&O 02/21/20 02/21/20 11:07 12:30 Temp 36.9 36.9 Pulse 67 72 Resp 18 19 B/P (MAP) 138/83 (101) 142/86 (101) Pulse Ox 97 98 O2 Delivery Room Air Room Air Blood Pressure Mean: 101 Progress Progress Note : Time: 11:10 Progress Note Patient seen and evaluated, will obtain CT head and labs. 1145 CT negative for acute findings. Patient ambulating in room with steady gait. No complaints at this time requesting discharge. 1230 Glucose 435, will give 3 units Reg Insulin SC. Taking water. 1245 discharge instructions and return precautions reviewed with the patient. All questions answered Diagnostic Imaging Diagonstic Imaging: CT Comments JAIR: CAPO KELLEY [facility] REC#: [id number] PT STATUS: REG ER : 1955 PHYSICIAN: FRANKLIN CARSON ADMIT DATE: 02/21/20/ER Draft Date of Exam:02/21/20 CT HEAD WO PROCEDURE: CT head without contrast. TECHNIQUE: Multiple contiguous axial images were obtained through the brain without the use of intravenous contrast. Auto Exposure Controls were utilized during the CT exam to meet ALARA standards for radiation dose reduction. INDICATION: Seizure. Comparison is made study of 01/14/2020. FINDINGS: Ventricles and sulci are within normal limits for size given patient's age. Small focal lucencies are seen in left caudate nucleus compatible with nonacute lacunar infarcts. Otherwise, there is no evidence to geographic low density to indicate territorial infarct. There is no evidence of hemorrhage. There is no abnormal mass effect or shift of midline structures. Calvarium is intact and the visualized paranasal sinuses are clear. There is atherosclerotic calcification within distal internal carotid and vertebral arteries similar to previous study. IMPRESSION: Stable chronic findings without acute intracranial abnormality or adverse change. Dictated on workstation # [id number] Dict: 02/21/20 1158 Trans: 02/21/20 1203 [id number] Interpreted by: NAVA BREWER MD Electronically signed by: Reviewed: Reviewed by Me Departure Impression Primary Impression: Tremor Additional Impressions: Seizure Schizophrenia Qualified Codes: F20.9 - Schizophrenia, unspecified Hyperglycemia Disposition: HOME, SELF-CARE Condition: Improved Departure-Patient Inst. Decision time for Depature: 12:10 Referrals: GIOVANNY CODY DO (PCP/Family) Primary Care Physician Patient Instructions: Seizures, Adult (DC) Add. Discharge Instructions: Make sure medications are given on time. Increase oral hydration. Check Blood sugar at 1345 today. Increase patient's metformin to 1000 mg twice daily. Check Blood sugar 4 times daily and notify Dr. Cody if Greater than 200. Follow-up with Dr. Cody if symptoms do not improve or worsen. Contact Dr. Cody for breakthrough seizure medication. Return to the emergency department for new, urgent health care needs. All discharge instructions reviewed with patient and/or family. Voiced understanding. Scripts Metformin HCl (Metformin HCl) 1,000 Mg Tablet 1000 MG PO BID, #60 TAB 1 Refill Prov: FRANKLIN CARSON 02/21/20 Copy Copies To 1: GIOVANNY CODY AMY ARNP Feb 21, 2020 11:35
[2020-02-21 11:50] LABS: BASOPHILS # (AUTO) 0.1 10^3/uL (0.0-0.1); BASOPHILS % (AUTO) 1 % (0-10); EOSINOPHILS # (AUTO) 0.4 10^3/uL (0.0-0.3); EOSINOPHILS % (AUTO) 7 % (0-10); HEMATOCRIT 41 % (40-54); HEMOGLOBIN 13.7 g/dL (13.3-17.7); LYMPHOCYTES # (AUTO) 1.1 10^3/uL (1.0-4.0); LYMPHOCYTES % (AUTO) 20 % (12-44); MEAN CORPUSCULAR HEMOGLOBIN 31 pg (25-34); MEAN CORPUSCULAR HGB CONC 34 g/dL (32-36); MEAN CORPUSCULAR VOLUME 93 fL (80-99); MEAN PLATELET VOLUME 9.3 fL (9.0-12.2); MONOCYTES # (AUTO) 0.6 10^3/uL (0.0-1.0); MONOCYTES % (AUTO) 11 % (0-12); NEUTROPHILS # (AUTO) 3.6 10^3/uL (1.8-7.8); NEUTROPHILS % (AUTO) 61 % (42-75); PLATELET COUNT 187 10^3/uL (130-400); WHITE BLOOD COUNT 5.9 10^3/uL (4.3-11.0)
[2020-02-21 12:02] LABS: ALBUMIN 3.7 GM/DL (3.2-4.5); POTASSIUM 5.5 MMOL/L (3.6-5.0)
[2020-02-21 12:04] LABS: CALCIUM 8.5 MG/DL (8.5-10.1)
--- NOTE | 2020-02-21 12:04 | Diagnostic Imaging Report ---
PROCEDURE: CT head without contrast. TECHNIQUE: Multiple contiguous axial images were obtained through the brain without the use of intravenous contrast. Auto Exposure Controls were utilized during the CT exam to meet ALARA standards for radiation dose reduction. INDICATION: Seizure. Comparison is made study of 01/14/2020. FINDINGS: Ventricles and sulci are within normal limits for size given patient's age. Small focal lucencies are seen in left caudate nucleus compatible with nonacute lacunar infarcts. Otherwise, there is no evidence to geographic low density to indicate territorial infarct. There is no evidence of hemorrhage. There is no abnormal mass effect or shift of midline structures. Calvarium is intact and the visualized paranasal sinuses are clear. There is atherosclerotic calcification within distal internal carotid and vertebral arteries similar to previous study. IMPRESSION: Stable chronic findings without acute intracranial abnormality or adverse change. Dictated by: Dictated on workstation # [id number]
[2020-02-21 12:05] LABS: TOTAL PROTEIN 6.8 GM/DL (6.4-8.2)
[2020-02-21 12:07] LABS: BILIRUBIN,TOTAL 0.3 MG/DL (0.1-1.0)
[2020-02-21 12:09] LABS: CREATININE SERUM 1.42 MG/DL (0.60-1.30)
--- NOTE | 2020-02-21 12:12 | NUR ---
Contacted [facility]. Spoke with nurse Tracie regarding pt report. This RN request pt transfer back to facility. Tracie voices no further questions or concerns.
--- NOTE | 2020-02-21 12:17 | NUR ---
Pt ambulates into ED hallway. Pt redirected et seated back onto ED cart with x2 siderails up et call light in reach. Pt aware that facility staff is in route to mushroom picker pt. Pt voices no further concerns.
[2020-02-21 12:21] LABS: BILIRUBIN,URINE NEGATIVE (NEGATIVE); CLARITY,URINE CLEAR; COLOR,URINE YELLOW; GLUCOSE, URINE (UA) 3+ (NEGATIVE); KETONES,URINE NEGATIVE (NEGATIVE); LEUKOCYTE ESTERASE ,URINE NEGATIVE (NEGATIVE); NITRITE,URINE NEGATIVE (NEGATIVE); PROTEIN,URINE 2+ (NEGATIVE)
[2020-02-21] MEDS ORDERED: inSUlin (REGULAR) HUMAN 1 UNIT/0.01 ML (CHARGE PER UNIT) SC STA (12:21)
[2020-02-21] MEDS ORDERED: METF-399 PO (12:24)
--- NOTE | 2020-02-21 12:25 | NUR ---
Contacted nurse Tracie regarding pt critical glucose of 435 et provider orders. Tracie voices no further questions or concerns.
[2020-02-21 12:30] VITALS: BP 142/86
[2020-02-21 12:33] LABS: BACTERIA,URINE NEGATIVE /HPF
[2020-02-21 12:34] LABS: AMPHETAMINE SCREEN, URINE NEGATIVE (NEGATIVE); BARBITURATE SCREEN URINE NEGATIVE (NEGATIVE); BENZODIAZEPINES SCREEN URINE NEGATIVE (NEGATIVE); CANNABINOID SCREEN, URINE NEGATIVE (NEGATIVE); COCAINE SCREEN URINE NEGATIVE (NEGATIVE); METHADONE STAT NEGATIVE (NEGATIVE); METHAMPHETAMINE SCREEN URINE S NEGATIVE (NEGATIVE); OPIATE SCREEN URINE NEGATIVE (NEGATIVE); OXYCODONE STAT NEGATIVE (NEGATIVE); PROPOXYPHENE STAT NEGATIVE (NEGATIVE); TRICYCLIC ANTIDEPRESSANTS SCRE NEGATIVE (NEGATIVE)
== END 2020-02-21 12:30 | disposition home or self-care (01) ==
LOC: EDUNIT# 11:05 → ER 11:06
DX: R25.1 Tremor, unspecified (principal); F20.9 Schizophrenia, unspecified; K21.9 Gastro-esophageal reflux disease without esophagitis; E11.65 Type 2 diabetes mellitus with hyperglycemia; G40.909 Epilepsy, unspecified, not intractable, without status epilepticus; E78.00 Pure hypercholesterolemia, unspecified; I10 Essential (primary) hypertension; F17.210 Nicotine dependence, cigarettes, uncomplicated; Z88.0 Allergy status to penicillin; Z88.8 Allergy status to other drugs, medicaments and biological substances; Z95.1 Presence of aortocoronary bypass graft; Z79.84 Long term (current) use of oral hypoglycemic drugs; Z79.82 Long term (current) use of aspirin
CPT/HCPCS: 36415; 70450; 80053; 80306; 81000; 84146; 85025

== ENCOUNTER 2020-05-13 12:06 | Emergency (ER) | payer MEDICAID ==
[~2020-05-13] VITALS: Ht 177 cm; Wt 99.7 kg
[~2020-05-13 12:06] MED LIST changes: +METF-399 PO; -MONT10TA26 PO; +MONT10TA97 PO
--- NOTE | 2020-05-13 12:15 | ED Neurological Problem ---
General Chief Complaint: Neurological Problems Stated Complaint: SEIZURE Source: patient Exam Limitations: no limitations History of Present Illness Date Seen by Provider: May 13, 2020 Time Seen by Provider: 11:56 Initial Comments Patient presents ER by EMS from [facility] and rehab with chief complaint of seizure and fall now complaining of right occipital head pain and right high neck pain laterally. He does not remember anything leading up to that. He is diabetic but had a blood sugar of 159. He has a history of epilepsy on Depakote. He says he is been taking his medications. No fevers chills cough shortness of air nausea vomiting loss of sense of taste or smell diarrhea or constipation Allergies and Home Medications Allergies Coded Allergies: Penicillins (Verified Allergy, Unknown, 12/31/18) chlorpromazine (Verified Allergy, Unknown, 12/31/18) Home Medications Acetaminophen 325 Mg Tablet, 650 MG PO Q6H PRN for PAIN-MILD, (Reported) Albuterol Sulfate 1 Puff Puff, 2 PUFF INH QID, (Reported) Aspirin 81 Mg Tablet.dr, 81 MG PO DAILY, (Reported) Atorvastatin Calcium 40 Mg Tablet, 40 MG PO HS, (Reported) Azithromycin 250 Mg Tablet, 250 MG PO DAILY Prescribed by: KAILEE BYERS on 05/05/19 0755 Carvedilol 3.125 Mg Tablet, 3.125 MG PO BID, (Reported) Cetirizine HCl 10 Mg Tablet, 10 MG PO DAILY, (Reported) Divalproex Sodium 125 Mg Cap.sprink, 750 MG PO BID, (Reported) TAKES 6 (125MG) CAPSULES Exenatide Microspheres 2 Mg/0.65 Ml Pen.injctr, 2 MG SC Mo, (Reported) Gabapentin 100 Mg Capsule, 100 MG PO HS, (Reported) Mag Hydrox/Al Hydrox/Simeth 30 Ml Oral.susp, 30 ML PO Q4H PRN for INDIGESTION, (Reported) Metformin HCl 1,000 Mg Tablet, 1,000 MG PO BID Prescribed by: FRANKLIN CARSON on 02/21/20 1224 Montelukast Sodium 10 Mg Tablet, 10 MG PO DAILY, (Reported) Olanzapine 5 Mg Tablet, 5 MG PO DAILY, (Reported) Olanzapine 5 Mg Tablet, 10 MG PO HS, (Reported) Ondansetron HCl 4 Mg Tablet, 4 MG PO Q8H PRN for NAUSEA/VOMITING-1ST LINE, (Reported) Pantoprazole Sodium 40 Mg Tablet.dr, 40 MG PO DAILY, (Reported) Sevelamer Carbonate 800 Mg Tablet, 800 MG PO TIDWM, (Reported) Tamsulosin HCl 0.4 Mg Cap, 0.4 MG PO HS, (Reported) Patient Home Medication List Home Medication List Reviewed: Yes Review of Systems Review of Systems Constitutional: No chills, No diaphoresis Eyes: Denies Blindness, Denies Drainage Ears, Nose, Mouth, Throat: denies ear pain, denies ear discharge Respiratory: No cough, No short of breath Cardiovascular: No chest pain, No edema Gastrointestinal: No abdominal pain, No constipation, No diarrhea, No nausea, No vomiting Genitourinary: No discharge, No dysuria Musculoskeletal: No back pain, No joint pain All Other Systems Reviewed Negative Unless Noted: Yes Past Rpxcpts-Acnnsn-Vvwfpy Hx Patient Social History Alcohol Use: Denies Use Recreational Drug Use: Yes Drug of Choice: HX THC Smoking Status: Current Everyday Smoker Type Used: Cigarettes 2nd Hand Smoke Exposure: Yes Recent Hopitalizations: No Immunizations Up To Date Tetanus Booster (TDap): Unknown Date of Pneumonia Vaccine: Dec 31, 2017 Date of Influenza Vaccine: Mar 11, 2019 Seasonal Allergies Seasonal Allergies: No Past Medical History Surgeries: Yes CABG, Vasectomy Respiratory: No Cardiac: Yes Coronary Artery Disease, High Cholesterol, Hypertension Neurological: No Genitourinary: Yes Renal Failure Gastrointestinal: Yes Gastroesophageal Reflux Musculoskeletal: No Endocrine: Yes Diabetes, Non-Insulin dep HEENT: No Cancer: No Psychosocial: Yes Sleep Difficulties, PTSD, Schizophrenia, Depression Integumentary: No Blood Disorders: No Physical Exam Vital Signs Vital Signs - First Documented 05/13/20 12:06 Temp 37.0 Pulse 94 Resp 16 B/P (MAP) 150/108 (122) Pulse Ox 95 O2 Delivery Room Air Capillary Refill : Height, Weight, BMI Height: 5'8.00" Weight: 171lbs. 0.0oz. 77.654302hv; 30.00 BMI Method:Stated General Appearance: WD/WN, no apparent distress HEENT: PERRL/EOMI, normal ENT inspection, TMs normal, pharynx normal, other ( occipital scalp with slight hematoma but no bleeding) Neck: full range of motion, supple, tender lateral (C2-C3 right side) Respiratory: lungs clear, normal breath sounds, no respiratory distress, no accessory muscle use Cardiovascular: normal peripheral pulses, regular rate, rhythm Peripheral Pulses: 2+ Radial Pulses (R), 2+ Radial Pulses (L) Gastrointestinal: normal bowel sounds, non tender, soft Extremities: non-tender, normal inspection, normal capillary refill Neurologic/Psychiatric: alert, normal mood/affect, oriented x 3 Crainal Nerves: normal hearing, normal speech, PERRL Coordination/Gait: normal finger to nose Motor/Sensory: no motor deficit, no sensory deficit Skin: normal color, warm/dry Progress/Results/Core Measures Results/Orders Lab Results Laboratory Tests Test 05/13/20 12:06 Range/Units White Blood Count 6.9 4.3-11.0 10^3/uL Red Blood Count 4.19 L 4.30-5.52 10^6/uL Hemoglobin 12.7 L 13.3-17.7 g/dL Hematocrit 39 L 40-54 % Mean Corpuscular Volume 94 80-99 fL Mean Corpuscular Hemoglobin 30 25-34 pg Mean Corpuscular Hemoglobin Concent 32 32-36 g/dL Red Cell Distribution Width 13.3 10.0-14.5 % Platelet Count 297 130-400 10^3/uL Mean Platelet Volume 8.9 L 9.0-12.2 fL Immature Granulocyte % (Auto) 0 % Neutrophils (%) (Auto) 62 42-75 % Lymphocytes (%) (Auto) 22 12-44 % Monocytes (%) (Auto) 11 0-12 % Eosinophils (%) (Auto) 4 0-10 % Basophils (%) (Auto) 1 0-10 % Neutrophils # (Auto) 4.2 1.8-7.8 10^3/uL Lymphocytes # (Auto) 1.5 1.0-4.0 10^3/uL Monocytes # (Auto) 0.7 0.0-1.0 10^3/uL Eosinophils # (Auto) 0.3 0.0-0.3 10^3/uL Basophils # (Auto) 0.1 0.0-0.1 10^3/uL Immature Granulocyte # (Auto) 0.0 0.0-0.1 10^3/uL Sodium Level 136 135-145 MMOL/L Potassium Level 4.5 3.6-5.0 MMOL/L Chloride Level 99 98-107 MMOL/L Carbon Dioxide Level 24 21-32 MMOL/L Anion Gap 13 5-14 MMOL/L Blood Urea Nitrogen 19 H 7-18 MG/DL Creatinine 1.17 0.60-1.30 MG/DL Estimat Glomerular Filtration Rate > 60 BUN/Creatinine Ratio 16 Glucose Level 134 H 70-105 MG/DL Calcium Level 9.0 8.5-10.1 MG/DL Corrected Calcium 9.3 8.5-10.1 MG/DL Total Bilirubin 0.2 0.1-1.0 MG/DL Aspartate Amino Transf (AST/SGOT) 12 5-34 U/L Alanine Aminotransferase (ALT/SGPT) 10 0-55 U/L Alkaline Phosphatase 57 40-136 U/L Total Protein 7.3 6.4-8.2 GM/DL Albumin 3.6 3.2-4.5 GM/DL Valproic Acid (Depakene) Level 70.9 50.0-100.0 UG/ML My Orders Orders - FREDRICK MENJIVAR Ct Head/Cervical Spine Wo (05/13/20 12:08) Ua Culture If Indicated (05/13/20 12:10) Cbc With Automated Diff (05/13/20 12:10) Comprehensive Metabolic Panel (05/13/20 12:10) Valproic Acid (05/13/20 12:10) Acetaminophen Tablet (Tylenol Tablet) (05/13/20 13:15) Vital Signs/I&O 05/13/20 12:06 Temp 37.0 Pulse 94 Resp 16 B/P (MAP) 150/108 (122) Pulse Ox 95 O2 Delivery Room Air Progress Progress Note #1: Time: 12:14 Progress Note Check some basic labs including a Depakote level, urinalysis and CT head and C- spine. Tylenol for discomfort after the CT is read. Progress Note #2: Time: 13:00 Progress Note Patient is comfortable. He would like some Tylenol for his discomfort. He has some paraspinous muscle tenderness and has his c-collar cleared radiographically as well as clinically. Were going to allow him to return home continue taking his Depakote as prescribed and follow-up with primary care if his seizures become more frequent pattern. Diagnostic Imaging Diagonstic Imaging: CT Plain Films/CT/US/NM/MRI: c-spine, head Comments NAME: ROXANNE KAMARA Eriberto [facility] REC#: [id number] PT STATUS: REG ER : 11/03/1949 PHYSICIAN: FREDRICK MENJIVAR MD ADMIT DATE: 05/13/20/ER Draft Date of Exam:05/13/20 ABDOMEN, FLAT & UPRIGHT/DECUB Indication: Abdominal pain, dysuria. Comparison: None. Discussion: Three views of the abdomen were obtained. Patchy infiltrates are noted within the lungs, incompletely viewed. No constipation. Possible small stone projected over the left kidney. Vascular stent within the left common iliac artery. Vascular calcifications are present. No free air. No acute osseous abnormality. Impression: 1. Nonobstructive bowel gas pattern. 2. Possible punctate nonobstructing left renal calculus. Dictated on workstation # [id number] Dict: 05/13/20 1230 Trans: 05/13/20 1232 [facility] [id number] Interpreted by: CAPO BLUNT MD Electronically signed by: Reviewed: Reviewed by Me Departure Impression Primary Impression: Seizure Additional Impressions: Epilepsy Qualified Codes: G40.409 - Other generalized epilepsy and epileptic syndromes, not intractable, without status epilepticus Cervical paraspinous muscle spasm Disposition: HOME, SELF-CARE Condition: Stable Departure-Patient Inst. Decision time for Depature: 13:04 Referrals: GIOVANNY CODY DO (PCP/Family) Primary Care Physician Patient Instructions: Seizures, Adult (DC) Add. Discharge Instructions: Continue taking your medications as prescribed. Tylenol, Motrin and heat as necessary for neck tenderness. Topical creams such as icy hot or Biofreeze for neck tenderness. If he has spasms in his neck you may use 1 tablet of cyclobenzaprine every 8 hours as necessary for muscle relaxation. If he has zogj-it-brev seizures lasting for more than 30 minutes or a seizure that lasts more than 10 minutes then he should return to the ER Follow-up with the primary care doctor if his symptoms become more progressive. All discharge instructions reviewed with patient and/or family. Voiced understanding. Scripts Cyclobenzaprine HCl (Cyclobenzaprine HCl) 10 Mg Tablet 10 MG PO Q8H PRN for SPASMS, #10 TAB 0 Refills Prov: FREDRICK MENJIVAR 05/13/20 FREDRICK MENJIVAR May 13, 2020 12:15
[2020-05-13 12:17] LABS: BASOPHILS # (AUTO) 0.1 10^3/uL (0.0-0.1); BASOPHILS % (AUTO) 1 % (0-10); EOSINOPHILS # (AUTO) 0.3 10^3/uL (0.0-0.3); EOSINOPHILS % (AUTO) 4 % (0-10); HEMATOCRIT 39 % (40-54); HEMOGLOBIN 12.7 g/dL (13.3-17.7); LYMPHOCYTES # (AUTO) 1.5 10^3/uL (1.0-4.0); LYMPHOCYTES % (AUTO) 22 % (12-44); MEAN CORPUSCULAR HEMOGLOBIN 30 pg (25-34); MEAN CORPUSCULAR HGB CONC 32 g/dL (32-36); MEAN CORPUSCULAR VOLUME 94 fL (80-99); MEAN PLATELET VOLUME 8.9 fL (9.0-12.2); MONOCYTES # (AUTO) 0.7 10^3/uL (0.0-1.0); MONOCYTES % (AUTO) 11 % (0-12); NEUTROPHILS # (AUTO) 4.2 10^3/uL (1.8-7.8); NEUTROPHILS % (AUTO) 62 % (42-75); PLATELET COUNT 297 10^3/uL (130-400); WHITE BLOOD COUNT 6.9 10^3/uL (4.3-11.0)
[2020-05-13 12:27] LABS: ALBUMIN 3.6 GM/DL (3.2-4.5); CHLORIDE 99 MMOL/L (98-107); POTASSIUM 4.5 MMOL/L (3.6-5.0); SODIUM 136 MMOL/L (135-145)
[2020-05-13 12:29] LABS: GLUCOSE 134 MG/DL (70-105); TOTAL PROTEIN 7.3 GM/DL (6.4-8.2)
[2020-05-13 12:31] LABS: BILIRUBIN,TOTAL 0.2 MG/DL (0.1-1.0); CARBON DIOXIDE 24 MMOL/L (21-32)
[2020-05-13 12:33] LABS: ALKALINE PHOSPHATASE 57 U/L (40-136); CREATININE SERUM 1.17 MG/DL (0.60-1.30); GFR ESTIMATED > 60
[2020-05-13 12:34] LABS: BUN/CREATININE RATIO 16
[2020-05-13 12:36] LABS: ALANINE AMINOTRANSFERASE 10 U/L (0-55)
[2020-05-13 12:42] LABS: VALPROIC ACID 70.9 UG/ML (50.0-100.0)
--- NOTE | 2020-05-13 12:59 | Diagnostic Imaging Report ---
PROCEDURE: CT head and CT cervical spine without contrast. TECHNIQUE: Multiple contiguous axial images were obtained through the brain and cervical spine without the use of intravenous contrast. Sagittal and coronal reformations through the cervical spine were then performed. Auto Exposure Controls were utilized during the CT exam to meet ALARA standards for radiation dose reduction. INDICATION: Head and neck pain after an unwitnessed seizure and fall. COMPARISONS: 02/21/2020 and 01/14/2020. DISCUSSION: Head: Exam is degraded by motion. Mild diffuse brain volume loss is stable, likely age related. White matter hypoattenuation is nonspecific, greater than expected for age related chronic small vessel ischemic disease. Chronic lacunar infarcts are noted within the bilateral basal ganglia. No acute intracranial hemorrhage, mass, midline shift, hydrocephalus. The orbits, sinuses, mastoid air cells, and calvarium are unremarkable. Cervical spine: Degenerative disease is again noted diffusely throughout the cervical spine. No acute fracture or subluxation. Alignment is anatomic. Paraspinal soft tissues are unremarkable. IMPRESSION: 1. Stable senescent changes, as described. No acute intracranial abnormality identified. 2. Stable degenerative disease within the cervical spine. No acute fracture. Dictated by: Dictated on workstation # [id number]
--- NOTE | 2020-05-13 13:00 | NUR ---
c-collar removed by dr bailey.
[2020-05-13 13:04] LABS: BILIRUBIN,URINE NEGATIVE (NEGATIVE); CLARITY,URINE CLEAR; COLOR,URINE YELLOW; GLUCOSE, URINE (UA) NEGATIVE (NEGATIVE); KETONES,URINE NEGATIVE (NEGATIVE); LEUKOCYTE ESTERASE ,URINE NEGATIVE (NEGATIVE); NITRITE,URINE NEGATIVE (NEGATIVE); PROTEIN,URINE 2+ (NEGATIVE)
--- NOTE | 2020-05-13 13:05 | NUR ---
[facility] NOTIFIED PT IS READY TO COME BACK.
[2020-05-13] MEDS ORDERED: CYCL10TA9 PO (13:06)
[2020-05-13 13:13] LABS: BACTERIA,URINE NEGATIVE /HPF
[2020-05-13] MEDS ORDERED: ACETAMINOPHEN 500 MG TAB (TYLENOL) PO ONE (13:15)
[2020-05-13 13:22] VITALS: BP 144/99
== END 2020-05-13 13:22 | disposition home or self-care (01) ==
LOC: EDUNIT# 12:06 → ER 12:08
DX: G40.909 Epilepsy, unspecified, not intractable, without status epilepticus (principal); M62.838 Other muscle spasm; F20.9 Schizophrenia, unspecified; E11.9 Type 2 diabetes mellitus without complications; E78.00 Pure hypercholesterolemia, unspecified; K21.9 Gastro-esophageal reflux disease without esophagitis; I10 Essential (primary) hypertension; F17.210 Nicotine dependence, cigarettes, uncomplicated; Z95.1 Presence of aortocoronary bypass graft; Z88.0 Allergy status to penicillin; Z88.8 Allergy status to other drugs, medicaments and biological substances; Z79.82 Long term (current) use of aspirin; Z79.84 Long term (current) use of oral hypoglycemic drugs
CPT/HCPCS: 36415; 70450; 72125; 80053; 80164; 81000; 85025

== ENCOUNTER 2020-05-31 11:58 | Emergency (ER) | payer MEDICAID ==
[~2020-05-31] VITALS: Ht 177.8 cm; Wt 95.3 kg
[~2020-05-31 11:58] MED LIST changes: +CYCL10TA9 PO
--- NOTE | 2020-05-31 13:02 | NUR ---
PT LEFT ED WITHOUT ALERTING STAFF AND WALKED OVER ACROSS THE STREET. PT HAS BEEN RETURNED TO ER AND HAS [facility] STAFF SITTING WITH HIM IN ROOM.
[2020-05-31 13:53] LABS: BASOPHILS # (AUTO) 0.1 10^3/uL (0.0-0.1); BASOPHILS % (AUTO) 1 % (0-10); EOSINOPHILS # (AUTO) 0.8 10^3/uL (0.0-0.3); EOSINOPHILS % (AUTO) 11 % (0-10); HEMATOCRIT 41 % (40-54); HEMOGLOBIN 13.2 g/dL (13.3-17.7); LYMPHOCYTES # (AUTO) 1.2 10^3/uL (1.0-4.0); LYMPHOCYTES % (AUTO) 16 % (12-44); MEAN CORPUSCULAR HEMOGLOBIN 31 pg (25-34); MEAN CORPUSCULAR HGB CONC 32 g/dL (32-36); MEAN CORPUSCULAR VOLUME 95 fL (80-99); MEAN PLATELET VOLUME 8.9 fL (9.0-12.2); MONOCYTES # (AUTO) 0.6 10^3/uL (0.0-1.0); MONOCYTES % (AUTO) 8 % (0-12); NEUTROPHILS # (AUTO) 4.6 10^3/uL (1.8-7.8); NEUTROPHILS % (AUTO) 64 % (42-75); PLATELET COUNT 206 10^3/uL (130-400); WHITE BLOOD COUNT 7.2 10^3/uL (4.3-11.0)
--- NOTE | 2020-05-31 13:54 | ED Neurological Problem ---
General Chief Complaint: Neurological Problems Stated Complaint: SEIZURES Nursing Triage Note: PT BROUGHT IN BY [facility] FROM [facility] FOR SEIZURE ACTIVITY. PER NURSE, PT HAD 7 ABSENT SEIZURES FROM 1007 TO CALLING EMS. STATES IT IS ABNORMAL FOR PT TO HAVE THAT MANY IN A ROW. ADVISES PT IS COMBATIVE AFTER SEIZURES. PT IS ALERT AND ORIENTED ON ARRIVAL. Nursing Sepsis Screen: No Definite Risk (YENNY DAVIS MED STUDENT) History of Present Illness Date Seen by Provider: May 31, 2020 Time Seen by Provider: 13:30 Initial Comments 65 y/o M was brought in by EMS to the Emergency Department with chief complaint of seizures that started today. Per nurse, the patient had 8 seizures which is abnormal for the patient to have that many. He has blackout seizures without convulsions. When he recovers, he is combative and starts fitting. The nurse denies the patient ever hitting his head but does vomit after. Pt has a history of DM and uses insulin. The patient took all his medications this morning. (YENNY DAVIS MED STUDENT) Allergies and Home Medications Allergies Coded Allergies: Penicillins (Verified Allergy, Unknown, 12/31/18) chlorpromazine (Verified Allergy, Unknown, 12/31/18) Home Medications Acetaminophen 325 Mg Tablet, 650 MG PO Q6H PRN for PAIN-MILD, (Reported) Albuterol Sulfate 1 Puff Puff, 2 PUFF INH QID, (Reported) Aspirin 81 Mg Tablet.dr, 81 MG PO DAILY, (Reported) Atorvastatin Calcium 40 Mg Tablet, 40 MG PO HS, (Reported) Azithromycin 250 Mg Tablet, 250 MG PO DAILY Prescribed by: KAILEE BYERS on 05/05/19 0755 Carvedilol 3.125 Mg Tablet, 3.125 MG PO BID, (Reported) Cetirizine HCl 10 Mg Tablet, 10 MG PO DAILY, (Reported) Cyclobenzaprine HCl 10 Mg Tablet, 10 MG PO Q8H PRN for SPASMS Prescribed by: FREDRICK MENJIVAR on 05/13/20 1306 Divalproex Sodium 125 Mg Cap.sprink, 750 MG PO BID, (Reported) TAKES 6 (125MG) CAPSULES Exenatide Microspheres 2 Mg/0.65 Ml Pen.injctr, 2 MG SC Mo, (Reported) Gabapentin 100 Mg Capsule, 100 MG PO HS, (Reported) Mag Hydrox/Al Hydrox/Simeth 30 Ml Oral.susp, 30 ML PO Q4H PRN for INDIGESTION, (Reported) Metformin HCl 1,000 Mg Tablet, 1,000 MG PO BID Prescribed by: FRANKLIN CARSON on 02/21/20 1224 Montelukast Sodium 10 Mg Tablet, 10 MG PO DAILY, (Reported) Olanzapine 5 Mg Tablet, 5 MG PO DAILY, (Reported) Olanzapine 5 Mg Tablet, 10 MG PO HS, (Reported) Ondansetron HCl 4 Mg Tablet, 4 MG PO Q8H PRN for NAUSEA/VOMITING-1ST LINE, (Reported) Pantoprazole Sodium 40 Mg Tablet.dr, 40 MG PO DAILY, (Reported) Sevelamer Carbonate 800 Mg Tablet, 800 MG PO TIDWM, (Reported) Tamsulosin HCl 0.4 Mg Cap, 0.4 MG PO HS, (Reported) Patient Home Medication List Home Medication List Reviewed: Yes (LYNDA HERNANDEZ MD) Review of Systems Review of Systems Constitutional: no symptoms reported Eyes: No Symptoms Reported Ears, Nose, Mouth, Throat: no symptoms reported Respiratory: no symptoms reported Cardiovascular: no symptoms reported Gastrointestinal: see HPI, nausea, vomiting Genitourinary: no symptoms reported Musculoskeletal: see HPI Skin: no symptoms reported Psychiatric/Neurological: See HPI, Headache, [place] Seizures Endocrine: No Symptoms Reported Hematologic/Lymphatic: No Symptoms Reported (LYNDA HERNANDEZ MD) Past Makdirf-Doxbfr-Dbwxbi Hx Past Med/Social Hx: Reviewed Nursing Past Med/Soc Hx (LYNDA HERNANDEZ MD) Patient Social History Alcohol Use: Denies Use Recreational Drug Use: Yes Drug of Choice: HX THC Smoking Status: Current Everyday Smoker Type Used: Cigarettes 2nd Hand Smoke Exposure: Yes Recent Foreign Travel: No Contact w/Someone Who Travel: No Recent Infectious Disease Expo: No Recent Hopitalizations: No (YENNY DAVIS Welcome Real-time STUDENT) Immunizations Up To Date Tetanus Booster (TDap): Unknown Date of Pneumonia Vaccine: Dec 31, 2017 Date of Influenza Vaccine: Mar 11, 2019 (YENNY DVAIS [employer] STUDENT) Seasonal Allergies Seasonal Allergies: No (YENNY DAVIS [employer] ADITYA) Past Medical History Surgeries: Yes CABG, Vasectomy Respiratory: No Cardiac: Yes Coronary Artery Disease, High Cholesterol, Hypertension Neurological: No Genitourinary: Yes Renal Failure Gastrointestinal: Yes Gastroesophageal Reflux Musculoskeletal: No Endocrine: Yes Diabetes, Non-Insulin dep HEENT: No Cancer: No Psychosocial: Yes Sleep Difficulties, PTSD, Schizophrenia, Depression Integumentary: No Blood Disorders: No (YENNY DAVIS [employer] STUDENT) Physical Exam Vital Signs Vital Signs - First Documented 05/31/20 11:58 Temp 36.5 Pulse 81 Resp 20 B/P (MAP) 121/64 (83) Pulse Ox 100 O2 Delivery Room Air (LYNDA HERNANDEZ MD) Vital Signs Capillary Refill : Less Than 3 Seconds (YENNY DAVIS MED STUDENT) Height, Weight, BMI Height: 5'8.00" Weight: 171lbs. 0.0oz. 77.429667dt; 30.00 BMI Method:Stated (YENNY DAVIS [employer] STUDENT) General Appearance: WD/WN, no apparent distress HEENT: PERRL/EOMI, normal ENT inspection Neck: normal inspection Respiratory: lungs clear, normal breath sounds, no respiratory distress, no accessory muscle use Cardiovascular: regular rate, rhythm, no edema, no gallop, no murmur Gastrointestinal: non tender, soft Extremities: normal inspection, no pedal edema Neurologic/Psychiatric: slasher sawyer II-XII nml as tested, no motor/sensory deficits, alert, normal mood/affect, oriented x 3 Crainal Nerves: normal hearing, normal speech Coordination/Gait: normal gait Motor/Sensory: no motor deficit, no sensory deficit Skin: normal color, warm/dry (LYNDA HERNANDEZ MD) Progress/Results/Core Measures Results/Orders Lab Results Laboratory Tests Test 05/31/20 12:07 05/31/20 13:47 05/31/20 14:34 Range/Units Glucometer 145 H 70-110 MG/DL White Blood Count 7.2 4.3-11.0 10^3/uL Red Blood Count 4.33 4.30-5.52 10^6/uL Hemoglobin 13.2 L 13.3-17.7 g/dL Hematocrit 41 40-54 % Mean Corpuscular Volume 95 80-99 fL Mean Corpuscular Hemoglobin 31 25-34 pg Mean Corpuscular Hemoglobin Concent 32 32-36 g/dL Red Cell Distribution Width 13.6 10.0-14.5 % Platelet Count 206 130-400 10^3/uL Mean Platelet Volume 8.9 L 9.0-12.2 fL Immature Granulocyte % (Auto) 1 % Neutrophils (%) (Auto) 64 42-75 % Lymphocytes (%) (Auto) 16 12-44 % Monocytes (%) (Auto) 8 0-12 % Eosinophils (%) (Auto) 11 H 0-10 % Basophils (%) (Auto) 1 0-10 % Neutrophils # (Auto) 4.6 1.8-7.8 10^3/uL Lymphocytes # (Auto) 1.2 1.0-4.0 10^3/uL Monocytes # (Auto) 0.6 0.0-1.0 10^3/uL Eosinophils # (Auto) 0.8 H 0.0-0.3 10^3/uL Basophils # (Auto) 0.1 0.0-0.1 10^3/uL Immature Granulocyte # (Auto) 0.1 0.0-0.1 10^3/uL Sodium Level 141 135-145 MMOL/L Potassium Level 5.4 H 3.6-5.0 MMOL/L Chloride Level 103 98-107 MMOL/L Carbon Dioxide Level 24 21-32 MMOL/L Anion Gap 14 5-14 MMOL/L Blood Urea Nitrogen 25 H 7-18 MG/DL Creatinine 1.17 0.60-1.30 MG/DL Estimat Glomerular Filtration Rate > 60 BUN/Creatinine Ratio 21 Glucose Level 153 H 70-105 MG/DL Calcium Level 8.7 8.5-10.1 MG/DL Corrected Calcium 8.8 8.5-10.1 MG/DL Magnesium Level 1.8 1.6-2.4 MG/DL Total Bilirubin 0.2 0.1-1.0 MG/DL Aspartate Amino Transf (AST/SGOT) 15 5-34 U/L Alanine Aminotransferase (ALT/SGPT) 11 0-55 U/L Alkaline Phosphatase 55 40-136 U/L Total Protein 7.6 6.4-8.2 GM/DL Albumin 3.9 3.2-4.5 GM/DL Valproic Acid (Depakene) Level 63.9 50.0-100.0 UG/ML Urine Color YELLOW Urine Clarity CLEAR Urine pH 7.5 5-9 Urine Specific [place] 1.020 1.016-1.022 Urine Protein 2+ H NEGATIVE Urine Glucose (UA) NEGATIVE NEGATIVE Urine Ketones NEGATIVE NEGATIVE Urine Nitrite NEGATIVE NEGATIVE Urine Bilirubin NEGATIVE NEGATIVE Urine Urobilinogen 0.2 < = 1.0 MG/DL Urine Leukocyte Esterase NEGATIVE NEGATIVE Urine RBC (Auto) NEGATIVE NEGATIVE Urine RBC 0-2 /HPF Urine WBC RARE /HPF Urine Crystals NONE /LPF Urine Bacteria NEGATIVE /HPF Urine Casts NONE /LPF Urine Mucus NEGATIVE /LPF Urine Culture Indicated NO (LYNDA HERNANDEZ MD) My Orders Orders - LYNDA HERNANDEZ MD Accucheck Stat ONCE (05/31/20 12:03) Ed Iv/Invasive Line Start (05/31/20 12:03) Monitor-Rhythm Ecg Trace Only (05/31/20 12:03) Cbc With Automated Diff (05/31/20 12:03) Comprehensive Metabolic Panel (05/31/20 12:03) Magnesium (05/31/20 12:03) Ua Culture If Indicated (05/31/20 12:03) Valproic Acid (05/31/20 12:04) (LYNDA HERNANDEZ MD) Vital Signs/I&O 05/31/20 05/31/20 11:58 15:06 Temp 36.5 Pulse 81 86 Resp 20 20 B/P (MAP) 121/64 (83) 130/82 Pulse Ox 100 96 O2 Delivery Room Air Room Air (LYNDA HERNANDEZ MD) Blood Pressure Mean: 83 FSBG Bedside Testing Finger Stick Blood Glucose: 145 (YENNY DAVIS MED STUDENT) Progress Progress Note : Time: 13:30 Progress Note Seizures - The patient was combative towards the nurses and refused to be touched. When Dr. Hernandez asked, the patient agreed to receive a blood draw, IV line placed, and have a urine sample taken if possible. A CBC and UA have been ordered, results pending. IV fluids will be started. (YENNY DAVIS MED STUDENT) Departure Impression Primary Impression: Seizure disorder Disposition: 01 HOME, SELF-CARE Condition: Improved Departure-Patient Inst. Decision time for Depature: 15:02 (LYNDA HERNANDEZ MD) Referrals: GIOVANNY CODY DO (PCP/Family) Primary Care Physician Patient Instructions: Seizures, Adult (DC) Add. Discharge Instructions: Continue with medications as previously prescribed. When seizures occur check a blood sugar and check blood sugars often when seizures are more prevalent. Contact your primary care provider or medication prescriber soon as possible to discuss whether medication changes should be made. Call or return to care with any other problems or concerns. Return to the ER for worsening symptoms. All discharge instructions reviewed with patient and/or family. Voiced understanding. Medical Student Attestation and Attending Note: I have personally interviewed and examined this patient along with Yenny Davis, MS 3. I have reviewed student documentation including history, physical, and assessments. I agree with the documentation except where otherwise noted. Patient was reluctant to be evaluated but was eventually agreeable. Work-up was unremarkable and he had no neurologic events while in the ER. I encouraged shelter staff to check blood sugars frequently when he is having increased seizure activity. Seizures are not generalized. They are described as more of a [place] type of seizure without convulsions. (LYNDA HERNANDEZ MD) Copy Copies To 1: GIOVANNY CODY ELIZABETH X MED STUDENT May 31, 2020 13:54 LYNDA HERNANDEZ MD May 31, 2020 15:03
[2020-05-31 14:05] LABS: ALBUMIN 3.9 GM/DL (3.2-4.5)
[2020-05-31 14:06] LABS: CALCIUM 8.7 MG/DL (8.5-10.1)
[2020-05-31 14:07] LABS: GLUCOSE 153 MG/DL (70-105); TOTAL PROTEIN 7.6 GM/DL (6.4-8.2)
[2020-05-31 14:09] LABS: BILIRUBIN,TOTAL 0.2 MG/DL (0.1-1.0); CARBON DIOXIDE 24 MMOL/L (21-32)
[2020-05-31 14:11] LABS: ALKALINE PHOSPHATASE 55 U/L (40-136); CREATININE SERUM 1.17 MG/DL (0.60-1.30); GFR ESTIMATED > 60
[2020-05-31 14:12] LABS: BUN/CREATININE RATIO 21; CHLORIDE 103 MMOL/L (98-107); POTASSIUM 5.4 MMOL/L (3.6-5.0); SODIUM 141 MMOL/L (135-145)
[2020-05-31 14:14] LABS: ALANINE AMINOTRANSFERASE 11 U/L (0-55); MAGNESIUM 1.8 MG/DL (1.6-2.4)
[2020-05-31 14:22] LABS: VALPROIC ACID 63.9 UG/ML (50.0-100.0)
[2020-05-31 14:41] LABS: BILIRUBIN,URINE NEGATIVE (NEGATIVE); CLARITY,URINE CLEAR; COLOR,URINE YELLOW; GLUCOSE, URINE (UA) NEGATIVE (NEGATIVE); KETONES,URINE NEGATIVE (NEGATIVE); LEUKOCYTE ESTERASE ,URINE NEGATIVE (NEGATIVE); NITRITE,URINE NEGATIVE (NEGATIVE); PH,URINE 7.5 (5-9); PROTEIN,URINE 2+ (NEGATIVE)
[2020-05-31 14:48] LABS: BACTERIA,URINE NEGATIVE /HPF; RBC,URINE 0-2 /HPF; WBC,URINE RARE /HPF
[2020-05-31 15:06] VITALS: BP 130/82
== END 2020-05-31 15:06 | disposition home or self-care (01) ==
LOC: EDUNIT# 11:58 → ER 11:59
DX: G40.909 Epilepsy, unspecified, not intractable, without status epilepticus (principal); I10 Essential (primary) hypertension; I25.10 Atherosclerotic heart disease of native coronary artery without angina pectoris; E11.9 Type 2 diabetes mellitus without complications; E78.00 Pure hypercholesterolemia, unspecified; K21.9 Gastro-esophageal reflux disease without esophagitis; F20.9 Schizophrenia, unspecified; F32.9 Major depressive disorder, single episode, unspecified; F43.10 Post-traumatic stress disorder, unspecified; F17.210 Nicotine dependence, cigarettes, uncomplicated; Z88.0 Allergy status to penicillin; Z88.8 Allergy status to other drugs, medicaments and biological substances; Z79.82 Long term (current) use of aspirin; Z79.84 Long term (current) use of oral hypoglycemic drugs
CPT/HCPCS: 36415; 80053; 80164; 81000; 82962; 83735; 85025; 93041

== ENCOUNTER → 2020-08-02 | Outpatient (CLI) | payer MEDICAID ==
[~2020-08-02] MED LIST changes: +BARIUM SUSPENSION 2.1% (VANILLA SILQ) 450 ML PO ONE; +CALC500T7 PO; +DIVA125C PO; +DIVA125T32 PO; +FLUT9.9S NS; +HOLD METFORMIN - RECEIVED CONTRAST 20 ML VIAL IV SCH; +INSU100I10 SQ; +INSU100I23 SQ; +INSU100I48 SC; +IOHEXOL 350 MG/ML 100 ML (OMNIPAQUE 350) VIAL IV ONE; +LORA10TA7 PO; +METF-397 PO; +MONT10TA32 PO; -MONT10TA97 PO; +NS 100 ML (IVPB) BAG IV ONE; +VORT10TA PO
[2020-08-02 08:19] LABS: CREATININE SERUM 1.21 MG/DL (0.60-1.30)
[2020-08-02] MEDS: CATHETER FLUSH 10 ML SYR IV PRN ×2 (08:53→08:54)
--- NOTE | 2020-08-02 09:27 | Diagnostic Imaging Report ---
PROCEDURE: CT abdomen and pelvis with contrast. TECHNIQUE: Multiple contiguous axial images were obtained through the abdomen and pelvis after administration of intravenous contrast. Auto Exposure Controls were utilized during the CT exam to meet ALARA standards for radiation dose reduction. All CT scans use one or more of the following dose optimizing techniques: automated exposure control, MA and/or KvP adjustment based on patient size and exam type or iterative reconstruction. INDICATION: Nausea, vomiting. COMPARISON: None available. FINDINGS: Bilateral gynecomastia. Postsurgical changes of a median sternotomy. Thin partially calcified pleural plaques are identified bilaterally with adjacent scarring and fibrosis. Tiny hiatal hernia. Cholecystectomy. The liver demonstrates diffusely decreased density throughout. The liver is enlarged measuring 24 cm in craniocaudal dimension. The spleen is unremarkable. The adrenal glands are unremarkable. Mural thickening of the duodenum. Tortuosity of the abdominal aorta is identified. There is however fusiform aneurysmal dilatation of the infrarenal abdominal aorta, measuring up to 3.8 cm in AP dimension. Aneurysmal dilatation of the distal bilateral common iliac arteries is noted, left greater than right with the left measuring up to 3 cm in transverse dimension. Bilateral perinephric fat stranding is identified. Significant mural thickening of the urinary bladder. Mural thickening of multiple loops of small bowel is identified, particularly within the left abdomen. There is however no evidence of bowel obstruction or pneumatosis. No evidence of acute appendicitis. No significant adenopathy, free air, or free fluid within the abdomen or pelvis. Scattered osseous degenerative changes without acute osseous abnormality. IMPRESSION: Scattered regions of mural thickening involving the duodenum and small bowel is felt to relate to underlying enteritis. No evidence of bowel obstruction or pneumatosis. Significant mural thickening of the urinary bladder, related to cystitis versus chronic urinary bladder outlet obstruction. Perinephric stranding is also present which may relate to chronic renal disease versus superimposed infection. Recommend correlation with urinary analysis. 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 Hepatomegaly with associated fatty infiltration of the liver. Thin calcified bibasilar pleural plaques, possibly related to prior asbestos exposure. Additional postsurgical and chronic findings as above. Dictated by: Dictated on workstation # [id number]
== END ==
LOC: RAD 08:45
PROVIDERS: ATTEND Surgery
DX: I71.4 Abdominal aortic aneurysm, without rupture (principal); K76.0 Fatty (change of) liver, not elsewhere classified
CPT/HCPCS: 36415; 74177; 82565; 84520

== ENCOUNTER 2020-08-03 12:33 | Inpatient (IN) | payer MEDICAID ==
[~2020-08-03] VITALS: Ht 177 cm; Wt 104.6 kg
[~2020-08-03 12:33] MED LIST changes: -BARIUM SUSPENSION 2.1% (VANILLA SILQ) 450 ML PO ONE; -CALC500T7 PO; -DIVA125C PO; -DIVA125T32 PO; -FLUT9.9S NS; -HOLD METFORMIN - RECEIVED CONTRAST 20 ML VIAL IV SCH; -INSU100I10 SQ; -INSU100I23 SQ; -INSU100I48 SC; -IOHEXOL 350 MG/ML 100 ML (OMNIPAQUE 350) VIAL IV ONE; -LORA10TA7 PO; -METF-397 PO; -NS 100 ML (IVPB) BAG IV ONE; -VORT10TA PO
--- NOTE | 2020-08-03 12:44 | ED Head Injury ---
General Stated Complaint: FALL Source: patient Exam Limitations: clinical condition History of Present Illness Date Seen by Provider: Aug 03, 2020 Time Seen by Provider: 12:50 Initial Comments This is a 65-year-old male who presented to the ER via [facility] with complaints of head injury after falling at snf earlier today. Nursing staff states that he has had 3 unwitnessed falls since 10 AM this morning. Notes that he does have a history of seizures, and diabetes. He does not recall cause of fall, but does state he put a hole through the wall when he fell last around 11:30 AM. Unknown LOC. EMS reported low oxygen saturation with rails in route to ED, he received DuoNeb during transfer. His only complaint is headache, and bilateral knee pain. Reports he has had Covid in April, and has received 2 doses of vaccine since. No fevers, chills, nausea, vomiting, diarrhea, abdominal pain. Denies chest pain, shortness of breath. Occurred: this morning Allergies and Home Medications Allergies Coded Allergies: Penicillins (Verified Allergy, Unknown, 12/31/18) chlorpromazine (Verified Allergy, Unknown, 12/31/18) Home Medications Acetaminophen 325 Mg Tablet, 650 MG PO Q6H PRN for PAIN-MILD, (Reported) Albuterol Sulfate 1 Puff Puff, 2 PUFF INH QID, (Reported) Aspirin 81 Mg Tablet.dr, 81 MG PO DAILY, (Reported) Atorvastatin Calcium 40 Mg Tablet, 40 MG PO HS, (Reported) Azithromycin 250 Mg Tablet, 250 MG PO DAILY Prescribed by: KAILEE BYERS on 05/05/19 0755 Carvedilol 3.125 Mg Tablet, 3.125 MG PO BID, (Reported) Cetirizine HCl 10 Mg Tablet, 10 MG PO DAILY, (Reported) Cyclobenzaprine HCl 10 Mg Tablet, 10 MG PO Q8H PRN for SPASMS Prescribed by: FREDRICK MENJIVAR on 05/13/20 1306 Divalproex Sodium 125 Mg Cap.sprink, 750 MG PO BID, (Reported) TAKES 6 (125MG) CAPSULES Exenatide Microspheres 2 Mg/0.65 Ml Pen.injctr, 2 MG SC Mo, (Reported) Gabapentin 100 Mg Capsule, 100 MG PO HS, (Reported) Mag Hydrox/Al Hydrox/Simeth 30 Ml Oral.susp, 30 ML PO Q4H PRN for INDIGESTION, (Reported) Metformin HCl 1,000 Mg Tablet, 1,000 MG PO BID Prescribed by: FRANKLIN CARSON on 02/21/20 1224 Montelukast Sodium 10 Mg Tablet, 10 MG PO DAILY, (Reported) Olanzapine 5 Mg Tablet, 5 MG PO DAILY, (Reported) Olanzapine 5 Mg Tablet, 10 MG PO HS, (Reported) Ondansetron HCl 4 Mg Tablet, 4 MG PO Q8H PRN for NAUSEA/VOMITING-1ST LINE, (Reported) Pantoprazole Sodium 40 Mg Tablet.dr, 40 MG PO DAILY, (Reported) Sevelamer Carbonate 800 Mg Tablet, 800 MG PO TIDWM, (Reported) Tamsulosin HCl 0.4 Mg Cap, 0.4 MG PO HS, (Reported) Patient Home Medication List Home Medication List Reviewed: Yes Review of Systems Review of Systems Constitutional: see HPI Eyes: No Symptoms Reported Ears, Nose, Mouth, Throat: no symptoms reported Respiratory: see HPI Cardiovascular: no symptoms reported Gastrointestinal: no symptoms reported Genitourinary: no symptoms reported Musculoskeletal: see HPI Skin: see HPI Psychiatric/Neurological: Anxiety, Emotional Problems, Headache; Denies Numbness Endocrine: No Symptoms Reported Hematologic/Lymphatic: No Symptoms Reported Past Aotzwss-Odcnzj-Ngkdak Hx Patient Social History Drug of Choice: HX THC Type Used: Cigarettes 2nd Hand Smoke Exposure: Yes Recent Hopitalizations: No Immunizations Up To Date Tetanus Booster (TDap): Unknown Date of Pneumonia Vaccine: Dec 31, 2017 Date of Influenza Vaccine: Mar 11, 2019 Seasonal Allergies Seasonal Allergies: No Past Medical History Surgeries: Yes CABG, Vasectomy Respiratory: No Cardiac: Yes Coronary Artery Disease, High Cholesterol, Hypertension Neurological: No Genitourinary: Yes Renal Failure Gastrointestinal: Yes Gastroesophageal Reflux Musculoskeletal: No Endocrine: Yes Diabetes, Non-Insulin dep HEENT: No Cancer: No Psychosocial: Yes Sleep Difficulties, PTSD, Schizophrenia, Depression Integumentary: No Blood Disorders: No Physical Exam Vital Signs Vital Signs - First Documented 08/03/20 12:50 Temp 35.8 Pulse 156 Resp 20 B/P (MAP) 143/107 (119) Pulse Ox 99 Capillary Refill : Height, Weight, BMI Height: 5'8.00" Weight: 171lbs. 0.0oz. 77.197182sd; 30.00 BMI Method:Stated General Appearance: WD/WN, no apparent distress HEENT: PERRL/EOMI, normal ENT inspection, pharynx normal Neck: non-tender, full range of motion, supple, normal inspection Cardiovascular: normal peripheral pulses, regular rate, rhythm; No no edema (bilateral 1+ pedal edema ); tachycardia Respiratory: chest non-tender, no respiratory distress, rales, wheezing Gastrointestinal: normal bowel sounds, non tender, soft Extremities: normal range of motion, non-tender (to palpation ), normal capillary refill, pedal edema Psychiatric: alert, oriented x 3, depressed affect Crainal Nerves: normal speech, PERRL Skin: normal color, warm/dry, other (superficial abrasion to bilateral knee ) Progress/Results/Core Measures Results/Orders Lab Results Laboratory Tests Test 08/03/20 12:40 08/03/20 12:59 08/03/20 14:11 08/03/20 14:27 Range/Units White Blood Count 6.9 4.3-11.0 10^3/uL Red Blood Count 3.67 L 4.30-5.52 10^6/uL Hemoglobin 11.1 L 13.3-17.7 g/dL Hematocrit 32 L 40-54 % Mean Corpuscular Volume 87 80-99 fL Mean Corpuscular Hemoglobin 30 25-34 pg Mean Corpuscular Hemoglobin Concent 35 32-36 g/dL Red Cell Distribution Width 13.2 10.0-14.5 % Platelet Count 227 130-400 10^3/uL Mean Platelet Volume 10.2 9.0-12.2 fL Immature Granulocyte % (Auto) 1 % Neutrophils (%) (Auto) 81 H 42-75 % Lymphocytes (%) (Auto) 8 L 12-44 % Monocytes (%) (Auto) 9 0-12 % Eosinophils (%) (Auto) 0 0-10 % Basophils (%) (Auto) 0 0-10 % Neutrophils # (Auto) 5.7 1.8-7.8 10^3/uL Lymphocytes # (Auto) 0.5 L 1.0-4.0 10^3/uL Monocytes # (Auto) 0.7 0.0-1.0 10^3/uL Eosinophils # (Auto) 0.0 0.0-0.3 10^3/uL Basophils # (Auto) 0.0 0.0-0.1 10^3/uL Immature Granulocyte # (Auto) 0.1 0.0-0.1 10^3/uL Neutrophils % (Manual) 82 % Lymphocytes % (Manual) 7 % Monocytes % (Manual) 11 % Blood Morphology Comment NORMAL Prothrombin Time 13.7 12.2-14.7 SEC INR Comment 1.0 0.8-1.4 Activated Partial Thromboplast Time 28 24-35 SEC Sodium Level 111 *L 135-145 MMOL/L Potassium Level 4.8 3.6-5.0 MMOL/L Chloride Level 72 L 98-107 MMOL/L Carbon Dioxide Level 26 21-32 MMOL/L Anion Gap 13 5-14 MMOL/L Blood Urea Nitrogen 19 H 7-18 MG/DL Creatinine 1.23 0.60-1.30 MG/DL Estimat Glomerular Filtration Rate 59 BUN/Creatinine Ratio 15 Glucose Level 328 H 70-105 MG/DL Lactic Acid Level 2.19 *H 2.11 *H 0.50-2.00 MMOL/L Calcium Level 7.9 L 8.5-10.1 MG/DL Corrected Calcium 8.2 L 8.5-10.1 MG/DL Magnesium Level 2.0 1.6-2.4 MG/DL Total Bilirubin 0.4 0.1-1.0 MG/DL Aspartate Amino Transf (AST/SGOT) 56 H 5-34 U/L Alanine Aminotransferase (ALT/SGPT) 49 0-55 U/L Alkaline Phosphatase 114 40-136 U/L Troponin I 1.146 *H <0.028 NG/ML B-Type Natriuretic Peptide 1200.1 H <100.0 PG/ML Total Protein 6.7 6.4-8.2 GM/DL Albumin 3.6 3.2-4.5 GM/DL Procalcitonin 0.08 <0.10 NG/ML Thyroid Stimulating Hormone (TSH) 1.97 0.35-4.94 UIU/ML Valproic Acid (Depakene) Level 44.1 L 50.0-100.0 UG/ML Glucometer 282 H 70-110 MG/DL Urine Color YELLOW Urine Clarity CLEAR Urine pH 6.5 5-9 Urine Specific [place] 1.025 H 1.016-1.022 Urine Protein 3+ H NEGATIVE Urine Glucose (UA) 3+ H NEGATIVE Urine Ketones TRACE H NEGATIVE Urine Nitrite NEGATIVE NEGATIVE Urine Bilirubin NEGATIVE NEGATIVE Urine Urobilinogen 0.2 < = 1.0 MG/DL Urine Leukocyte Esterase NEGATIVE NEGATIVE Urine RBC (Auto) TRACE-I NEGATIVE Urine RBC 2-5 H /HPF Urine WBC RARE /HPF Urine Squamous Epithelial Cells 0-2 /HPF Urine Crystals NONE /LPF Urine Bacteria TRACE /HPF Urine Casts NONE /LPF Urine Mucus NEGATIVE /LPF Urine Culture Indicated NO Micro Results Microbiology 08/03/20 Influenza Types A,B Antigen (ED) - Final, Complete My Orders Orders - WANDA EASLEY SAP PI ARCHITECT Cbc With Automated Diff (08/03/20 12:41) Comprehensive Metabolic Panel (08/03/20 12:41) Blood Culture (08/03/20 12:41) Sputum Culture (08/03/20 12:41) Urinalysis (08/03/20 12:41) Urine Culture (08/03/20 12:41) Protime With Inr (08/03/20 12:41) Partial Thromboplastin Time (08/03/20 12:41) Chest 1 View, Ap/Pa Only (08/03/20 12:41) Ed Iv/Invasive Line Start (08/03/20 12:41) Ekg Tracing (08/03/20 12:41) Troponin I (08/03/20 12:41) Vital Signs Adult Sepsis Patie Q15M (08/03/20 12:41) O2 (08/03/20 12:41) Lactic Acid Analyzer (08/03/20 12:41) Influenza A And B Antigens (08/03/20 12:41) Procalcitonin (Pct) (08/03/20 12:41) BNP (08/03/20 12:46) Ct Head/Cervical Spine Wo (08/03/20 12:46) Magnesium (08/03/20 12:49) Valproic Acid (08/03/20 12:51) Accucheck Stat ONCE (08/03/20 12:53) Manual Differential (08/03/20 12:40) Ns Iv 1000 Ml (Sodium Chloride 0.9%) (08/03/20 13:11) Thyroid Stimulating Hormone (08/03/20 13:31) Adenosine Injection (Adenocard Injection (08/03/20 14:00) Adenosine Injection (Adenocard Injection (08/03/20 13:49) Diltiazem Drip Pre-Mix (Cardizem Drip Pr (08/03/20 14:00) Diltiazem Injection (Cardizem Injection) (08/03/20 14:00) Aspirin Enteric Coated Tablet (Ecotrin T (08/03/20 14:15) General/Regular (08/03/20 Lunch) Fluid Restriction (08/03/20 14:38) Aspirin Tablet (Aspirin Tablet) (08/03/20 15:00) Medications Given in ED Current Medications Medications Dose Ordered Sig/Juan Route Start Time Stop Time Status Last Admin Dose Admin Adenosine 6 mg STK-MED ONCE IV 08/03/20 13:49 08/03/20 13:56 DC 08/03/20 14:00 6 MG Diltiazem HCl 10 mg ONCE ONCE IVP 08/03/20 14:00 08/03/20 14:01 DC 08/03/20 14:10 10 MG Vital Signs/I&O 08/03/20 12:50 Temp 35.8 Pulse 156 Resp 20 B/P (MAP) 143/107 (119) Pulse Ox 99 Progress Progress Note : Progress Note Patient examined upon arrival. Noted to have erythema and swelling over right eyebrow. EOM intact. Has diffuse Rales with oxygen saturation of 89% on room air. Has no reported history of elevated temperature. But did have some nausea and abdominal discomfort yesterday. He did receive a CT of his abdomen outpatient which showed some possible enteritis of the small bowel and duodenum. Will initiate sepsis work-up due to tachycardia, rales, low oxygen saturation. BP stable 140s over 100. Will hold off on fluid replacement until lactic acid returns as he is noted to have bilateral 1+ pedal edema and congested lung sounds. Added cardiac work-up with BNP. Exam of knees show superficial abrasions, no bony tenderness identified on exam. 1311: Critical Lactic acid 2.19 and NA-111 called by lab. CBC is unremarkable. 1312: Orders given for NS bolus, to be initiated at TKO until BNP returned. Concerns for hypervolemia/CHF. CXR shows cardiomegaly mild pulmonary venous hypertension. 1321: Lab called critical troponin of 1.146. He continues to deny chest pain/pressure. 1325: Case discussed with Dr. Cabrales, agreeable to follow patient. 1342: Case discussed with Dr. Madhu Davila with [facility]. Recommended starting Salt tablets and fluid restriction to correct hyponatremia. States he will be happy to follow outpatient upon discharge. 1345: Dr. Cabrales in ED. Orders given for Adenosine 6mg rapid IVP to evaluate underlying rhythm. Patient noted to be in A-flutter with RVR. Requested Cardizem bolus and drip. ASA 325mg x1 pending CT head results. 1434: Reviewed findings and recommendations with guardian Sylvia Kelley, agreeable with ICU admission for Hyponatremia and Atrial Flutter with RVR. CT head/c-spine show no acute pathology. RN to given ASA 325mg PO x1. Case discussed with Dr. Helms, agrees with ICU admission for hyponatremia and A- flutter with RVR. Patient agreeable with admission. Plan: A-flutter with RVR/CHF -NS TKO with Cardizem drip. Cardizem 10mg IV bolus with 10mg/hr. -Telemetry -ECHO -Trend Troponin per protocol -ASA 325mg PO x1 in ED -Strict I/O -Daily weight -Cardiology to follow Hyponatremia -Fluid restriction 800cc/day -Salt tablets 1gm BID -Seizure precautions -Neuro checks Q1 hour -Outpatient follow up with [facility] VTE -D/T recent fall will initiate SCD's and GABRIEL's at this time. Pain/GI -Acetaminophen 650gm PO q6 hours PRN Pain/Fever -Zofran 4mg IIVP q 6 hours PRN Nausea FULL CODE Initial ECG Impression Date: Aug 03, 2020 Initial ECG Impression Time: 12:41 Initial ECG Rate: 157 Initial ECG Rhythm: S.Tach Initial ECG Intervals WCT Comment Underlying rhythm a-flutter with RVR. Diagnostic Imaging Diagonstic Imaging: Xray Plain Films/CT/US/NM/MRI: chest Comments NAME: CAPO KELLEY MED REC#: [id number] PT STATUS: REG ER : 1955 PHYSICIAN: WANDA EASLEY SAP PI ARCHITECT ADMIT DATE: 08/03/20/ER Draft Date of Exam:08/03/20 CHEST 1 VIEW, AP/PA ONLY INDICATION: Sepsis, fall EXAM: Portable chest at 12:58 PM There are postoperative changes from a median sternotomy. Heart is mildly enlarged. Pulmonary vascularity is mildly increased. There appears to be some scarring in the right lower lung. There are no consolidating alveolar infiltrates. There are no effusions or pneumothoraces. IMPRESSION: There is scarring and volume loss in the right lower lung, unchanged from 08/01/2020. There is cardiomegaly with mild pulmonary venous hypertension. Dictated on workstation # [id number] Dict: 08/03/20 1305 Trans: 08/03/20 1341 [id number] Interpreted by: СЕРГЕЙ BARDALES MD Electronically signed by: Reviewed: Reviewed by Me Diagonstic Imaging: CT Plain Films/CT/US/NM/MRI: c-spine, head Comments NAME: CAPO KELLEY [facility] REC#: [id number] PT STATUS: REG ER : 1955 PHYSICIAN: WANDA EASLEY APRN ADMIT DATE: 08/03/20/ER Draft Date of Exam:08/03/20 CT HEAD/CERVICAL SPINE WO PROCEDURE: CT head and CT cervical spine without contrast. TECHNIQUE: Multiple contiguous axial images were obtained through the brain and cervical spine without the use of intravenous contrast. Sagittal and coronal reformations through the cervical spine were then performed. Auto Exposure Controls were utilized during the CT exam to meet ALARA standards for radiation dose reduction. INDICATION: Fall. COMPARISON: Correlation is made with prior CT from 05/13/2020. FINDINGS: CT HEAD: Ventricles and sulci are stable in appearance. No sulcal effacement or midline shift is identified. 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 No acute intra-axial or extra-axial hemorrhage is detected. Cisterns are patent. Visualized paranasal sinuses are clear. IMPRESSION: Stable chronic changes. No acute intracranial process is detected. CT CERVICAL SPINE: Curvature and alignment of the cervical spine is normal. There is multilevel degenerative disc and facet disease. This is greatest on the left at the C4-C5 level. There is variable disc space narrowing and marginal spurring. No fractures are identified. Prevertebral tissues are within normal limits. Odontoid is intact. IMPRESSION: Cervical spondylosis. No acute bony abnormality is detected. Dictated on workstation # [id number] Dict: 08/03/20 1355 Trans: 08/03/20 1404 [id number] Interpreted by: STEVEN ROLAND MD Electronically signed by: Reviewed: Reviewed by Me Departure Communication (Admissions) Time/Spoke to Admitting Phy: 13:[address] Helms Time/Spoke to Consulting Phy: 13:[address] Duane Davila with [facility]. Recommended fluid restriction and initiating salt tablets. States he will be glad to follow up with patient outpatient. Impression Primary Impression: Hyponatremia Additional Impressions: Atrial flutter with rapid ventricular response Unwitnessed fall Congestive heart failure Disposition: ADMITTED INPATIENT Condition: Stable Admissions Decision to Admit Reason: Admit from ER (General) Decision to Admit/Date: Aug 03, 2020 Time/Decision to Admit Time: 13:22 Departure-Patient Inst. Referrals: GIOVANNY CODY DO (PCP/Family) Primary Care Physician Copy Copies To 1: GIOVANNY CODY STORMY D APRN Aug 03, 2020 12:44
[2020-08-03 12:55] LABS: BASOPHILS % (AUTO) 0 % (0-10); EOSINOPHILS % (AUTO) 0 % (0-10); HEMATOCRIT 32 % (40-54); HEMOGLOBIN 11.1 g/dL (13.3-17.7); LYMPHOCYTES # (AUTO) 0.5 10^3/uL (1.0-4.0); LYMPHOCYTES % (AUTO) 8 % (12-44); MEAN CORPUSCULAR HEMOGLOBIN 30 pg (25-34); MEAN CORPUSCULAR HGB CONC 35 g/dL (32-36); MEAN CORPUSCULAR VOLUME 87 fL (80-99); MEAN PLATELET VOLUME 10.2 fL (9.0-12.2); MONOCYTES # (AUTO) 0.7 10^3/uL (0.0-1.0); MONOCYTES % (AUTO) 9 % (0-12); NEUTROPHILS # (AUTO) 5.7 10^3/uL (1.8-7.8); NEUTROPHILS % (AUTO) 81 % (42-75); PLATELET COUNT 227 10^3/uL (130-400); WHITE BLOOD COUNT 6.9 10^3/uL (4.3-11.0)
[2020-08-03 13:04] LABS: ALBUMIN 3.6 GM/DL (3.2-4.5); POTASSIUM 4.8 MMOL/L (3.6-5.0)
[2020-08-03 13:05] LABS: CALCIUM 7.9 MG/DL (8.5-10.1)
[2020-08-03 13:06] LABS: TOTAL PROTEIN 6.7 GM/DL (6.4-8.2)
[2020-08-03 13:08] LABS: BILIRUBIN,TOTAL 0.4 MG/DL (0.1-1.0); PROTHROMBIN TIME PATIENT 13.7 SEC (12.2-14.7)
[2020-08-03 13:10] LABS: CREATININE SERUM 1.23 MG/DL (0.60-1.30)
[2020-08-03] MEDS ORDERED: NS IV 1000 ML 1,000 ML IV STA (13:11)
[2020-08-03 13:32] LABS: LYMPHOCYTES % (MANUAL) 7 %; MONOCYTES % (MANUAL) 11 %; NEUTROPHILS % (MANUAL) 82 %; RBC MORPH NORMAL
--- NOTE | 2020-08-03 13:42 | Diagnostic Imaging Report ---
INDICATION: Sepsis, fall EXAM: Portable chest at 12:58 PM There are postoperative changes from a median sternotomy. Heart is mildly enlarged. Pulmonary vascularity is mildly increased. There appears to be some scarring in the right lower lung. There are no consolidating alveolar infiltrates. There are no effusions or pneumothoraces. IMPRESSION: There is scarring and volume loss in the right lower lung, unchanged from 08/01/2020. There is cardiomegaly with mild pulmonary venous hypertension. Dictated by: Dictated on workstation # [id number]
[2020-08-03] MEDS ORDERED: ADENOSINE 6 MG/2 ML (ADENOCARD) VIAL IV ONE ×2 (13:49→14:00)
[2020-08-03] MEDS ORDERED: dilTIAZem DRIP PRE-MIX 125 ML IV SCH (14:00)
--- NOTE | 2020-08-03 14:04 | Diagnostic Imaging Report ---
PROCEDURE: CT head and CT cervical spine without contrast. TECHNIQUE: Multiple contiguous axial images were obtained through the brain and cervical spine without the use of intravenous contrast. Sagittal and coronal reformations through the cervical spine were then performed. Auto Exposure Controls were utilized during the CT exam to meet ALARA standards for radiation dose reduction. INDICATION: Fall. COMPARISON: Correlation is made with prior CT from 05/13/2020. FINDINGS: CT HEAD: Ventricles and sulci are stable in appearance. No sulcal effacement or midline shift is identified. 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 No acute intra-axial or extra-axial hemorrhage is detected. Cisterns are patent. Visualized paranasal sinuses are clear. IMPRESSION: Stable chronic changes. No acute intracranial process is detected. CT CERVICAL SPINE: Curvature and alignment of the cervical spine is normal. There is multilevel degenerative disc and facet disease. This is greatest on the left at the C4-C5 level. There is variable disc space narrowing and marginal spurring. No fractures are identified. Prevertebral tissues are within normal limits. Odontoid is intact. IMPRESSION: Cervical spondylosis. No acute bony abnormality is detected. Dictated by: Dictated on workstation # [id number]
[2020-08-03] MEDS ORDERED: ASPIRIN E.C. 325 MG (ECOTRIN) TABLET PO ONE (14:15)
[2020-08-03 14:31] LABS: BILIRUBIN,URINE NEGATIVE (NEGATIVE); CLARITY,URINE CLEAR; COLOR,URINE YELLOW; GLUCOSE, URINE (UA) 3+ (NEGATIVE); KETONES,URINE TRACE (NEGATIVE); LEUKOCYTE ESTERASE ,URINE NEGATIVE (NEGATIVE); NITRITE,URINE NEGATIVE (NEGATIVE); PH,URINE 6.5 (5-9); PROTEIN,URINE 3+ (NEGATIVE)
[2020-08-03 14:41] LABS: BACTERIA,URINE TRACE /HPF; SQUAMOUS EPITHELIAL CELL,UR 0-2 /HPF; WBC,URINE RARE /HPF
--- NOTE | 2020-08-03 14:41 | Consultation-Cardiology ---
HPI-Cardiology Cardiology Consultation Date of Consultation 08/03/20 Date of Admission Time Seen by Provider: 14:36 Indication: tachycardia HPI 65 years old gentleman with history of schizophrenia, sustained a fall while in the skilled nursing, had trauma to his head. He was noted to be tachycardic, noted to have elevated troponin, denied any chest pain. No palpitation. No syncope or near syncopal episodes. On my evaluation he was tachycardic, has underlying right bundle branch block Home Medications & Allergies Allergies: Coded Allergies: Penicillins (Verified Allergy, Unknown, 12/31/18) chlorpromazine (Verified Allergy, Unknown, 12/31/18) Home Medication List Reviewed: Yes ENC-Lviocc-Knrrxq Hx Patient Social History Marital Status: single Drug of Choice: HX THC Type Used: Cigarettes 2nd Hand Smoke Exposure: Yes Recent Hopitalizations: No Immunizations Up To Date Tetanus Booster (TDap): Unknown Date of Pneumonia Vaccine: Dec 31, 2017 Date of Influenza Vaccine: Mar 11, 2019 Past Medical History Discussed below Family Medical History Family Medical Hx Noncontributory Review of Systems-General Review of Systems Constitutional: see HPI EENTM: see HPI, no symptoms reported Respiratory: see HPI; No cough; dyspnea on exertion; No hemoptysis, No orthopnea, No phlegm, No short of breath, No stridor, No wheezing, No other Cardiovascular: see HPI; No chest pain, No edema, No Hx of Intervention, No palpitations, No syncope, No vascular heart diseas, No other Gastrointestinal: no symptoms reported, see HPI Genitourinary: no symptoms reported, see HPI Musculoskeletal: see HPI, back pain, joint pain, other Skin: see HPI Psychiatric/Neurological: No Symptoms Reported, See HPI, Anxiety Reviewed Test Results Reviewed Test Results Lab Laboratory Tests Test 08/03/20 12:40 08/03/20 12:59 08/03/20 14:11 08/03/20 14:27 Range/Units White Blood Count 6.9 4.3-11.0 10^3/uL Red Blood Count 3.67 L 4.30-5.52 10^6/uL Hemoglobin 11.1 L 13.3-17.7 g/dL Hematocrit 32 L 40-54 % Mean Corpuscular Volume 87 80-99 fL Mean Corpuscular Hemoglobin 30 25-34 pg Mean Corpuscular Hemoglobin Concent 35 32-36 g/dL Red Cell Distribution Width 13.2 10.0-14.5 % Platelet Count 227 130-400 10^3/uL Mean Platelet Volume 10.2 9.0-12.2 fL Immature Granulocyte % (Auto) 1 % Neutrophils (%) (Auto) 81 H 42-75 % Lymphocytes (%) (Auto) 8 L 12-44 % Monocytes (%) (Auto) 9 0-12 % Eosinophils (%) (Auto) 0 0-10 % Basophils (%) (Auto) 0 0-10 % Neutrophils # (Auto) 5.7 1.8-7.8 10^3/uL Lymphocytes # (Auto) 0.5 L 1.0-4.0 10^3/uL Monocytes # (Auto) 0.7 0.0-1.0 10^3/uL Eosinophils # (Auto) 0.0 0.0-0.3 10^3/uL Basophils # (Auto) 0.0 0.0-0.1 10^3/uL Immature Granulocyte # (Auto) 0.1 0.0-0.1 10^3/uL Neutrophils % (Manual) 82 % Lymphocytes % (Manual) 7 % Monocytes % (Manual) 11 % Blood Morphology Comment NORMAL Prothrombin Time 13.7 12.2-14.7 SEC INR Comment 1.0 0.8-1.4 Activated Partial Thromboplast Time 28 24-35 SEC Sodium Level 111 *L 135-145 MMOL/L Potassium Level 4.8 3.6-5.0 MMOL/L Chloride Level 72 L 98-107 MMOL/L Carbon Dioxide Level 26 21-32 MMOL/L Anion Gap 13 5-14 MMOL/L Blood Urea Nitrogen 19 H 7-18 MG/DL Creatinine 1.23 0.60-1.30 MG/DL Estimat Glomerular Filtration Rate 59 BUN/Creatinine Ratio 15 Glucose Level 328 H 70-105 MG/DL Lactic Acid Level 2.19 *H 0.50-2.00 MMOL/L Calcium Level 7.9 L 8.5-10.1 MG/DL Corrected Calcium 8.2 L 8.5-10.1 MG/DL Magnesium Level 2.0 1.6-2.4 MG/DL Total Bilirubin 0.4 0.1-1.0 MG/DL Aspartate Amino Transf (AST/SGOT) 56 H 5-34 U/L Alanine Aminotransferase (ALT/SGPT) 49 0-55 U/L Alkaline Phosphatase 114 40-136 U/L Troponin I 1.146 *H <0.028 NG/ML B-Type Natriuretic Peptide 1200.1 H <100.0 PG/ML Total Protein 6.7 6.4-8.2 GM/DL Albumin 3.6 3.2-4.5 GM/DL Procalcitonin 0.08 <0.10 NG/ML Thyroid Stimulating Hormone (TSH) 1.97 0.35-4.94 UIU/ML Valproic Acid (Depakene) Level 44.1 L 50.0-100.0 UG/ML Glucometer 282 H 70-110 MG/DL Physical Exam Physical Exam Vital Signs Vital Signs - First Documented 08/03/20 12:50 Temp 35.8 Pulse 156 Resp 20 B/P (MAP) 143/107 (119) Pulse Ox 99 Capillary Refill : Less Than 3 Seconds Height, Weight, BMI Height: 5'8.00" Weight: 171lbs. 0.0oz. 77.295350rg; 43.00 BMI Method:Stated General Appearance: No Apparent Distress, WD/WN Eyes: Bilateral Eye Normal Inspection, Bilateral Eye PERRL, Bilateral Eye EOMI HEENT: PERRL/EOMI, TMs Normal, Normal ENT Inspection, Pharynx Normal, Moist Mucous Membranes Neck: Full Range of Motion, Normal Inspection, Non Tender, Supple, Carotid Bruit Respiratory: Chest Non Tender, Normal Breath Sounds, No Accessory Muscle Use, No Respiratory Distress Cardiovascular: No Edema, No Gallop, No JVD, Normal Peripheral Pulses, Systolic Murmur, Tachycardia Gastrointestinal: Normal Bowel Sounds, No Organomegaly, No Pulsatile Mass, Non Tender, Soft Back: Normal Inspection, No CVA Tenderness, No Vertebral Tenderness Extremity: Normal Capillary Refill, Normal Inspection, Normal Range of Motion, Non Tender, No Calf Tenderness, No Pedal Edema Neurologic/Psychiatric: Alert, Oriented x3, No Motor/Sensory Deficits, Normal Mood/Affect Skin: Normal Color, Warm/Dry Lymphatic: No Adenopathy A/P-Cardiology Admission Diagnosis Atrial flutter Type II myocardial infarction Head trauma Hypertension Assessment/Plan Atrial flutter with rapid ventricular response, patient was tachycardic, given one dose of adenosine 6 mg showing underlying sawtooth pattern. I will start him on Cardizem drip, I am hesitant to start aggressive anticoagulation due to the recent trauma to the head. Elevated troponin level, probably type II myocardial infarction secondary to persistent tachycardia with atrial flutter. Underlying coronary artery disease cannot be excluded. He is not having any active chest pain. I will continue monitoring EKG. Coronary artery disease, history of CABG, history of multiple intervention in the past. No recent cardiac workup, I will evaluate 2-D echo and planning to monitor for possible cardiac catheterization Shortness of breath, had chronic dyspnea, followed by Dr. Perez. No change from baseline Labile blood pressure, history of hypertensive emergency. Lactic acidosis, managed by primary care team Chronic renal insufficiency, history of bilateral hydronephrosis, incontinence, followed by primary care physician Urinary incontinence, probably overflow, followed and managed by primary care physician Diabetes mellitus, followed and managed by primary care physician Hyperlipidemia, continue current medications Schizophrenia, managed by primary care physician AARON DAWSON MD Aug 03, 2020 14:41
[2020-08-03] MEDS ORDERED: ASPIRIN 325 MG (5 GR) TABLET PO ONE (15:00)
--- NOTE | 2020-08-03 15:08 | History & Physical-Hospitalist ---
History of Present Illness HPI/Chief Complaint Pt is a 65yoCM with a PMH of a CAD s/p CABG, NIDDMI, schizophrenia who presented to the ER due to multiple falls at his facility. He is oriented to person and place but seems to have some mental deficits at baseline. He lives at [facility] and he suffered 3 falls this morning one resulting in a head injury where he actually left a nini in the [facility]. EMS was called and he was found to have sats of 89% on room air with rales. He was given a Duoneb treatment en route. He does complain of a headache from where he feel but otherwise no specific complaints. He was found to have an elevated troponin and to be in a-fib with RVR. Incidentally he was also noted to have a sodium of 111 incidentally. Source: patient Date Seen 08/03/20 Time Seen by a Provider: 14:56 Attending Physician Dominik Helms MD PCP Leonardo Perez DO Referring Physician Date of Admission Aug 03, 2020 at 14:00 Home Medications & Allergies Home Medications Reviewed patient Home Medication Reconciliation performed by pharmacy medication reconciliations batch room technician and/or nursing. Patients Allergies have been reviewed. Allergies Allergies Coded Allergies Penicillins (Verified Allergy, Unknown, 12/31/18) chlorpromazine (Verified Allergy, Unknown, 12/31/18) Past Rmybpub-Vwinpm-Cyjhnt Hx Past Med/Social Hx: Reviewed Nursing Past Med/Soc Hx Patient Social History Marrital Status: single Drug of Choice: HX THC Type Used: Cigarettes 2nd Hand Smoke Exposure: Yes Recent Foreign Travel: No Contact w/other who traveled: No Recent Hopitalizations: No Recent Infectious Disease Expo: No Immunizations Up To Date Tetanus Booster (TDap): Unknown Date of Pneumonia Vaccine: Dec 31, 2017 Date of Influenza Vaccine: Mar 11, 2019 Seasonal Allergies Seasonal Allergies: No Past Medical History Surgeries: CABG, Vasectomy Respiratory: COPD Cardiac: Coronary Artery Disease, High Cholesterol, Hypertension Genitourinary: Renal Failure Gastrointestinal: Gastroesophageal Reflux Endocrine: Diabetes, Non-Insulin dep Psychosocial: Sleep Difficulties, PTSD, Schizophrenia, Depression History of Blood Disorders: No Family History Reviewed Nursing Family Hx No Pertinent Family Hx Review of Systems Constitutional: No chills, No fever EENTM: no symptoms reported Respiratory: cough, short of breath Cardiovascular: No chest pain; Hx of Intervention Gastrointestinal: no symptoms reported Genitourinary: no symptoms reported Musculoskeletal: no symptoms reported Skin: no symptoms reported Psychiatric/Neurological: Headache Physical Exam Physical Exam Vital Signs Vital Signs - First Documented 08/03/20 08/03/20 08/03/20 12:50 13:00 16:58 Temp 35.8 Pulse 156 Resp 20 B/P (MAP) 143/107 (119) Pulse Ox 99 O2 Delivery Nasal Cannula O2 Flow Rate 2.00 FiO2 28 Capillary Refill : Less Than 3 Seconds Height, Weight, BMI Height: 5'8.00" Weight: 171lbs. 0.0oz. 77.849039bp; 43.00 BMI Method:Stated General Appearance: No Apparent Distress, Chronically ill, Obese HEENT: PERRL/EOMI, Moist Mucous Membranes Respiratory: Lungs Clear, No Accessory Muscle Use, No Respiratory Distress Cardiovascular: Regular Rate, Rhythm, No Murmur Gastrointestinal: Normal Bowel Sounds, Non Tender, Soft Extremity: No Calf Tenderness, No Pedal Edema Neurologic/Psychiatric: Alert, Normal Mood/Affect, Other (oriented to person and place) Results Results/Procedures Labs Laboratory Tests 08/03/20 12:40 08/03/20 16:10 08/04/20 02:44 08/04/20 03:00 08/04/20 04:50 08/04/20 09:09 08/04/20 13:30 08/04/20 17:00 08/04/20 21:10 08/05/20 03:20 08/05/20 05:55 08/05/20 10:00 Patient resulted labs reviewed. Imaging: Reviewed Imaging Report Imaging [facility], [place] NAME: CAPO KELLEY [facility] REC#: [id number] PT STATUS: REG ER : 1955 PHYSICIAN: WANDA EASLEY APRN ADMIT DATE: 08/03/20/ER Draft Date of Exam:08/03/20 CHEST 1 VIEW, AP/PA ONLY INDICATION: Sepsis, fall EXAM: Portable chest at 12:58 PM There are postoperative changes from a median sternotomy. Heart is mildly enlarged. Pulmonary vascularity is mildly increased. There appears to be some scarring in the right lower lung. There are no consolidating alveolar infiltrates. There are no effusions or pneumothoraces. IMPRESSION: There is scarring and volume loss in the right lower lung, unchanged from 08/01/2020. There is cardiomegaly with mild pulmonary venous hypertension. Dictated on workstation # [id number] Dict: 08/03/20 1305 Trans: 08/03/20 1341 [id number] Interpreted by: СЕРГЕЙ BARDALES MD [facility], [place] NAME: CAPO KELLEY [facility] REC#: [id number] PT STATUS: REG ER : 1955 PHYSICIAN: WANDA EASLEY APRN ADMIT DATE: 08/03/20/ER Draft Date of Exam:08/03/20 CT HEAD/CERVICAL SPINE WO PROCEDURE: CT head and CT cervical spine without contrast. TECHNIQUE: Multiple contiguous axial images were obtained through the brain and cervical spine without the use of intravenous contrast. Sagittal and coronal reformations through the cervical spine were then performed. Auto Exposure Controls were utilized during the CT exam to meet ALARA standards for radiation dose reduction. INDICATION: Fall. COMPARISON: Correlation is made with prior CT from 05/13/2020. FINDINGS: CT HEAD: Ventricles and sulci are stable in appearance. No sulcal effacement or midline shift is identified. 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 No acute intra-axial or extra-axial hemorrhage is detected. Cisterns are patent. Visualized paranasal sinuses are clear. IMPRESSION: Stable chronic changes. No acute intracranial process is detected. CT CERVICAL SPINE: Curvature and alignment of the cervical spine is normal. There is multilevel degenerative disc and facet disease. This is greatest on the left at the C4-C5 level. There is variable disc space narrowing and marginal spurring. No fractures are identified. Prevertebral tissues are within normal limits. Odontoid is intact. IMPRESSION: Cervical spondylosis. No acute bony abnormality is detected. Dictated on workstation # [id number] Dict: 08/03/20 1355 Trans: 08/03/20 1404 [id number] Interpreted by: STEVEN ROLAND MD Electronically signed by: Assessment/Plan Admission Diagnosis Atrial flutter with RVR NSTEMI CAD s/p CABG CHF HLD Adenosine given in the ER by Dr Cabrales Started on Cardizem gtt, admitted to the ICU Echo ordered, verbal report of EF of 10%, pending formal read Cardiology consulted, appreciate rec Admit to ICU Hyponatremia Na 111 on arrival Corrects to 116 for hyperglycemia ER discussed with Nephrology who declined transfer but recommended fluid restriction and salt tabs with outpatient follow up At baseline mentation, correct slowly DMII SSI Hold metformin due to lactic acidosis Lactic acidosis Likely due to tachycardia and metformin No evidence of sepsis Schizophrenia Continue home meds DVT ppx: Lovenox Admission Status: Inpatient Order (span 2 midnights) Reason for Inpatient Admission: see below Assessment and Plan Atrial flutter with RVR NSTEMI CAD s/p CABG CHF HLD Adenosine given in the ER by Dr Cabrales Started on Cardizem gtt, admitted to the ICU Echo ordered, verbal report of EF of 10%, pending formal read BNP 1200- will need to be very judicious with fluids Cardiology consulted, appreciate rec Admit to ICU Anticoagulation held due to fall Hyponatremia Na 111 on arrival Corrects to 116 for hyperglycemia ER discussed with Nephrology who declined transfer but recommended fluid res triction and salt tabs with outpatient follow up At baseline mentation, correct slowly DMII SSI Hold metformin due to lactic acidosis Lactic acidosis Likely due to tachycardia and metformin No evidence of sepsis Schizophrenia Continue home meds Fall PT/OT DVT ppx: Lovenox Diagnosis/Problems Diagnosis/Problems (1) Non-insulin dependent type 2 diabetes mellitus (2) CKD (chronic kidney disease) Status: Chronic Qualifiers: Chronic kidney disease stage: stage 2 (mild) Qualified Codes: N18.2 - Chronic kidney disease, stage 2 (mild) (3) Unwitnessed fall Status: Acute (4) Atrial flutter with rapid ventricular response Status: Acute (5) Hyponatremia Status: Acute (6) Congestive heart failure Status: Acute (7) Seizure disorder Status: Acute (8) Schizophrenia Status: Acute DOMINIK HELMS MD Aug 03, 2020 15:08
[2020-08-03] MEDS: dilTIAZem DRIP PRE-MIX 125 ML IV SCH (15:45)
[2020-08-03] MEDS ORDERED: DIGOXIN 0.25 MG/ML (LANOXIN) 2 ML AMP IV NR (16:00)
[2020-08-03] MEDS ORDERED: ACETAMINOPHEN 325 MG TABLET PO PRN (16:00)
[2020-08-03] MEDS ORDERED: ONDANSETRON 4 MG/2 ML (SDV) Z0FRAN IVP PRN (16:00)
[2020-08-03 16:29] LABS: CHLORIDE 76 MMOL/L (98-107); POTASSIUM 4.5 MMOL/L (3.6-5.0)
[2020-08-03] MEDS: FUROSEMIDE 40 MG/4 ML INJ (LASIX) IVP SCH (16:29)
[2020-08-03] MEDS: NS IV 1000 ML 1,000 ML IV SCH (16:29)
[2020-08-03 16:30] LABS: CALCIUM 7.9 MG/DL (8.5-10.1); GLUCOSE 116 MG/DL (70-105)
[2020-08-03 16:32] LABS: CARBON DIOXIDE 24 MMOL/L (21-32)
[2020-08-03 16:34] LABS: CREATININE SERUM 1.14 MG/DL (0.60-1.30); GFR ESTIMATED > 60
[2020-08-03 16:35] LABS: BUN/CREATININE RATIO 17
[2020-08-03 16:42] LABS: SODIUM 115 MMOL/L (135-145)
[2020-08-03 16:58] VITALS: BP 114/72
[2020-08-03] MEDS ORDERED: LORA10TA7 PO (17:13)
[2020-08-03] MEDS ORDERED: CALC500T7 PO (17:13)
[2020-08-03] MEDS ORDERED: DIVA125T32 PO (17:13)
[2020-08-03] MEDS ORDERED: INSU100I23 SQ (17:13)
[2020-08-03] MEDS ORDERED: VORT10TA PO (17:13)
[2020-08-03] MEDS ORDERED: INSU100I10 SQ (17:13)
[2020-08-03] MEDS ORDERED: RT-ALBUTEROL/IPRATROPIUM 3 ML (DUONEB) VIAL INH PRN (17:15)
[2020-08-03] MEDS ORDERED: CALCIUM CARBONATE 500 MG (TUMS) TAB.CHEW PO PRN (17:30)
[2020-08-03] MEDS ORDERED: ANTACID SUSP 30 ML UDC (MYLANTA) PO PRN (17:30)
[2020-08-03] MEDS ORDERED: RX-CYCLOBENZAPRINE 10 MG (FLEXERIL) TAB PPK#3 PO PRN (17:30)
[2020-08-03] MEDS ORDERED: CYCLOBENZAPRINE 10 MG (FLEXERIL) TAB PO PRN (17:45)
[2020-08-03] MEDS: SEVELAMER CARBONATE 800 MG TABLET (RENVELA) PO SCH (18:53)
[2020-08-03] MEDS: RT-ALBUTEROL/IPRATROPIUM 3 ML (DUONEB) VIAL INH SCH ×2 (19:12→22:35)
[2020-08-03] MEDS: DIVALPROX SPRINKLE 125 MG (DEPAKOTE) CAP PO SCH (19:55)
[2020-08-03] MEDS: OLANZapine 5 MG (ZyPREXA) TAB PO SCH (19:55)
[2020-08-03] MEDS: CARVEDILOL 3.125 MG (COREG) TABLET PO SCH (19:55)
[2020-08-03] MEDS: GABAPENTIN 100 MG (NEURONTIN) CAP PO SCH (19:55)
[2020-08-03] MEDS: TAMSULOSIN 0.4 MG (FLOMAX) CAP PO SCH (19:56)
[2020-08-03] MEDS ORDERED: CARVEDILOL 3.125 MG (COREG) TABLET PO SCH (21:00)
[2020-08-03] MEDS ORDERED: SODIUM CHLORIDE 1 GM TABLET PO SCH (21:00)
[2020-08-03] MEDS ORDERED: RT-ALBUTEROL SULF 2.5 MG/3 ML PRE-MIX VIAL INH SCH (21:00)
[2020-08-03] MEDS: inSUlin ASPART (NovoLOG) 1 UNIT/0.01 ML (CHARGE PER UNIT) SC SCH (21:13)
[2020-08-04] MEDS: RT-ALBUTEROL/IPRATROPIUM 3 ML (DUONEB) VIAL INH SCH ×6 (02:27→22:01)
[2020-08-04 03:04] LABS: ALBUMIN 3.4 GM/DL (3.2-4.5); CHLORIDE 75 MMOL/L (98-107); POTASSIUM 4.5 MMOL/L (3.6-5.0)
[2020-08-04 03:05] LABS: CALCIUM 7.8 MG/DL (8.5-10.1)
[2020-08-04 03:07] LABS: GLUCOSE 78 MG/DL (70-105); TOTAL PROTEIN 6.5 GM/DL (6.4-8.2)
[2020-08-04 03:08] LABS: CARBON DIOXIDE 28 MMOL/L (21-32)
[2020-08-04 03:09] LABS: BILIRUBIN,TOTAL 0.2 MG/DL (0.1-1.0)
[2020-08-04 03:10] LABS: ALKALINE PHOSPHATASE 96 U/L (40-136); CREATININE SERUM 1.15 MG/DL (0.60-1.30); GFR ESTIMATED > 60; PHOSPHORUS 3.8 MG/DL (2.3-4.7)
[2020-08-04 03:11] LABS: SODIUM 115 MMOL/L (135-145)
[2020-08-04 03:12] LABS: BUN/CREATININE RATIO 17
[2020-08-04 03:14] LABS: MAGNESIUM 2.2 MG/DL (1.6-2.4)
[2020-08-04 03:31] LABS: ALANINE AMINOTRANSFERASE 55 U/L (0-55)
[2020-08-04 03:44] LABS: BASOPHILS % (AUTO) 0 % (0-10); EOSINOPHILS # (AUTO) 0.1 10^3/uL (0.0-0.3); EOSINOPHILS % (AUTO) 1 % (0-10); HEMATOCRIT 31 % (40-54); HEMOGLOBIN 10.6 g/dL (13.3-17.7); LYMPHOCYTES % (AUTO) 11 % (12-44); MEAN CORPUSCULAR HEMOGLOBIN 30 pg (25-34); MEAN CORPUSCULAR HGB CONC 34 g/dL (32-36); MEAN CORPUSCULAR VOLUME 87 fL (80-99); MEAN PLATELET VOLUME 10.6 fL (9.0-12.2); MONOCYTES # (AUTO) 1.1 10^3/uL (0.0-1.0); MONOCYTES % (AUTO) 11 % (0-12); NEUTROPHILS # (AUTO) 7.3 10^3/uL (1.8-7.8); NEUTROPHILS % (AUTO) 76 % (42-75); PLATELET COUNT 251 10^3/uL (130-400); WHITE BLOOD COUNT 9.5 10^3/uL (4.3-11.0)
[2020-08-04 05:09] LABS: CHLORIDE 76 MMOL/L (98-107); POTASSIUM 4.5 MMOL/L (3.6-5.0)
[2020-08-04 05:10] LABS: CALCIUM 7.7 MG/DL (8.5-10.1); GLUCOSE 80 MG/DL (70-105)
[2020-08-04 05:12] LABS: CARBON DIOXIDE 27 MMOL/L (21-32)
[2020-08-04] MEDS: inSUlin ASPART (NovoLOG) 1 UNIT/0.01 ML (CHARGE PER UNIT) SC SCH ×4 (05:12→20:51)
[2020-08-04 05:14] LABS: GFR ESTIMATED > 60
[2020-08-04 05:15] LABS: BUN/CREATININE RATIO 18
[2020-08-04 05:17] LABS: SODIUM 114 MMOL/L (135-145)
[2020-08-04] MEDS: FUROSEMIDE 40 MG/4 ML INJ (LASIX) IVP SCH ×2 (05:47→17:07)
[2020-08-04] MEDS: dilTIAZem DRIP PRE-MIX 125 ML IV SCH ×2 (08:01→17:15)
[2020-08-04] MEDS: LORATADINE (CLARITIN) 10 MG TAB PO SCH (08:03)
[2020-08-04] MEDS: ASPIRIN E.C. 81 MG (ECOTRIN) TAB PO SCH (08:03)
[2020-08-04] MEDS: SEVELAMER CARBONATE 800 MG TABLET (RENVELA) PO SCH ×3 (08:03→17:07)
[2020-08-04] MEDS: OLANZapine 5 MG (ZyPREXA) TAB PO SCH ×2 (08:04→20:51)
[2020-08-04] MEDS: PANTOPRAZOLE 40 MG (PROTONIX) VIAL IV SCH (08:04)
[2020-08-04] MEDS: DIGOXIN 0.25 MG (LANOXIN) TAB PO SCH (08:04)
[2020-08-04] MEDS: DIVALPROX SPRINKLE 125 MG (DEPAKOTE) CAP PO SCH ×2 (08:04→20:51)
[2020-08-04] MEDS: CARVEDILOL 3.125 MG (COREG) TABLET PO SCH ×2 (08:04→20:51)
[2020-08-04] MEDS: MONTELUKAST 10 MG (SINGULAIR) TAB PO SCH (08:06)
--- NOTE | 2020-08-04 08:48 | Diagnostic Imaging Report ---
INDICATION: Hyponatremia, shortness of breath and atrial flutter. Comparison is made with prior examination from 08/03/2020. FINDINGS: There is cardiomegaly. There is some venous congestion. There are bilateral pulmonary infiltrates, left greater than right. There is no pleural effusion or pneumothorax. There has been a previous median sternotomy. IMPRESSION: Bilateral pulmonary infiltrates, left greater than right. Cardiomegaly and some central pulmonary venous congestion. Dictated by: Dictated on workstation # [id number]
[2020-08-04] MEDS ORDERED: NON-FORMULARY MEDICATION 1 EA EA (Vortioxetine Hydrobromide (Trintellix) 10 MG) PO SCH (09:00)
[2020-08-04] MEDS ORDERED: NON-FORMULARY MEDICATION 1 EA EA (Cetirizine HCl 10 MG) PO SCH (09:00)
[2020-08-04] MEDS ORDERED: ASPIRIN E.C. 81 MG (ECOTRIN) TAB PO SCH (09:00)
[2020-08-04] MEDS ORDERED: DIVALPROEX SODIUM 125 MG PO SCH ×2 (09:00)
[2020-08-04] MEDS ORDERED: PANTOPRAZOLE 40 MG (PROTONIX) TAB PO SCH (09:00)
[2020-08-04 09:31] LABS: CHLORIDE 74 MMOL/L (98-107); POTASSIUM 3.9 MMOL/L (3.6-5.0)
[2020-08-04 09:32] LABS: CALCIUM 7.6 MG/DL (8.5-10.1)
[2020-08-04 09:33] LABS: GLUCOSE 81 MG/DL (70-105)
[2020-08-04 09:34] LABS: CARBON DIOXIDE 28 MMOL/L (21-32)
[2020-08-04 09:36] LABS: CREATININE SERUM 1.09 MG/DL (0.60-1.30); GFR ESTIMATED > 60
[2020-08-04 09:37] LABS: BUN/CREATININE RATIO 19
[2020-08-04] MEDS ORDERED: ONDANSETRON 4 MG/2 ML (SDV) Z0FRAN IVP PRN (09:45)
[2020-08-04 09:46] LABS: SODIUM 114 MMOL/L (135-145)
[2020-08-04] MEDS ORDERED: cefTRIAXone FOR IV USE 1,000 MG in WATER (STERILE) FOR INJECTION 10 ML IV SCH (10:00)
[2020-08-04 10:02] LABS: ABG BASE EXCESS 7.9 MMOL/L (-2.5-2.5); ABG OXYGEN SATURATION 69 % (94-100); ABG PCO2 54 MMHG (35-45); ABG PO2 44 MMHG (79-93); ABG TCO2 34.8 MMOL/L (21.0-31.0)
--- NOTE | 2020-08-04 10:06 | Progress Note - Hospitalist ---
Subjective HPI/CC On Admission Date Seen by Provider: Aug 04, 2020 Time Seen by Provider: 10:00 Pt is a 65yoCM with a PMH of a CAD s/p CABG, NIDDMI, schizophrenia who presented to the ER due to multiple falls at his facility. He is oriented to person and place but seems to have some mental deficits at baseline. He lives at [facility] and [facility] and he suffered 3 falls this morning one resulting in a head injury where he actually left a nini in the [facility]. EMS was called and he was found to have sats of 89% on room air with rales. He was given a Duoneb treatment en route. He does complain of a headache from where he feel but otherwise no specific complaints. He was found to have an elevated troponin and to be in a-fib with RVR. Incidentally he was also noted to have a sodium of 111 incidentally. Subjective/Events-last exam Pt less alert today but does respond and is appropriate with responses. He followed all commands and moved all extremities easily. He is asking for pudding and states he's just tired because he's hungry. Saw with Dr Cabrales at beside as well. Discussed plan with Bakari to repeat CT head given fall and aspirin use. Focused Exam Lactate Level 08/03/20 14:27: Lactic Acid Level 2.11*H 08/03/20 16:13: Lactic Acid Level 2.71*H 08/04/20 03:00: Lactic Acid Level 1.10 Objective Exam Vital Signs Vital Signs Date Time Temp Pulse Resp B/P (MAP) Pulse Ox O2 Delivery O2 Flow Rate FiO2 08/05/20 11:18 36.4 08/05/20 10:00 81 19 95/64 (74) 94 Nasal Cannula 2.00 08/03/20 16:58 28 Capillary Refill : Less Than 3 Seconds General Appearance: Chronically ill, Obese, Other (awake and alert but slow to respond and mumbling) Respiratory: No Accessory Muscle Use, Decreased Breath Sounds, Other (difficulty to auscultate as he was dry heaving throughout exam) Cardiovascular: No Murmur, Irregularly Irregular, Tachycardia Gastrointestinal: Normal Bowel Sounds, Non Tender, Soft Neurologic/Psychiatric: Alert, Oriented x3 Results/Procedures Lab Laboratory Tests 08/04/20 13:30 08/04/20 17:00 08/04/20 21:10 08/05/20 03:20 08/05/20 05:55 08/05/20 10:00 Patient resulted labs reviewed. Imaging: Reviewed Imaging Report Assessment/Plan Assessment and Plan Assess & Plan/Chief Complaint Atrial flutter with RVR NSTEMI CAD s/p CABG CHF HLD Continue cardizem gtt Echo revealed EF of 10-15% Cardiology consulted, appreciate rec Anticoagulation held due to fall Troponin trending up, originally plan was for cath today but deferred at the moment due to mental status Hyponatremia Na 111 on arrival, corrected to 116 for hyperglycemia ER discussed with Nephrology who declined transfer but recommended fluid restriction and salt tabs with outpatient follow up Plan to correct slowly though has made essentially no improvement and salt tabs not available Discussed with eICU who will start on hypertonic saline Discussed with Dr Olivera who will place central line Lethargy Repeat CT head Na stable essentially since yesterday when corrected for hyperglycemia Blood sugar 91 DMII SSI Hold metformin due to lactic acidosis Hold home Levemir as BS is 91 Lactic acidosis Likely due to tachycardia and metformin No evidence of sepsis Now resolved Schizophrenia Continue home meds Fall PT/OT when mentation improved DVT ppx: Hold until CT head back Diagnosis/Problems Diagnosis/Problems (1) Non-insulin dependent type 2 diabetes mellitus (2) CKD (chronic kidney disease) Status: Chronic Qualifiers: Chronic kidney disease stage: stage 2 (mild) Qualified Codes: N18.2 - Chronic kidney disease, stage 2 (mild) (3) Unwitnessed fall Status: Acute (4) Atrial flutter with rapid ventricular response Status: Acute (5) Hyponatremia Status: Acute (6) Congestive heart failure Status: Acute (7) Seizure disorder Status: Acute (8) Schizophrenia Status: Acute DOMINIK SANTANA MD Aug 04, 2020 10:06
[2020-08-04 10:11] LABS: ALLENS TEST YES-POS; INSPIRED O2 1; PATIENT TEMP 35.8; VENTILATOR NO
--- NOTE | 2020-08-04 10:29 | Cardiology Progress Note ---
Subjective Date Seen by Provider: Aug 04, 2020 Time Seen by Provider: 10:26 Subjective/Events-last exam Patient was seen at bedside, lethargic, having abdominal pain and dry heaves. No chest pain was reported Review of Systems General: No Chills, No Night Sweats; Fatigue, Malaise; No Appetite, No Other HEENT: No Head Aches, No Visual Changes, No Eye Pain, No Ear Pain, No Dysphasia, No Sinus Congestion, No Post Nasal Drip, No Sore Throat, No Other Pulmonary: No Dyspnea, No Cough, No Pleuritic Chest Pain, No Other Cardiovascular: No: Chest Pain, Palpitations, Orthopnea, Paroxysmal Noc. Dyspnea, Edema, Lt Headedness, Other Focused Exam Lactate Level 08/03/20 14:27: Lactic Acid Level 2.11*H 08/03/20 16:13: Lactic Acid Level 2.71*H 08/04/20 03:00: Lactic Acid Level 1.10 Objective-Cardiology Exam Last Set of Vital Signs Vital Signs 08/03/20 08/04/20 08/04/20 16:58 07:46 10:00 Temp 36.0 Pulse 78 Resp 18 B/P (MAP) 103/63 (76) Pulse Ox 92 O2 Delivery Nasal Cannula O2 Flow Rate 1.00 FiO2 28 Capillary Refill : Less Than 3 Seconds I&O Intake and Output 08/04/20 00:00 Intake Total 1170 ml Output Total 1250 ml Balance -80 ml Intake Oral 570 ml IV Total 600 ml Output Urine Total 1250 ml Daily Weight Change No General: Alert, Cooperative, Mild Distress HEENT: Atraumatic, PERRLA Neck: Supple, No JVD, No Thyromegaly Lungs: Normal Air Movement, Other (bilateral rhonchi) Heart: Normal S1, Normal S2, No Murmurs, Other (tachycardia) Abdomen: Normal Bowel Sounds, Soft, No Tenderness, No Hepatosplenomegaly, No Masses Extremities: No Clubbing, No Cyanosis, No Edema, Normal Pulses, No Tenderness/Swelling Skin: No Rashes, No Breakdown, No Significant Lesion Neuro: Strength at 5/5 X4 Ext, Sensation Intact, Other (slightly slurred speech) Psych/Mental Status: Mood NL, Other (lethargic) Results Lab Laboratory Tests 08/03/20 16:10 08/04/20 02:44 08/04/20 03:00 08/04/20 04:50 08/04/20 09:09 A/P-Cardiology Admission Diagnosis Atrial flutter Type II myocardial infarction Head trauma Hypertension Assessment/Plan Atrial flutter with rapid ventricular response, rate was better on Cardizem drip, started to increase when he had the dry heaves. Will need to be on Lovenox Non-ST elevation myocardial infarction, elevated troponin level could be due to underlying coronary artery disease and tachycardia, we'll start aspirin and Lovenox, I was planning for cardiac catheterization today but due to his mental status changes I decided to postpone the procedure Congestive heart failure, acute left ventricular systolic dysfunction, combination of ischemic and nonischemic cardiomyopathy, probably secondary to tachycardia. Started on beta blockers and ARB. Continue to monitor, will cons ider LifeVest Coronary artery disease, history of CABG, history of multiple intervention in the past. No recent cardiac workup, Artane aspirin and Lovenox Change in mental status, lethargic, fatigued, no focal deficit, patient will have a CT of the head done today. Shortness of breath, had chronic dyspnea, followed by Dr. Perez. No change from baseline Labile blood pressure, history of hypertensive emergency. Lactic acidosis, managed by primary care team Chronic renal insufficiency, history of bilateral hydronephrosis, incontinence, followed by primary care physician Urinary incontinence, probably overflow, followed and managed by primary care physician Diabetes mellitus, followed and managed by primary care physician Hyperlipidemia, continue current medications Schizophrenia, managed by primary care physician AARON DAWSON MD Aug 04, 2020 10:29 am
[2020-08-04] MEDS: cefTRIAXone FOR IV USE 1,000 MG in WATER (STERILE) FOR INJECTION 10 ML IV SCH (10:40)
--- NOTE | 2020-08-04 10:47 | Diagnostic Imaging Report ---
PROCEDURE: CT head wo r/o stroke. TECHNIQUE: Multiple contiguous axial images were obtained through the brain without the use of intravenous contrast. Auto Exposure Controls were utilized during the CT exam to meet ALARA standards for radiation dose reduction. INDICATION: Fall and right-sided facial droop. COMPARISON is made with prior head CT one day earlier. The ventricular size and sulcal pattern appear similar to one day earlier. No definite sulcal effacement is identified. There is no midline shift. No acute intra-axial or extra-axial hemorrhage is seen. Cisterns remain patent. Visualized paranasal sinuses are clear. Chronic changes of the left hernandes radiata are unchanged. IMPRESSION: Stable chronic changes when compared with one day earlier. No acute intracranial process is detected. Dictated by: Dictated on workstation # [id number]
[2020-08-04] MEDS ORDERED: ENOXAPARIN 100 MG/1 ML (LOVENOX) SYR SC SCH (13:30)
[2020-08-04] MEDS: NS IV 1000 ML 1,000 ML IV SCH (13:36)
[2020-08-04] MEDS: ENOXAPARIN 300 MG/3 ML (LOVENOX) MULTI-DOSE VIAL SQ SCH (13:47)
[2020-08-04 13:52] LABS: CHLORIDE 75 MMOL/L (98-107); POTASSIUM 3.9 MMOL/L (3.6-5.0)
[2020-08-04 13:53] LABS: CALCIUM 7.5 MG/DL (8.5-10.1); GLUCOSE 102 MG/DL (70-105)
[2020-08-04 13:55] LABS: CARBON DIOXIDE 28 MMOL/L (21-32)
[2020-08-04 13:57] LABS: CREATININE SERUM 1.09 MG/DL (0.60-1.30); GFR ESTIMATED > 60
[2020-08-04 13:58] LABS: BUN/CREATININE RATIO 19
[2020-08-04 14:00] LABS: SODIUM 116 MMOL/L (135-145)
--- NOTE | 2020-08-04 14:37 | Diagnostic Imaging Report ---
Indication: Central line placement. Time of exam: 2:06 PM Correlation is made with prior chest from earlier same day. Right-sided line has been placed and has tip at the overlying SVC. There is a questionable kink within the line at the level of the right lung apex. No pneumothorax seen. The heart size is stable. There is infiltrate in the right base. Impression: Right-sided line placement, as described. There is a questionable kink at the right apex. No pneumothorax is seen. Dictated by: Dictated on workstation # [id number]
--- NOTE | 2020-08-04 14:51 | Consultation - Surgery ---
History of Present Illness History of Present Illness Patient Consulted On(coleman/time) 08/04/20 14:45 Date Seen by Provider: Aug 04, 2020 Time Seen by Provider: 14:45 Reason for Visit: tachycardia History of Present Illness Consult requested by Dr. Helms for central line placement. Patient is a 65-year-old male who fell from his bed a couple times. He was found to be hyponatremic and no acute injury was found. He was having some lethargic changes and a repeat CT of the head was performed demonstrating no acute traumatic injury. Patient needing central line placement. He answers questions appropriately. He has no complaints at this time. Patient has elevated troponin which cardiology is seeing him. Denies nausea vomiting fever sweats chills shortness of breath or chest pain at this time. Allergies and Home Medications Allergies Coded Allergies: Penicillins (Verified Allergy, Unknown, 12/31/18) chlorpromazine (Verified Allergy, Unknown, 12/31/18) Home Medications Acetaminophen 325 Mg Tablet, 650 MG PO Q6H PRN for PAIN-MILD, (Reported) Albuterol Sulfate 1 Puff Puff, 2 PUFF INH QID, (Reported) Aspirin 81 Mg Tablet.dr, 81 MG PO DAILY, (Reported) Atorvastatin Calcium 40 Mg Tablet, 40 MG PO HS, (Reported) Calcium Carbonate 200 Mg Tab.chew, 500 MG PO PRN, (Reported) Carvedilol 3.125 Mg Tablet, 3.125 MG PO BID, (Reported) Cetirizine HCl 10 Mg Tablet, 10 MG PO DAILY, (Reported) Cyclobenzaprine HCl 10 Mg Tablet, 10 MG PO Q8H PRN for SPASMS Prescribed by: FREDRICK MENJIVAR on 05/13/20 1306 Divalproex Sodium 125 Mg Cap.sprink, 750 MG PO BID, (Reported) TAKES 6 (125MG) CAPSULES Divalproex Sodium 125 Mg Tablet.dr, 125 MG PO DAILY, (Reported) Divalproex Sodium 125 Mg Tablet.dr, 125 MG PO DAILY, (Reported) Gabapentin 100 Mg Capsule, 100 MG PO HS, (Reported) Insulin Glargine,Hum.rec.anlog 100 Unit/1 Ml Insuln.pen, 100 UNIT SQ DAILY, (Reported) Insulin Lispro 100 Unit/1 Ml Insuln.pen, 100 UNIT SQ ACHS, (Reported) Loratadine 10 Mg Tablet, 10 MG PO DAILY, (Reported) Mag Hydrox/Al Hydrox/Simeth 30 Ml Oral.susp, 30 ML PO Q4H PRN for INDIGESTION, (Reported) Metformin HCl 1,000 Mg Tablet, 1,000 MG PO BID Prescribed by: FRANKLIN CARSON on 02/21/20 1224 Montelukast Sodium 10 Mg Tablet, 10 MG PO DAILY, (Reported) Olanzapine 5 Mg Tablet, 5 MG PO DAILY, (Reported) Olanzapine 5 Mg Tablet, 10 MG PO HS, (Reported) Ondansetron HCl 4 Mg Tablet, 4 MG PO Q8H PRN for NAUSEA/VOMITING-1ST LINE, (Reported) Pantoprazole Sodium 40 Mg Tablet.dr, 40 MG PO DAILY, (Reported) Sevelamer Carbonate 800 Mg Tablet, 800 MG PO TIDWM, (Reported) Tamsulosin HCl 0.4 Mg Cap, 0.4 MG PO HS, (Reported) Vortioxetine Hydrobromide 10 Mg Tablet, 10 MG PO DAILY, (Reported) Patient Home Medication List Home Medication List Reviewed: Yes Past Jtfddwk-Ljmccp-Rrdnan Hx Patient Social History Drug of Choice: HX THC Smoking Status: Current Everyday Smoker Type Used: Cigarettes 2nd Hand Smoke Exposure: Yes Recent Hopitalizations: No Alcohol Use?: No Have you traveled recently?: No Immunizations Up To Date Tetanus Booster (TDap): Unknown Date of Pneumonia Vaccine: Dec 31, 2017 Date of Influenza Vaccine: Mar 11, 2019 Seasonal Allergies Seasonal Allergies: No Surgeries History of Surgeries: Yes Surgeries: CABG, Vasectomy Respiratory History of Respiratory Disorde: No Cardiovascular History of Cardiac Disorders: Yes Cardiac Disorders: Coronary Artery Disease, High Cholesterol, Hypertension Neurological History of Neurological Disord: No Genitourinary History of Genitourinary Disor: Yes Genitourinary Disorders: Renal Failure Gastrointestinal History of Gastrointestinal Di: Yes Gastrointestinal Disorders: Gastroesophageal Reflux Musculoskeletal History of Musculoskeletal Dis: No Endocrine History of Endocrine Disorders: Yes Endocrine Disorders: Diabetes, Non-Insulin dep HEENT History of HEENT Disorders: No Cancer History of Cancer: No Psychosocial History of Psychiatric Problem: Yes Behavioral Health Disorders: Sleep Difficulties, PTSD, Schizophrenia, Depression Integumentary History of Skin or Integumenta: No Blood Transfusions History of Blood Disorders: No Reviewed Nursing Assessment Reviewed/Agree w Nursing PMH: Yes Family Medical History Significant Family History: No Pertinent Family Hx Review of Systems-General Constitutional: No chills, No diaphoresis EENTM: No blurred vision, No double vision Respiratory: No cough, No dyspnea on exertion, No short of breath Cardiovascular: No chest pain, No palpitations Gastrointestinal: No abdominal pain, No hematemesis Genitourinary: No decreased output, No discharge Musculoskeletal: No back pain, No joint pain Skin: No change in color, No change in hair/nails Psychiatric/Neurological: Denies Anxiety, Denies Depressed, Denies Emotional Problems All Other Systems Reviewed Negative Unless Noted: Yes (Negative excepted noted.) Physical Exam-General Problems Physical Exam Vital Signs Vital Signs - First Documented 08/03/20 08/03/20 08/03/20 12:50 13:00 16:58 Temp 35.8 Pulse 156 Resp 20 B/P (MAP) 143/107 (119) Pulse Ox 99 O2 Delivery Nasal Cannula O2 Flow Rate 2.00 FiO2 28 Capillary Refill : Less Than 3 Seconds General Appearance: WD/WN, no apparent distress HEENT: PERRL/EOMI, normal ENT inspection Neck: non-tender, supple Respiratory: chest non-tender, no respiratory distress, no accessory muscle use Cardiovascular: no JVD, tachycardia Gastrointestinal: non tender, soft, no organomegaly Rectal: deferred Back: normal inspection, no CVA tenderness Extremities: normal range of motion, no pedal edema, no calf tenderness Neurologic/Psychiatric: bed control specialist II-XII nml as tested, no motor/sensory deficits, alert, normal mood/affect Skin: normal color, warm/dry Lymphatic: no adenopathy Data Review Labs Laboratory Tests 08/03/20 16:10: Sodium Level 115*L, Potassium Level 4.5, Chloride Level 76L, Carbon Dioxide Level 24, Anion Gap 15H, Blood Urea Nitrogen 19H, Creatinine 1.14, Estimat Glomerular Filtration Rate > 60, BUN/Creatinine Ratio 17, Glucose Level 116H, Calcium Level 7.9L, Troponin I 1.304*H 08/03/20 16:13: Lactic Acid Level 2.71*H 08/03/20 20:54: Glucometer 223H 08/04/20 02:44: Sodium Level 115*L, Potassium Level 4.5, Chloride Level 75L, Carbon Dioxide Level 28, Anion Gap 12, Blood Urea Nitrogen 19H, Creatinine 1.15, Estimat Glomerular Filtration Rate > 60, BUN/Creatinine Ratio 17, Glucose Level 78, Calc ium Level 7.8L, Troponin I 1.647*H, Corrected Calcium 8.3L, Phosphorus Level 3.8, Magnesium Level 2.2, Total Bilirubin 0.2, Aspartate Amino Transf (AST/SGOT) 59H, Alanine Aminotransferase (ALT/SGPT) 55, Alkaline Phosphatase 96, Total Protein 6.5, Albumin 3.4, Procalcitonin 0.17H 08/04/20 03:00: White Blood Count 9.5, Red Blood Count 3.56L, Hemoglobin 10.6L, Hematocrit 31L, Mean Corpuscular Volume 87, Mean Corpuscular Hemoglobin 30, Mean Corpuscular Hemoglobin Concent 34, Red Cell Distribution Width 13.3, Platelet Count 251, Mean Platelet Volume 10.6, Immature Granulocyte % (Auto) 0, Neutrophils (%) (Auto) 76H, Lymphocytes (%) (Auto) 11L, Monocytes (%) (Auto) 11, Eosinophils (%) (Auto) 1, Basophils (%) (Auto) 0, Neutrophils # (Auto) 7.3, Lymphocytes # (Auto) 1.0, Monocytes # (Auto) 1.1H, Eosinophils # (Auto) 0.1, Basophils # (Auto) 0.0, Immature Granulocyte # (Auto) 0.0, Lactic Acid Level 1.10 08/04/20 04:50: Sodium Level 114*L, Potassium Level 4.5, Chloride Level 76L, Carbon Dioxide Level 27, Anion Gap 11, Blood Urea Nitrogen 20H, Creatinine 1.10, Estimat Glomerular Filtration Rate > 60, BUN/Creatinine Ratio 18, Glucose Level 80, Calcium Level 7.7L 08/04/20 09:09: Sodium Level 114*L, Potassium Level 3.9, Chloride Level 74L, Carbon Dioxide Level 28, Anion Gap 12, Blood Urea Nitrogen 21H, Creatinine 1.09, Estimat Glomerular Filtration Rate > 60, BUN/Creatinine Ratio 19, Glucose Level 81, Calcium Level 7.6L 08/04/20 09:41: Blood Gas Puncture Site LEFT RADIAL, Blood Gas Patient Temperature 35.8, Arterial Blood pH 7.40, Arterial Blood Partial Pressure CO2 54H, Arterial Blood Partial Pressure O2 44L, Arterial Blood HCO3 33H, Arterial Blood Total CO2 34.8H , Arterial Blood Oxygen Saturation 69L, Arterial Blood Base Excess 7.9H, Osei Test YES-POS, Blood Gas Ventilator Setting NO, Blood Gas Inspired Oxygen 1 08/04/20 10:58: Glucometer 85 08/04/20 13:30: Sodium Level 116*L, Potassium Level 3.9, Chloride Level 75L, Carbon Dioxide Level 28, Anion Gap 13, Blood Urea Nitrogen 21H, Creatinine 1.09, Estimat Glomerular Filtration Rate > 60, BUN/Creatinine Ratio 19, Glucose Level 102, Calcium Level 7.5L Microbiology 08/03/20 Urine Culture - Final, Complete See Comments 08/03/20 Influenza Types A,B Antigen (ED) - Final, Complete Assessment/Plan Assessment/Plan Assessment/Plan Fallno acute injury Hyponatremia Elevated troponin non-ST elevated NE Consent was obtained for central line placement. We will place central line Chest x-ray after placement Medical management Procedure: Ultrasound-guided right internal jugular vein central line placement The patient right neck was prepped and draped in a sterile fashion timeout was performed using ultrasound the right and internal jugular vein just anterior to it was injected with 1% lidocaine. Under direct visualization of the ultrasound the right internal jugular vein was then accessed dark nonpulsatile blood was withdrawn. The guidewire was inserted through the needle and the needle was removed. An 11 blade scalpel was used to make a small skin incision. The dilator was then advanced and removed. The triple-lumen catheter was then advanced over the wire and the wire was removed. All ports were accessed and flushed without difficulty. The catheter was sewn into place. The area was washed and dried and sterile bandage was applied. Patient tolerated procedure well without any complications chest x-ray pending. PRANAV LUND DO Aug 04, 2020 14:51
[2020-08-04] MEDS: SODIUM CHLORIDE 3% 500 ML IV SCH (14:54)
[2020-08-04 17:18] LABS: CHLORIDE 75 MMOL/L (98-107); POTASSIUM 3.8 MMOL/L (3.6-5.0)
[2020-08-04 17:20] LABS: CALCIUM 7.6 MG/DL (8.5-10.1); GLUCOSE 168 MG/DL (70-105)
[2020-08-04 17:22] LABS: CARBON DIOXIDE 29 MMOL/L (21-32); SODIUM 117 MMOL/L (135-145)
[2020-08-04 17:24] LABS: CREATININE SERUM 1.11 MG/DL (0.60-1.30); GFR ESTIMATED > 60
[2020-08-04 17:25] LABS: BUN/CREATININE RATIO 19
[2020-08-04] MEDS: GABAPENTIN 100 MG (NEURONTIN) CAP PO SCH (20:51)
[2020-08-04] MEDS: TAMSULOSIN 0.4 MG (FLOMAX) CAP PO SCH (20:51)
[2020-08-04 21:27] LABS: CHLORIDE 74 MMOL/L (98-107); POTASSIUM 3.5 MMOL/L (3.6-5.0)
[2020-08-04 21:28] LABS: CALCIUM 7.9 MG/DL (8.5-10.1)
[2020-08-04 21:29] LABS: GLUCOSE 215 MG/DL (70-105)
[2020-08-04 21:30] LABS: CARBON DIOXIDE 30 MMOL/L (21-32)
[2020-08-04 21:33] LABS: CREATININE SERUM 1.17 MG/DL (0.60-1.30); GFR ESTIMATED > 60
[2020-08-04 21:34] LABS: BUN/CREATININE RATIO 16
[2020-08-04 21:36] LABS: SODIUM 117 MMOL/L (135-145)
[2020-08-05] MEDS: ENOXAPARIN 300 MG/3 ML (LOVENOX) MULTI-DOSE VIAL SQ SCH ×2 (01:27→14:39)
[2020-08-05] MEDS: RT-ALBUTEROL/IPRATROPIUM 3 ML (DUONEB) VIAL INH SCH ×6 (01:33→21:52)
[2020-08-05 03:34] LABS: BASOPHILS % (AUTO) 0 % (0-10); EOSINOPHILS # (AUTO) 0.1 10^3/uL (0.0-0.3); EOSINOPHILS % (AUTO) 1 % (0-10); HEMATOCRIT 31 % (40-54); HEMOGLOBIN 10.8 g/dL (13.3-17.7); LYMPHOCYTES # (AUTO) 0.6 10^3/uL (1.0-4.0); LYMPHOCYTES % (AUTO) 10 % (12-44); MEAN CORPUSCULAR HEMOGLOBIN 31 pg (25-34); MEAN CORPUSCULAR HGB CONC 35 g/dL (32-36); MEAN CORPUSCULAR VOLUME 89 fL (80-99); MEAN PLATELET VOLUME 9.4 fL (9.0-12.2); MONOCYTES # (AUTO) 0.8 10^3/uL (0.0-1.0); MONOCYTES % (AUTO) 13 % (0-12); NEUTROPHILS # (AUTO) 4.6 10^3/uL (1.8-7.8); NEUTROPHILS % (AUTO) 75 % (42-75); PLATELET COUNT 249 10^3/uL (130-400); WHITE BLOOD COUNT 6.1 10^3/uL (4.3-11.0)
[2020-08-05 04:21] LABS: CHLORIDE 79 MMOL/L (98-107); POTASSIUM 3.9 MMOL/L (3.6-5.0)
[2020-08-05 04:22] LABS: CALCIUM 7.6 MG/DL (8.5-10.1); GLUCOSE 143 MG/DL (70-105)
[2020-08-05 04:24] LABS: CARBON DIOXIDE 32 MMOL/L (21-32)
[2020-08-05 04:26] LABS: GFR ESTIMATED > 60
[2020-08-05 04:27] LABS: BUN/CREATININE RATIO 17
[2020-08-05 04:31] LABS: SODIUM 121 MMOL/L (135-145)
[2020-08-05] MEDS: inSUlin ASPART (NovoLOG) 1 UNIT/0.01 ML (CHARGE PER UNIT) SC SCH ×4 (05:02→20:49)
[2020-08-05 05:09] LABS: MAGNESIUM 1.9 MG/DL (1.6-2.4)
[2020-08-05] MEDS: FUROSEMIDE 40 MG/4 ML INJ (LASIX) IVP SCH (05:34)
[2020-08-05 06:12] LABS: POTASSIUM 3.8 MMOL/L (3.6-5.0)
[2020-08-05 06:18] LABS: CREATININE SERUM 1.24 MG/DL (0.60-1.30)
[2020-08-05 06:20] LABS: MAGNESIUM 1.9 MG/DL (1.6-2.4)
[2020-08-05] MEDS: CARVEDILOL 3.125 MG (COREG) TABLET PO SCH ×2 (07:45→20:48)
[2020-08-05] MEDS: MONTELUKAST 10 MG (SINGULAIR) TAB PO SCH (07:45)
[2020-08-05] MEDS: DIGOXIN 0.25 MG (LANOXIN) TAB PO SCH (07:45)
[2020-08-05] MEDS: SEVELAMER CARBONATE 800 MG TABLET (RENVELA) PO SCH ×3 (07:46→17:44)
[2020-08-05] MEDS: PANTOPRAZOLE 40 MG (PROTONIX) VIAL IV SCH (07:46)
[2020-08-05] MEDS: OLANZapine 5 MG (ZyPREXA) TAB PO SCH ×2 (07:46→20:49)
[2020-08-05] MEDS: LORATADINE (CLARITIN) 10 MG TAB PO SCH (07:46)
[2020-08-05] MEDS: DIVALPROX SPRINKLE 125 MG (DEPAKOTE) CAP PO SCH ×2 (07:46→20:49)
[2020-08-05] MEDS: ASPIRIN E.C. 81 MG (ECOTRIN) TAB PO SCH (07:46)
--- NOTE | 2020-08-05 07:46 | Diagnostic Imaging Report ---
INDICATION: Hyponatremia and shortness of air. Time of exam: 1:57 AM Correlation is made with prior chest one day earlier. Changes of median sternotomy are noted. Right IJ line has tip overlying the SVC. Bilateral infiltrates show no real change. There is no effusion or pneumothorax. IMPRESSION: Stable chest since one day earlier. Dictated by: Dictated on workstation # [id number]
[2020-08-05] MEDS: dilTIAZem DRIP PRE-MIX 125 ML IV SCH (07:55)
[2020-08-05] MEDS ORDERED: MIDAZOLAM 5 MG/5 ML (VERSED) VIAL ONE (09:31)
[2020-08-05] MEDS ORDERED: fentaNYL INJ 100 MCG/2 ML AMP ONE (09:31)
[2020-08-05] MEDS ORDERED: HEParin (CATH LAB) 2,000 ML IV ONE (09:32)
[2020-08-05] MEDS ORDERED: NS IV 1000 ML 1,000 ML ONE (09:32)
[2020-08-05] MEDS ORDERED: LIDOCAINE 1% INJ 20 ML 20 ML VIAL ONE (09:32)
[2020-08-05] MEDS: cefTRIAXone FOR IV USE 1,000 MG in WATER (STERILE) FOR INJECTION 10 ML IV SCH (10:01)
[2020-08-05] MEDS ORDERED: NS IV 1000 ML 1,000 ML IV SCH (10:15)
[2020-08-05 10:30] LABS: CALCIUM 7.9 MG/DL (8.5-10.1); CREATININE SERUM 1.35 MG/DL (0.60-1.30); POTASSIUM 3.7 MMOL/L (3.6-5.0)
[2020-08-05] MEDS: SODIUM CHLORIDE 3% 500 ML IV SCH (10:49)
--- NOTE | 2020-08-05 10:51 | Cardiac Procedure Note-CS/ASA ---
Pre-Procedure Note Pre-Op Procedure Note H&P Reviewed The H&P was reviewed, patient examined and no changes noted. Date H&P Reviewed: Aug 05, 2020 Time H&P Reviewed: 10:00 Conscious Sedation Pre-Proced Time 10:00 ASA Score 3 For ASA 3 and 4: Consider anesthesia and medical clearance. Also, for patients with a history of failed moderate sedation consider anesthesia. Airway Lungs Heart ASA score ASA 1: a normal healthy patient ASA 2: a patient with a mild systemic disease (mid diabetes, controlled hypertension, obesity x ASA 3: a patient with a severe systemic disease that limits activity (angina, COPD, prior Myocardial infarction) ASA 4: a patient with an incapacitating disease that is a constant threat to life (CHF, renal failure) ASA 5: a moribund patient not expected to survive 24 hrs. (ruptured aneurysm) ASA 6: a declared brain- patient whose organs are being harvested. For emergent operations, add the letter E after the classification Mallampati Classification Grade 3 Sedation Plan Analgesia, Amnesia, Plan communicated to team members, Discussed options with patient/fam, Discussed risks with patient/fam The patient is an appropriate candidate to undergo the planned procedure, sedation, and anesthesia. The patient immediately re-assessed prior to indication. AARON DAWSON MD Aug 05, 2020 10:51
--- NOTE | 2020-08-05 10:57 | Cardiac Cath Report ---
Cardiac Cath Report Physician (s)/Manager Labor Delivery (s) Physician AARON DAWSON MD Pre-Procedure Diagnosis Pre-Procedure Diagnosis: NSTMI Post-Procedure Note Procedure Start Date: Aug 05, 2020 Name of Procedure: Left heart catheterization Left ventriculogram Vein graft angiogram POLLARD angiogram Aortic root angiogram Aortic arch angiogram Abdominal aortogram Findings/Procedure Note PROCEDURE NOTE: 65 years old gentleman admitted with atrial flutter and rapid ventricular response, had non-ST elevation myocardial infarction, has severe cardiomyopathy, history of CABG, multiple intervention the past, brought for cardiac catheterization possible PTCA. After explaining the procedure to the patient, all pros and cons were explained, all questions were answered. The patient signed the consent and then he was placed on the cardiac catheterization laboratory. Groin was prepped SL fashion local anesthesia was used. Sheath placed in the right femoral artery, I was un able to advance the wire through the abdominal aorta, I used long stork wire and Arabella right catheter advanced to the right coronary artery then intubated the vein graft to the right coronary artery, I was unable to find any other vein graft, I advanced to the POLLARD and did POLLARD angiogram the next change it over a long J-wire into Arabella left catheter and performed angiogram to the left coronary system then exchanged did over the long J-wire and used pigtail catheter, advanced to the left ventricular cavity, pressure was measured, left ventriculogram was done then it was pulled back and pressure was measured and I performed aortic root angiogram then pulled the catheter up to the aortic arch and did aortic arch angiogram then pulled down to the abdominal aorta just above the renal artery and did abdominal aortogram At the end of the procedure the sheath was removed. Closure device was deployed FINDINGS: Hemodynamics LV 127/14, end-diastolic pressure 14 Aorta 90/57 mean of 70 ANATOMY: Left Main is moderate in size with no obstructive disease Left Anterior Descending is occluded proximally, the POLLARD to the LAD is patent but the [place] LAD is occluded distally with no collaterals Left Circumflex is moderate in size, moderate disease diffusely, first obtuse marginal branch is occluded and probably the vein graft to the marginal branch is occluded Right Coronory Artery is occluded proximally, vein graft to the right coronary artery is patent LV Gram was done showing dilated left ventricle with diffuse left ventricular hypokinesia estimated ejection fraction 20-25 percent Aortic root angiogram done showing the aortic valve is normal in size, mild dilatation in the aortic root and ascending aorta. No aneurysm. Aortic arch angiogram was done showing slightly prominent aortic arch, tortuous carotid and subclavian artery, innominate artery, nonobstructive disease Abdominal aortic angiogram showed hypertensive changes in the abdominal aorta, infrarenal abdominal aortic aneurysm saccular, normal renal arteries, normal SMA and FERMIN CONCLUSION: 1. Occluded LAD at the ostium and patent POLLARD to LAD followed by occlusion at the mid to distal LAD after the anastomosis point 2. Occluded first obtuse marginal branch and vein graft to the OM 3. Occluded proximal right coronary artery with patent vein graft to the right PDA with small vessel disease distally 4. Moderate disease in the proper circumflex artery 5. Dilated left ventricle with diffuse left ventricular hypokinesia, EF 20-25 percent 6. Hypertensive changes in the ascending aorta and aortic arch. No dissection or aneurysm, tortuous great arteries of the neck 7. Saccular infrarenal abdominal aortic aneurysm DISCUSSION AND RECOMMENDATION: Patient had extensive coronary artery disease not amendable to intervention, medical therapy is recommended, continue to monitor Anesthesia Type: Conscious Sedation Estimated blood loss (mL): 25 ml Contrast Amount: 100 ml Total Radiation Dose: 742 mGy Post-Procedure Diagnosis Post-operative diagnosis: Non-ST elevation myocardial infarction Coronary artery disease Congestive heart failure Abdominal aortic aneurysm Atrial flutter AARON DAWSON MD Aug 05, 2020 10:57
[2020-08-05] MEDS ORDERED: PATIENT MAY USE OWN MEDS, ALL PO SCH (11:00)
--- NOTE | 2020-08-05 11:01 | Cardiology Progress Note ---
Subjective Date Seen by Provider: Aug 05, 2020 Time Seen by Provider: 10:59 Subjective/Events-last exam Patient was seen at bedside, lethargic. No chest pain. Cardiac catheterization was done. Review of Systems General: No Chills, No Night Sweats; Fatigue, Malaise; No Appetite, No Other HEENT: No Head Aches, No Visual Changes, No Eye Pain, No Ear Pain, No Dysphasi a, No Sinus Congestion, No Post Nasal Drip, No Sore Throat, No Other Pulmonary: No Dyspnea, No Cough, No Pleuritic Chest Pain, No Other Cardiovascular: No: Chest Pain, Palpitations, Orthopnea, Paroxysmal Noc. Dyspnea, Edema, Lt Headedness, Other Focused Exam Lactate Level 08/03/20 14:27: Lactic Acid Level 2.11*H 08/03/20 16:13: Lactic Acid Level 2.71*H 08/04/20 03:00: Lactic Acid Level 1.10 Objective-Cardiology Exam Last Set of Vital Signs Vital Signs 08/03/20 08/05/20 08/05/20 16:58 07:20 10:00 Temp 36.0 Pulse 81 Resp 19 B/P (MAP) 95/64 (74) Pulse Ox 94 O2 Delivery Nasal Cannula O2 Flow Rate 2.00 FiO2 28 Capillary Refill : Less Than 3 Seconds I&O Intake and Output 08/05/20 00:00 Intake Total 2630 ml Output Total 5250 ml Balance -2620 ml Intake Oral 1195 ml IV Total 1435 ml Output Urine Total 5250 ml General: Alert, Cooperative, Mild Distress HEENT: Atraumatic, PERRLA Neck: Supple, No JVD, No Thyromegaly Lungs: Normal Air Movement, Other (bilateral rhonchi) Heart: Normal S1, Normal S2, No Murmurs, Other (tachycardia) Abdomen: Normal Bowel Sounds, Soft, No Tenderness, No Hepatosplenomegaly, No Masses Extremities: No Clubbing, No Cyanosis, No Edema, Normal Pulses, No Tenderness/Swelling Skin: No Rashes, No Breakdown, No Significant Lesion Neuro: Normal Speech, Strength at 5/5 X4 Ext, Sensation Intact, Other (slightly slurred speech) Psych/Mental Status: Mood NL, Other (lethargic) Results Lab Laboratory Tests 08/04/20 13:30 08/04/20 17:00 08/04/20 21:10 08/05/20 03:20 08/05/20 05:55 08/05/20 10:00 A/P-Cardiology Admission Diagnosis Atrial flutter Type II myocardial infarction Head trauma Hypertension Assessment/Plan Atrial flutter with rapid ventricular response, entertained on Lovenox 120 mg twice daily, maintained on Cardizem drip, still in atrial flutter, Becca to proceed with cardiac catheterization possible PTCA Non-ST elevation myocardial infarction, extensive coronary artery disease, inoperable, conservative management is recommended Coronary artery disease, history of CABG and multiple intervention the past. Cardiac catheterization was carried out on August 05, 2020 showing patent POLLARD to the LAD with occluded LAD beyond the anastomosis point, very small artery not amendable to intervention, occluded first obtuse marginal branch and occluded vein graft to the obtuse marginal branch, very small artery not amendable to intervention, occluded right coronary artery with patent vein graft to the right coronary artery with small vessel disease distally, moderate disease in the proper circumflex artery. His coronary artery disease, it is mainly involving small vessel disease not amendable to intervention. Maximizing medical therapy is recommended Congestive heart failure, acute left ventricular systolic dysfunction, combination of ischemic and nonischemic cardiomyopathy, continue on current medication and will consider LifeVest Change in mental status, lethargic, fatigued, no focal deficit, CT scan of the head was repeated on August 04, 2020, did not show any changes. Managed by primary care team Shortness of breath, had chronic dyspnea, followed by Dr. Perez. No change from baseline Labile blood pressure, history of hypertensive emergency. Lactic acidosis, managed by primary care team Chronic renal insufficiency, history of bilateral hydronephrosis, incontinence, followed by primary care physician Urinary incontinence, probably overflow, followed and managed by primary care physician Diabetes mellitus, followed and managed by primary care physician Hyperlipidemia, continue current medications Schizophrenia, managed by primary care physician AARON DAWSON MD Aug 05, 2020 11:01
--- NOTE | 2020-08-05 11:18 | Progress Note - Hospitalist ---
Subjective HPI/CC On Admission Date Seen by Provider: Aug 05, 2020 Time Seen by Provider: 11:13 Pt is a 65yoCM with a PMH of a CAD s/p CABG, NIDDMI, schizophrenia who presented to the ER due to multiple falls at his facility. He is oriented to person and place but seems to have some mental deficits at baseline. He lives at [facility] and [facility] and he suffered 3 falls this morning one resulting in a head injury where he actually left a nini in the [facility]. EMS was called and he was found to have sats of 89% on room air with rales. He was given a Duoneb treatment en route. He does complain of a headache from where he feel but otherwise no specific complaints. He was found to have an elevated troponin and to be in a-fib with RVR. Incidentally he was also noted to have a sodium of 111 incidentally. Subjective/Events-last exam Pt is much more alert today. States he has to go to the bathroom, otherwise no complaints. Focused Exam Lactate Level 08/03/20 14:27: Lactic Acid Level 2.11*H 08/03/20 16:13: Lactic Acid Level 2.71*H 08/04/20 03:00: Lactic Acid Level 1.10 Objective Exam Vital Signs Vital Signs Date Time Temp Pulse Resp B/P (MAP) Pulse Ox O2 Delivery O2 Flow Rate FiO2 08/05/20 10:00 81 19 95/64 (74) 94 Nasal Cannula 2.00 08/05/20 07:20 36.0 08/03/20 16:58 28 Capillary Refill : Less Than 3 Seconds General Appearance: No Apparent Distress, Chronically ill, Obese Respiratory: No Accessory Muscle Use, Rhonci, Other (on nasal cannula) Cardiovascular: No Murmur, Irregularly Irregular Neurologic/Psychiatric: Alert, Other (oriented to major details) Results/Procedures Lab Laboratory Tests 08/04/20 13:30 08/04/20 17:00 08/04/20 21:10 08/05/20 03:20 08/05/20 05:55 08/05/20 10:00 Patient resulted labs reviewed. Imaging: Reviewed Imaging Report Assessment/Plan Assessment and Plan Assess & Plan/Chief Complaint Atrial flutter with RVR NSTEMI CAD s/p CABG CHF HLD Continue cardizem gtt Echo revealed EF of 10-15% Cardiology consulted, appreciate rec Discussed with Dr Cabrales, plan for cath today Hyponatremia Na 121 today, slowly improving Hypertonic saline per eICU Continue serial BMPs Lethargy- resolved Repeat CT head negative DMII SSI Hold metformin due to lactic acidosis Hold home Levemir as BS is 91 Lactic acidosis- resolved Schizophrenia Continue home meds Fall PT DVT ppx: Lovenox Diagnosis/Problems Diagnosis/Problems (1) Non-insulin dependent type 2 diabetes mellitus (2) CKD (chronic kidney disease) Status: Chronic Qualifiers: Chronic kidney disease stage: stage 2 (mild) Qualified Codes: N18.2 - Chronic kidney disease, stage 2 (mild) (3) Unwitnessed fall Status: Acute (4) Atrial flutter with rapid ventricular response Status: Acute (5) Hyponatremia Status: Acute (6) Congestive heart failure Status: Acute (7) Seizure disorder Status: Acute (8) Schizophrenia Status: Acute DOMINIK SANTANA MD Aug 05, 2020 11:18
[2020-08-05] MEDS: NS IV 1000 ML 1,000 ML IV SCH (11:25)
[2020-08-05] MEDS ORDERED: MIDAZOLAM 2 MG/2 ML (VERSED) VIAL IVP ONE (12:15)
[2020-08-05 14:43] LABS: CALCIUM 7.9 MG/DL (8.5-10.1)
[2020-08-05 14:47] LABS: CREATININE SERUM 1.41 MG/DL (0.60-1.30)
[2020-08-05 18:58] LABS: POTASSIUM 4.1 MMOL/L (3.6-5.0)
[2020-08-05 18:59] LABS: CALCIUM 8.1 MG/DL (8.5-10.1)
[2020-08-05 19:03] LABS: CREATININE SERUM 1.4 MG/DL (0.60-1.30)
[2020-08-05] MEDS: TAMSULOSIN 0.4 MG (FLOMAX) CAP PO SCH (20:49)
[2020-08-05] MEDS: GABAPENTIN 100 MG (NEURONTIN) CAP PO SCH (20:49)
[2020-08-05 23:05] LABS: CALCIUM 7.9 MG/DL (8.5-10.1); CREATININE SERUM 1.53 MG/DL (0.60-1.30); POTASSIUM 3.7 MMOL/L (3.6-5.0)
[2020-08-06] MEDS: NS IV 1000 ML 1,000 ML IV SCH ×4 (00:38→19:48)
[2020-08-06] MEDS: RT-ALBUTEROL/IPRATROPIUM 3 ML (DUONEB) VIAL INH SCH ×6 (02:37→22:16)
[2020-08-06 03:07] LABS: BASOPHILS % (AUTO) 0 % (0-10); EOSINOPHILS # (AUTO) 0.1 10^3/uL (0.0-0.3); EOSINOPHILS % (AUTO) 2 % (0-10); HEMATOCRIT 34 % (40-54); HEMOGLOBIN 11.1 g/dL (13.3-17.7); LYMPHOCYTES # (AUTO) 0.9 10^3/uL (1.0-4.0); LYMPHOCYTES % (AUTO) 13 % (12-44); MEAN CORPUSCULAR HEMOGLOBIN 30 pg (25-34); MEAN CORPUSCULAR HGB CONC 33 g/dL (32-36); MEAN CORPUSCULAR VOLUME 92 fL (80-99); MEAN PLATELET VOLUME 9.2 fL (9.0-12.2); MONOCYTES # (AUTO) 0.9 10^3/uL (0.0-1.0); MONOCYTES % (AUTO) 12 % (0-12); NEUTROPHILS % (AUTO) 72 % (42-75); PLATELET COUNT 251 10^3/uL (130-400); WHITE BLOOD COUNT 6.9 10^3/uL (4.3-11.0)
[2020-08-06] MEDS: ENOXAPARIN 300 MG/3 ML (LOVENOX) MULTI-DOSE VIAL SQ SCH (03:23)
[2020-08-06 05:11] LABS: CALCIUM 7.9 MG/DL (8.5-10.1); CREATININE SERUM 1.54 MG/DL (0.60-1.30); MAGNESIUM 1.9 MG/DL (1.6-2.4); POTASSIUM 3.9 MMOL/L (3.6-5.0)
[2020-08-06] MEDS: inSUlin ASPART (NovoLOG) 1 UNIT/0.01 ML (CHARGE PER UNIT) SC SCH ×4 (05:44→20:39)
--- NOTE | 2020-08-06 07:07 | Diagnostic Imaging Report ---
Indication: Hyponatremia, shortness of breath, coronary artery disease at 08/05/2020. Findings: Single view of the chest demonstrates increasing atelectasis in the right base. There is cardiac enlargement with stable central vascular congestion. There is no pneumothorax. Sternal wires midline. Right IJ catheter stable. Impression: Increasing atelectasis right base. Dictated by: Dictated on workstation # [id number]
[2020-08-06] MEDS ORDERED: LIDOCAINE 2% VISCOUS 15 ML UDC ONE (07:58)
[2020-08-06] MEDS ORDERED: proPOfol 200 MG/20 ML (DIPRIVAN) VIAL IV ONE (08:01)
[2020-08-06] MEDS: dilTIAZem DRIP PRE-MIX 125 ML IV SCH (08:06)
--- NOTE | 2020-08-06 09:04 | Anesthesia-General Post-Op ---
MAC Patient Condition Mental Status/LOC: Same as Preop Cardiovascular: Satisfactory Nausea/Vomiting: Absent Respiratory: Satisfactory Pain: Controlled Complications: Absent Post Op Complications Complications None Follow Up Care/Instructions Patient Instructions None needed. Anesthesiology Discharge Order Discharge Order Patient is doing well, no complaints, stable vital signs, no apparent adverse anesthesia problems. No complications reported per nursing. NILESH LOCKE CRNA Aug 06, 2020 09:04
--- NOTE | 2020-08-06 09:38 | Cardiac Procedure Note-CS/ASA ---
Pre-Procedure Note Pre-Op Procedure Note H&P Reviewed The H&P was reviewed, patient examined and no changes noted. Date H&P Reviewed: Aug 06, 2020 Time H&P Reviewed: 08:00 Conscious Sedation Pre-Proced Time 08:00 ASA Score 3 For ASA 3 and 4: Consider anesthesia and medical clearance. Also, for patients with a history of failed moderate sedation consider anesthesia. Airway Lungs Heart ASA score ASA 1: a normal healthy patient ASA 2: a patient with a mild systemic disease (mid diabetes, controlled hypertension, obesity x ASA 3: a patient with a severe systemic disease that limits activity (angina, COPD, prior Myocardial infarction) ASA 4: a patient with an incapacitating disease that is a constant threat to life (CHF, renal failure) ASA 5: a moribund patient not expected to survive 24 hrs. (ruptured aneurysm) ASA 6: a declared brain- patient whose organs are being harvested. For emergent operations, add the letter E after the classification Mallampati Classification Grade 3 Sedation Plan Analgesia, Amnesia, Plan communicated to team members, Discussed options with patient/fam, Discussed risks with patient/fam The patient is an appropriate candidate to undergo the planned procedure, sedation, and anesthesia. The patient immediately re-assessed prior to indication. AARON DAWSON MD Aug 06, 2020 9:38 am
--- NOTE | 2020-08-06 09:40 | Cardiology Progress Note ---
Subjective Date Seen by Provider: Aug 06, 2020 Time Seen by Provider: 09:38 Subjective/Events-last exam Patient is laying down in bed, had a CARON today Review of Systems General: No Chills, No Night Sweats, No Fatigue, No Malaise, No Appetite, No Other HEENT: No Head Aches, No Visual Changes, No Eye Pain, No Ear Pain, No Dysphasia, No Sinus Congestion, No Post Nasal Drip, No Sore Throat, No Other Pulmonary: No Dyspnea, No Cough, No Pleuritic Chest Pain, No Other Cardiovascular: No: Chest Pain, Palpitations, Orthopnea, Paroxysmal Noc. Dyspnea, Edema, Lt Headedness, Other Focused Exam Lactate Level 08/03/20 14:27: Lactic Acid Level 2.11*H 08/03/20 16:13: Lactic Acid Level 2.71*H 08/04/20 03:00: Lactic Acid Level 1.10 Objective-Cardiology Exam Last Set of Vital Signs Vital Signs 08/03/20 08/06/20 08/06/20 08/06/20 08/06/20 16:58 03:30 06:00 06:31 07:37 Temp 36.7 Pulse 114 Resp 18 B/P (MAP) 132/72 (92) Pulse Ox 99 O2 Delivery Nasal Cannula O2 Flow Rate 2.00 FiO2 28 Capillary Refill : Less Than 3 Seconds I&O Intake and Output 08/05/20 23:59 Intake Total 1573 ml Output Total 3250 ml Balance -1677 ml Intake Oral 938 ml IV Total 635 ml Output Urine Total 3250 ml General: Alert, Cooperative, Mild Distress HEENT: Atraumatic, PERRLA Neck: Supple, No JVD, No Thyromegaly Lungs: Normal Air Movement, Other (bilateral rhonchi) Heart: Normal S1, Normal S2, No Murmurs, Other (tachycardia) Abdomen: Normal Bowel Sounds, Soft, No Tenderness, No Hepatosplenomegaly, No Masses Extremities: No Clubbing, No Cyanosis, No Edema, Normal Pulses, No Tenderness/Swelling Skin: No Rashes, No Breakdown, No Significant Lesion Neuro: Normal Speech, Strength at 5/5 X4 Ext, Sensation Intact, Other (slightly slurred speech) Psych/Mental Status: Mood NL, Other (lethargic) Results Lab Laboratory Tests 08/05/20 10:00 08/05/20 14:11 08/05/20 18:15 08/05/20 22:32 08/06/20 02:57 A/P-Cardiology Admission Diagnosis Atrial flutter Type II myocardial infarction Head trauma Hypertension Assessment/Plan Atrial flutter with rapid ventricular response, I am changing Cardizem to oral, start him on Eliquis CARON done on August 06, 2020 showing possible thrombus in the left atrial appendage, cannot proceed with cardioversion, will continue with rate controlling medication Non-ST elevation myocardial infarction, extensive coronary artery disease, inoperable, conservative management is recommended Coronary artery disease, history of CABG and multiple intervention the past. Cardiac catheterization was carried out on August 05, 2020 showing patent POLLARD to the LAD with occluded LAD beyond the anastomosis point, very small artery not amendable to intervention, occluded first obtuse marginal branch and occluded vein graft to the obtuse marginal branch, very small artery not amendable to in tervention, occluded right coronary artery with patent vein graft to the right coronary artery with small vessel disease distally, moderate disease in the proper circumflex artery. His coronary artery disease, it is mainly involving small vessel disease not amendable to intervention. Maximizing medical therapy is recommended Congestive heart failure, acute left ventricular systolic dysfunction, combination of ischemic and nonischemic cardiomyopathy, continue on current medication and will consider LifeVest Change in mental status, lethargic, fatigued, no focal deficit, CT scan of the head was repeated on August 04, 2020, did not show any changes. Managed by primary care team Shortness of breath, had chronic dyspnea, followed by Dr. Perez. No change from baseline Labile blood pressure, history of hypertensive emergency. Lactic acidosis, managed by primary care team Chronic renal insufficiency, history of bilateral hydronephrosis, incontinence, followed by primary care physician Urinary incontinence, probably overflow, followed and managed by primary care physician Diabetes mellitus, followed and managed by primary care physician Hyperlipidemia, continue current medications Schizophrenia, managed by primary care physician AARON DAWSON MD Aug 06, 2020 9:40 am
[2020-08-06] MEDS ORDERED: FLUT9.9S NS (10:05)
[2020-08-06] MEDS ORDERED: INSU100I48 SC (10:05)
[2020-08-06] MEDS ORDERED: CYCL10TA9 PO (10:05)
[2020-08-06] MEDS ORDERED: DIVA125C PO ×2 (10:05→10:08)
[2020-08-06] MEDS ORDERED: METF-397 PO (10:05)
[2020-08-06] MEDS ORDERED: INSU100I10 SQ (10:05)
[2020-08-06] MEDS: cefTRIAXone FOR IV USE 1,000 MG in WATER (STERILE) FOR INJECTION 10 ML IV SCH (10:41)
[2020-08-06] MEDS: DIGOXIN 0.25 MG (LANOXIN) TAB PO SCH (11:36)
[2020-08-06] MEDS: CARVEDILOL 3.125 MG (COREG) TABLET PO SCH ×2 (11:36→19:42)
[2020-08-06] MEDS: FUROSEMIDE 40 MG (LASIX) TAB PO SCH (11:36)
[2020-08-06] MEDS: APIXABAN 5 MG (ELIQUIS) TABLET PO SCH ×2 (11:36→19:42)
[2020-08-06] MEDS: SEVELAMER CARBONATE 800 MG TABLET (RENVELA) PO SCH ×3 (11:39→17:06)
[2020-08-06] MEDS: DIVALPROX SPRINKLE 125 MG (DEPAKOTE) CAP PO SCH ×2 (11:39→19:42)
[2020-08-06] MEDS: MONTELUKAST 10 MG (SINGULAIR) TAB PO SCH (11:39)
[2020-08-06] MEDS: LORATADINE (CLARITIN) 10 MG TAB PO SCH (11:39)
[2020-08-06] MEDS: ASPIRIN E.C. 81 MG (ECOTRIN) TAB PO SCH (11:39)
[2020-08-06] MEDS: OLANZapine 5 MG (ZyPREXA) TAB PO SCH ×2 (11:39→19:42)
--- NOTE | 2020-08-06 13:10 | Speech Therapy Progress Note ---
Therapy Progress Note ST to discharge swallow evaluation due to patient currently on regular diet texture without difficulty. TANA PERRY Aug 06, 2020 13:10
--- NOTE | 2020-08-06 14:27 | Physical Therapy Evaluation ---
PT Evaluation-General Medical Diagnosis Admission Date Aug 03, 2020 at 14:00 Medical Diagnosis: falls Onset Date: Aug 03, 2020 Therapy Diagnosis Therapy Diagnosis: impaired mobility, strength, endurance Height/Weight Height (Feet): 5 Height (Inches): 8.00 Weight (Pounds): 171 Weight (Ounces): 0.0 Precautions Precautions/Isolations: Aspiration, Seizure, Fall Prevention, Standard Pre cautions, Pressure Ulcer Referral Physician: Analia Reason for Referral: Evaluation/Treatment Medical History Additional Medical History Past Medical History Surgeries: CABG, Vasectomy Respiratory: COPD Cardiac: Coronary Artery Disease, High Cholesterol, Hypertension Genitourinary: Renal Failure Gastrointestinal: Gastroesophageal Reflux Endocrine: Diabetes, Non-Insulin dep Psychosocial: Sleep Difficulties, PTSD, Schizophrenia, Depression Reviewed History: Yes Social History Home: Correction Prior Prior Level of Function SCALE: Activities may be completed with or without assistive devices. 2-Xxumvzuehu-kkwtqvj completes the activity by him/herself with no assistance from a helper. 5-Set-up or Clean-up Assistance-helper sets up or cleans up; patient completes activity. Whittaker assists only prior to or following the activity. 4-Supervision or Touching Assistance-helper provides verbal cues and/or touching/steadying and/or contact guard assistance as patient completes activity. Assistance may be provided throughout the activity or intermittently. 3-Partial/Moderate Assistance-helper does LESS THAN HALF the effort. Whittaker lifts, holds or supports trunk or limbs, but provides less than half the effort. 2-Substantial/Maximal Assistance-helper does MORE THAN HALF the effort. Whittaker lifts or holds trunk or limbs and provides more than half the effort. 2-Ulmtbtqan-jkwmkk does ALL the effort. Patient does none of the effort to complete the activity. Or, the assistance of 2 or more helpers is required for the patient to complete the activity. If activity was not attempted, code reason: 7-Patient Refused. 9-Not Applicable-not attempted and the patient did not perform the activity before the current illness, exacerbation or injury. 10-Not Attempted due to Environmental Limitations-(lack of equipment, weather restraints, etc.). 88-Not Attempted due to Medical Conditions or Safety Concerns. Unknown. In medical history it seems like he has been ambulatory, but patient states he was walking 5 miles at a time previously. PT Evaluation-Current Subjective Patient in bed pre tx, agrees to PT, has no complaints of pain. Pt/Family Goals none stated Objective Patient Orientation: Person, Confused Attachments: Solano Catheter, IV ROM/Strength ROM Lower Extremities WNL Strength Lower Extremities Patient will not follow directions for MMT but seems to have at least 3/5 in BLE grossly Sensory Hearing: Functional Sensation Right Lower Extremit: Intact Sensation Left Lower Extremity: Intact Transfers Roll Left to Right (QC): 1 Sit to Lying (QC): 1 Lying to Sitting/Side of Bed(Q: 2 Patient assisted a little with supine to sit but not with any other functional mobility, sat at the side of the bed with max assist, sat for about 5 min with continued max assist for sitting balance and performed a couple of LE exercises. After laying back down patient had to roll from side to side several times to readjust drawsheet, dependent. Balance Sitting Static: Poor Sitting Dynamic: Poor Treatment BLE seated exercises x10 (AP, LAQ) Assessment/Needs Patient has impaired mobility, strength, endurance. Patient in bed post tx with nurse call, jeana, nurse in room. Patient was max to dependent for supine to sit and rolling. Not safe to attempt standing yet. Unless he improves, he will be a ifeanyi transfer. Rehab Potential: Guarded PT Halfway Goals Prize Fighter Goals PT Prize Fighter Goals Time Frame: Aug 13, 2020 Roll Left & Right (QC): 3 Sit to Lying (QC): 3 Lying-Sitting on Side/Bed(QC): 3 Sit to Stand (QC): 3 PT Plan Problem List Problem List: Activity Tolerance, Functional Strength, Safety, Balance, Gait, Transfer, Bed Mobility, ROM Treatment/Plan Treatment Plan: Continue Plan of Care Treatment Plan: Bed Mobility, Education, Functional Activity Arnold, Functional Strength, Gait, Safety, Therapeutic Exercise, Transfers Treatment Duration: Aug 13, 2020 Frequency: 6 times per week Estimated Hrs Per Day: .25 hour per day Patient and/or Family Agrees t: Yes Safety Risks/Education Patient Education: Correct Positioning, Safety Issues Teaching Recipient: Patient Teaching Methods: Demonstration, Discussion Response to Teaching: Reinforcement Needed Discharge Recommendations Plan Patient will perform bed mobility and transfer training,balance and endurance training, functional strengthening, gait training, and education, to improve fun ctional mobility and independence at home. Therapy Discharge Recommendati: 24 Hour Supervision Time/GCodes Time In: 1358 Time Out: 1416 Total Billed Treatment Time: 18 Total Billed Treatment 1 visit EVM 18' ALIZE MCKNIGHT PT Aug 06, 2020 14:27
--- NOTE | 2020-08-06 14:38 | Progress Note - Hospitalist ---
Subjective HPI/CC On Admission Date Seen by Provider: Aug 06, 2020 Time Seen by Provider: 09:30 Pt is a 65yoCM with a PMH of a CAD s/p CABG, NIDDMI, schizophrenia who presented to the ER due to multiple falls at his facility. He is oriented to person and place but seems to have some mental deficits at baseline. He lives at [facility] and [facility] and he suffered 3 falls this morning one resulting in a head injury where he actually left a nini in the [facility]. EMS was called and he was found to have sats of 89% on room air with rales. He was given a Duoneb treatment en route. He does complain of a headache from where he feel but otherwise no specific complaints. He was found to have an elevated troponin and to be in a-fib with RVR. Incidentally he was also noted to have a sodium of 111 incidentally. Subjective/Events-last exam He is sleeping on my arrival. He had a CARON this morning. He does not express any complaints or concerns. Focused Exam Lactate Level 08/03/20 16:13: Lactic Acid Level 2.71*H 08/04/20 03:00: Lactic Acid Level 1.10 Objective Exam Vital Signs Vital Signs Date Time Temp Pulse Resp B/P (MAP) Pulse Ox O2 Delivery O2 Flow Rate FiO2 08/06/20 13:00 81 18 93/79 (84) 96 Nasal Cannula 2.00 08/06/20 11:17 36.8 08/03/20 16:58 28 Capillary Refill : Less Than 3 Seconds General Appearance: No Apparent Distress, Obese Respiratory: Lungs Clear, Normal Breath Sounds, No Respiratory Distress Cardiovascular: Regular Rate, Rhythm, No Edema, No Murmur Gastrointestinal: Normal Bowel Sounds, Soft Extremity: Normal Inspection, No Pedal Edema Skin: Normal Color, Warm/Dry Results/Procedures Lab Laboratory Tests 08/05/20 18:15 08/05/20 22:32 08/06/20 02:57 Patient resulted labs reviewed. Imaging: Reviewed Imaging Report Assessment/Plan Assessment and Plan Assess & Plan/Chief Complaint Atrial flutter with RVR NSTEMI CAD s/p CABG HFrEF HLD Cardiology consulted, appreciate assistance Echo revealed EF of 10-15% Awaiting LifeVest Cath with no CAD amenable to intervention CARON revealed likely left atrial appendage thrombus Continue Cardizem, Coreg, and Eliquis Hyponatremia Na 126 today, improving Continue to monitor Altered mental status Schizophrenia CT head negative AMS improved Continue home meds T2DM SSI Fall PT/OT DVT ppx: Lovenox Lactic acidosis, resolved Diagnosis/Problems Diagnosis/Problems (1) Atrial flutter with rapid ventricular response Status: Acute (2) NSTEMI (non-ST elevation myocardial infarction) Status: Acute (3) HFrEF (heart failure with reduced ejection fraction) Status: Acute (4) Ischemic cardiomyopathy Status: Acute (5) Hyponatremia Status: Acute (6) Schizophrenia Status: Chronic NAWAF VILLEDA MD Aug 06, 2020 14:37
[2020-08-06] MEDS: GABAPENTIN 100 MG (NEURONTIN) CAP PO SCH (19:42)
[2020-08-06] MEDS: TAMSULOSIN 0.4 MG (FLOMAX) CAP PO SCH (19:42)
[2020-08-07] MEDS: RT-ALBUTEROL/IPRATROPIUM 3 ML (DUONEB) VIAL INH SCH ×6 (02:52→21:52)
[2020-08-07 04:15] LABS: BASOPHILS % (AUTO) 0 % (0-10); EOSINOPHILS # (AUTO) 0.1 10^3/uL (0.0-0.3); EOSINOPHILS % (AUTO) 2 % (0-10); HEMATOCRIT 39 % (40-54); HEMOGLOBIN 12.2 g/dL (13.3-17.7); LYMPHOCYTES # (AUTO) 0.9 10^3/uL (1.0-4.0); LYMPHOCYTES % (AUTO) 13 % (12-44); MEAN CORPUSCULAR HEMOGLOBIN 30 pg (25-34); MEAN CORPUSCULAR HGB CONC 32 g/dL (32-36); MEAN CORPUSCULAR VOLUME 96 fL (80-99); MONOCYTES % (AUTO) 14 % (0-12); NEUTROPHILS % (AUTO) 70 % (42-75); PLATELET COUNT 295 10^3/uL (130-400); WHITE BLOOD COUNT 7.1 10^3/uL (4.3-11.0)
[2020-08-07 04:41] LABS: ALBUMIN 3.4 GM/DL (3.2-4.5); BILIRUBIN,TOTAL 0.2 MG/DL (0.1-1.0); CALCIUM 8.8 MG/DL (8.5-10.1); CREATININE SERUM 1.7 MG/DL (0.60-1.30); PHOSPHORUS 4.7 MG/DL (2.3-4.7); POTASSIUM 4.3 MMOL/L (3.6-5.0); TOTAL PROTEIN 7.1 GM/DL (6.4-8.2)
[2020-08-07] MEDS: inSUlin ASPART (NovoLOG) 1 UNIT/0.01 ML (CHARGE PER UNIT) SC SCH ×4 (04:49→20:57)
--- NOTE | 2020-08-07 08:19 | Diagnostic Imaging Report ---
Portable erect AP chest at 3:48. Indication: Shortness of breath. The appearance of the chest has improved since the prior exam of 08/06/2020 as the right lung base does seem better aerated. There is still some residual pneumonia/atelectasis involving the right lung base. The left lung remains generally clear. I do suspect that there is minimal atelectasis/infiltrate involving the left lung base however. The lung apices are clear and there is no sign of a pneumothorax. The cardiomegaly and sternotomy wires and surgical clips noted previously are again evident and no different. The mediastinum is not widened. The osseous structures are intact. The central venous catheter on the right seen previously has been removed without apparent complication. Impression: 1. The appearance of the chest has improved as the right lung base does seem better aerated. There is still some residual pneumonia/atelectasis involving the right lower lobe however. A followup study would be recommended for continued evaluation. 2. The central venous catheter on right has been removed. Dictated by: Dictated on workstation # [id number]
[2020-08-07] MEDS: DIGOXIN 0.25 MG (LANOXIN) TAB PO SCH (09:13)
[2020-08-07] MEDS: DIVALPROX SPRINKLE 125 MG (DEPAKOTE) CAP PO SCH ×2 (09:13→20:57)
[2020-08-07] MEDS: SEVELAMER CARBONATE 800 MG TABLET (RENVELA) PO SCH ×3 (09:13→17:48)
[2020-08-07] MEDS: LORATADINE (CLARITIN) 10 MG TAB PO SCH (09:14)
[2020-08-07] MEDS: PANTOPRAZOLE 40 MG (PROTONIX) TAB PO SCH (09:14)
[2020-08-07] MEDS: MONTELUKAST 10 MG (SINGULAIR) TAB PO SCH (09:14)
[2020-08-07] MEDS: OLANZapine 5 MG (ZyPREXA) TAB PO SCH ×2 (09:14→21:20)
[2020-08-07] MEDS: FUROSEMIDE 40 MG (LASIX) TAB PO SCH (09:14)
[2020-08-07] MEDS: CARVEDILOL 3.125 MG (COREG) TABLET PO SCH (09:14)
[2020-08-07] MEDS: cefTRIAXone FOR IV USE 1,000 MG in WATER (STERILE) FOR INJECTION 10 ML IV SCH (09:15)
[2020-08-07] MEDS: APIXABAN 5 MG (ELIQUIS) TABLET PO SCH ×2 (09:22→20:57)
[2020-08-07] MEDS: ASPIRIN E.C. 81 MG (ECOTRIN) TAB PO SCH (09:22)
--- NOTE | 2020-08-07 10:16 | Cardiology Progress Note ---
Subjective Date Seen by Provider: Aug 07, 2020 Time Seen by Provider: 10:11 Subjective/Events-last exam patient is laying down in bed, lethargic, no change from baseline Review of Systems General: No Chills, No Night Sweats; Fatigue, Malaise; No Appetite, No Other HEENT: No Head Aches, No Visual Changes, No Eye Pain, No Ear Pain, No Dysphasia, No Sinus Congestion, No Post Nasal Drip, No Sore Throat, No Other Pulmonary: No Dyspnea, No Cough, No Pleuritic Chest Pain, No Other Objective-Cardiology Exam Last Set of Vital Signs Vital Signs 08/03/20 08/07/20 08/07/20 16:58 08:00 08:01 Temp 36.2 Pulse 116 Resp 28 B/P (MAP) 128/69 (88) Pulse Ox 94 O2 Delivery Nasal Cannula O2 Flow Rate 4.00 FiO2 28 Capillary Refill : Less Than 3 Seconds I&O Intake and Output 08/07/20 00:00 Intake Total 865 ml Output Total 2375 ml Balance -1510 ml Intake Oral 730 ml IV Total 135 ml Output Urine Total 2375 ml General: Alert, Cooperative, Mild Distress HEENT: Atraumatic, PERRLA Neck: Supple, No JVD, No Thyromegaly Lungs: Normal Air Movement, Other (bilateral rhonchi) Heart: Normal S1, Normal S2, No Murmurs, Other (tachycardia) Abdomen: Normal Bowel Sounds, Soft, No Tenderness, No Hepatosplenomegaly, No Masses Extremities: No Clubbing, No Cyanosis, No Edema, Normal Pulses, No Tenderness/Swelling Skin: No Rashes, No Breakdown, No Significant Lesion Neuro: Normal Speech, Strength at 5/5 X4 Ext, Sensation Intact, Other (slightly slurred speech) Psych/Mental Status: Mood NL, Other (lethargic) Results Lab Laboratory Tests 08/07/20 03:40 A/P-Cardiology Admission Diagnosis Atrial flutter Type II myocardial infarction Head trauma Hypertension Assessment/Plan Atrial flutter with rapid ventricular response, I will change Cardizem to Cardizem CD 240 mg daily and change Coreg to Toprol-XL 50 mg daily and monitor tolerance and response CARON done on August 06, 2020 showing possible thrombus in the left atrial appendage, cannot proceed with cardioversion, will continue with rate controlling medication Non-ST elevation myocardial infarction, extensive coronary artery disease, inoperable, conservative management is recommended Coronary artery disease, history of CABG and multiple intervention the past. Cardiac catheterization was carried out on August 05, 2020 showing patent POLLARD to the LAD with occluded LAD beyond the anastomosis point, very small artery not amendable to intervention, occluded first obtuse marginal branch and occluded vein graft to the obtuse marginal branch, very small artery not amendable to intervention, occluded right coronary artery with patent vein graft to the right coronary artery with small vessel disease distally, moderate disease in the proper circumflex artery. His coronary artery disease, it is mainly involving small vessel disease not amendable to intervention. Maximizing medical therapy is recommended Congestive heart failure, acute left ventricular systolic dysfunction, combination of ischemic and nonischemic cardiomyopathy, continue on current medication and will consider LifeVest, repeating CARON showed some improvement in the heart function, probably left ventricular systolic function improved after improving his heart rate controlled. Continue to monitor Change in mental status, lethargic, fatigued, no focal deficit, CT scan of the head was repeated on August 04, 2020, did not show any changes. Managed by primary care team Shortness of breath, had chronic dyspnea, followed by Dr. Perez. No change from baseline Labile blood pressure, history of hypertensive emergency. Lactic acidosis, managed by primary care team Chronic renal insufficiency, history of bilateral hydronephrosis, incontinence, followed by primary care physician Urinary incontinence, probably overflow, followed and managed by primary care physician Diabetes mellitus, followed and managed by primary care physician Hyperlipidemia, continue current medications Schizophrenia, managed by primary care physician AARON DAWSON MD Aug 07, 2020 10:16
--- NOTE | 2020-08-07 11:37 | Physical Therapy Daily Note ---
PT Daily Note-Current Subjective Patient is in bed and very lethargic. Mental Status Patient Orientation: Listless Attachments: Oxygen, Solano Catheter Transfers SCALE: Activities may be completed with or without assistive devices. 4-Snelcqgxlt-mtgxryb completes the activity by him/herself with no assistance from a helper. 5-Set-up or Clean-up Assistance-helper sets up or cleans up; patient completes activity. Dickens assists only prior to or following the activity. 4-Supervision or Touching Assistance-helper provides verbal cues and/or touching/steadying and/or contact guard assistance as patient completes activity. Assistance may be provided throughout the activity or intermittently. 3-Partial/Moderate Assistance-helper does LESS THAN HALF the effort. Dickens lifts, holds or supports trunk or limbs, but provides less than half the effort. 2-Substantial/Maximal Assistance-helper does MORE THAN HALF the effort. Dickens lifts or holds trunk or limbs and provides more than half the effort. 2-Stzfpxsrq-egajzp does ALL the effort. Patient does none of the effort to complete the activity. Or, the assistance of 2 or more helpers is required for the patient to complete the activity. If activity was not attempted, code reason: 7-Patient Refused. 9-Not Applicable-not attempted and the patient did not perform the activity before the current illness, exacerbation or injury. 10-Not Attempted due to Environmental Limitations-(lack of equipment, weather restraints, etc.). 88-Not Attempted due to Medical Conditions or Safety Concerns. Exercises Supine Ex: Heel Slides, Straight leg raise, Hip abd/add Supine Reps: 12 (PROM due to lethargy) Assessment Patient currently not safe to perform EOB or OOB activity due to lethargy. VT consulted on patient's PLOF of minimal assist with all mobility and ADL's. Is in w/c and walks occasionally with FWW per facility. "depending on the day and his mood". PT Aircraft Mechanic Goals Aircraft Mechanic Goals PT Aircraft Mechanic Goals Time Frame: Aug 13, 2020 Roll Left & Right (QC): 3 Sit to Lying (QC): 3 Lying-Sitting on Side/Bed(QC): 3 Sit to Stand (QC): 3 PT Plan Treatment/Plan Treatment Plan: Continue Plan of Care Treatment Plan: Bed Mobility, Education, Functional Activity Arnold, Functional Strength, Gait, Safety, Therapeutic Exercise, Transfers Treatment Duration: Aug 13, 2020 Frequency: 6 times per week Estimated Hrs Per Day: .25 hour per day Patient and/or Family Agrees t: Yes Time/GCodes Time In: 1120 Time Out: 1130 Total Billed Treatment Time: 10 Total Billed Treatment 1 visit EX 10 min AKASH REMY PT Aug 07, 2020 11:37
--- NOTE | 2020-08-07 13:06 | Progress Note - Hospitalist ---
Subjective HPI/CC On Admission Date Seen by Provider: Aug 07, 2020 Time Seen by Provider: 10:00 Pt is a 65yoCM with a PMH of a CAD s/p CABG, NIDDMI, schizophrenia who presented to the ER due to multiple falls at his facility. He is oriented to person and place but seems to have some mental deficits at baseline. He lives at [facility] and [facility] and he suffered 3 falls this morning one resulting in a head injury where he actually left a nini in the [facility]. EMS was called and he was found to have sats of 89% on room air with rales. He was given a Duoneb treatment en route. He does complain of a headache from where he feel but otherwise no specific complaints. He was found to have an elevated troponin and to be in a-fib with RVR. Incidentally he was also noted to have a sodium of 111 incidentally. Subjective/Events-last exam He has no complaints. He denies pain. He is difficult to understand, but cooperative. Objective Exam Vital Signs Vital Signs Date Time Temp Pulse Resp B/P (MAP) Pulse Ox O2 Delivery O2 Flow Rate FiO2 08/07/20 11:49 36.6 08/07/20 08:30 98 Nasal Cannula 4.00 08/07/20 08:00 116 28 128/69 (88) 08/03/20 16:58 28 Capillary Refill : Less Than 3 Seconds General Appearance: No Apparent Distress, Obese Respiratory: Lungs Clear, Normal Breath Sounds, No Respiratory Distress Cardiovascular: No Murmur, Irregularly Irregular Gastrointestinal: Normal Bowel Sounds, Non Tender, Soft Extremity: Normal Inspection, Pedal Edema Neurologic/Psychiatric: Alert, Disoriented, Other (flat affect) Skin: Normal Color, Warm/Dry Results/Procedures Lab Laboratory Tests 08/07/20 03:40 Patient resulted labs reviewed. Imaging: Reviewed Imaging Report Assessment/Plan Assessment and Plan Assess & Plan/Chief Complaint Atrial flutter with RVR NSTEMI CAD s/p CABG HFrEF HLD Cardiology consulted, appreciate assistance Echo revealed EF of 10-15% Awaiting LifeVest Cath with no CAD amenable to intervention CARON revealed likely left atrial appendage thrombus Continue Cardizem, Coreg, and Eliquis Hyponatremia Na 135 today, improving Continue to monitor PNA Rocephin Schizophrenia Continue home meds T2DM SSI Fall PT/OT DVT ppx: Lovenox Lactic acidosis, resolved Diagnosis/Problems Diagnosis/Problems (1) Atrial flutter with rapid ventricular response Status: Acute (2) NSTEMI (non-ST elevation myocardial infarction) Status: Acute (3) HFrEF (heart failure with reduced ejection fraction) Status: Acute (4) Ischemic cardiomyopathy Status: Acute (5) Hyponatremia Status: Acute (6) Schizophrenia Status: Chronic NAWAF VILLEDA MD Aug 07, 2020 13:06
[2020-08-07 13:39] LABS: ABG OXYGEN SATURATION 94 % (94-100); ABG PO2 81 MMHG (79-93); ABG TCO2 39.4 MMOL/L (21.0-31.0)
[2020-08-07 13:41] LABS: ABG PCO2 75 MMHG (35-45); ABG PH 7.32 (7.37-7.43)
[2020-08-07 13:42] LABS: PATIENT TEMP 36.7; VENTILATOR NO
[2020-08-07 18:08] VITALS: BP 160/101
[2020-08-07 18:39] LABS: ABG OXYGEN SATURATION 92 % (94-100); ABG PCO2 64 MMHG (35-45); ABG PH 7.41 (7.37-7.43); ABG PO2 63 MMHG (79-93); ABG TCO2 41.5 MMOL/L (21.0-31.0)
[2020-08-07 18:40] LABS: VENTILATOR NO
[2020-08-07 18:41] LABS: PATIENT TEMP 37
[2020-08-07] MEDS: GABAPENTIN 100 MG (NEURONTIN) CAP PO SCH (20:57)
[2020-08-07] MEDS: TAMSULOSIN 0.4 MG (FLOMAX) CAP PO SCH (20:57)
[2020-08-07 21:52] VITALS: BP 151/104
[2020-08-08 01:53] VITALS: BP 129/83
[2020-08-08] MEDS: RT-ALBUTEROL/IPRATROPIUM 3 ML (DUONEB) VIAL INH SCH ×6 (01:53→23:02)
[2020-08-08 03:28] LABS: BASOPHILS % (AUTO) 1 % (0-10); EOSINOPHILS # (AUTO) 0.3 10^3/uL (0.0-0.3); EOSINOPHILS % (AUTO) 4 % (0-10); HEMATOCRIT 38 % (40-54); HEMOGLOBIN 11.7 g/dL (13.3-17.7); LYMPHOCYTES # (AUTO) 1.2 10^3/uL (1.0-4.0); LYMPHOCYTES % (AUTO) 16 % (12-44); MEAN CORPUSCULAR HEMOGLOBIN 30 pg (25-34); MEAN CORPUSCULAR HGB CONC 31 g/dL (32-36); MEAN CORPUSCULAR VOLUME 95 fL (80-99); MEAN PLATELET VOLUME 8.8 fL (9.0-12.2); MONOCYTES # (AUTO) 1.1 10^3/uL (0.0-1.0); MONOCYTES % (AUTO) 15 % (0-12); NEUTROPHILS % (AUTO) 64 % (42-75); PLATELET COUNT 248 10^3/uL (130-400); WHITE BLOOD COUNT 7.7 10^3/uL (4.3-11.0)
[2020-08-08 03:29] LABS: ABG OXYGEN SATURATION 97 % (94-100); ABG PCO2 62 MMHG (35-45); ABG PH 7.42 (7.37-7.43); ABG PO2 88 MMHG (79-93); ABG TCO2 41.4 MMOL/L (21.0-31.0)
[2020-08-08 03:30] LABS: ALLENS TEST YES-POS; INSPIRED O2 40% BIPAP; PATIENT TEMP 36.4; VENTILATOR NO
[2020-08-08 03:56] LABS: CALCIUM 8.8 MG/DL (8.5-10.1); CREATININE SERUM 1.48 MG/DL (0.60-1.30); MAGNESIUM 1.9 MG/DL (1.6-2.4); PHOSPHORUS 3.8 MG/DL (2.3-4.7); POTASSIUM 3.7 MMOL/L (3.6-5.0)
[2020-08-08] MEDS: inSUlin ASPART (NovoLOG) 1 UNIT/0.01 ML (CHARGE PER UNIT) SC SCH ×4 (05:14→19:57)
--- NOTE | 2020-08-08 06:25 | Diagnostic Imaging Report ---
INDICATION: Hyponatremia and shortness of air. TIME OF EXAM: 3:07 AM Correlation is made with prior chest one day earlier. FINDINGS: Changes of median sternotomy are noted. There is some atelectasis in the right base, unchanged. Left lung is fairly clear. No significant effusion or pneumothorax is seen. IMPRESSION: Right basilar subsegmental atelectasis. Dictated by: Dictated on workstation # [id number]
[2020-08-08] MEDS: MONTELUKAST 10 MG (SINGULAIR) TAB PO SCH (08:45)
[2020-08-08] MEDS: DIVALPROX SPRINKLE 125 MG (DEPAKOTE) CAP PO SCH ×2 (08:46→19:56)
[2020-08-08] MEDS: SEVELAMER CARBONATE 800 MG TABLET (RENVELA) PO SCH ×3 (08:46→18:20)
[2020-08-08] MEDS: LORATADINE (CLARITIN) 10 MG TAB PO SCH (08:46)
[2020-08-08] MEDS: FUROSEMIDE 40 MG (LASIX) TAB PO SCH (08:46)
[2020-08-08] MEDS: ASPIRIN E.C. 81 MG (ECOTRIN) TAB PO SCH (08:46)
[2020-08-08] MEDS: DIGOXIN 0.25 MG (LANOXIN) TAB PO SCH (08:46)
[2020-08-08] MEDS: APIXABAN 5 MG (ELIQUIS) TABLET PO SCH ×2 (08:46→19:56)
[2020-08-08] MEDS: PANTOPRAZOLE 40 MG (PROTONIX) TAB PO SCH (08:46)
[2020-08-08] MEDS: OLANZapine 5 MG (ZyPREXA) TAB PO SCH ×2 (08:46→19:56)
[2020-08-08] MEDS: cefTRIAXone FOR IV USE 1,000 MG in WATER (STERILE) FOR INJECTION 10 ML IV SCH (08:47)
[2020-08-08] MEDS ORDERED: meTOproloL SUCCINATE 50 MG (TOPROL XL) TAB PO SCH (09:00)
[2020-08-08 10:46] VITALS: BP 143/86
[2020-08-08] MEDS ORDERED: SENNA W/DOCUSATE (SENOKOT S) TABLET ONE (11:30)
[2020-08-08] MEDS ORDERED: polyethylene glycoL POWDER 17 GM (MIRALAX) PACK PO PRN (11:30)
[2020-08-08] MEDS ORDERED: DOCUSATE SODIUM 100 MG (COLACE) CAP PO ONE (11:30)
[2020-08-08] MEDS ORDERED: polyethylene glycoL POWDER 17 GM (MIRALAX) PACK ONE (11:31)
[2020-08-08] MEDS: DOCUSATE SODIUM 100 MG (COLACE) CAP PO SCH ×2 (11:48→19:57)
[2020-08-08] MEDS: SENNA W/DOCUSATE (SENOKOT S) TABLET PO SCH ×2 (11:49→19:56)
[2020-08-08] MEDS: ACETAMINOPHEN 325 MG TABLET PO PRN (12:22)
[2020-08-08] MEDS: DOPamine DRIP 250 ML IV SCH (13:53)
--- NOTE | 2020-08-08 13:58 | Progress Note - Hospitalist ---
Subjective HPI/CC On Admission Date Seen by Provider: Aug 08, 2020 Time Seen by Provider: 09:35 Pt is a 65yoCM with a PMH of a CAD s/p CABG, NIDDMI, schizophrenia who presented to the ER due to multiple falls at his facility. He is oriented to person and place but seems to have some mental deficits at baseline. He lives at [facility] and [facility] and he suffered 3 falls this morning one resulting in a head injury where he actually left a nini in the the medical center. EMS was called and he was found to have sats of 89% on room air with rales. He was given a Duoneb treatment en route. He does complain of a headache from where he feel but otherwise no specific complaints. He was found to have an elevated troponin and to be in a-fib with RVR. Incidentally he was also noted to have a sodium of 111 incidentally. Subjective/Events-last exam He reports having abdominal pain. He has not had any bowel movements. He reports nausea. He has not had any vomiting. He denies chest pain. He says he is feeling short of breath. Objective Exam Vital Signs Vital Signs Date Time Temp Pulse Resp B/P (MAP) Pulse Ox O2 Delivery O2 Flow Rate FiO2 08/08/20 13:00 87 08/08/20 12:00 18 142/90 (107) 93 NIV Bilevel 30.00 08/08/20 11:54 36.8 08/08/20 10:46 32 Capillary Refill : Less Than 3 Seconds General Appearance: No Apparent Distress, Chronically ill, Obese Respiratory: Lungs Clear, Normal Breath Sounds, No Respiratory Distress Cardiovascular: No Edema, No Murmur, Irregularly Irregular, Tachycardia Gastrointestinal: Normal Bowel Sounds, Non Tender, Soft Extremity: Normal Inspection, Non Tender, No Pedal Edema Neurologic/Psychiatric: Alert, Oriented x3, No Motor/Sensory Deficits, Normal Mood/Affect Skin: Normal Color, Warm/Dry Results/Procedures Lab Laboratory Tests 08/08/20 03:10 Patient resulted labs reviewed. Imaging: Reviewed Imaging Report Assessment/Plan Assessment and Plan Assess & Plan/Chief Complaint Atrial flutter with RVR NSTEMI CAD s/p CABG HFrEF HLD Cardiology consulted, appreciate assistance Echo revealed EF of 10-15% CARON showed EF 35% LifeVest not required Cath with no CAD amenable to intervention CARON revealed likely left atrial appendage thrombus Continue Cardizem, Coreg, and Eliquis Acute respiratory failure with hypoxia and hypercapnia PNA ABG revealed acute hypercapnia Required BiPAP overnight Rocephin Schizophrenia Continue home meds T2DM SSI Fall PT/OT DVT ppx: Lovenox Lactic acidosis, resolved Hyponatremia, resolved Diagnosis/Problems Diagnosis/Problems (1) Acute respiratory failure with hypoxia and hypercapnia Status: Acute (2) Atrial flutter with rapid ventricular response Status: Acute (3) NSTEMI (non-ST elevation myocardial infarction) Status: Acute (4) HFrEF (heart failure with reduced ejection fraction) Status: Acute (5) Ischemic cardiomyopathy Status: Acute (6) Hyponatremia Status: Acute (7) Schizophrenia Status: Chronic NAWAF VILLEDA MD Aug 08, 2020 13:58
[2020-08-08] MEDS ORDERED: ATROPINE INJ 0.4 MG/ML SDV IV PRN (14:00)
[2020-08-08 14:10] LABS: ABG BASE EXCESS 15.8 MMOL/L (-2.5-2.5); ABG OXYGEN SATURATION 96 % (94-100); ABG PCO2 59 MMHG (35-45); ABG PH 7.45 (7.37-7.43); ABG PO2 73 MMHG (79-93)
[2020-08-08 14:12] VITALS: BP 115/80
[2020-08-08 14:13] LABS: ALLENS TEST YES-POS; INSPIRED O2 30%; PATIENT TEMP 36.1; VENTILATOR NO
--- NOTE | 2020-08-08 15:15 | Physical Therapy Daily Note ---
PT Daily Note-Current Subjective Pt. in bed upon arrival with 2 nurses and other services in room, nurse indicates pt. has had an episode and requests no PT Rx today. Mental Status Patient Orientation: Listless Transfers SCALE: Activities may be completed with or without assistive devices. 4-Cvortbrhws-zhbcztm completes the activity by him/herself with no assistance from a helper. 5-Set-up or Clean-up Assistance-helper sets up or cleans up; patient completes activity. [place] assists only prior to or following the activity. 4-Supervision or Touching Assistance-helper provides verbal cues and/or touching/steadying and/or contact guard assistance as patient completes activity. Assistance may be provided throughout the activity or intermittently. 3-Partial/Moderate Assistance-helper does LESS THAN HALF the effort. [place] lifts, holds or supports trunk or limbs, but provides less than half the effort. 2-Substantial/Maximal Assistance-helper does MORE THAN HALF the effort. [place] lifts or holds trunk or limbs and provides more than half the effort. 2-Gofjguajh-zihhxf does ALL the effort. Patient does none of the effort to complete the activity. Or, the assistance of 2 or more helpers is required for the patient to complete the activity. If activity was not attempted, code reason: 7-Patient Refused. 9-Not Applicable-not attempted and the patient did not perform the activity before the current illness, exacerbation or injury. 10-Not Attempted due to Environmental Limitations-(lack of equipment, weather restraints, etc.). 88-Not Attempted due to Medical Conditions or Safety Concerns. Assessment Current Status: Hold Per Dr/Nursing PT Prison Goals Tobacco Blender Goals PT Prison Goals Time Frame: Aug 13, 2020 Roll Left & Right (QC): 3 Sit to Lying (QC): 3 Lying-Sitting on Side/Bed(QC): 3 Sit to Stand (QC): 3 PT Plan Treatment/Plan Treatment Plan: Continue Plan of Care (as tolerated) Treatment Plan: Bed Mobility, Education, Functional Activity Arnold, Functional Strength, Gait, Safety, Therapeutic Exercise, Transfers Treatment Duration: Aug 13, 2020 Frequency: 6 times per week Estimated Hrs Per Day: .25 hour per day Patient and/or Family Agrees t: Yes Time/GCodes Time In: 1500 Time Out: 1505 Total Billed Treatment Time: 0 Total Billed Treatment 1,no Rx, no Chg DILLON ANDRE [employer]ODUCTION SPECIALIST Aug 08, 2020 15:15
--- NOTE | 2020-08-08 15:22 | Diagnostic Imaging Report ---
INDICATION: PICC line placement. EXAMINATION: Portable chest at 3:16 p.m. FINDINGS: Right upper extremity PICC line tip projects over the SVC. There are postop changes from a median sternotomy. There is some atelectasis at the right lung base. IMPRESSION: PICC line tip is at the cavoatrial junction. Dictated by: Dictated on workstation # [id number]
--- NOTE | 2020-08-08 15:42 | Progress Note - Cardiology ---
Cardiology SOAP Progress Note Subjective: No cp or palp or syncope Shortness of breath with activity No focal weakness Gen weakness and malaise present No n/v/d Objective: I&O/Vital Signs 08/08/20 08/08/20 08/08/20 08/08/20 04:00 05:00 06:02 06:30 Pulse 87 87 87 87 Resp 31 13 17 16 B/P (MAP) 167/107 (127) 173/113 (133) 145/94 (111) 121/80 (94) Pulse Ox 95 94 97 92 O2 Delivery NIV Bilevel NIV Bilevel NIV Bilevel NIV Bilevel O2 Flow Rate 30.00 30.00 30.00 30.00 08/08/20 08/08/20 08/08/20 08/08/20 06:51 06:54 07:00 07:39 Temp 36.3 Pulse 110 87 Resp 18 B/P (MAP) 149/80 (103) Pulse Ox 93 95 O2 Delivery Nasal Cannula NIV Bilevel O2 Flow Rate 4.00 30.00 08/08/20 08/08/20 08/08/20 08/08/20 08:00 08:15 09:00 10:00 Pulse 113 90 87 Resp 21 B/P (MAP) 131/78 (95) 149/88 (108) 143/86 (105) Pulse Ox 90 95 93 95 O2 Delivery NIV Bilevel Nasal Cannula NIV Bilevel NIV Bilevel O2 Flow Rate 30.00 4.00 30.00 30.00 08/08/20 08/08/20 08/08/20 08/08/20 10:46 11:54 12:00 12:30 Temp 36.3 36.8 Pulse 87 89 Resp 18 B/P (MAP) 142/90 (107) Pulse Ox 95 93 95 O2 Delivery NIV Bilevel Nasal Cannula O2 Flow Rate 30.00 4.00 FiO2 32 08/08/20 08/08/20 08/08/20 08/08/20 13:00 14:00 14:12 15:00 Pulse 87 87 86 86 Resp 12 15 17 B/P (MAP) 115/80 (92) 133/81 (98) Pulse Ox 96 96 88 O2 Delivery NIV Bilevel NIV Bilevel O2 Flow Rate 30.00 40.00 30.00 08/08/20 15:13 Temp 36.5 08/08/20 00:00 Intake Total 960 ml Output Total 1025 ml Balance -65 ml Weight (Pounds): 171 Weight (Ounces): 0.0 Weight (Calculated Kilograms): 77.016381 Constitutional: AAO x 3, well-developed, well-nourished Respiratory: No accessory muscle use; other (fair to good, bilateral air entry) Cardiovascular: irregularly irregular, S1 and S2, systolic murmur (soft CALISTA at card base) Gastrointestional: No tender; soft; No guarding, No rebound; audible bowel sounds Extremities: No clubbing, No cyanosis, No significant edema Neurologic/Psychiatric: oriented x 3, other (moves all limbs equally) Skin: warm/dry; No cool, No rash on exposed areas, No ulcerations on exposed areas Results/Procedures: Labs Laboratory Tests 08/07/20 18:22: Blood Gas Puncture Site R RADIAL, Blood Gas Patient Temperature 37, Arterial Blood pH 7.41, Arterial Blood Partial Pressure CO2 64H, Arterial Blood Partial Pressure O2 63L, Arterial Blood HCO3 40H, Arterial Blood Total CO2 41.5H, Arterial Blood Oxygen Saturation 92L, Arterial Blood Base Excess 14.0H, Osei Test NA, Blood Gas Ventilator Setting NO, Blood Gas Inspired Oxygen 30.0% 08/07/20 20:47: Glucometer 67L 08/07/20 21:56: Glucometer 134H 08/08/20 03:10: White Blood Count 7.7, Red Blood Count 3.93L, Hemoglobin 11.7L, Hematocrit 38L, Mean Corpuscular Volume 95, Mean Corpuscular Hemoglobin 30, Mean Corpuscular He moglobin Concent 31L, Red Cell Distribution Width 14.2, Platelet Count 248, Mean Platelet Volume 8.8L, Immature Granulocyte % (Auto) 1, Neutrophils (%) (Auto) 64, Lymphocytes (%) (Auto) 16, Monocytes (%) (Auto) 15H, Eosinophils (%) (Auto) 4, Basophils (%) (Auto) 1, Neutrophils # (Auto) 5.0, Lymphocytes # (Auto) 1.2, Monocytes # (Auto) 1.1H, Eosinophils # (Auto) 0.3, Basophils # (Auto) 0.0, Immature Granulocyte # (Auto) 0.1, Sodium Level 138, Potassium Level 3.7, Chloride Level 93L, Carbon Dioxide Level 34H, Anion Gap 11, Blood Urea Nitrogen 20H, Creatinine 1.48H, Estimat Glomerular Filtration Rate 48, BUN/Creatinine Ratio 14, Glucose Level 100, Calcium Level 8.8, Phosphorus Level 3.8, Magnesium Level 1.9 08/08/20 03:20: Blood Gas Puncture Site R RAD, Blood Gas Patient Temperature 36.4, Arterial Blood pH 7.42, Arterial Blood Partial Pressure CO2 62H, Arterial Blood Partial Pressure O2 88, Arterial Blood HCO3 40H, Arterial Blood Total CO2 41.4H, A rterial Blood Oxygen Saturation 97, Arterial Blood Base Excess 14.0H, Osei Test YES-POS, Blood Gas Ventilator Setting NO, Blood Gas Inspired Oxygen 40% BIPAP 08/08/20 10:37: Glucometer 200H 08/08/20 13:47: Glucometer 235H 08/08/20 14:05: Blood Gas Puncture Site RT RAD, Blood Gas Patient Temperature 36.1, Arterial Blood pH 7.45H, Arterial Blood Partial Pressure CO2 59H, Arterial Blood Partial Pressure O2 73L, Arterial Blood HCO3 41*H, Arterial Blood Total CO2 43.0H, Arterial Blood Oxygen Saturation 96, Arterial Blood Base Excess 15.8H, Osei Test YES-POS, Blood Gas Ventilator Setting NO, Blood Gas Inspired Oxygen 30% Microbiology 08/04/20 Gram Stain - Final, Complete 08/04/20 Sputum Culture - Final, Complete Usual upper respiratory paulina Staphylococcus aureus Haemophilus species 08/03/20 Blood Culture - Preliminary, Resulted No growth 08/03/20 Urine Culture - Final, Complete See Comments Laboratory Tests 08/07/20 03:40 08/08/20 03:10 A/P: Assessment: Atrial flutter with rapid ventricular response, rate controlled on current regimen - CARON done on August 06, 2020 showing possible thrombus in the left atrial appendage, cannot proceed with cardioversion at this time Non-ST elevation myocardial infarction, extensive coronary artery disease, inoperable, conservative management is recommended Coronary artery disease, history of CABG and multiple intervention the past. Cardiac catheterization was carried out on August 05, 2020 showing patent POLLARD to the LAD with occluded LAD beyond the anastomosis point, very small artery not amendable to intervention, occluded first obtuse marginal branch and occluded vein graft to the obtuse marginal branch, very small artery not amendable to intervention, occluded right coronary artery with patent vein graft to the right coronary artery with small vessel disease distally, moderate disease in the proper circumflex artery. His coronary artery disease, it is mainly involving small vessel disease not amendable to intervention. Maximizing medical therapy is recommended Congestive heart failure, acute left ventricular systolic dysfunction, comb ination of ischemic and nonischemic cardiomyopathy, continue on current medication and will consider LifeVest, repeating CARON showed some improvement in the heart function (LVEF 30%), probably left ventricular systolic function improved after improving his heart rate controlled. Continue to monitor Change in mental status, lethargic, fatigued, no focal deficit, CT scan of the head was repeated on August 04, 2020, did not show any changes. Managed by primary care team Chronic shortness of breath, followed by Dr. Perez. No change from baseline Labile blood pressure, history of hypertensive emergency. Lactic acidosis, managed by primary care team Chronic renal insufficiency, history of bilateral hydronephrosis, incontinence, followed by primary care physician Diabetes mellitus, followed and managed by primary care physician Hyperlipidemia Schizophrenia, managed by primary care physician Plan: * Complex management due to multiple comorbidities and AF with a rapid rate that has been difficult to control * I discussed his case with Dr Cabrales this am * Monitor labs * Increase activity TERA MYERS MD FACP FAC [facility]S Aug 08, 2020 15:42
[2020-08-08] MEDS ORDERED: ATROPINE INJECTION 1 MG/10 ML SYR (ABBOTT) INJ ONE (17:10)
[2020-08-08] MEDS ORDERED: DOPamine DRIP 400,000 MCG/250 ML BAG IV ONE (17:10)
[2020-08-08] MEDS: GABAPENTIN 100 MG (NEURONTIN) CAP PO SCH (19:56)
[2020-08-08] MEDS: TAMSULOSIN 0.4 MG (FLOMAX) CAP PO SCH (19:57)
[2020-08-08 20:38] VITALS: BP 127/75
[2020-08-09] MEDS: RT-ALBUTEROL/IPRATROPIUM 3 ML (DUONEB) VIAL INH SCH ×6 (02:20→22:15)
[2020-08-09 04:03] LABS: BASOPHILS % (AUTO) 0 % (0-10); EOSINOPHILS # (AUTO) 0.4 10^3/uL (0.0-0.3); EOSINOPHILS % (AUTO) 5 % (0-10); HEMATOCRIT 35 % (40-54); HEMOGLOBIN 11.1 g/dL (13.3-17.7); LYMPHOCYTES % (AUTO) 13 % (12-44); MEAN CORPUSCULAR HEMOGLOBIN 30 pg (25-34); MEAN CORPUSCULAR HGB CONC 32 g/dL (32-36); MEAN CORPUSCULAR VOLUME 94 fL (80-99); MEAN PLATELET VOLUME 8.5 fL (9.0-12.2); MONOCYTES # (AUTO) 1.2 10^3/uL (0.0-1.0); MONOCYTES % (AUTO) 16 % (0-12); NEUTROPHILS # (AUTO) 5.1 10^3/uL (1.8-7.8); NEUTROPHILS % (AUTO) 65 % (42-75); PLATELET COUNT 246 10^3/uL (130-400); WHITE BLOOD COUNT 7.9 10^3/uL (4.3-11.0)
[2020-08-09 04:23] LABS: CALCIUM 8.9 MG/DL (8.5-10.1); CREATININE SERUM 1.35 MG/DL (0.60-1.30); PHOSPHORUS 3.8 MG/DL (2.3-4.7)
[2020-08-09] MEDS: inSUlin ASPART (NovoLOG) 1 UNIT/0.01 ML (CHARGE PER UNIT) SC SCH ×4 (05:37→20:24)
--- NOTE | 2020-08-09 07:48 | Diagnostic Imaging Report ---
CHEST 1 VIEW, AP/PA ONLY Indication: Dyspnea Comparison: 08/08/2020 Findings: Stable right PICC. Right basilar bandlike pulmonary opacities are present favor atelectasis. Blunting of right costophrenic angle could represent a trace right pleural effusion. No pneumothorax. Stable cardiomegaly with changes of CABG. Impression: 1. Right basilar subsegmental atelectasis is unchanged. 2. Potential trace right pleural effusion. Dictated by: Dictated on workstation # [id number]
[2020-08-09] MEDS: APIXABAN 5 MG (ELIQUIS) TABLET PO SCH ×2 (08:48→20:23)
[2020-08-09] MEDS: ASPIRIN E.C. 81 MG (ECOTRIN) TAB PO SCH (08:48)
[2020-08-09] MEDS: DIGOXIN 0.25 MG (LANOXIN) TAB PO SCH (08:48)
[2020-08-09] MEDS: OLANZapine 5 MG (ZyPREXA) TAB PO SCH ×2 (08:49→20:23)
[2020-08-09] MEDS: LORATADINE (CLARITIN) 10 MG TAB PO SCH (08:49)
[2020-08-09] MEDS: DOCUSATE SODIUM 100 MG (COLACE) CAP PO SCH ×2 (08:49→20:23)
[2020-08-09] MEDS: PANTOPRAZOLE 40 MG (PROTONIX) TAB PO SCH (08:49)
[2020-08-09] MEDS: FUROSEMIDE 40 MG (LASIX) TAB PO SCH (08:49)
[2020-08-09] MEDS: SENNA W/DOCUSATE (SENOKOT S) TABLET PO SCH ×2 (08:49→20:23)
[2020-08-09] MEDS: DIVALPROX SPRINKLE 125 MG (DEPAKOTE) CAP PO SCH ×2 (08:50→20:23)
[2020-08-09] MEDS: MONTELUKAST 10 MG (SINGULAIR) TAB PO SCH (09:08)
[2020-08-09] MEDS: SEVELAMER CARBONATE 800 MG TABLET (RENVELA) PO SCH ×3 (09:08→16:54)
--- NOTE | 2020-08-09 09:19 | Progress Note - Cardiology ---
Cardiology SOAP Progress Note Subjective: Gen malaise and weakness Attempted to increase ambulation yesterday. States was too weak to do so No cp or palp or syncope No shortness of breath at rest No n/v/d Objective: I&O/Vital Signs 08/08/20 08/08/20 08/08/20 08/09/20 22:00 23:00 23:02 00:00 Pulse 87 87 87 Resp 23 15 B/P (MAP) 135/81 (99) 139/93 (108) 123/80 (94) Pulse Ox 95 99 93 96 O2 Delivery High Flow N/C High Flow N/C Nasal Cannula High Flow N/C O2 Flow Rate 5.00 5.00 6.00 5.00 08/09/20 08/09/20 08/09/20 08/09/20 00:09 01:00 01:00 02:00 Pulse 86 90 87 Resp 20 B/P (MAP) 117/77 (90) 112/78 (89) Pulse Ox 95 95 99 O2 Delivery High Flow N/C High Flow N/C High Flow N/C O2 Flow Rate 6.00 5.00 5.00 08/09/20 08/09/20 08/09/20 08/09/20 02:20 02:23 03:00 04:00 Pulse 87 88 Resp 25 24 B/P (MAP) 121/76 (91) 145/94 (111) Pulse Ox 100 98 99 O2 Delivery Nasal Cannula High Flow N/C High Flow N/C High Flow N/C O2 Flow Rate 6.00 4.00 4.00 4.00 08/09/20 08/09/20 08/09/20 08/09/20 04:00 05:00 06:00 06:36 Pulse 88 87 87 Resp 28 B/P (MAP) 127/80 (96) 120/75 (90) Pulse Ox 99 99 99 O2 Delivery High Flow N/C High Flow N/C High Flow N/C O2 Flow Rate 4.00 4.00 4.00 08/09/20 08/09/20 07:03 08:04 Temp 36.6 Pulse 89 Resp 18 B/P (MAP) 139/92 (108) Pulse Ox 98 93 O2 Delivery Nasal Cannula High Flow N/C O2 Flow Rate 4.00 3.00 08/09/20 00:00 Intake Total 1020 ml Output Total 2700 ml Balance -1680 ml Weight (Pounds): 171 Weight (Ounces): 0.0 Weight (Calculated Kilograms): 77.782199 Constitutional: AAO x 3, well-developed, well-nourished Respiratory: No accessory muscle use; other (fair to good, bilateral air entry) Cardiovascular: irregularly irregular, S1 and S2, systolic murmur (soft CALISTA at card base) Gastrointestional: No tender; soft; No guarding, No rebound; audible bowel sounds Extremities: No clubbing, No cyanosis, No significant edema Neurologic/Psychiatric: oriented x 3, other (moves all limbs equally) Skin: warm/dry; No cool, No rash on exposed areas, No ulcerations on exposed areas Results/Procedures: Labs Laboratory Tests 08/08/20 10:37: Glucometer 200H 08/08/20 13:47: Glucometer 235H 08/08/20 14:05: Blood Gas Puncture Site RT RAD, Blood Gas Patient Temperature 36.1, Arterial Blood pH 7.45H, Arterial Blood Partial Pressure CO2 59H, Arterial Blood Partial Pressure O2 73L, Arterial Blood HCO3 41*H, Arterial Blood Total CO2 43.0H, Arterial Blood Oxygen Saturation 96, Arterial Blood Base Excess 15.8H, Osei Test YES-POS, Blood Gas Ventilator Setting NO, Blood Gas Inspired Oxygen 30% 08/08/20 16:12: Glucometer 203H 08/08/20 19:51: Glucometer 270H 08/09/20 03:40: White Blood Count 7.9, Red Blood Count 3.73L, Hemoglobin 11.1L, Hematocrit 35L, Mean Corpuscular Volume 94, Mean Corpuscular Hemoglobin 30, Mean Corpuscular Hemoglobin Concent 32, Red Cell Distribution Width 14.1, Platelet Count 246, Mean Platelet Volume 8.5L, Immature Granulocyte % (Auto) 1, Neutrophils (%) (Auto) 65, Lymphocytes (%) (Auto) 13, Monocytes (%) (Auto) 16H, Eosinophils (%) (Auto) 5, Basophils (%) (Auto) 0, Neutrophils # (Auto) 5.1, Lymphocytes # (Auto) 1.0, Monocytes # (Auto) 1.2H, Eosinophils # (Auto) 0.4H, Basophils # (Auto) 0.0, Immature Granulocyte # (Auto) 0.1, Sodium Level 139, Potassium Level 4.0, Chloride Level 93L, Carbon Dioxide Level 36H, Anion Gap 10, Blood Urea Nitrogen 24H, Creatinine 1.35H, Estimat Glomerular Filtration Rate 53, BUN/Creatinine Ratio 18, Glucose Level 211H, Calcium Level 8.9, Phosphorus Level 3.8, Magnesium Level 2.0 08/09/20 08:58: Glucometer 119H Microbiology 08/04/20 Gram Stain - Final, Complete 08/04/20 Sputum Culture - Final, Complete Usual upper respiratory paulina Staphylococcus aureus Haemophilus species 08/03/20 Blood Culture - Final, Complete No growth 08/03/20 Urine Culture - Final, Complete See Comments Laboratory Tests 08/08/20 03:10 08/09/20 03:40 A/P: Assessment: Atrial fib/flutter with a rapid ventricular response, rate controlled on current regimen - CARON done on August 06, [address] Cabrales: possible thrombus in the left atrial appendage, could not proceed with cardioversion Coronary artery disease - history of CABG and multiple intervention the past, pt does not know any details - Non-ST elevation myocardial infarction during this hospitalization leading to card cath described below - Cardiac catheterization was carried out on August 05, 2020 showing patent POLLARD to the LAD with occluded LAD beyond the anastomosis point, very small artery not amendable to intervention, occluded first obtuse marginal branch and occluded vein graft to the obtuse marginal branch, very small artery not amenable to intervention, occluded right coronary artery with patent vein graft to the right coronary artery with small vessel disease distally, moderate disease in the proper circumflex artery. His coronary artery disease mainly involves small vessels that are amenable to intervention. Maximizing medical therapy is recommended Ac systolic CHF - Echo 08/03/20 reported to show LVEF 10-15% - CARON 08/06/20 reported to show LVEF 30% Change in mental status, no focal deficit, CT scan of the head was repeated on August 04, 2020 and did not show any changes. Managed by primary care team Labile blood pressure, history of hypertensive emergency. Lactic acidosis, managed by primary care team Chronic renal insufficiency, history of bilateral hydronephrosis, incontinence, followed by primary care physician Diabetes mellitus, followed and managed by primary care physician Hyperlipidemia Schizophrenia, managed by primary care physician Plan: * Complex management due to multiple comorbidities and AF with a rapid rate that has been difficult to control * Continue beta-estefany and add SATHISH-inhib for cardiomyopathy * Monitor labs to see if SATHISH-inhib affects renal function * Repeat echo in am to see if EF improved with better heart rate control * Repeat dig level * Increase activity, if possible TERA MYERS MD FACP [facility] Aug 09, 2020 09:19
[2020-08-09] MEDS ORDERED: ENALAPRIL 2.5 MG (VASOTEC) TAB PO ONE (09:30)
[2020-08-09 09:38] LABS: ABG BASE EXCESS 13.9 MMOL/L (-2.5-2.5); ABG OXYGEN SATURATION 96 % (94-100); ABG PCO2 62 MMHG (35-45); ABG PH 7.42 (7.37-7.43); ABG PO2 84 MMHG (79-93); ABG TCO2 41.2 MMOL/L (21.0-31.0)
[2020-08-09 09:45] LABS: ALLENS TEST YES-POS
[2020-08-09 09:46] LABS: INSPIRED O2 3L; PATIENT TEMP 36.6; VENTILATOR NO
--- NOTE | 2020-08-09 10:18 | Progress Note - Hospitalist ---
Subjective HPI/CC On Admission Date Seen by Provider: Aug 09, 2020 Time Seen by Provider: 09:10 Pt is a 65yoCM with a PMH of a CAD s/p CABG, NIDDMI, schizophrenia who presented to the ER due to multiple falls at his facility. He is oriented to person and place but seems to have some mental deficits at baseline. He lives at [facility] and he suffered 3 falls this morning one resulting in a head injury where he actually left a nini in the [facility]. EMS was called and he was found to have sats of 89% on room air with rales. He was given a Duoneb treatment en route. He does complain of a headache from where he feel but otherwise no specific complaints. He was found to have an elevated troponin and to be in a-fib with RVR. Incidentally he was also noted to have a sodium of 111 incidentally. Subjective/Events-last exam He denies any complaints or concerns. He denies trouble breathing. He denies abdominal pain. Objective Exam Vital Signs Vital Signs Date Time Temp Pulse Resp B/P (MAP) Pulse Ox O2 Delivery O2 Flow Rate FiO2 08/09/20 09:00 120 14 120/89 (99) 96 High Flow N/C 3.00 08/09/20 08:04 36.6 08/08/20 10:46 32 Capillary Refill : Less Than 3 Seconds General Appearance: No Apparent Distress, Obese Respiratory: No Respiratory Distress, Wheezing Cardiovascular: Irregularly Irregular, Tachycardia Gastrointestinal: Normal Bowel Sounds, Non Tender, Soft Extremity: Normal Inspection, Non Tender, No Pedal Edema Neurologic/Psychiatric: Alert, Oriented x3, No Motor/Sensory Deficits, Normal Mood/Affect Skin: Normal Color, Warm/Dry Results/Procedures Lab Laboratory Tests 08/09/20 03:40 Patient resulted labs reviewed. Imaging: Reviewed Imaging Report Assessment/Plan Assessment and Plan Assess & Plan/Chief Complaint Atrial flutter with RVR NSTEMI CAD s/p CABG HFrEF HLD Bradycardia Cardiology consulted, appreciate assistance Echo revealed EF of 10-15% CARON showed EF 35% Planning for repeat TTE tomorrow Cath with no CAD amenable to intervention CARON revealed likely left atrial appendage thrombus Continue Cardizem, Coreg, and Eliquis Required Atropine yesterday due to bradycardia, started on Dopamine which is now off Acute respiratory failure with hypoxia and hypercapnia PNA Required BiPAP briefly for acute hypercapnia s/p Rocephin Schizophrenia Continue home meds T2DM SSI Fall PT/OT DVT ppx: Lovenox Lactic acidosis, resolved Hyponatremia, resolved Diagnosis/Problems Diagnosis/Problems (1) Acute respiratory failure with hypoxia and hypercapnia Status: Acute (2) Atrial flutter with rapid ventricular response Status: Acute (3) NSTEMI (non-ST elevation myocardial infarction) Status: Acute (4) HFrEF (heart failure with reduced ejection fraction) Status: Acute (5) Ischemic cardiomyopathy Status: Acute (6) Hyponatremia Status: Acute (7) Schizophrenia Status: Chronic NAWAF VILLEDA MD Aug 09, 2020 10:18
--- NOTE | 2020-08-09 11:34 | Physical Therapy Progress Note ---
Therapy Progress Note Patient adamantly declined PT stating, "Just leave me alone. I'm not doing anything." Patient then closed eyes and would not respond to PT. RN aware. 1 ref ([id number]) AKASH REMY PT Aug 09, 2020 11:34
[2020-08-09] MEDS: DOPamine DRIP 250 ML IV SCH (14:29)
[2020-08-09] MEDS: TAMSULOSIN 0.4 MG (FLOMAX) CAP PO SCH (20:23)
[2020-08-09] MEDS: GABAPENTIN 100 MG (NEURONTIN) CAP PO SCH (20:23)
[2020-08-10] MEDS: RT-ALBUTEROL/IPRATROPIUM 3 ML (DUONEB) VIAL INH SCH ×5 (02:00→18:22)
[2020-08-10 03:21] LABS: BASOPHILS % (AUTO) 0 % (0-10); EOSINOPHILS # (AUTO) 0.5 10^3/uL (0.0-0.3); EOSINOPHILS % (AUTO) 7 % (0-10); HEMATOCRIT 35 % (40-54); LYMPHOCYTES # (AUTO) 1.1 10^3/uL (1.0-4.0); LYMPHOCYTES % (AUTO) 15 % (12-44); MEAN CORPUSCULAR HEMOGLOBIN 30 pg (25-34); MEAN CORPUSCULAR HGB CONC 31 g/dL (32-36); MEAN CORPUSCULAR VOLUME 95 fL (80-99); MEAN PLATELET VOLUME 8.5 fL (9.0-12.2); MONOCYTES % (AUTO) 14 % (0-12); NEUTROPHILS # (AUTO) 4.5 10^3/uL (1.8-7.8); NEUTROPHILS % (AUTO) 62 % (42-75); PLATELET COUNT 210 10^3/uL (130-400); WHITE BLOOD COUNT 7.3 10^3/uL (4.3-11.0)
[2020-08-10 03:40] LABS: CALCIUM 8.7 MG/DL (8.5-10.1); CREATININE SERUM 1.51 MG/DL (0.60-1.30); MAGNESIUM 1.6 MG/DL (1.6-2.4); PHOSPHORUS 4.5 MG/DL (2.3-4.7); POTASSIUM 3.9 MMOL/L (3.6-5.0)
[2020-08-10] MEDS: MAGNESIUM 1 GM/100 ML IVPB 100 ML IV SCH ×2 (04:51→04:52)
[2020-08-10] MEDS: inSUlin ASPART (NovoLOG) 1 UNIT/0.01 ML (CHARGE PER UNIT) SC SCH ×4 (05:27→21:04)
--- NOTE | 2020-08-10 07:41 | Diagnostic Imaging Report ---
INDICATION: Dyspnea. Comparison made with prior examination 08/09/2020. FINDINGS: There is cardiomegaly. There is some venous congestion. There has been previous median sternotomy. Some right basilar atelectasis and/or pneumonitis. There is no pneumothorax. PICC line is in satisfactory position. IMPRESSION: Right basilar atelectasis and/or pneumonitis. Cardiomegaly and some central pulmonary venous congestion. Dictated by: Dictated on workstation # [id number]
[2020-08-10] MEDS: OLANZapine 5 MG (ZyPREXA) TAB PO SCH ×2 (08:22→21:04)
[2020-08-10] MEDS: DIGOXIN 0.25 MG (LANOXIN) TAB PO SCH (08:22)
[2020-08-10] MEDS: SEVELAMER CARBONATE 800 MG TABLET (RENVELA) PO SCH ×3 (08:22→17:02)
[2020-08-10] MEDS: APIXABAN 5 MG (ELIQUIS) TABLET PO SCH ×2 (08:23→21:04)
[2020-08-10] MEDS: LORATADINE (CLARITIN) 10 MG TAB PO SCH (08:23)
[2020-08-10] MEDS: PANTOPRAZOLE 40 MG (PROTONIX) TAB PO SCH (08:23)
[2020-08-10] MEDS: SENNA W/DOCUSATE (SENOKOT S) TABLET PO SCH ×2 (08:23→21:04)
[2020-08-10] MEDS: ASPIRIN E.C. 81 MG (ECOTRIN) TAB PO SCH (08:23)
[2020-08-10] MEDS: MONTELUKAST 10 MG (SINGULAIR) TAB PO SCH (08:23)
[2020-08-10] MEDS: DOCUSATE SODIUM 100 MG (COLACE) CAP PO SCH ×2 (08:23→21:04)
[2020-08-10] MEDS: DIVALPROX SPRINKLE 125 MG (DEPAKOTE) CAP PO SCH ×2 (08:23→21:04)
[2020-08-10] MEDS: FUROSEMIDE 40 MG (LASIX) TAB PO SCH (08:26)
[2020-08-10] MEDS ORDERED: ENALAPRIL 2.5 MG (VASOTEC) TAB PO SCH (09:00)
--- NOTE | 2020-08-10 10:24 | Progress Note - Hospitalist ---
Subjective HPI/CC On Admission Date Seen by Provider: Aug 10, 2020 Time Seen by Provider: 09:20 Pt is a 65yoCM with a PMH of a CAD s/p CABG, NIDDMI, schizophrenia who presented to the ER due to multiple falls at his facility. He is oriented to person and place but seems to have some mental deficits at baseline. He lives at [facility] [place] and he suffered 3 falls this morning one resulting in a head injury where he actually left a nini in the [facility]. EMS was called and he was found to have sats of 89% on room air with rales. He was given a Duoneb treatment en route. He does complain of a headache from where he feel but otherwise no specific complaints. He was found to have an elevated troponin and to be in a-fib with RVR. Incidentally he was also noted to have a sodium of 111 incidentally. Subjective/Events-last exam He says he feels well enough to go home. He denies breathing trouble. He denies abdominal pain. He has no complaints or concerns. Objective Exam Vital Signs Vital Signs Date Time Temp Pulse Resp B/P (MAP) Pulse Ox O2 Delivery O2 Flow Rate FiO2 08/10/20 10:00 86 25 140/86 (104) 91 High Flow N/C 3.00 08/09/20 19:59 36.7 08/08/20 10:46 32 Capillary Refill : Less Than 3 Seconds General Appearance: No Apparent Distress, Obese Respiratory: Lungs Clear, Normal Breath Sounds, No Respiratory Distress Cardiovascular: No Murmur, Irregularly Irregular Gastrointestinal: Normal Bowel Sounds, Non Tender, Soft Extremity: Normal Inspection, Non Tender, No Pedal Edema Neurologic/Psychiatric: Alert, No Motor/Sensory Deficits, Normal Mood/Affect Skin: Normal Color, Warm/Dry Results/Procedures Lab Laboratory Tests 08/10/20 03:15 Patient resulted labs reviewed. Imaging: Reviewed Imaging Report Assessment/Plan Assessment and Plan Assess & Plan/Chief Complaint Atrial flutter with RVR NSTEMI CAD s/p CABG HFrEF HLD Cardiology consulted, appreciate assistance Echo revealed EF of 10-15% CARON showed EF 35% Repeat TTE today Cath with no CAD amenable to intervention CARON revealed likely left atrial appendage thrombus Continue Cardizem, Coreg, and Eliquis Acute respiratory failure with hypoxia and hypercapnia Required BiPAP briefly for acute hypercapnia, resolved Requiring 1 L nasal cannula this morning Schizophrenia Continue home meds T2DM SSI Fall PT/OT DVT ppx: Lovenox Lactic acidosis, resolved Hyponatremia, resolved Bradycardia, resolved PNA, resolved Diagnosis/Problems Diagnosis/Problems (1) Acute respiratory failure with hypoxia and hypercapnia Status: Acute (2) Atrial flutter with rapid ventricular response Status: Acute (3) NSTEMI (non-ST elevation myocardial infarction) Status: Acute (4) HFrEF (heart failure with reduced ejection fraction) Status: Acute (5) Ischemic cardiomyopathy Status: Acute (6) Hyponatremia Status: Acute (7) Schizophrenia Status: Chronic NAWAF VILLEDA MD Aug 10, 2020 10:24
--- NOTE | 2020-08-10 11:03 | Physical Therapy Progress Note ---
Therapy Progress Note Patient adamantly declined PT stating he wanted to be left alone. Attempted to encourage patient to participate with PT, however, patient continued to decline. Plan return to CT tomorrow per RN. 1 ref ([id number]) AKASH REMY PT Aug 10, 2020 11:03
[2020-08-10] MEDS: DOPamine DRIP 250 ML IV SCH (13:54)
[2020-08-10] MEDS: ACETAMINOPHEN 325 MG TABLET PO PRN (15:53)
--- NOTE | 2020-08-10 16:14 | Progress Note - Cardiology ---
Cardiology SOAP Progress Note Subjective: Gen weakness and malaise present No cp or palp or syncope No shortness of breath at rest No n/v/d Objective: I&O/Vital Signs 08/10/20 08/10/20 08/10/20 08/10/20 05:00 06:00 06:33 07:00 Pulse 78 78 80 Resp 26 18 18 B/P (MAP) 105/89 (94) 106/63 (77) 99/61 (74) Pulse Ox 96 94 95 94 O2 Delivery High Flow N/C High Flow N/C Nasal Cannula High Flow N/C O2 Flow Rate 3.00 3.00 2.00 3.00 08/10/20 08/10/20 08/10/20 08/10/20 07:00 08:00 08:00 08:15 Temp 36.3 Pulse 80 77 Resp 14 B/P (MAP) 94/59 (71) Pulse Ox 94 98 O2 Delivery High Flow N/C High Flow N/C O2 Flow Rate 2.00 3.00 08/10/20 08/10/20 08/10/20 08/10/20 09:00 10:00 10:24 10:43 Pulse 83 86 Resp 20 25 B/P (MAP) 136/85 (102) 140/86 (104) Pulse Ox 95 91 90 O2 Delivery High Flow N/C High Flow N/C Nasal Cannula High Flow N/C O2 Flow Rate 3.00 3.00 1.00 1.00 08/10/20 08/10/20 08/10/20 08/10/20 11:00 11:45 12:00 12:39 Temp 36.4 Pulse 86 91 79 Resp 24 17 B/P (MAP) 108/55 (72) 119/77 (91) Pulse Ox 91 93 O2 Delivery High Flow N/C High Flow N/C O2 Flow Rate 1.00 1.00 08/10/20 08/10/20 08/10/20 08/10/20 13:00 14:00 14:43 15:00 Pulse 78 75 73 Resp 28 12 15 B/P (MAP) 108/64 (79) 118/64 (82) 117/69 (85) Pulse Ox 91 93 96 95 O2 Delivery High Flow N/C High Flow N/C Nasal Cannula High Flow N/C O2 Flow Rate 1.00 1.00 1.00 1.00 08/10/20 00:00 Intake Total 800 ml Output Total 1125 ml Balance -325 ml Weight (Pounds): 171 Weight (Ounces): 0.0 Weight (Calculated Kilograms): 77.084261 Constitutional: AAO x 3, well-developed, well-nourished, other (not very communicative, short and incomplete answers to questions) Respiratory: No accessory muscle use; other (fair to good, bilateral air entry) Cardiovascular: irregularly irregular, S1 and S2, systolic murmur (soft CALISTA at card base) Gastrointestional: No tender; soft; No guarding, No rebound; audible bowel sounds Extremities: No clubbing, No cyanosis, No significant edema Neurologic/Psychiatric: oriented x 3, other (moves all limbs equally) Skin: warm/dry; No cool, No rash on exposed areas, No ulcerations on exposed areas Results/Procedures: Labs Laboratory Tests 08/09/20 16:44: Glucometer 147H 08/09/20 20:11: Glucometer 192H 08/10/20 03:15: White Blood Count 7.3, Red Blood Count 3.67L, Hemoglobin 11.0L, Hematocrit 35L, Mean Corpuscular Volume 95, Mean Corpuscular Hemoglobin 30, Mean Corpuscular Hemoglobin Concent 31L, Red Cell Distribution Width 14.1, Platelet Count 210, Mean Platelet Volume 8.5L, Immature Granulocyte % (Auto) 1, Neutrophils (%) (Auto) 62, Lymphocytes (%) (Auto) 15, Monocytes (%) (Auto) 14H, Eosinophils (%) (Auto) 7, Basophils (%) (Auto) 0, Neutrophils # (Auto) 4.5, Lymphocytes # (Auto) 1.1, Monocytes # (Auto) 1.0, Eosinophils # (Auto) 0.5H, Basophils # (Auto) 0.0, Immature Granulocyte # (Auto) 0.1, Sodium Level 141, Potassium Level 3.9, Chloride Level 93L, Carbon Dioxide Level 35H, Anion Gap 13, Blood Urea Nitrogen 31H, Creatinine 1.51H, Estimat Glomerular Filtration Rate 47, BUN/Creatinine Ratio 21, Glucose Level 231H, Calcium Level 8.7, Phosphorus Level 4.5, Magnesium Level 1.6, Digoxin Level 0.67L 08/10/20 11:18: Glucometer 190H 08/10/20 15:55: Glucometer 102 Microbiology 08/04/20 Gram Stain - Final, Complete 08/04/20 Sputum Culture - Final, Complete Usual upper respiratory paulina Staphylococcus aureus Haemophilus species 08/03/20 Blood Culture - Final, Complete No growth 08/03/20 Urine Culture - Final, Complete See Comments Laboratory Tests 08/09/20 03:40 08/10/20 03:15 A/P: Assessment: Atrial fib/flutter with a rapid ventricular response, controlled on current regimen - CARON done on August 06, [address] Cabrales: possible thrombus in the left atrial appendage, could not proceed with cardioversion Coronary artery disease - history of CABG and multiple intervention the past, pt does not know any details - Non-ST elevation myocardial infarction during this hospitalization leading to card cath described below - Cardiac catheterization was carried out on August 05, 2020 showing patent POLLARD to the LAD with occluded LAD beyond the anastomosis point, very small artery not amendable to intervention, occluded first obtuse marginal branch and occluded v ein graft to the obtuse marginal branch, very small artery not amenable to intervention, occluded right coronary artery with patent vein graft to the right coronary artery with small vessel disease distally, moderate disease in the proper circumflex artery. His coronary artery disease mainly involves small vessels that are amenable to intervention. Maximizing medical therapy is recommended Ac systolic CHF - Echo 08/03/20 reported to show LVEF 10-15% - CARON 08/06/20 reported to show LVEF 30% - Echo 08/11/19: LVEF 30-35%, anteroseptal akinesis, global hypokinesis, grade 2 diastolic dysfunction, PASP 30-35 mmHg Does not tolerate beta-estefany or SATHISH-inhibtor/ARB due to low bp Change in mental status, no focal deficit, CT scan of the head was repeated on August 04, 2020 and did not show any changes. Managed by primary care team Labile blood pressure, history of hypertensive emergency. Lactic acidosis, managed by primary care team Chronic renal insufficiency, history of bilateral hydronephrosis, incontinence, followed by primary care physician Diabetes mellitus, followed and managed by primary care physician Hyperlipidemia Schizophrenia, managed by primary care physician Plan: * Complex management due to multiple comorbidities and AF with a rapid rate that has been difficult to control * Unable to give SATHISH-inhib or beta-blockers due to low bp * Increase activity, if possible * Monitor labs TERA MYERS MD FACP FAC CCDS Aug 10, 2020 16:14
[2020-08-10 18:43] VITALS: BP 113/66
[2020-08-10] MEDS: TAMSULOSIN 0.4 MG (FLOMAX) CAP PO SCH (21:04)
[2020-08-10] MEDS: GABAPENTIN 100 MG (NEURONTIN) CAP PO SCH (21:04)
[2020-08-11 03:40] LABS: BASOPHILS % (AUTO) 0 % (0-10); EOSINOPHILS # (AUTO) 0.6 10^3/uL (0.0-0.3); EOSINOPHILS % (AUTO) 8 % (0-10); HEMATOCRIT 34 % (40-54); HEMOGLOBIN 10.7 g/dL (13.3-17.7); LYMPHOCYTES % (AUTO) 14 % (12-44); MEAN CORPUSCULAR HEMOGLOBIN 30 pg (25-34); MEAN CORPUSCULAR HGB CONC 32 g/dL (32-36); MEAN CORPUSCULAR VOLUME 95 fL (80-99); MEAN PLATELET VOLUME 8.6 fL (9.0-12.2); MONOCYTES % (AUTO) 13 % (0-12); NEUTROPHILS # (AUTO) 4.8 10^3/uL (1.8-7.8); NEUTROPHILS % (AUTO) 64 % (42-75); PLATELET COUNT 194 10^3/uL (130-400); WHITE BLOOD COUNT 7.5 10^3/uL (4.3-11.0)
[2020-08-11] MEDS: inSUlin ASPART (NovoLOG) 1 UNIT/0.01 ML (CHARGE PER UNIT) SC SCH ×2 (06:40→11:57)
--- NOTE | 2020-08-11 07:38 | Diagnostic Imaging Report ---
EXAMINATION: Chest 1 view HISTORY: Dyspnea. COMPARISON: 08/10/2020. FINDINGS: There is stable cardiomegaly with post-CABG changes noted. There is improved aeration in the bilateral perihilar regions and lung bases with stable platelike atelectasis in the right mid lung. Likely small pleural effusions are present. No evidence of pneumothorax. Stable right PICC. IMPRESSION: 1. Continued cardiomegaly with improved aeration in the perihilar regions and lung bases favored to represent improving edema. Dictated by: Dictated on workstation # [id number]
[2020-08-11] MEDS ORDERED: DILT240C91 PO (08:31)
[2020-08-11] MEDS ORDERED: APIX5TAB PO (08:31)
[2020-08-11] MEDS ORDERED: DIGO250T15 PO (08:31)
[2020-08-11] MEDS ORDERED: FURO40TA4 PO (08:31)
--- NOTE | 2020-08-11 08:50 | Physical Therapy Progress Note ---
Therapy Progress Note Patient adamantly declined PT stating,"I'll get up tomorrow. I've been up all night and I want to be left alone." PT attempted to educate patient on importance on OOB activity, however, patient became agitated. RN notified. 1 ref ([id number]) AKASH REMY PT Aug 11, 2020 08:50
[2020-08-11] MEDS: DOCUSATE SODIUM 100 MG (COLACE) CAP PO SCH (09:34)
[2020-08-11] MEDS: ASPIRIN E.C. 81 MG (ECOTRIN) TAB PO SCH (09:34)
[2020-08-11] MEDS: SEVELAMER CARBONATE 800 MG TABLET (RENVELA) PO SCH ×2 (09:34→14:51)
[2020-08-11] MEDS: LORATADINE (CLARITIN) 10 MG TAB PO SCH (09:34)
[2020-08-11] MEDS: DIGOXIN 0.25 MG (LANOXIN) TAB PO SCH (09:34)
[2020-08-11] MEDS: PANTOPRAZOLE 40 MG (PROTONIX) TAB PO SCH (09:34)
[2020-08-11] MEDS: SENNA W/DOCUSATE (SENOKOT S) TABLET PO SCH (09:34)
[2020-08-11] MEDS: DIVALPROX SPRINKLE 125 MG (DEPAKOTE) CAP PO SCH (09:34)
[2020-08-11] MEDS: OLANZapine 5 MG (ZyPREXA) TAB PO SCH (09:34)
[2020-08-11] MEDS: MONTELUKAST 10 MG (SINGULAIR) TAB PO SCH (09:34)
[2020-08-11] MEDS: APIXABAN 5 MG (ELIQUIS) TABLET PO SCH (09:34)
[2020-08-11] MEDS: FUROSEMIDE 40 MG (LASIX) TAB PO SCH (09:34)
[2020-08-11] MEDS: RT-ALBUTEROL/IPRATROPIUM 3 ML (DUONEB) VIAL INH SCH ×3 (09:48→15:07)
--- NOTE | 2020-08-11 12:05 | Discharge Summary ---
Discharge Summary Hospital Course Was the Problem List Reviewed?: Yes Problems/Dx: (1) Acute respiratory failure with hypoxia and hypercapnia Status: Acute (2) Atrial flutter with rapid ventricular response Status: Acute (3) NSTEMI (non-ST elevation myocardial infarction) Status: Acute (4) HFrEF (heart failure with reduced ejection fraction) Status: Acute (5) Ischemic cardiomyopathy Status: Acute (6) Hyponatremia Status: Acute (7) Schizophrenia Status: Chronic Hospital Course Date of Admission: Aug 03, 2020 at 14:00 Admission Diagnosis : Hyponatremia Family Physician/Provider: Giovanny Cody DO Date of Discharge: 08/11/20 Discharge Diagnosis: Hyponatremia, NSTEMI, heart failure with reduced ejection fraction Hospital Course: Bakari Martin is a 65-year-old male with past medical history of coronary artery disease status post CABG, type 2 diabetes mellitus, schizophrenia, who presented after multiple falls at his facility. He was admitted with severe hyponatremia which was thought to be the cause of his falls. His sodium levels returned to within normal limits during his hospitalization. He was also found to have a a non-ST elevation MS. Cardiology was consulted and assisted with his care. He underwent a left heart catheterization which revealed extensive coronary artery disease not amenable to intervention and medical therapy was recommended. An echocardiogram revealed a severely reduced ejection fraction of 10 to 15%. He was unable to tolerate beta-blockers and SATHISH inhibitors due to hypotension and bradycardia. His course was complicated by atrial flutter with rapid ventricular response. He underwent a CARON and was found to have a clot in his left atrial appendage, and thus a cardioversion was not performed. His ejection fraction at the time of the CARON was noted to be 30%. He underwent a repeat echocardiogram which showed ejection fraction 30 to 35%. He was started on diltiazem, digoxin, and Eliquis. His course was also complicated by acute respiratory failure with hypoxia and hypercapnia. He required BiPAP briefly and his hypercapnia resolved. He was not requiring any supplemental oxygen at the time of discharge. He should follow-up with his primary care physician within a week. He should follow-up with cardiology as scheduled. Labs and Pending Lab Test: Laboratory Tests 08/10/20 15:55: Glucometer 102 08/10/20 20:21: Glucometer 155H 08/11/20 03:25: White Blood Count 7.5, Red Blood Count 3.57L, Hemoglobin 10.7L, Hematocrit 34L, Mean Corpuscular Volume 95, Mean Corpuscular Hemoglobin 30, Mean Corpuscular Hemoglobin Concent 32, Red Cell Distribution Width 14.0, Platelet Count 194, Mean Platelet Volume 8.6L, Immature Granulocyte % (Auto) 1, Neutrophils (%) (Auto) 64, Lymphocytes (%) (Auto) 14, Monocytes (%) (Auto) 13H, Eosinophils (%) (Auto) 8, Basophils (%) (Auto) 0, Neutrophils # (Auto) 4.8, Lymphocytes # (Auto) 1.0, Monocytes # (Auto) 1.0, Eosinophils # (Auto) 0.6H, Basophils # (Auto) 0.0, Immature Granulocyte # (Auto) 0.1, Phosphorus Level 3.8 08/11/20 06:35: Glucometer 248H 08/11/20 10:33: Glucometer 150H Microbiology 08/04/20 Gram Stain - Final, Complete 08/04/20 Sputum Culture - Final, Complete Usual upper respiratory paulina Staphylococcus aureus Haemophilus species 08/03/20 Blood Culture - Final, Complete No growth 08/03/20 Urine Culture - Final, Complete See Comments Home Meds Active Furosemide 40 Mg Tablet 40 Mg PO DAILY 30 Days Diltiazem 24Hr ER (Diltiazem HCl) 240 Mg Cap.er.24h 240 Mg PO DAILY 30 Days Digox (Digoxin) 250 Mcg Tablet 0.25 Mg PO DAILY 30 Days Eliquis (Apixaban) 5 Mg Tablet 5 Mg PO BID 30 Days Reported Depakote Sprinkle (Divalproex Sodium) 125 Mg Cap 250 Mg PO 1400 TAKES 2 (125MG) TABS Cyclobenzaprine HCl 10 Mg Tablet 10 Mg PO Q8H PRN Metformin HCl 500 Mg Tablet 1,000 Mg PO BID TAKES 2 (500MG) TABS Flonase Allergy Relief (Fluticasone Propionate) 9.9 Ml [place].susp 2 [place] NS DAILY Depakote Sprinkle (Divalproex Sodium) 125 Mg Cap 875 Mg PO DAILY TAKES 7 (125MG) TABS Insulin Lispro Kwikpen U-100 (Insulin Lispro) 100 Unit/1 Ml Insuln.pen Units SC AC USE PER SLIDING SCALE: 201-250= 3 UNITS 251-300=5 UNITS 301-350=7 UNITS 351-400=9 UNITS NOTIFY PCP IF <60 OR >400 Lantus Solostar (Insulin Glargine,Hum.rec.anlog) 100 Unit/1 Ml Insuln.pen 10 Unit SQ DAILY Trintellix (Vortioxetine Hydrobromide) 10 Mg Tablet 10 Mg PO DAILY Tums (Calcium Carbonate) 200 Mg Tab.chew 500 Mg PO PRN PRN Loratadine 10 Mg Tablet 10 Mg PO DAILY Proair Hfa (Albuterol Sulfate) 1 Puff Puff 2 Puff INH QID Olanzapine 5 Mg Tablet 10 Mg PO HS TAKES 2 (5MG) TABS Olanzapine 5 Mg Tablet 5 Mg PO DAILY Mylanta Suspension (Al Hydrox/Mg Hydrox/Simethicone) 30 Ml Oral.susp 30 Ml PO Q4H PRN Tylenol (Acetaminophen) 325 Mg Tablet 650 Mg PO Q6H PRN Gabapentin 100 Mg Capsule 100 Mg PO HS Montelukast Sodium 10 Mg Tablet 10 Mg PO DAILY Renvela (Sevelamer Carbonate) 800 Mg Tablet 800 Mg PO TIDWM Flomax (Tamsulosin HCl) 0.4 Mg Cap 0.4 Mg PO HS Aspirin EC (Aspirin) 81 Mg Tablet.dr 81 Mg PO DAILY Cetirizine HCl 10 Mg Tablet 10 Mg PO DAILY Pantoprazole Sodium 40 Mg Tablet.dr 40 Mg PO DAILY Carvedilol 3.125 Mg Tablet 3.125 Mg PO BID WITH MEALS HOLD IF AP IS LESS THAN 60 BPM OR BP LESS THAN 110/60 Atorvastatin Calcium 40 Mg Tablet 40 Mg PO HS Divalproex Sodium 125 Mg Cap.sprink 750 Mg PO HS TAKES 6 (125MG) CAPSULES Assessment/Pt Instructions Take medications as prescribed. You are being started on diltiazem, digoxin, and Eliquis for atrial flutter. You are being started on Lasix for heart failure. You should follow up with cardiology as scheduled. You should follow- up with your primary care physician. Return with worsening shortness of breath, confusion, unsteadiness, or if you feel like you are getting worse. Discharge Planning: >30 minutes discharge planning Discharge Instructions Discharge Diet: Low Sodium Diet Activity as Tolerated: Yes Consultations Cardiology Discharge Physical Examination Vital Signs Vital Signs Date Time Temp Pulse Resp B/P (MAP) Pulse Ox O2 Delivery O2 Flow Rate FiO2 08/11/20 10:00 88 34 160/87 (111) 90 High Flow N/C 1.00 08/11/20 07:27 36.7 08/10/20 18:43 24 General Appearance: No Apparent Distress, Obese Respiratory: Lungs Clear, Normal Breath Sounds, No Respiratory Distress Cardiovascular: No Edema, No Murmur, Irregularly Irregular Gastrointestinal: Normal Bowel Sounds, Non Tender, Soft Extremity: Normal Inspection, Non Tender, No Pedal Edema Skin: Normal Color, Warm/Dry Neurologic/Psychiatric: Alert, Oriented x3, No Motor/Sensory Deficits Allergies: Coded Allergies: Penicillins (Verified Allergy, Unknown, 12/31/18) chlorpromazine (Verified Allergy, Unknown, 12/31/18) Copy Copies To 1: GIOVANNY CODY DO Discharge Summary Date of Admission Aug 03, 2020 at 14:00 Date of Discharge Discharge Date: Aug 11, 2020 Discharge Time: 14:30 Admission Diagnosis Hyponatremia, Atrial flutter, HFrEF Consults/Procedures Consulations Cardiology Procedures Left heart catheterization, CARON Discharge Diagnosis Hyponatremia, atrial flutter with RVR, heart failure with reduced ejection fraction (1) Acute respiratory failure with hypoxia and hypercapnia Status: Acute (2) Atrial flutter with rapid ventricular response Status: Acute (3) NSTEMI (non-ST elevation myocardial infarction) Status: Acute (4) HFrEF (heart failure with reduced ejection fraction) Status: Acute (5) Ischemic cardiomyopathy Status: Acute (6) Hyponatremia Status: Acute (7) Schizophrenia Status: Chronic NAWAF VILLEDA MD Aug 11, 2020 11:59
--- NOTE | 2020-08-11 14:13 | Progress Note - Cardiology ---
Cardiology SOAP Progress Note Subjective: He does not communicate any symptoms Objective: I&O/Vital Signs 08/11/20 08/11/20 08/11/20 08/11/20 03:00 04:00 05:00 06:00 Pulse 73 90 86 81 Resp 23 B/P (MAP) 146/78 (100) 147/87 (107) 120/65 (83) 133/74 (93) Pulse Ox 94 91 88 96 O2 Delivery High Flow N/C High Flow N/C High Flow N/C High Flow N/C O2 Flow Rate 1.00 1.00 1.00 1.00 08/11/20 08/11/20 08/11/20 08/11/20 07:00 07:00 07:27 08:00 Temp 36.7 Pulse 81 81 85 Resp 24 23 B/P (MAP) 135/72 (93) 108/67 (81) Pulse Ox 94 93 O2 Delivery High Flow N/C High Flow N/C O2 Flow Rate 1.00 1.00 08/11/20 08/11/20 08/11/20 08/11/20 08:29 09:00 10:00 11:55 Temp 37.0 Pulse 80 88 79 Resp 23 34 24 B/P (MAP) 100/58 (72) 160/87 (111) 144/81 (102) Pulse Ox 93 93 90 93 O2 Delivery Nasal Cannula High Flow N/C High Flow N/C Room Air O2 Flow Rate 1.00 1.00 1.00 08/11/20 12:44 Pulse 75 08/11/20 00:00 Intake Total 690 ml Balance 690 ml Weight (Pounds): 171 Weight (Ounces): 0.0 Weight (Calculated Kilograms): 77.139830 Constitutional: well-developed, well-nourished, other (not very communicative, does not answer questions) Respiratory: No accessory muscle use; other (fair to good, bilateral air entry) Cardiovascular: irregularly irregular, S1 and S2, systolic murmur (soft CALISTA at card base) Gastrointestional: No tender; soft; No guarding, No rebound; audible bowel sounds Extremities: No clubbing, No cyanosis, No significant edema Neurologic/Psychiatric: other (moves all limbs equally) Skin: warm/dry; No cool, No rash on exposed areas, No ulcerations on exposed areas Results/Procedures: Labs Laboratory Tests 08/10/20 15:55: Glucometer 102 08/10/20 20:21: Glucometer 155H 08/11/20 03:25: White Blood Count 7.5, Red Blood Count 3.57L, Hemoglobin 10.7L, Hematocrit 34L, Mean Corpuscular Volume 95, Mean Corpuscular Hemoglobin 30, Mean Corpuscular Hemoglobin Concent 32, Red Cell Distribution Width 14.0, Platelet Count 194, Mean Platelet Volume 8.6L, Immature Granulocyte % (Auto) 1, Neutrophils (%) (Auto) 64, Lymphocytes (%) (Auto) 14, Monocytes (%) (Auto) 13H, Eosinophils (%) (Auto) 8, Basophils (%) (Auto) 0, Neutrophils # (Auto) 4.8, Lymphocytes # (Auto) 1.0, Monocytes # (Auto) 1.0, Eosinophils # (Auto) 0.6H, Basophils # (Auto) 0.0, Immature Granulocyte # (Auto) 0.1, Phosphorus Level 3.8 08/11/20 06:35: Glucometer 248H 08/11/20 10:33: Glucometer 150H Microbiology 08/04/20 Gram Stain - Final, Complete 08/04/20 Sputum Culture - Final, Complete Usual upper respiratory paulina Staphylococcus aureus Haemophilus species 08/03/20 Blood Culture - Final, Complete No growth 08/03/20 Urine Culture - Final, Complete See Comments Procedures Laboratory Tests 08/10/20 03:15 08/11/20 03:25 A/P: Assessment: Atrial fib/flutter with a rapid ventricular response, currently in NSR - CARON done on August 06, [address] Cabrales: possible thrombus in the left atrial appendage, could not proceed with cardioversion Coronary artery disease - history of CABG and multiple intervention the past, pt does not know any details - Non-ST elevation myocardial infarction during this hospitalization leading to card cath described below - Cardiac catheterization was carried out on August 05, 2020 showing patent POLLARD to the LAD with occluded LAD beyond the anastomosis point, very small artery not amendable to intervention, occluded first obtuse marginal branch and occluded vein graft to the obtuse marginal branch, very small artery not amenable to intervention, occluded right coronary artery with patent vein graft to the right coronary artery with small vessel disease distally, moderate disease in the proper circumflex artery. His coronary artery disease mainly involves small vessels that are amenable to intervention. Maximizing medical therapy is recommended Ac systolic CHF - Echo 08/03/20 reported to show LVEF 10-15% - CARON 08/06/20 reported to show LVEF 30% - Echo 08/11/19: LVEF 30-35%, anteroseptal akinesis, global hypokinesis, grade 2 diastolic dysfunction, PASP 30-35 mmHg Does not tolerate beta-estefany or SATHISH-inhibtor/ARB due to low bp Change in mental status, no focal deficit, CT scan of the head was repeated on August 04, 2020 and did not show any changes. Managed by primary care team Labile blood pressure, history of hypertensive emergency. Lactic acidosis, managed by primary care team Chronic renal insufficiency, history of bilateral hydronephrosis, incontinence, followed by primary care physician Diabetes mellitus, followed and managed by primary care physician Hyperlipidemia Schizophrenia, managed by primary care physician Plan: * Complex management due to multiple comorbidities and AF with a rapid rate that has been difficult to control * Unable to give SATHISH-inhib or beta-blockers due to low bp * Increase activity, if possible * Monitor labs TERA MYERS MD FACP FACC CCDS Aug 11, 2020 14:13
[2020-08-11] MEDS: DOPamine DRIP 250 ML IV SCH (14:51)
== END 2020-08-11 16:20 | disposition short-term general hospital (02) | DRG 280 ==
LOC: EDUNIT# 12:33 → ER 12:34 → ICU 14:00
PROVIDERS: ADMIT Family Medicine; ATTEND Internal Medicine
PROC: 4A023N7 Measurement of Cardiac Sampling and Pressure, Left Heart, Percutaneous Approach (ICD-10-PCS; principal; 2020-08-05)
PROC: B2151ZZ Fluoroscopy of Left Heart using Low Osmolar Contrast (ICD-10-PCS; 2020-08-05)
PROC: B2111ZZ Fluoroscopy of Multiple Coronary Arteries using Low Osmolar Contrast (ICD-10-PCS; 2020-08-05)
PROC: B2181ZZ Fluoroscopy of Left Internal Mammary Bypass Graft using Low Osmolar Contrast (ICD-10-PCS; 2020-08-05)
PROC: B2121ZZ Fluoroscopy of Single Coronary Artery Bypass Graft using Low Osmolar Contrast (ICD-10-PCS; 2020-08-05)
PROC: B3101ZZ Fluoroscopy of Thoracic Aorta using Low Osmolar Contrast (ICD-10-PCS; 2020-08-05)
PROC: B4101ZZ Fluoroscopy of Abdominal Aorta using Low Osmolar Contrast (ICD-10-PCS; 2020-08-05)
PROC: 02HV33Z Insertion of Infusion Device into Superior Vena Cava, Percutaneous Approach (ICD-10-PCS; 2020-08-07)
PROC: 5A09357 Assistance with Respiratory Ventilation, Less than 24 Consecutive Hours, Continuous Positive Airway Pressure (ICD-10-PCS; 2020-08-07)
DX: I21.4 Non-ST elevation (NSTEMI) myocardial infarction (principal); I50.21 Acute systolic (congestive) heart failure; J18.9 Pneumonia, unspecified organism; J96.01 Acute respiratory failure with hypoxia; J96.02 Acute respiratory failure with hypercapnia; I13.0 Hypertensive heart and chronic kidney disease with heart failure and stage 1 through stage 4 chronic kidney disease, or unspecified chronic kidney disease; I25.810 Atherosclerosis of coronary artery bypass graft(s) without angina pectoris; E87.1 Hypo-osmolality and hyponatremia; I48.92 Unspecified atrial flutter; E87.2 Acidosis; I16.1 Hypertensive emergency; E11.22 Type 2 diabetes mellitus with diabetic chronic kidney disease; N18.2 Chronic kidney disease, stage 2 (mild); I25.10 Atherosclerotic heart disease of native coronary artery without angina pectoris; Z79.82 Long term (current) use of aspirin; Z88.0 Allergy status to penicillin; Z95.1 Presence of aortocoronary bypass graft; E78.00 Pure hypercholesterolemia, unspecified; K21.9 Gastro-esophageal reflux disease without esophagitis; Z79.4 Long term (current) use of insulin; F43.10 Post-traumatic stress disorder, unspecified; F20.9 Schizophrenia, unspecified; F32.9 Major depressive disorder, single episode, unspecified; W18.30XA Fall on same level, unspecified, initial encounter; G40.909 Epilepsy, unspecified, not intractable, without status epilepticus; R53.83 Other fatigue; I25.5 Ischemic cardiomyopathy; I71.4 Abdominal aortic aneurysm, without rupture; R41.82 Altered mental status, unspecified; I48.91 Unspecified atrial fibrillation
CPT/HCPCS: 36221; 36415; 36569; 70450; 71045; 72125; 75625; 76937; 80048; 80053; 80162; 80164; 81000; 82805; 82962; 83605; 83735; 83880; 83930; 83935; 84100; 84145; 84300; 84443; 84484; 85007; 85025; 85027; 85610; 85730; 87040; 87070; 87077; 87081; 87088; 87186; 87205; 87804; 93005; 93306; 93320; 93325; 93459; 93567; 94640; 94660; 96361; 96374; 96375

== ENCOUNTER 2020-11-10 07:19 | Inpatient (IN) | payer MEDICAID ==
[~2020-11-10] VITALS: Ht 175 cm; Wt 104.6 kg
[~2020-11-10 07:19] MED LIST changes: +APIX5TAB PO; +CALC500T7 PO; +DIGO250T15 PO; +DILT240C91 PO; +DIVA125C PO; +DIVA125T32 PO; +FLUT9.9S NS; +FURO40TA4 PO; +INSU100I10 SQ; +INSU100I23 SQ; +INSU100I48 SC; +LORA10TA7 PO; +METF-397 PO; +VORT10TA PO
[2020-11-10 07:53] LABS: BASOPHILS % (AUTO) 0 % (0-10); EOSINOPHILS # (AUTO) 0.2 10^3/uL (0.0-0.3); EOSINOPHILS % (AUTO) 1 % (0-10); HEMATOCRIT 39 % (40-54); HEMOGLOBIN 12.9 g/dL (13.3-17.7); LYMPHOCYTES # (AUTO) 0.5 10^3/uL (1.0-4.0); LYMPHOCYTES % (AUTO) 5 % (12-44); MEAN CORPUSCULAR HEMOGLOBIN 30 pg (25-34); MEAN CORPUSCULAR HGB CONC 33 g/dL (32-36); MEAN CORPUSCULAR VOLUME 90 fL (80-99); MEAN PLATELET VOLUME 8.9 fL (9.0-12.2); MONOCYTES # (AUTO) 1.3 10^3/uL (0.0-1.0); MONOCYTES % (AUTO) 12 % (0-12); NEUTROPHILS # (AUTO) 8.6 10^3/uL (1.8-7.8); NEUTROPHILS % (AUTO) 81 % (42-75); PLATELET COUNT 283 10^3/uL (130-400); WHITE BLOOD COUNT 10.7 10^3/uL (4.3-11.0)
[2020-11-10 07:57] LABS: ALBUMIN 3.6 GM/DL (3.2-4.5); POTASSIUM 3.7 MMOL/L (3.6-5.0)
[2020-11-10 07:59] LABS: CALCIUM 9.2 MG/DL (8.5-10.1)
[2020-11-10 08:00] LABS: PROTHROMBIN TIME PATIENT 13.4 SEC (12.2-14.7); TOTAL PROTEIN 7.7 GM/DL (6.4-8.2)
[2020-11-10 08:01] LABS: BILIRUBIN,TOTAL 0.3 MG/DL (0.1-1.0)
[2020-11-10 08:04] LABS: CREATININE SERUM 1.62 MG/DL (0.60-1.30)
--- NOTE | 2020-11-10 08:07 | ED General ---
General Chief Complaint: Respiratory Problems Stated Complaint: SOA Nursing Triage Note: PT ARRIVED PER EMS PT CO OF SOA AT [place], STAFF STATES SAT 80'S W O2 @5L. PT HAS SOA, EMS REPORTS SAT 92% ON ROOM AIR AT REST. UPON ARRIVAL W SAT PROB TO FOREHEAD SAT 92% ON ROOM AIR, PT RESP 28. PT HAS HX COPD AND SMOKES APPROX 20 CIGARETTES A DAY. STATES FEELS FINE AND WANTS TO GO BACK HOME Nursing Sepsis Screen: No Definite Risk Source of Information: Patient Exam Limitations: No Limitations History of Present Illness Date Seen by Provider: Nov 10, 2020 Time Seen by Provider: 07:21 Initial Comments Here by EMS with report of low oxygen saturations at [facility] facility th at he is a resident. Patient states he normally wears oxygen at night but apparently they have had to use that on him during the day. He still smokes approximately half pack cigarettes daily. He has been vaccinated for COVID-19. There is Covid exposure in the facility currently. Does have history of heart problems as well. Denies chest pain or sweating. Did have episode of nausea and vomiting yesterday. Reports constipation which is typical. Timing/Duration: 1-2 Days, Changing Over Time Severity: Moderate Associated Systoms: No Chest Pain; Cough; No Diaphoresis, No Fever/Chills; Nausea/Vomiting, Shortness of Air Allergies and Home Medications Allergies Coded Allergies: Penicillins (Verified Allergy, Unknown, 11/10/20) chlorpromazine (Verified Allergy, Unknown, 11/10/20) Home Medications Acetaminophen 325 Mg Tablet, 650 MG PO Q6H PRN for PAIN-MILD, (Reported) Last Action: Continued Apixaban 5 Mg Tablet, 5 MG PO BID Prescribed by: NAWAF VILLEDA on 08/11/20 0831 Last Action: Continued Aspirin 81 Mg Tablet.dr, 81 MG PO DAILY, (Reported) Last Action: Continued Atorvastatin Calcium 40 Mg Tablet, 40 MG PO HS, (Reported) Last Action: Continued Bismuth Subsalicylate 262 Mg/15 Ml Oral.susp, 262 MG PO Q6H PRN for DIARRHEA, (Reported) 30 ml Last Action: Continued Calcium Carbonate 200 Mg Tab.chew, 500 MG PO PRN PRN for HEARTBURN, (Reported) Last Action: Continued Cetirizine HCl 10 Mg Tablet, 10 MG PO DAILY, (Reported) Last Action: Converted Cyclobenzaprine HCl 10 Mg Tablet, 10 MG PO Q8H PRN for MUSCLE SPASMS, (Reported) Last Action: Continued Digoxin 250 Mcg Tablet, 0.25 MG PO DAILY Prescribed by: NAWAF VILLEDA on 08/11/20830 Last Action: Continued Diltiazem HCl 240 Mg Cap.er.24h, 240 MG PO DAILY Prescribed by: NAWAF VILLEDA on 08/11/20830 Last Action: Continued Divalproex Sodium 125 Mg Cap.sprink, 875 MG PO HS, (Reported) TAKES 7 (125MG) CAPSULES Last Action: Continued Divalproex Sodium 125 Mg Cap, 875 MG PO DAILY, (Reported) TAKES 7 (125MG) TABS Last Action: Continued Divalproex Sodium 125 Mg Cap, 250 MG PO 1400, (Reported) TAKES 2 (125MG) TABS Last Action: Continued Escitalopram Oxalate 10 Mg Tablet, 10 MG PO DAILY, (Reported) Last Action: Converted Fluticasone Propionate 9.9 Ml Franklin.susp, 2 SPRAY NS DAILY, (Reported) Last Action: Converted Furosemide 40 Mg Tablet, 40 MG PO DAILY Prescribed by: NAWAF VILLEDA on 08/11/20830 Last Action: Continued Gabapentin 100 Mg Capsule, 300 MG PO HS, (Reported) Last Action: Continued Insulin Glargine,Hum.rec.anlog 100 Unit/1 Ml Insuln.pen, 10 UNIT SQ DAILY, (R eported) Last Action: Converted Insulin Lispro 100 Unit/1 Ml Insuln.pen, UNITS SC AC, (Reported) USE PER SLIDING SCALE: 201-250= 3 UNITS 251-300=5 UNITS 301-350=7 UNITS 351- 400=9 UNITS NOTIFY PCP IF <60 OR >400 Last Action: Held Loratadine 10 Mg Tablet, 10 MG PO DAILY, (Reported) Last Action: Continued Mag Hydrox/Al Hydrox/Simeth 30 Ml Oral.susp, 30 ML PO Q4H PRN for INDIGESTION, (Reported) Last Action: Continued Metformin HCl 500 Mg Tablet, 1,000 MG PO BID, (Reported) TAKES 2 (500MG) TABS Last Action: Held Montelukast Sodium 10 Mg Tablet, 10 MG PO DAILY, (Reported) Last Action: Continued Olanzapine 5 Mg Tablet, 5 MG PO DAILY, (Reported) Last Action: Continued Olanzapine 5 Mg Tablet, 10 MG PO HS, (Reported) TAKES 2 (5MG) TABS Last Action: Continued Ondansetron HCl 8 Mg Tablet, 8 MG PO Q8H PRN for NAUSEA/VOMITING, (Reported) Last Action: Converted Pantoprazole Sodium 40 Mg Tablet.dr, 40 MG PO DAILY, (Reported) Last Action: Continued Sevelamer Carbonate 800 Mg Tablet, 800 MG PO TIDWM, (Reported) Last Action: Continued Tamsulosin HCl 0.4 Mg Cap, 0.4 MG PO HS, (Reported) Last Action: Continued Trazodone HCl 50 Mg Tablet, 50 MG PO HS, (Reported) Last Action: Continued Vortioxetine Hydrobromide 10 Mg Tablet, 10 MG PO DAILY, (Reported) Last Action: Converted Patient Home Medication List Home Medication List Reviewed: Yes Review of Systems Review of Systems Constitutional: No fever; weakness EENTM: No nose congestion, No throat pain Respiratory: cough, short of breath Cardiovascular: No chest pain, No edema Gastrointestinal: constipation; No nausea, No vomiting Genitourinary: no symptoms reported Musculoskeletal: no symptoms reported Skin: no symptoms reported Psychiatric/Neurological: No Symptoms Reported All Other Systems Reviewed Negative Unless Noted: Yes Past Kcclxhn-Vpaoxa-Wanelq Hx Past Med/Social Hx: Reviewed Nursing Past Med/Soc Hx Patient Social History Alcohol Use: Denies Use Drug of Choice: HX THC Smoking Status: Current Everyday Smoker Type Used: Cigarettes 2nd Hand Smoke Exposure: Yes Recent Infectious Disease Expo: No Recent Hopitalizations: No Immunizations Up To Date Tetanus Booster (TDap): Unknown Date of Pneumonia Vaccine: Dec 31, 2017 Date of Influenza Vaccine: Mar 11, 2019 Seasonal Allergies Seasonal Allergies: No Past Medical History Surgeries: Yes CABG, Vasectomy Respiratory: No Cardiac: Yes Coronary Artery Disease, High Cholesterol, Hypertension Neurological: No Genitourinary: Yes Renal Failure Gastrointestinal: Yes Gastroesophageal Reflux Musculoskeletal: No Endocrine: Yes Diabetes, Non-Insulin dep HEENT: No Cancer: No Psychosocial: Yes Sleep Difficulties, PTSD, Schizophrenia, Depression Integumentary: No Blood Disorders: No Family Medical History Reviewed Nursing Family Hx No Pertinent Family Hx Physical Exam-Suspected Sepsis Physical Exam Vital Signs Vital Signs - First Documented Capillary Refill : Less Than 3 Seconds Blood Pressure Mean: 85 Height, Weight, BMI Height: 5'8.00" Weight: 171lbs. 0.0oz. 77.729223ut; 34.00 BMI Method:Stated General Appearance: No Apparent Distress, WD/WN HEENT: PERRL/EOMI, Pharynx Normal Neck: Non Tender, Supple Respiratory: Crackles (Right base), Decreased Breath Sounds, Wheezing (Few scattered) Cardiovascular: Regular Rate, Rhythm, Normal Peripheral Pulses Gastrointestinal: Non Tender, Soft Back: Normal Inspection, No CVA Tenderness, No Vertebral Tenderness Extremity: Normal Range of Motion, Non Tender Neurologic/Psychiatric: Alert, Oriented x3 Skin: normal color, warm/dry Focused Exam Lactate Level 11/10/20 07:30: Lactic Acid Level 1.75 Lactic Acid Level Progress/Results/Core Measures Suspected Sepsis Recent Fever Within 48 Hours: No Infection Criteria Present: None New/Unexplained Altered Menta: No Sepsis Screen: No Definite Risk SIRS Temperature: Pulse: 105 Respiratory Rate: 28 Laboratory Tests 11/10/20 07:30: White Blood Count 10.7 Blood Pressure 112 /71 Mean: 85 11/10/20 07:30: Lactic Acid Level 1.75 Laboratory Tests 11/10/20 07:30: Creatinine 1.62H, INR Comment 1.0, Platelet Count 283, Total Bilirubin 0.3 Results/Orders Lab Results Laboratory Tests Test 11/10/20 07:30 11/10/20 12:37 Range/Units White Blood Count 10.7 4.3-11.0 10^3/uL Red Blood Count 4.34 4.30-5.52 10^6/uL Hemoglobin 12.9 L 13.3-17.7 g/dL Hematocrit 39 L 40-54 % Mean Corpuscular Volume 90 80-99 fL Mean Corpuscular Hemoglobin 30 25-34 pg Mean Corpuscular Hemoglobin Concent 33 32-36 g/dL Red Cell Distribution Width 14.6 H 10.0-14.5 % Platelet Count 283 130-400 10^3/uL Mean Platelet Volume 8.9 L 9.0-12.2 fL Immature Granulocyte % (Auto) 1 % Neutrophils (%) (Auto) 81 H 42-75 % Lymphocytes (%) (Auto) 5 L 12-44 % Monocytes (%) (Auto) 12 0-12 % Eosinophils (%) (Auto) 1 0-10 % Basophils (%) (Auto) 0 0-10 % Neutrophils # (Auto) 8.6 H 1.8-7.8 10^3/uL Lymphocytes # (Auto) 0.5 L 1.0-4.0 10^3/uL Monocytes # (Auto) 1.3 H 0.0-1.0 10^3/uL Eosinophils # (Auto) 0.2 0.0-0.3 10^3/uL Basophils # (Auto) 0.0 0.0-0.1 10^3/uL Immature Granulocyte # (Auto) 0.1 0.0-0.1 10^3/uL Neutrophils % (Manual) 82 % Lymphocytes % (Manual) 5 % Monocytes % (Manual) 7 % Eosinophils % (Manual) 2 % Band Neutrophils 4 % Blood Morphology Comment NORMAL Prothrombin Time 13.4 12.2-14.7 SEC INR Comment 1.0 0.8-1.4 Activated Partial Thromboplast Time 36 H 24-35 SEC Sodium Level 127 L 135-145 MMOL/L Potassium Level 3.7 3.6-5.0 MMOL/L Chloride Level 81 L 98-107 MMOL/L Carbon Dioxide Level 31 21-32 MMOL/L Anion Gap 15 H 5-14 MMOL/L Blood Urea Nitrogen 19 H 7-18 MG/DL Creatinine 1.62 H 0.60-1.30 MG/DL Estimat Glomerular Filtration Rate 43 BUN/Creatinine Ratio 12 Glucose Level 231 H 70-105 MG/DL Lactic Acid Level 1.75 0.50-2.00 MMOL/L Calcium Level 9.2 8.5-10.1 MG/DL Corrected Calcium 9.5 8.5-10.1 MG/DL Total Bilirubin 0.3 0.1-1.0 MG/DL Aspartate Amino Transf (AST/SGOT) 8 5-34 U/L Alanine Aminotransferase (ALT/SGPT) 8 0-55 U/L Alkaline Phosphatase 64 40-136 U/L C-Reactive Protein High Sensitivity 23.84 H 0.00-0.50 MG/DL B-Type Natriuretic Peptide 190.4 H <100.0 PG/ML Total Protein 7.7 6.4-8.2 GM/DL Albumin 3.6 3.2-4.5 GM/DL Procalcitonin 0.39 H <0.10 NG/ML Influenza Type A (RT-PCR) Not Detected Not Detecte Influenza Type B (RT-PCR) Not Detected Not Detecte SARS-CoV-2 RNA (RT-PCR) Not Detected Not Detecte Glucometer 222 H 70-110 MG/DL My Orders Orders - СЕРГЕЙ GANDARA MD Cbc With Automated Diff (11/10/20 07:40) Comprehensive Metabolic Panel (11/10/20 07:40) Blood Culture (11/10/20 07:40) Sputum Culture (11/10/20 07:40) Urinalysis (11/10/20 07:40) Urine Culture (11/10/20 07:40) Protime With Inr (11/10/20 07:40) Partial Thromboplastin Time (11/10/20 07:40) Chest 1 View, Ap/Pa Only (11/10/20 07:40) Ed Iv/Invasive Line Start (11/10/20 07:40) Vital Signs Adult Sepsis Patie Q15M (11/10/20 07:40) O2 (11/10/20 07:40) Remove Rings In Anticipation O (11/10/20 07:40) Lactic Acid Analyzer (11/10/20 07:40) Procalcitonin (Pct) (11/10/20 07:40) Hs C Reactive Protein (11/10/20 07:40) Influenza A And B By Pcr (11/10/20 07:46) Covid 19 Inhouse Test (11/10/20 07:46) BNP (11/10/20 07:54) Manual Differential (11/10/20 07:30) Lactated Ringers (Lr 1000 Ml Iv Solution (11/10/20 08:45) Cho 75g/M 0snack (21-2400 Nestor) (11/10/20 Breakfast) Cefepime Injection (Maxipime Injection) (11/10/20 09:00) Albuterol/Ipra Inhalation Soln (Duoneb I (11/10/20 09:00) Svn Small Volume Nebulizer (11/10/20 08:50) Medications Given in ED Current Medications Medications Dose Ordered Sig/Juan Route Start Time Stop Time Status Last Admin Dose Admin Lactated Ringer's 1,000 ml @ 0 mls/hr Q0M ONCE IV 11/10/20 08:45 11/10/20 08:46 DC 11/10/20 08:39 1,000 MLS/HR Vital Signs/I&O 11/10/20 11/10/20 11/10/20 11/10/20 07:20 07:20 09:03 09:20 Temp 36.9 Pulse 105 88 Resp 28 20 B/P (MAP) 112/71 (85) 110/68 (85) Pulse Ox 95 92 95 90 O2 Delivery Nasal Cannula Nasal Cannula Nasal Cannula Nasal Cannula O2 Flow Rate 2.00 2.00 2.00 3.00 11/10/20 11/10/20 11/10/20 11/10/20 09:54 09:56 10:12 11:23 Temp 36.7 36.7 36.7 Pulse 102 102 102 Resp 22 22 B/P (MAP) 125/64 (84) 125/64 (84) Pulse Ox 90 90 90 90 O2 Delivery Nasal Cannula Nasal Cannula Nasal Cannula O2 Flow Rate 4.00 4.00 4.00 11/10/20 11/10/20 12:03 14:01 Temp 36.3 Pulse 95 Resp 22 B/P (MAP) 144/80 (101) Pulse Ox 93 90 O2 Delivery Nasal Cannula Nasal Cannula O2 Flow Rate 3.50 3.00 Capillary Refill : Less Than 3 Seconds Blood Pressure Mean: 85 Progress Note : Progress Note Seen and evaluated. IV, labs, blood cultures and lactic acid ordered. We will check COVID-19 and influenza given patient's respiratory presentation. Sepsis protocol was initiated. Patient is requiring 2 to 3 L via nasal cannula to keep O2 sats greater than 90%. Monitor patient. 0854: Right lower lobe pneumonia noted. I did discuss the case with Dr. Helms. Patient is still requiring oxygen at 2 to 3 L via nasal cannula to keep O2 sat greater than 90%. Pneumonia is prominent in the right lower lobe and will require IV antibiotics and inpatient treatment. She accepts patient for admission, inpatient status. Discussed with patient who agrees with plan. Lactic acid is not greater than 2 and patient is not hypotensive and does not require high-volume fluid resuscitation. We will give LR 1 L bolus for dehydration noted on labs. History of chronic renal insufficiency that appears stable. Diagnostic Imaging Diagonstic Imaging: Xray Plain Films/CT/US/NM/MRI: chest Comments [facility]. [place], [place] NAME: CAPO KELLEY Lluvia [facility] REC#: [id number] PT STATUS: REG ER : 1955 PHYSICIAN: СЕРГЕЙ GANDARA MD ADMIT DATE: 11/10/20/ER Draft Date of Exam:11/10/20 CHEST 1 VIEW, AP/PA ONLY Indication: Shortness of air cough. Time of exam: 8:25 AM Correlation is made with prior chest 08/11/2020. Changes of median sternotomy are noted. There is airspace infiltrate in the right mid and lower lung field, increased since prior exam and most consistent with pneumonia. The left lung is clear. No significant effusion or pneumothorax is seen. IMPRESSION: Right-sided pulmonary infiltrates consistent with pneumonia. Dictated on workstation # [id number] Dict: 11/10/20824 Trans: 11/10/20826 CV [id number] Interpreted by: STEVEN ROLAND MD Electronically signed by: Departure Communication (Admissions) Time/Spoke to Admitting Phy: 08:54 Impression Primary Impression: Right lower lobe pneumonia Qualified Codes: J18.9 - Pneumonia, unspecified organism Additional Impressions: Hypoxia Chronic renal insufficiency Qualified Codes: N18.9 - Chronic kidney disease, unspecified Disposition: ADMITTED INPATIENT Condition: Stable Admissions Decision to Admit Reason: Admit from ER (General) Decision to Admit/Date: Nov 10, 2020 Time/Decision to Admit Time: 08:54 Departure-Patient Inst. Referrals: GIOVANNY CODY DO (PCP/Family) Primary Care Physician СЕРГЕЙ GANDARA MD Nov 10, 2020 08:06
--- NOTE | 2020-11-10 08:27 | Diagnostic Imaging Report ---
Indication: Shortness of air cough. Time of exam: 8:25 AM Correlation is made with prior chest 08/11/2020. Changes of median sternotomy are noted. There is airspace infiltrate in the right mid and lower lung field, increased since prior exam and most consistent with pneumonia. The left lung is clear. No significant effusion or pneumothorax is seen. IMPRESSION: Right-sided pulmonary infiltrates consistent with pneumonia. Dictated by: Dictated on workstation # [id number]
[2020-11-10] MEDS ORDERED: LACTATED RINGERS 1,000 ML IV ONE (08:45)
[2020-11-10] MEDS ORDERED: RT-ALBUTEROL/IPRATROPIUM 3 ML (DUONEB) VIAL INH ONE (09:00)
[2020-11-10] MEDS ORDERED: CEFEPIME INJECTION 1,000 MG in WATER (STERILE) FOR INJECTION 10 ML IV ONE (09:00)
[2020-11-10 09:06] LABS: BAND NEUTROPHILS 4 %; EOSINOPHILS % (MANUAL) 2 %; LYMPHOCYTES % (MANUAL) 5 %; MONOCYTES % (MANUAL) 7 %; NEUTROPHILS % (MANUAL) 82 %; RBC MORPH NORMAL
[2020-11-10 09:54] VITALS: BP 125/64
[2020-11-10 09:56] VITALS: BP 125/64
[2020-11-10] MEDS ORDERED: ONDANSETRON 4 MG/2 ML (SDV) Z0FRAN IVP PRN (10:15)
[2020-11-10] MEDS ORDERED: LACTATED RINGERS 1,000 ML IV SCH (10:15)
[2020-11-10] MEDS ORDERED: ESCI10TA PO (10:50)
[2020-11-10] MEDS ORDERED: ONDA8TAB15 PO (10:54)
[2020-11-10] MEDS ORDERED: [UNRECOGNIZED DRUG - CODE] PO (10:55)
[2020-11-10] MEDS ORDERED: TRZ50T PO (10:58)
[2020-11-10 11:23] VITALS: BP 125/64
[2020-11-10] MEDS ORDERED: RT-ALBUTEROL/IPRATROPIUM 3 ML (DUONEB) VIAL INH PRN (11:30)
--- NOTE | 2020-11-10 12:01 | History & Physical-Hospitalist ---
History of Present Illness HPI/Chief Complaint Chief complaint: Pneumonia History of present illness: This is a 65-year-old white male with history of mental illness [facility] in a jail who continues to smoke who presents to the ER with altered mental status and fever. Covid swab was negative. Patient was found to have pneumonia. IV antibiotics initiated along with nebulizer treatments steroids and home medications. Source: patient Exam Limitations: no limitations Date Seen 11/10/20 Time Seen by a Provider: 11:30 Attending Physician Lisset Helms MD PCP Leonardo Perez DO Referring Physician Date of Admission Nov 10, 2020 at 08:54 Home Medications & Allergies Home Medications Reviewed patient Home Medication Reconciliation performed by pharmacy medication reconciliations laser/electro optics technician and/or nursing. Patients Allergies have been reviewed. Allergies Allergies Coded Allergies Penicillins (Verified Allergy, Unknown, 11/10/20) chlorpromazine (Verified Allergy, Unknown, 11/10/20) Past Selaxpy-Ydgjvg-Idossl Hx Patient Social History Marrital Status: single Employed/Student: unemployed Tobacco Use?: Yes Tobacco type used: Cigarettes Smoking Status: Current Everyday Smoker Use of E-Cig and/or Vaping dev: No Substance use?: No Alcohol Use?: No Pt feels they are or have been: No Immunizations Up To Date Date of Influenza Vaccine: Mar 11, 2019 First/Initial COVID19 Vaccinat: VACCINATED X2 Second COVID19 Vaccination Allen: VACCINATED X2 Tetanus Booster (TDap): Unknown Date of Pneumonia Vaccine: Dec 31, 2017 Seasonal Allergies Seasonal Allergies: No Current Status Communicates: Verbally Primary Language: Slovak Preferred Spoken Language: Slovak Is interpretation needed?: No Past Medical History Surgeries: CABG, Vasectomy Coronary Artery Disease, High Cholesterol, Hypertension Renal Failure Gastroesophageal Reflux Diabetes, Non-Insulin dep Sleep Difficulties, PTSD, Schizophrenia, Depression Blood Disorders: No Family Medical History Reviewed Nursing Family Hx No Pertinent Family Hx Review of Systems Constitutional: see HPI, fever Respiratory: cough Physical Exam Physical Exam Vital Signs Vital Signs - First Documented Capillary Refill : Less Than 3 Seconds Height, Weight, BMI Height: 5'8.00" Weight: 171lbs. 0.0oz. 77.493542gw; 34.15 BMI Method:Stated General Appearance: No Apparent Distress, Chronically ill Eyes: Right Eye Normal Inspection, Right Eye PERRL HEENT: PERRL/EOMI, Normal ENT Inspection, Pharynx Normal, Moist Mucous Membranes Neck: Full Range of Motion, Normal Inspection, Non Tender Respiratory: Chest Non Tender, No Accessory Muscle Use, No Respiratory Distress, Decreased Breath Sounds, Wheezing Cardiovascular: Regular Rate, Rhythm, No Edema, No Gallop, No JVD, No Murmur, Normal Peripheral Pulses Gastrointestinal: Normal Bowel Sounds, No Organomegaly, No Pulsatile Mass, Non Tender, Soft Back: Normal Inspection, No CVA Tenderness, No Vertebral Tenderness Extremity: Normal Capillary Refill, Normal Inspection, Normal Range of Motion, Non Tender, No Calf Tenderness, No Pedal Edema Neurologic/Psychiatric: Alert, Oriented x3, No Motor/Sensory Deficits, Normal Mood/Affect Skin: Normal Color, Warm/Dry Lymphatic: No Adenopathy Results Results/Procedures Labs Laboratory Tests 11/10/20 07:30 Patient resulted labs reviewed. Assessment/Plan Admission Diagnosis Assessment: Right-sided pneumonia Acute exacerbation of COPD CAD previous bypass Elevated BNP Mental illness Plan: IV antibiotics Nebulizer treatments Hep-Lock IV fluid Discontinue telemetry Home meds Admission Status: Inpatient Order (span 2 midnights) Reason for Inpatient Admission: Pneumonia from jail Diagnosis/Problems Diagnosis/Problems (1) Right lower lobe pneumonia Status: Acute Qualifiers: Pneumonia type: due to unspecified organism Qualified Codes: J18.9 - Pneumonia, unspecified organism (2) Hypoxia Status: Acute SOLIS CARDOZO DO Nov 10, 2020 12:01
[2020-11-10 12:03] VITALS: BP 144/80
[2020-11-10] MEDS ORDERED: RT-ALBUTEROL/IPRATROPIUM 3 ML (DUONEB) VIAL INH SCH ×2 (12:15→14:00)
[2020-11-10] MEDS ORDERED: ACETAMINOPHEN 325 MG TABLET PO PRN (12:15)
[2020-11-10] MEDS ORDERED: BISMUTH SUBSALICYLATE 240 ML (PEPTO BISMOL) PO PRN (12:15)
[2020-11-10] MEDS ORDERED: ANTACID SUSP 30 ML UDC (MYLANTA) PO PRN (12:15)
[2020-11-10] MEDS ORDERED: CALCIUM CARBONATE 500 MG (TUMS) TAB.CHEW PO PRN (12:15)
[2020-11-10] MEDS ORDERED: methylPREDNISolone 40 MG/ML (Solu-MEDROL) VIAL IV SCH (12:15)
[2020-11-10] MEDS ORDERED: ONDANSETRON 4 MG (ZOFRAN) ORAL DISSOLVE TAB PO PRN (12:45)
[2020-11-10] MEDS ORDERED: CYCLOBENZAPRINE 10 MG (FLEXERIL) TAB PO PRN (12:45)
[2020-11-10] MEDS: SEVELAMER CARBONATE 800 MG TABLET (RENVELA) PO SCH ×2 (13:56→17:04)
[2020-11-10] MEDS ORDERED: DIVALPROX SPRINKLE 125 MG (DEPAKOTE) CAP PO SCH ×2 (14:00→21:00)
[2020-11-10] MEDS ORDERED: inSUlin ASPART (NovoLOG) 1 UNIT/0.01 ML (CHARGE PER UNIT) SC SCH ×2 (15:00→16:00)
[2020-11-10] MEDS ORDERED: CEFEPIME INJECTION 1,000 MG in WATER (STERILE) FOR INJECTION 10 ML IV SCH (15:00)
[2020-11-10 16:00] VITALS: BP 131/74
[2020-11-10] MEDS ORDERED: MONTELUKAST 10 MG (SINGULAIR) TAB PO SCH (21:00)
[2020-11-10] MEDS ORDERED: GABAPENTIN 100 MG (NEURONTIN) CAP PO SCH (21:00)
[2020-11-10] MEDS ORDERED: traZODone 50 MG (DESYREL) TAB PO SCH (21:00)
[2020-11-10] MEDS ORDERED: APIXABAN 5 MG (ELIQUIS) TABLET PO SCH (21:00)
[2020-11-10] MEDS ORDERED: OLANZapine 5 MG (ZyPREXA) TAB PO SCH (21:00)
[2020-11-10] MEDS ORDERED: TAMSULOSIN 0.4 MG (FLOMAX) CAP PO SCH (21:00)
--- NOTE | 2020-11-11 08:58 | Discharge Summary ---
Discharge Summary Hospital Course Was the Problem List Reviewed?: Yes Problems/Dx: (1) Right lower lobe pneumonia Status: Acute Qualifiers: Qualified Codes: J18.9 - Pneumonia, unspecified organism (2) Hypoxia Status: Acute Hospital Course Date of Admission: Nov 10, 2020 at 08:54 Admission Diagnosis : Family Physician/Provider: Leonardo Perez DO Date of Discharge: 11/11/20 Discharge Diagnosis: Right lower lobe pneumonia, mental illness Hospital Course: Short course after admitted he decided to leave AGAINST MEDICAL ADVICE and he was of sound mind and his own person so he was discharged AGAINST MEDICAL ADVICE. Labs and Pending Lab Test: Laboratory Tests 11/10/20 12:37: Glucometer 222H 11/10/20 16:29: Glucometer 324H Home Meds Active Furosemide 40 Mg Tablet 40 Mg PO DAILY 30 Days Diltiazem 24Hr ER (Diltiazem HCl) 240 Mg Cap.er.24h 240 Mg PO DAILY 30 Days Digox (Digoxin) 250 Mcg Tablet 0.25 Mg PO DAILY 30 Days Eliquis (Apixaban) 5 Mg Tablet 5 Mg PO BID 30 Days Reported Trazodone HCl 50 Mg Tablet 50 Mg PO HS [place] Bismuth (Bismuth Subsalicylate) 262 Mg/15 Ml Oral.susp 262 Mg PO Q6H PRN 30 ml Ondansetron HCl 8 Mg Tablet 8 Mg PO Q8H PRN Lexapro (Escitalopram Oxalate) 10 Mg Tablet 10 Mg PO DAILY Depakote Sprinkle (Divalproex Sodium) 125 Mg Cap 250 Mg PO 1400 TAKES 2 (125MG) TABS Cyclobenzaprine HCl 10 Mg Tablet 10 Mg PO Q8H PRN Metformin HCl 500 Mg Tablet 1,000 Mg PO BID TAKES 2 (500MG) TABS Flonase Allergy Relief (Fluticasone Propionate) 9.9 Ml [place].susp 2 [place] NS DAILY Depakote Sprinkle (Divalproex Sodium) 125 Mg Cap 875 Mg PO DAILY TAKES 7 (125MG) TABS Insulin Lispro Kwikpen U-100 (Insulin Lispro) 100 Unit/1 Ml Insuln.pen Units SC AC USE PER SLIDING SCALE: 201-250= 3 UNITS 251-300=5 UNITS 301-350=7 UNITS 351-400=9 UNITS NOTIFY PCP IF <60 OR >400 Lantus Solostar (Insulin Glargine,Hum.rec.anlog) 100 Unit/1 Ml Insuln.pen 10 Unit SQ DAILY Trintellix (Vortioxetine Hydrobromide) 10 Mg Tablet 10 Mg PO DAILY Tums (Calcium Carbonate) 200 Mg Tab.chew 500 Mg PO PRN PRN Loratadine 10 Mg Tablet 10 Mg PO DAILY Olanzapine 5 Mg Tablet 10 Mg PO HS TAKES 2 (5MG) TABS Olanzapine 5 Mg Tablet 5 Mg PO DAILY Mylanta Suspension (Al Hydrox/Mg Hydrox/Simethicone) 30 Ml Oral.susp 30 Ml PO Q4H PRN Tylenol (Acetaminophen) 325 Mg Tablet 650 Mg PO Q6H PRN Gabapentin 100 Mg Capsule 300 Mg PO HS Montelukast Sodium 10 Mg Tablet 10 Mg PO DAILY Renvela (Sevelamer Carbonate) 800 Mg Tablet 800 Mg PO TIDWM Flomax (Tamsulosin HCl) 0.4 Mg Cap 0.4 Mg PO HS Aspirin EC (Aspirin) 81 Mg Tablet.dr 81 Mg PO DAILY Cetirizine HCl 10 Mg Tablet 10 Mg PO DAILY Pantoprazole Sodium 40 Mg Tablet.dr 40 Mg PO DAILY Atorvastatin Calcium 40 Mg Tablet 40 Mg PO HS Divalproex Sodium 125 Mg Cap.sprink 875 Mg PO HS TAKES 7 (125MG) CAPSULES Assessment/Pt Instructions Left AMA Discharge Planning: <30 minutes discharge planning Discharge Instructions Discharge Diet: No Restrictions Discharge Physical Examination Vital Signs Vital Signs Date Time Temp Pulse Resp B/P (MAP) Pulse Ox O2 Delivery O2 Flow Rate FiO2 11/10/20 16:00 36.2 101 20 131/74 (93) 90 Nasal Cannula 4.00 Allergies: Coded Allergies: Penicillins (Verified Allergy, Unknown, 11/10/20) chlorpromazine (Verified Allergy, Unknown, 11/10/20) Discharge Summary Date of Admission Nov 10, 2020 at 08:54 Date of Discharge Nov 10, 2020 at 20:19 Admission Diagnosis Assessment: Right-sided pneumonia Acute exacerbation of COPD CAD previous bypass Elevated BNP Mental illness Plan: IV antibiotics Nebulizer treatments Hep-Lock IV fluid Discontinue telemetry Home meds Discharge Diagnosis (1) Right lower lobe pneumonia Status: Acute Qualifiers: Qualified Codes: J18.9 - Pneumonia, unspecified organism (2) Hypoxia Status: Acute SOLIS CARDOZO DO Nov 11, 2020 08:58
[2020-11-11] MEDS ORDERED: DIGOXIN 0.25 MG (LANOXIN) TAB PO SCH (09:00)
[2020-11-11] MEDS ORDERED: FUROSEMIDE 40 MG (LASIX) TAB PO SCH (09:00)
[2020-11-11] MEDS ORDERED: FLUTICASONE NASAL SPRAY (FLONASE) 16 GM BTL NS SCH (09:00)
[2020-11-11] MEDS ORDERED: ASPIRIN E.C. 81 MG (ECOTRIN) TAB PO SCH (09:00)
[2020-11-11] MEDS ORDERED: DIVALPROX SPRINKLE 125 MG (DEPAKOTE) CAP PO SCH (09:00)
[2020-11-11] MEDS ORDERED: NON-FORMULARY MEDICATION 1 EA EA (Vortioxetine Hydrobromide (Trintellix) 10 MG) PO SCH (09:00)
[2020-11-11] MEDS ORDERED: LORATADINE (CLARITIN) 10 MG TAB PO SCH ×2 (09:00)
[2020-11-11] MEDS ORDERED: MONTELUKAST 10 MG (SINGULAIR) TAB PO SCH (09:00)
[2020-11-11] MEDS ORDERED: OLANZapine 5 MG (ZyPREXA) TAB PO SCH (09:00)
[2020-11-11] MEDS ORDERED: PANTOPRAZOLE 40 MG (PROTONIX) TAB PO SCH (09:00)
--- NOTE | 2020-11-13 12:58 | Physician Query Clarification ---
PQ-Intro New Diagnosis Admission/Discharge Admission Date: Nov 10, 2020 at 08:54 Discharge Date: Nov 10, 2020 at 20:19 Dr. Frankel, The medical record reflects the following clinical scenario: History/Risk Factors: pneumonia, COPDAE, DM Clinical Findings: preliminary blood culture - staph coag neg Treatment: IV cefepime Question: What condition best reflects the above clinical scenario? Please document a response in the Progress Noter or Discharge Summary. 1. staph sepsis 2. bacteremia 3. contaminant 4. Other, with explanation of the clinical findings. 5. Clinically undetermined, no explanation for the clinical findings. PHYSICIAN RESPONSE What condition reflects above: Other, explanation/clinical finding (contaminant) Please remember a lack of response to the above will prompt a phone page by CDI/Coding staff. In responding to this query, please exercise your independent professional judgment. The purpose of this communication is to more accurately reflect the complexity of your patients condition. The fact that a question is asked does not imply that any particular answer is desired or expected. Thank you for your timely response to this clarification. Requestors name: Vero THIS PHYSICIAN QUERY FORM IS A PERMANENT PART OF THE MEDICAL RECORD VERO MONTALVO Nov 13, 2020 12:58 SOLIS FRANKEL DO Nov 13, 2020 21:19
== END 2020-11-10 20:19 | disposition left against medical advice (07) | DRG 194 ==
LOC: EDUNIT# 07:19 → ER 07:21 → 4TH 08:54
PROVIDERS: ADMIT Family Medicine; ATTEND Family Medicine
DX: J18.9 Pneumonia, unspecified organism (principal); J44.0 Chronic obstructive pulmonary disease with (acute) lower respiratory infection; J44.1 Chronic obstructive pulmonary disease with (acute) exacerbation; R09.02 Hypoxemia; F17.210 Nicotine dependence, cigarettes, uncomplicated; I25.10 Atherosclerotic heart disease of native coronary artery without angina pectoris; E78.00 Pure hypercholesterolemia, unspecified; I12.9 Hypertensive chronic kidney disease with stage 1 through stage 4 chronic kidney disease, or unspecified chronic kidney disease; E11.22 Type 2 diabetes mellitus with diabetic chronic kidney disease; N18.9 Chronic kidney disease, unspecified; Z79.4 Long term (current) use of insulin; K21.9 Gastro-esophageal reflux disease without esophagitis; Z20.822 Contact with and (suspected) exposure to COVID-19; F43.10 Post-traumatic stress disorder, unspecified; F20.9 Schizophrenia, unspecified; F32.9 Major depressive disorder, single episode, unspecified; Z95.1 Presence of aortocoronary bypass graft; Z88.0 Allergy status to penicillin; Z79.01 Long term (current) use of anticoagulants; Z79.82 Long term (current) use of aspirin
CPT/HCPCS: 36415; 71045; 80053; 82947; 83605; 83880; 84145; 85007; 85027; 85610; 85730; 86141; 87040; 87636; 94640; 94664; 94760

== ENCOUNTER 2020-11-13 13:15 | Emergency (ER) | payer MEDICAID ==
[~2020-11-13] VITALS: Ht 175 cm; Wt 86.0 kg
[~2020-11-13 13:15] MED LIST changes: +ESCI10TA PO; +ONDA8TAB15 PO; +TRZ50T PO; +[UNRECOGNIZED DRUG - CODE] PO
[2020-11-13 13:52] LABS: BASOPHILS # (AUTO) 0.1 10^3/uL (0.0-0.1); BASOPHILS % (AUTO) 1 % (0-10); EOSINOPHILS # (AUTO) 0.5 10^3/uL (0.0-0.3); EOSINOPHILS % (AUTO) 6 % (0-10); HEMATOCRIT 41 % (40-54); HEMOGLOBIN 12.5 g/dL (13.3-17.7); LYMPHOCYTES # (AUTO) 1.5 10^3/uL (1.0-4.0); LYMPHOCYTES % (AUTO) 17 % (12-44); MEAN CORPUSCULAR HEMOGLOBIN 30 pg (25-34); MEAN CORPUSCULAR HGB CONC 31 g/dL (32-36); MEAN CORPUSCULAR VOLUME 97 fL (80-99); MEAN PLATELET VOLUME 8.6 fL (9.0-12.2); MONOCYTES # (AUTO) 1.2 10^3/uL (0.0-1.0); MONOCYTES % (AUTO) 14 % (0-12); NEUTROPHILS # (AUTO) 5.2 10^3/uL (1.8-7.8); NEUTROPHILS % (AUTO) 58 % (42-75); PLATELET COUNT 340 10^3/uL (130-400); WHITE BLOOD COUNT 8.9 10^3/uL (4.3-11.0)
[2020-11-13 13:57] LABS: ALBUMIN 3.5 GM/DL (3.2-4.5)
[2020-11-13 13:59] LABS: CALCIUM 9.7 MG/DL (8.5-10.1)
[2020-11-13 14:00] LABS: TOTAL PROTEIN 7.7 GM/DL (6.4-8.2)
[2020-11-13 14:01] LABS: BILIRUBIN,TOTAL 0.3 MG/DL (0.1-1.0)
[2020-11-13 14:02] LABS: SMEAR SCAN COMMENT YES
[2020-11-13 14:03] LABS: CREATININE SERUM 1.55 MG/DL (0.60-1.30)
--- NOTE | 2020-11-13 14:19 | Diagnostic Imaging Report ---
INDICATION: Shortness of air. COMPARISON: 11/10/2020 FINDINGS: Single frontal radiographic view of the chest was obtained and demonstrates stable mild right basilar effusion with associated patchy and confluent airspace disease within the right mid and lower lung field. There is no large effusion on the left. No pneumothorax is seen on either side. Cardiac silhouette and pulmonary vasculature are within normal limits. Sternotomy wires are noted. Osseous structures show no acute abnormalities. IMPRESSION: 1. Stable exam of the chest showing right basilar effusion with associated infiltrate appearing opacities within the right mid and lower lung field. Dictated by: Dictated on workstation # [id number]
[2020-11-13] MEDS ORDERED: guaiFENesin (MUCINEX) 600 MG TAB PO STA (14:38)
--- NOTE | 2020-11-13 14:43 | ED Respiratory ---
General Chief Complaint: Respiratory Problems Stated Complaint: PNEUMONIA Nursing Triage Note: PT TO ROOM 9 PT CO OF [facility], WAS ADMITTED FOR PNEM ON THURSDAY, LEFT AMA. PT HAS TESTED NEG FOR COVID YESTERDAY. PT WAS STARTED ON AZITHROMYCIN AND CEFDINIR AT [place]. PT CO TO STAFF THAT HE IS FEELING BADLY AND INCREASED SOA. O2 SAT DECREASES TO 80 WHEN TAKES O2 OFF History of Present Illness Date Seen by Provider: Nov 13, 2020 Time Seen by Provider: 13:15 Initial Comments 65-year-old male presents for shortness of breath, he was admitted on 11/10/2020 and left AMA on 11/20/2020. He was started on azithromycin and cefdinir last night. He lives in a long-term care facility and wears oxygen with the pain 3 and 5 L per nasal cannula, 80s to 90s at night but denies wearing it during the day as well. Patient denies any chest pain, he has a productive cough. His vital signs are stable, he is afebrile and normotensive. His SaO2 on room air is 90% and 5 L per nasal cannula at 98%. He denies any complaints at this time. Timing/Duration: week Severity: mild Prior Episodes/Possible Cause: occasional episodes Modifying Factors: Improves With Oxygen, Improves With Rest Associated Symptoms: No chest pain/soreness; cough, nasal congestion, shortness of breath Allergies and Home Medications Allergies Coded Allergies: Penicillins (Verified Allergy, Unknown, 11/10/20) chlorpromazine (Verified Allergy, Unknown, 11/10/20) Home Medications Acetaminophen 325 Mg Tablet, 650 MG PO Q6H PRN for PAIN-MILD, (Reported) Albuterol/Ipratropium 4 Gm Aero, 2 PUFF IH Q4H Prescribed by: FRANKLIN CARSON on 11/13/20 1539 Apixaban 5 Mg Tablet, 5 MG PO BID Prescribed by: NAWAF VILLEDA on 08/11/20 0831 Aspirin 81 Mg Tablet.dr, 81 MG PO DAILY, (Reported) Atorvastatin Calcium 40 Mg Tablet, 40 MG PO HS, (Reported) Bismuth Subsalicylate 262 Mg/15 Ml Oral.susp, 262 MG PO Q6H PRN for DIARRHEA, (Reported) 30 ml Calcium Carbonate 200 Mg Tab.chew, 500 MG PO PRN PRN for HEARTBURN, (Reported) Cetirizine HCl 10 Mg Tablet, 10 MG PO DAILY, (Reported) Cyclobenzaprine HCl 10 Mg Tablet, 10 MG PO Q8H PRN for MUSCLE SPASMS, (Reported) Digoxin 250 Mcg Tablet, 0.25 MG PO DAILY Prescribed by: NAWAF VILLEDA on 08/11/20830 Diltiazem HCl 240 Mg Cap.er.24h, 240 MG PO DAILY Prescribed by: NAWAF VILLEDA on 08/11/20830 Divalproex Sodium 125 Mg Cap.sprink, 875 MG PO HS, (Reported) TAKES 7 (125MG) CAPSULES Divalproex Sodium 125 Mg Cap, 875 MG PO DAILY, (Reported) TAKES 7 (125MG) TABS Divalproex Sodium 125 Mg Cap, 250 MG PO 1400, (Reported) TAKES 2 (125MG) TABS Escitalopram Oxalate 10 Mg Tablet, 10 MG PO DAILY, (Reported) Fluticasone Propionate 9.9 Ml [place].susp, 2 SPRAY NS DAILY, (Reported) Furosemide 40 Mg Tablet, 40 MG PO DAILY Prescribed by: NAWAF VILLEDA on 08/11/20830 Gabapentin 100 Mg Capsule, 300 MG PO HS, (Reported) Insulin Glargine,Hum.rec.anlog 100 Unit/1 Ml Insuln.pen, 10 UNIT SQ DAILY, (Reported) Insulin Lispro 100 Unit/1 Ml Insuln.pen, UNITS SC AC, (Reported) USE PER SLIDING SCALE: 201-250= 3 UNITS 251-300=5 UNITS 301-350=7 UNITS 351- 400=9 UNITS NOTIFY PCP IF <60 OR >400 Loratadine 10 Mg Tablet, 10 MG PO DAILY, (Reported) Mag Hydrox/Al Hydrox/Simeth 30 Ml Oral.susp, 30 ML PO Q4H PRN for INDIGESTION, (Reported) Metformin HCl 500 Mg Tablet, 1,000 MG PO BID, (Reported) TAKES 2 (500MG) TABS Montelukast Sodium 10 Mg Tablet, 10 MG PO DAILY, (Reported) Olanzapine 5 Mg Tablet, 5 MG PO DAILY, (Reported) Olanzapine 5 Mg Tablet, 10 MG PO HS, (Reported) TAKES 2 (5MG) TABS Ondansetron HCl 8 Mg Tablet, 8 MG PO Q8H PRN for NAUSEA/VOMITING, (Reported) Pantoprazole Sodium 40 Mg Tablet.dr, 40 MG PO DAILY, (Reported) Sevelamer Carbonate 800 Mg Tablet, 800 MG PO TIDWM, (Reported) Tamsulosin HCl 0.4 Mg Cap, 0.4 MG PO HS, (Reported) Trazodone HCl 50 Mg Tablet, 50 MG PO HS, (Reported) Vortioxetine Hydrobromide 10 Mg Tablet, 10 MG PO DAILY, (Reported) Patient Home Medication List Home Medication List Reviewed: Yes Review of Systems Review of Systems Constitutional: no symptoms reported, see HPI EENTM: see HPI, no symptoms reported Respiratory: see HPI, cough, dyspnea on exertion, phlegm Cardiovascular: no symptoms reported, see HPI; No chest pain Gastrointestinal: no symptoms reported, see HPI All Other Systems Reviewed Negative Unless Noted: Yes Past Mfxafdm-Jsrljw-Arumow Hx Past Med/Social Hx: Reviewed Nursing Past Med/Soc Hx Patient Social History Alcohol Use: Denies Use Drug of Choice: HX THC Smoking Status: Current Everyday Smoker Type Used: Cigarettes 2nd Hand Smoke Exposure: Yes Recent Infectious Disease Expo: No Recent Hopitalizations: Yes (PNEMONIA) Immunizations Up To Date Tetanus Booster (TDap): Unknown Date of Pneumonia Vaccine: Dec 31, 2017 Date of Influenza Vaccine: Mar 11, 2019 Seasonal Allergies Seasonal Allergies: No Past Medical History Surgeries: Yes CABG, Vasectomy Respiratory: No Cardiac: Yes Coronary Artery Disease, High Cholesterol, Hypertension Neurological: No Genitourinary: Yes Renal Failure Gastrointestinal: Yes Gastroesophageal Reflux Musculoskeletal: No Endocrine: Yes Diabetes, Non-Insulin dep HEENT: No Cancer: No Psychosocial: Yes Sleep Difficulties, PTSD, Schizophrenia, Depression Integumentary: No Blood Disorders: No Family Medical History No Pertinent Family Hx Physical Exam Vital Signs - First Documented 11/13/20 13:15 Temp 36.8 Pulse 82 Resp 24 B/P (MAP) 116/74 (88) Pulse Ox 96 O2 Delivery Nasal Cannula O2 Flow Rate 5.00 Capillary Refill : Less Than 3 Seconds Height: 5'8.00" Weight: 171lbs. 0.0oz. 77.364398lf; 28.00 BMI Method:Stated General Appearance: WD/WN, no apparent distress HEENT: PERRL/EOMI, normal ENT inspection, TMs normal, pharynx normal Neck: non-tender, full range of motion, supple, normal inspection Respiratory: chest non-tender, no respiratory distress, no accessory muscle use, decreased breath sounds Cardiovascular: normal peripheral pulses, regular rate, rhythm Gastrointestinal: normal bowel sounds, non tender, soft Neurologic/Psychiatric: no motor/sensory deficits, alert, normal mood/affect, oriented x 3 Skin: normal color, warm/dry Progress/Results/Core Measures Suspected Sepsis Recent Fever Within 48 Hours: No Infection Criteria Present: None New/Unexplained Altered Menta: No Sepsis Screen: No Definite Risk SIRS Temperature: Pulse: 82 Respiratory Rate: 24 Laboratory Tests 11/13/20 13:00: White Blood Count 8.9 Blood Pressure 116 /74 Mean: 88 Laboratory Tests 11/13/20 13:00: Creatinine 1.55H, Platelet Count 340, Total Bilirubin 0.3 Results/Orders Lab Results Laboratory Tests Test 11/13/20 13:00 Range/Units White Blood Count 8.9 4.3-11.0 10^3/uL Red Blood Count 4.21 L 4.30-5.52 10^6/uL Hemoglobin 12.5 L 13.3-17.7 g/dL Hematocrit 41 40-54 % Mean Corpuscular Volume 97 80-99 fL Mean Corpuscular Hemoglobin 30 25-34 pg Mean Corpuscular Hemoglobin Concent 31 L 32-36 g/dL Red Cell Distribution Width 15.9 H 10.0-14.5 % Platelet Count 340 130-400 10^3/uL Mean Platelet Volume 8.6 L 9.0-12.2 fL Immature Granulocyte % (Auto) 5 % Neutrophils (%) (Auto) 58 42-75 % Lymphocytes (%) (Auto) 17 12-44 % Monocytes (%) (Auto) 14 H 0-12 % Eosinophils (%) (Auto) 6 0-10 % Basophils (%) (Auto) 1 0-10 % Neutrophils # (Auto) 5.2 1.8-7.8 10^3/uL Lymphocytes # (Auto) 1.5 1.0-4.0 10^3/uL Monocytes # (Auto) 1.2 H 0.0-1.0 10^3/uL Eosinophils # (Auto) 0.5 H 0.0-0.3 10^3/uL Basophils # (Auto) 0.1 0.0-0.1 10^3/uL Immature Granulocyte # (Auto) 0.5 H 0.0-0.1 10^3/uL Sodium Level 142 135-145 MMOL/L Potassium Level 5.0 3.6-5.0 MMOL/L Chloride Level 93 L 98-107 MMOL/L Carbon Dioxide Level 37 H 21-32 MMOL/L Anion Gap 12 5-14 MMOL/L Blood Urea Nitrogen 22 H 7-18 MG/DL Creatinine 1.55 H 0.60-1.30 MG/DL Estimat Glomerular Filtration Rate 45 BUN/Creatinine Ratio 14 Glucose Level 179 H 70-105 MG/DL Calcium Level 9.7 8.5-10.1 MG/DL Corrected Calcium 10.1 8.5-10.1 MG/DL Total Bilirubin 0.3 0.1-1.0 MG/DL Aspartate Amino Transf (AST/SGOT) 7 5-34 U/L Alanine Aminotransferase (ALT/SGPT) 9 0-55 U/L Alkaline Phosphatase 73 40-136 U/L C-Reactive Protein High Sensitivity 14.25 H 0.00-0.50 MG/DL B-Type Natriuretic Peptide 191.5 H <100.0 PG/ML Total Protein 7.7 6.4-8.2 GM/DL Albumin 3.5 3.2-4.5 GM/DL Smear Scan YES My Orders Orders - FRANKLIN CARSON BNP (11/13/20 13:47) Cbc With Automated Diff (11/13/20 13:47) Comprehensive Metabolic Panel (11/13/20 13:47) Hs C Reactive Protein (11/13/20 13:47) Chest 1 View, Ap/Pa Only (11/13/20 13:49) Albuterol/Ipra Inhalation Soln (Duoneb I (11/13/20 14:45) Svn Small Volume Nebulizer (11/13/20 14:38) Guaifenesin Tablet (Mucinex Tablet) (11/13/20 14:38) Ceftriaxone (Rocephin) (11/13/20 15:00) Medications Given in ED Current Medications Medications Dose Ordered Sig/Juan Route Start Time Stop Time Status Last Admin Dose Admin Albuterol/ Ipratropium 3 ml ONCE ONCE INH 11/13/20 14:45 11/13/20 14:46 DC 11/13/20 15:24 3 ML Ceftriaxone Sodium 1000 mg/ Sterile Water 10 ml @ 200 mls/hr ONCE ONCE IV 11/13/20 15:00 11/13/20 15:02 DC 11/13/20 15:09 200 MLS/HR Vital Signs/I&O 11/13/20 11/13/20 11/13/20 13:15 15:25 16:13 Temp 36.8 Pulse 82 72 Resp 24 20 B/P (MAP) 116/74 (88) 116/74 (88) Pulse Ox 96 95 95 O2 Delivery Nasal Cannula Nasal Cannula Nasal Cannula O2 Flow Rate 5.00 3.00 3.00 Capillary Refill : Less Than 3 Seconds Blood Pressure Mean: 88 Progress Note : Time: 13:15 Progress Note Patient seen and evaluated, will obtain labs and repeat chest x-ray. 1400 Chest xay shows RML and RLL pneumonia, improving in RML since 11/10/20 xray. 1415 no completed DuoNeb treatment, Muccinex 600 mg PO and give Rocephin 1 g IV. CO2 is elevated, I think they have been keeping his O2 level too high. He is doing great on 2-3 liters here. 1530 patient has remained stable, vital signs normal, SaO2 93 to 95% on 3 L per nasal cannula. Patient denies any complaints at this time. Discharge instructions and return precautions reviewed with the patient. All questions answered Diagnostic Imaging Diagonstic Imaging: Xray Plain Films/CT/US/NM/MRI: chest Comments NAME: CAPO KELLEY [facility] REC#: [id number] PT STATUS: REG ER : 1955 PHYSICIAN: FRANKLIN CARSONP ADMIT DATE: 11/13/20/ER Draft Date of Exam:11/13/20 CHEST 1 VIEW, AP/PA ONLY INDICATION: Shortness of air. COMPARISON: 11/10/2020 FINDINGS: Single frontal radiographic view of the chest was obtained and demonstrates stable mild right basilar effusion with associated patchy and confluent airspace disease within the right mid and lower lung field. There is no large effusion on the left. No pneumothorax is seen on either side. Cardiac silhouette and pulmonary vasculature are within normal limits. Sternotomy wires are noted. Osseous structures show no acute abnormalities. IMPRESSION: 1. Stable exam of the chest showing right basilar effusion with associated infiltrate appearing opacities within the right mid and lower lung field. Dictated on workstation # [id number] Dict: 11/13/20 1415 Trans: 11/13/20 1418 [facility] [id number] Interpreted by: ERNESTINE LOGAN MD Electronically signed by: Departure Impression Primary Impression: Pneumonia Qualified Codes: J18.9 - Pneumonia, unspecified organism Disposition: 01 HOME, SELF-CARE Condition: Stable Departure-Patient Inst. Decision time for Depature: 15:30 Referrals: GIOVANNY CODY DO (PCP/Family) Primary Care Physician Patient Instructions: Pneumonia, Adult (DC) Add. Discharge Instructions: Keep O2 at 2-3 L per NC, titrate to keep SaO2 > 91%. Only use 4-5L if O2 falls below 90%. Continue antibiotics as prescribed by Dr. Cody. Encourage deep breathing and coughing. Use inhaler as prescribed. Return to the emergency department for new, urgent healthcare needs. All discharge instructions reviewed with patient and/or family. Voiced understanding. Scripts Albuterol/Ipratropium (Combivent Respimat Inhal [place]) 4 Gm Aero 2 PUFF IH Q4H for 5 Days, #1 INH 0 Refills Prov: FRANKLIN CARSON 11/13/20 Copy Copies To 1: GIOVANNY CODY AMY ARNP Nov 13, 2020 14:43
[2020-11-13] MEDS ORDERED: RT-ALBUTEROL/IPRATROPIUM 3 ML (DUONEB) VIAL INH ONE (14:45)
[2020-11-13] MEDS ORDERED: cefTRIAXone 1,000 MG in WATER (STERILE) FOR INJECTION 10 ML IV ONE (15:00)
[2020-11-13] MEDS ORDERED: IPRA4AER IH (15:39)
[2020-11-13 16:13] VITALS: BP 116/74
== END 2020-11-13 16:13 | disposition home or self-care (01) ==
LOC: EDUNIT# 13:15 → ER 13:16
DX: J18.9 Pneumonia, unspecified organism (principal); I10 Essential (primary) hypertension; I25.10 Atherosclerotic heart disease of native coronary artery without angina pectoris; E78.00 Pure hypercholesterolemia, unspecified; K21.9 Gastro-esophageal reflux disease without esophagitis; E11.9 Type 2 diabetes mellitus without complications; F43.10 Post-traumatic stress disorder, unspecified; F20.9 Schizophrenia, unspecified; F32.9 Major depressive disorder, single episode, unspecified; F17.210 Nicotine dependence, cigarettes, uncomplicated; Z99.81 Dependence on supplemental oxygen; Z95.1 Presence of aortocoronary bypass graft; Z79.82 Long term (current) use of aspirin; Z79.4 Long term (current) use of insulin; Z79.899 Other long term (current) drug therapy
CPT/HCPCS: 36415; 71045; 80053; 83880; 85025; 86141; 94640

== ENCOUNTER 2021-01-24 09:33 | Emergency (ER) | payer MEDICAID ==
[~2021-01-24] VITALS: Ht 177.8 cm; Wt 104.0 kg
[~2021-01-24 09:33] MED LIST changes: +IPRA4AER IH; -OLAN5TAB25 PO; +OLN5T PO
--- OUTSIDE RECORDS SUMMARY | 2021-01-24 09:38 | XMS REPORT | Clinical Summary ---
Author Author [facility] Organization [facility] Address Unknown Phone Unavailable Care Team Providers Care Halal Butcher Name Role Phone PCP Unavailable Allergies Not on File Medications Not on file Active Problems Not on file Social History Date Tobacco Use Types Packs/Day Years Used Never Assessed Sex Assigned at Date Recorded Not on file Last Filed Vital Signs Not on file Plan of Treatment Not on file Results Not on filefrom Last 3 Months
--- OUTSIDE RECORDS SUMMARY | 2021-01-24 09:38 | XMS REPORT | Clinical Summary ---
Author Author [facility] Organization [facility] Address Unknown Phone Unavailable Care Team Providers Care Field Trainer Name Role Phone PCP Unavailable Source Comments [facility] (Labor and Delivery) documents [facility] appear [facility] Allergies Not on File Medications Please verify current medications with patient. Not on file Active Problems Not on file Social History Date Tobacco Use Types Packs/Day Years Used Never Assessed Sex Assigned at Date Recorded Not on file Last Filed Vital Signs Not on file Plan of Treatment Health Maintenance Due Date Last Done Comments CT Colonography 1955 Colon cancer: DNA-based 1955 stool test (Cologuard) Sigmoidoscopy 1955 gFOBT or FIT 1955 COVID-19 Vaccine (1) 1968 Colonoscopy 2006 Colorectal Cancer 2006 Screening Influenza Vaccine (#1) 2021 Pneumococcal Vaccine: 65+ 2021 Years (1 of 1 - PPSV23) HPV Vaccine Aged Out No longer eligible based on patient's age to complete this topic Pneumococcal Vaccine: Aged Out No longer eligib le based on patient's age to Pediatrics (0 to 5 Years) complete this topic and At-Risk Patients (6 to 64 Years) Results Not on filefrom Last 3 Months
[2021-01-24 10:59] LABS: BASOPHILS # (AUTO) 0.1 10^3/uL (0.0-0.1); BASOPHILS % (AUTO) 1 % (0-10); EOSINOPHILS # (AUTO) 0.7 10^3/uL (0.0-0.3); EOSINOPHILS % (AUTO) 9 % (0-10); HEMATOCRIT 41 % (40-54); HEMOGLOBIN 13.5 g/dL (13.3-17.7); LYMPHOCYTES # (AUTO) 1.3 10^3/uL (1.0-4.0); LYMPHOCYTES % (AUTO) 17 % (12-44); MEAN CORPUSCULAR HEMOGLOBIN 31 pg (25-34); MEAN CORPUSCULAR HGB CONC 33 g/dL (32-36); MEAN CORPUSCULAR VOLUME 94 fL (80-99); MEAN PLATELET VOLUME 9.1 fL (9.0-12.2); MONOCYTES % (AUTO) 12 % (0-12); NEUTROPHILS # (AUTO) 4.6 10^3/uL (1.8-7.8); NEUTROPHILS % (AUTO) 59 % (42-75); PLATELET COUNT 253 10^3/uL (130-400); WHITE BLOOD COUNT 7.8 10^3/uL (4.3-11.0)
[2021-01-24 11:13] LABS: ALBUMIN 3.9 GM/DL (3.2-4.5); POTASSIUM 4.6 MMOL/L (3.6-5.0)
[2021-01-24 11:15] LABS: CALCIUM 9.6 MG/DL (8.5-10.1)
[2021-01-24 11:16] LABS: TOTAL PROTEIN 7.7 GM/DL (6.4-8.2)
[2021-01-24 11:18] LABS: BILIRUBIN,TOTAL 0.2 MG/DL (0.1-1.0)
[2021-01-24 11:20] LABS: CREATININE SERUM 1.62 MG/DL (0.60-1.30)
[2021-01-24] MEDS ORDERED: NS IV 500 ML 500 ML IV ONE (11:45)
--- NOTE | 2021-01-24 12:32 | ED General ---
General Chief Complaint: Cardiac/General Problems Stated Complaint: AFIB Nursing Triage Note: pt to room with caregiver. when asked pt states he is unsure why they brought him here. pts caregiver states she was told to bring him to ed for elevated bp. pt denies any pain, soa, cough, fever. Source of Information: Patient Exam Limitations: No Limitations History of Present Illness Date Seen by Provider: Jan 24, 2021 Time Seen by Provider: 10:17 Initial Comments Here from nursing care facility with report of high blood pressure. Patient denies symptoms or concerns and has no complaints. Does have history of seizure disorder as well as hypertension and cardiac disease that is not amiable to catheterization. Patient does not want anything done currently but is allowing for exam. Patient arrives with normal sinus rhythm and without hypertension. Timing/Duration: 1-3 Hours, Gone Now Severity: Mild Associated Systoms: No Chest Pain, No Diaphoresis, No Fever/Chills, No Nausea/Vomiting, No Shortness of Air, No Weakness Allergies and Home Medications Allergies Coded Allergies: Penicillins (Verified Allergy, Unknown, 11/10/20) chlorpromazine (Verified Allergy, Unknown, 11/10/20) Patient Home Medication List Home Medication List Reviewed: Yes Review of Systems Review of Systems Constitutional: No chills, No fever EENTM: No nose congestion, No throat pain Respiratory: No cough, No short of breath Cardiovascular: No chest pain, No edema Gastrointestinal: No abdominal pain, No nausea, No vomiting Genitourinary: no symptoms reported Musculoskeletal: no symptoms reported All Other Systems Reviewed Negative Unless Noted: Yes Past [place]-Eydwav-Imkgak Hx Patient Social History Tobacco Use?: Yes Tobacco type used: Cigarettes Substance use?: No Alcohol Use?: No Pt feels they are or have been: No Immunizations Up To Date Tetanus Booster (TDap): Unknown First/Initial COVID19 Vaccinat: 06/07/20 Second COVID19 Vaccination Allen: 06/28/20 COVID19 Vaccine Impregnating Helper: unknown Seasonal Allergies Seasonal Allergies: No Past Medical History Surgeries: Yes CABG, Vasectomy Respiratory: No Cardiac: Yes Coronary Artery Disease, High Cholesterol, Hypertension Neurological: No Genitourinary: Yes Renal Failure Gastrointestinal: Yes Gastroesophageal Reflux Musculoskeletal: No Endocrine: Yes Diabetes, Non-Insulin dep HEENT: No Cancer: No Psychosocial: Yes Sleep Difficulties, PTSD, Schizophrenia, Depression Integumentary: No Blood Disorders: No Family Medical History Reviewed Nursing Family Hx No Pertinent Family Hx Physical Exam Vital Signs Vital Signs - First Documented 01/24/21 09:34 Temp 36.0 Pulse 79 Resp 24 B/P (MAP) 132/73 (92) Pulse Ox 94 O2 Delivery Room Air Capillary Refill : Less Than 3 Seconds Height, Weight, BMI Height: 5'8.00" Weight: 171lbs. 0.0oz. [id number]; 32.00 BMI Method:Stated General Appearance: No Apparent Distress, WD/WN HEENT: PERRL/EOMI, Pharynx Normal Neck: Non Tender, Supple Respiratory: Lungs Clear, Normal Breath Sounds Cardiovascular: Regular Rate, Rhythm, No Murmur Gastrointestinal: Non Tender, Soft Back: Normal Inspection, No CVA Tenderness, No Vertebral Tenderness Extremity: Normal Range of Motion, Non Tender, No Calf Tenderness Neurologic/Psychiatric: Alert, Oriented x3 Skin: Normal Color, Warm/Dry Progress/Results/Core Measures Suspected Sepsis SIRS Temperature: Pulse: 79 Respiratory Rate: 24 Laboratory Tests 01/24/21 10:52: White Blood Count 7.8 Blood Pressure 132 /73 Mean: 92 Laboratory Tests 01/24/21 10:52: Creatinine 1.62H, Platelet Count 253, Total Bilirubin 0.2 Results/Orders Lab Results Laboratory Tests Test 01/24/21 10:52 01/24/21 11:57 01/24/21 12:31 Range/Units White Blood Count 7.8 4.3-11.0 10^3/uL Red Blood Count 4.35 4.30-5.52 10^6/uL Hemoglobin 13.5 13.3-17.7 g/dL Hematocrit 41 40-54 % Mean Corpuscular Volume 94 80-99 fL Mean Corpuscular Hemoglobin 31 25-34 pg Mean Corpuscular Hemoglobin Concent 33 32-36 g/dL Red Cell Distribution Width 15.0 H 10.0-14.5 % Platelet Count 253 130-400 10^3/uL Mean Platelet Volume 9.1 9.0-12.2 fL Immature Granulocyte % (Auto) 2 % Neutrophils (%) (Auto) 59 42-75 % Lymphocytes (%) (Auto) 17 12-44 % Monocytes (%) (Auto) 12 0-12 % Eosinophils (%) (Auto) 9 0-10 % Basophils (%) (Auto) 1 0-10 % Neutrophils # (Auto) 4.6 1.8-7.8 10^3/uL Lymphocytes # (Auto) 1.3 1.0-4.0 10^3/uL Monocytes # (Auto) 1.0 0.0-1.0 10^3/uL Eosinophils # (Auto) 0.7 H 0.0-0.3 10^3/uL Basophils # (Auto) 0.1 0.0-0.1 10^3/uL Immature Granulocyte # (Auto) 0.2 H 0.0-0.1 10^3/uL Sodium Level 136 135-145 MMOL/L Potassium Level 4.6 3.6-5.0 MMOL/L Chloride Level 96 L 98-107 MMOL/L Carbon Dioxide Level 27 21-32 MMOL/L Anion Gap 13 5-14 MMOL/L Blood Urea Nitrogen 24 H 7-18 MG/DL Creatinine 1.62 H 0.60-1.30 MG/DL Estimat Glomerular Filtration Rate 43 BUN/Creatinine Ratio 15 Glucose Level 393 H 70-105 MG/DL Calcium Level 9.6 8.5-10.1 MG/DL Corrected Calcium 9.7 8.5-10.1 MG/DL Total Bilirubin 0.2 0.1-1.0 MG/DL Aspartate Amino Transf (AST/SGOT) 10 5-34 U/L Alanine Aminotransferase (ALT/SGPT) 14 0-55 U/L Alkaline Phosphatase 65 40-136 U/L Troponin I 0.046 H 0.046 H <0.028 NG/ML Total Protein 7.7 6.4-8.2 GM/DL Albumin 3.9 3.2-4.5 GM/DL Glucometer 345 H 70-110 MG/DL My Orders Orders - СЕГРЕЙ GANDARA MD Cbc With Automated Diff (01/24/21 09:58) Comprehensive Metabolic Panel (01/24/21 09:58) Troponin I (01/24/21 09:58) Ed Iv/Invasive Line Start (01/24/21 09:58) Ekg Tracing (01/24/21 09:58) Ns Iv 500 Ml (Sodium Chloride 0.9%) (01/24/21 11:45) General/Regular (01/24/21 Lunch) Troponin I (01/24/21 12:30) Medications Given in ED Current Medications Medications Dose Ordered Sig/Juan Route Start Time Stop Time Status Last Admin Dose Admin Sodium Chloride 500 ml @ 0 mls/hr Q0M ONCE IV 01/24/21 11:45 01/24/21 11:46 DC 01/24/21 12:10 500 MLS/HR Vital Signs/I&O 01/24/21 09:34 Temp 36.0 Pulse 79 Resp 24 B/P (MAP) 132/73 (92) Pulse Ox 94 O2 Delivery Room Air Capillary Refill : Less Than 3 Seconds Blood Pressure Mean: 92 Progress Note : Progress Note Seen and evaluated. I did discuss the case with the patient's guardian, Sylvia. Patient did not really want any evaluation but went ahead and allowed for lab draw and EKG as well as a small amount of fluid after discussing case with Sylvia. Monitor patient. 1230: Patient's initial troponin slightly elevated. He has always had slight elevations. We will repeat troponin now (2/h nini). He is still without chest pain. We did feed him as he was hungry and worried about his blood sugar. This was actually 340. Monitor patient. 1318: Repeat troponin is the same. Still without chest pain. Discharged home with return precautions. Patient and caregiver verbalized understanding of instructions and agreement with plan. ECG Initial ECG Impression Date: Jan 24, 2021 Initial ECG Impression Time: 10:29 Initial ECG Rate: 79 Initial ECG Rhythm: Normal Sinus Comment Sinus rhythm with normal axis. No evidence of ST elevation VA. Similar to previous but T waves have moved upright laterally. From 11/07/2019. Interpreted by me. Departure Impression Primary Impression: Hypertension Qualified Codes: I10 - Essential (primary) hypertension Disposition: 01 HOME, SELF-CARE Condition: Improved Departure-Patient Inst. Decision time for Depature: 13:19 Referrals: GIOVANNY CODY DO (PCP/Family) Primary Care Physician Patient Instructions: High Blood Pressure (DC) Add. Discharge Instructions: All discharge instructions reviewed with patient and/or family. Voiced understanding. Continue home medications as previously prescribed. Follow-up with your doctor in a few days for recheck. Return for worse pain, fever, vomiting, weakness, breathing problems, chest pain or other concerns as needed. СЕРГЕЙ GANDARA MD Jan 24, 2021 12:32
[2021-01-24 13:28] VITALS: BP 123/90
== END 2021-01-24 13:28 | disposition home or self-care (01) ==
LOC: EDUNIT# 09:33 → ER 09:35
DX: I10 Essential (primary) hypertension (principal); E11.9 Type 2 diabetes mellitus without complications
CPT/HCPCS: 36415; 80053; 82947; 84484; 85025; 93005

== ENCOUNTER 2021-08-03 11:47 | Emergency (ER) | payer MEDICAID ==
[~2021-08-03] VITALS: Ht 177.8 cm; Wt 95.3 kg
[~2021-08-03 11:47] MED LIST changes: +CYCL10TA25 PO; -CYCL10TA9 PO; +MONT-40 PO; -MONT10TA32 PO; +ONDA-106 PO; -ONDA8TAB15 PO
--- NOTE | 2021-08-03 12:02 | ED Head Injury ---
General Chief Complaint: Trauma-Non Activation Stated Complaint: SEIZURE,FELL Source: patient Exam Limitations: no limitations (SAM RODRIGUEZ APRN) History of Present Illness Date Seen by Provider: Aug 03, 2021 Time Seen by Provider: 12:00 Initial Comments To ER by private vehicle from [facility] with patient with reports of seizure disorder causing him to fall this morning but he struck his head. Has been acting normally since the event but since he hit his head requires evaluation in the emergency room. Occurred: just prior to arrival Severity: moderate Location: frontal Loss of Consciousness: no loss of consciousness Associated Systoms: Headaches; No Nausea/Vomiting (SAM RODRIGUEZ APRN) Allergies and Home Medications Allergies Coded Allergies: Penicillins (Verified Allergy, Unknown, 11/10/20) chlorpromazine (Verified Allergy, Unknown, 11/10/20) Patient Home Medication List Home Medication List Reviewed: Yes (SAM RODRIGUEZ APRN) Acetaminophen (Tylenol) 325 Mg Tablet, 650 MG PO Q6H PRN for PAIN-MILD, (Reported) Entered as Reported by: ALTAGRACIA MURPHY on 12/31/18 1129 Albuterol/Ipratropium (Combivent Respimat Inhal [place]) 4 Gm Aero, 2 PUFF IH Q4H Prescribed by: FRANKLIN CARSON on 11/13/20 1539 Apixaban (Eliquis) 5 Mg Tablet, 5 MG PO BID Prescribed by: NAWAF VILLEDA on 08/11/20 0831 Aspirin (Aspirin EC) 81 Mg Tablet.dr, 81 MG PO DAILY, (Reported) Entered as Reported by: EVI FINK on 12/31/18 023 Atorvastatin Calcium (Atorvastatin Calcium) 40 Mg Tablet, 40 MG PO HS, (Reported) Entered as Reported by: EVI FINK on 12/31/18236 Bismuth Subsalicylate (Quartzsite Bismuth) 262 Mg/15 Ml Oral.susp, 262 MG PO Q6H PRN for DIARRHEA, (Reported) Entered as Reported by: KAILEE BYERS on 11/10/20 1055 Calcium Carbonate (Tums) 200 Mg Tab.chew, 500 MG PO PRN PRN for HEARTBURN, (Reported) Entered as Reported by: WILLIAM TEIXEIRA on 08/03/20 171 Cetirizine HCl (Cetirizine HCl) 10 Mg Tablet, 10 MG PO DAILY, (Reported) Entered as Reported by: EVI FINK on 12/31/18 023 Cyclobenzaprine HCl (Cyclobenzaprine HCl) 10 Mg Tablet, 10 MG PO Q8H PRN for MUSCLE SPASMS, (Reported) Entered as Reported by: MACIEL CANNON on 08/06/20 100 Digoxin (Digox) 250 Mcg Tablet, 0.25 MG PO DAILY Prescribed by: NAWAF VILLEDA on 08/11/20 0831 Diltiazem HCl (Diltiazem 24Hr ER) 240 Mg Cap.er.24h, 240 MG PO DAILY Prescribed by: NAWAF VILLEDA on 08/11/20 0831 Divalproex Sodium (Divalproex Sodium) 125 Mg Cap.sprink, 875 MG PO HS, (Reported) Entered as Reported by: EVI FINK on 12/31/18236 Divalproex Sodium (Depakote Sprinkle) 125 Mg Cap, 875 MG PO DAILY, (Reported) Entered as Reported by: MACIEL CANNON on 08/06/20 100 Divalproex Sodium (Depakote Sprinkle) 125 Mg Cap, 250 MG PO 1400, (Reported) Entered as Reported by: MACIEL CANNON on 08/06/20 1008 Escitalopram Oxalate (Lexapro) 10 Mg Tablet, 10 MG PO DAILY, (Reported) Entered as Reported by: KAILEE BYERS on 11/10/20 1050 Fluticasone Propionate (Flonase Allergy Relief) 9.9 Ml [place].susp, 2 SPRAY NS DAILY, (Reported) Entered as Reported by: MACIEL CANNON on 08/06/20 1005 Furosemide (Furosemide) 40 Mg Tablet, 40 MG PO DAILY Prescribed by: NAWAF VILLEDA on 08/11/20 0831 Gabapentin (Gabapentin) 100 Mg Capsule, 300 MG PO HS, (Reported) Entered as Reported by: ALTAGRACIA MURPHY on 12/31/18 1129 Insulin Glargine,Hum.rec.anlog (Lantus Solostar) 100 Unit/1 Ml Insuln.pen, 10 UNIT SQ DAILY, (Reported) Entered as Reported by: MACIEL CANNON on 08/06/20 1005 Insulin Lispro (Insulin Lispro Kwikpen U-100) 100 Unit/1 Ml Insuln.pen, UNITS SC AC, (Reported) Entered as Reported by: MACIEL CANNON on 08/06/20 1005 Loratadine (Loratadine) 10 Mg Tablet, 10 MG PO DAILY, (Reported) Entered as Reported by: WILLIAM TEIXEIRA on 08/03/20 1713 Mag Hydrox/Al Hydrox/Simeth (Mylanta Suspension) 30 Ml Oral.susp, 30 ML PO Q4H PRN for INDIGESTION, (Reported) Entered as Reported by: ALTAGRACIA MURPHY on 12/31/181128 Metformin HCl (Metformin HCl) 500 Mg Tablet, 1,000 MG PO BID, (Reported) Entered as Reported by: MACIEL CANNON on 08/06/20 100 Montelukast Sodium (Montelukast Sodium) 10 Mg Tablet, 10 MG PO DAILY, (Reported) Entered as Reported by: EVI FINK on 12/31/18236 Olanzapine (Olanzapine) 5 Mg Tablet, 5 MG PO DAILY, (Reported) Entered as Reported by: ALTAGRACIA MURPHY on 12/31/181128 Olanzapine (Olanzapine) 5 Mg Tablet, 10 MG PO HS, (Reported) Entered as Reported by: ALTAGRACIA MURPHY on 12/31/181128 Ondansetron HCl (Ondansetron HCl) 8 Mg Tablet, 8 MG PO Q8H PRN for NAUSEA/V OMITING, (Reported) Entered as Reported by: KAILEE BYERS on 11/10/20 105 Pantoprazole Sodium (Pantoprazole Sodium) 40 Mg Tablet.dr, 40 MG PO DAILY, (Reported) Entered as Reported by: EVI FINK on 12/31/18236 Sevelamer Carbonate (Renvela) 800 Mg Tablet, 800 MG PO TIDWM, (Reported) Entered as Reported by: EVI FINK on 12/31/18236 Tamsulosin HCl (Flomax) 0.4 Mg Cap, 0.4 MG PO HS, (Reported) Entered as Reported by: EVI FINK on 12/31/18236 Trazodone HCl (Trazodone HCl) 50 Mg Tablet, 50 MG PO HS, (Reported) Entered as Reported by: KAILEE BYERS on 11/10/20 105 Vortioxetine Hydrobromide (Trintellix) 10 Mg Tablet, 10 MG PO DAILY, (Reported) Entered as Reported by: WILLIAM TEIXEIRA on 08/03/20 3486 Review of Systems Review of Systems Constitutional: see HPI Eyes: No Symptoms Reported Ears, Nose, Mouth, Throat: no symptoms reported Respiratory: no symptoms reported Cardiovascular: no symptoms reported Genitourinary: no symptoms reported Musculoskeletal: no symptoms reported Skin: no symptoms reported Endocrine: No Symptoms Reported (SAM RODRIGUEZ APRN) Past [place]fsnap-Slcwvk Hx Immunizations Up To Date Tetanus Booster (TDap): Unknown First/Initial COVID19 Vaccinat: 06/07/20 Second COVID19 Vaccination Allen: 06/28/20 (SAM RODRIGUEZ APRN) Seasonal Allergies Seasonal Allergies: No (SAM RODRIGUEZ APRN) Past Medical History Surgeries: Yes CABG, Vasectomy Respiratory: No Cardiac: Yes Coronary Artery Disease, High Cholesterol, Hypertension Neurological: No Genitourinary: Yes Renal Failure Gastrointestinal: Yes Gastroesophageal Reflux Musculoskeletal: No Endocrine: Yes Diabetes, Non-Insulin dep HEENT: No Cancer: No Psychosocial: Yes Sleep Difficulties, PTSD, Schizophrenia, Depression Integumentary: No Blood Disorders: No (SAM RODRIGUEZ APRN) Family Medical History No Pertinent Family Hx (SAM RODRIGUEZ APRN) Physical Exam Vital Signs Vital Signs - First Documented 08/03/21 11:52 Temp 36.1 Pulse 81 Resp 20 B/P (MAP) 122/82 (95) Pulse Ox 96 O2 Delivery Room Air (LYNDA SANTANA MD) Vital Signs Capillary Refill : (SAM RODRIGUEZ APRN) Height, Weight, BMI Height: 5'8.00" Weight: 171lbs. 0.0oz. 77.250187ak; 32.00 BMI Method:Stated General Appearance: WD/WN, no apparent distress, other (Did himself out of the wheelchair here, became lightheaded and was lowered to the floor. This lasted for about 10 or 15 seconds without any convulsions or shaking. He then regained consciousness and was able to stand up. He stated that he needed to have a bowel movement and was taken to the bathroom via wheelchair. Same story there, when standing up out of the wheelchair he would either fall asleep or passed out for 5 to 15 seconds and then awakened with normal mentation.) HEENT: PERRL/EOMI, normal ENT inspection, TMs normal, pharynx normal, other (Hemotympanum no abrasion no erythema no ecchymosis) Neck: non-tender, full range of motion; No tender lateral, No tender midline Cardiovascular: regular rate, rhythm, no murmur Respiratory: no respiratory distress, no accessory muscle use Gastrointestinal: normal bowel sounds, non tender, soft Psychiatric: alert, oriented x 3 Crainal Nerves: normal hearing, normal speech, PERRL Skin: normal color, warm/dry (SAM RODRIGUEZ APRN) Yonatan Coma Score Best Eye Response: (4) Open Spontaneously Best Verbal Response: (5) Oriented Best Motor Response: (6) Obeys Commands Yonatan Total: 15 (SAM RODRIGUEZ APRN) Progress/Results/Core Measures Results/Orders Lab Results Laboratory Tests Test 08/03/21 12:15 08/03/21 12:51 Range/Units White Blood Count 7.9 4.3-11.0 10^3/uL Red Blood Count 4.96 4.30-5.52 10^6/uL Hemoglobin 14.4 13.3-17.7 g/dL Hematocrit 44 40-54 % Mean Corpuscular Volume 89 80-99 fL Mean Corpuscular Hemoglobin 29 25-34 pg Mean Corpuscular Hemoglobin Concent 33 32-36 g/dL Red Cell Distribution Width 15.1 H 10.0-14.5 % Platelet Count 224 130-400 10^3/uL Mean Platelet Volume 8.8 L 9.0-12.2 fL Immature Granulocyte % (Auto) 1 % Neutrophils (%) (Auto) 61 42-75 % Lymphocytes (%) (Auto) 19 12-44 % Monocytes (%) (Auto) 8 0-12 % Eosinophils (%) (Auto) 12 H 0-10 % Basophils (%) (Auto) 1 0-10 % Neutrophils # (Auto) 4.8 1.8-7.8 10^3/uL Lymphocytes # (Auto) 1.5 1.0-4.0 10^3/uL Monocytes # (Auto) 0.6 0.0-1.0 10^3/uL Eosinophils # (Auto) 0.9 H 0.0-0.3 10^3/uL Basophils # (Auto) 0.0 0.0-0.1 10^3/uL Immature Granulocyte # (Auto) 0.1 0.0-0.1 10^3/uL Sodium Level 133 L 135-145 MMOL/L Potassium Level 4.9 3.6-5.0 MMOL/L Chloride Level 94 L 98-107 MMOL/L Carbon Dioxide Level 25 21-32 MMOL/L Anion Gap 14 5-14 MMOL/L Blood Urea Nitrogen 21 H 7-18 MG/DL Creatinine 1.40 H 0.60-1.30 MG/DL Estimat Glomerular Filtration Rate 56 BUN/Creatinine Ratio 15 Glucose Level 242 H 70-105 MG/DL Calcium Level 10.0 8.5-10.1 MG/DL Corrected Calcium 10.2 H 8.5-10.1 MG/DL Total Bilirubin 0.2 0.1-1.0 MG/DL Aspartate Amino Transf (AST/SGOT) 8 5-34 U/L Alanine Aminotransferase (ALT/SGPT) 7 0-55 U/L Alkaline Phosphatase 63 40-136 U/L Total Protein 7.5 6.4-8.2 GM/DL Albumin 3.8 3.2-4.5 GM/DL Urine Color YELLOW Urine Clarity CLEAR Urine pH 7.0 5-9 Urine Specific Wheeler 1.010 L 1.016-1.022 Urine Protein NEGATIVE NEGATIVE Urine Glucose (UA) NEGATIVE NEGATIVE Urine Ketones NEGATIVE NEGATIVE Urine Nitrite NEGATIVE NEGATIVE Urine Bilirubin NEGATIVE NEGATIVE Urine Urobilinogen 0.2 < = 1.0 MG/DL Urine Leukocyte Esterase NEGATIVE NEGATIVE Urine RBC (Auto) NEGATIVE NEGATIVE Urine RBC NONE /HPF Urine WBC NONE /HPF Urine Squamous Epithelial Cells NONE /HPF Urine Crystals NONE /LPF Urine Bacteria NEGATIVE /HPF Urine Casts NONE /LPF Urine Mucus NEGATIVE /LPF Urine Culture Indicated NO (LYNDA SANTANA MD) Vital Signs/I&O 08/03/21 08/03/21 08/03/21 11:52 12:51 13:31 Temp 36.1 Pulse 81 66 65 74 74 Resp 20 20 B/P (MAP) 122/82 (95) 144/81 (102) 144/75 109/79 (89) 116/66 (83) Pulse Ox 96 96 O2 Delivery Room Air Room Air (LYNDA SANTANA MD) Departure Communication (Admissions) Family Conversation He does have some orthostatic syncope. Blood pressure 144/81 lying, 109/79 sitting in 116/66 standing. NAME: CAPO [facility] REC#: [id number] PT STATUS: REG ER : 1955 PHYSICIAN: SAM RODRIGUEZ APRN ADMIT DATE: 08/03/21/ER Draft Date of Exam:08/03/21 CT HEAD/CERVICAL SPINE WO EXAMINATION: CT head and CT cervical spine without contrast. TECHNIQUE: Multiple contiguous axial images were obtained through the brain and cervical spine without the use of intravenous contrast. Sagittal and coronal reformations through the cervical spine were then performed. All CT scans use one or more of the following dose optimizing techniques: automated exposure control, MA and/or KvP adjustment based on patient size and exam type or iterative reconstruction. HISTORY: Head pain after fall. COMPARISON: None available. FINDINGS: HEAD: Mild diffuse cerebral volume loss with proportional enlargement of the ventricles and sulci. Mild hypodensities throughout the supratentorial white matter of both cerebral hemispheres. No acute intracranial hemorrhage or abnormal extra-axial fluid collections are present. Calcification of the intracranial ICAs. No hyperdense vessel. The calvarium is intact. The mastoid air cells are clear. The visualized paranasal sinuses are clear. The orbits are normal. C-SPINE: Vertebral body height and alignment are preserved. No acute fracture, dislocation, or destructive osseous process. Multilevel facet hypertrophy without perched facets. Mild multilevel cervical spondylosis. The paraspinous soft tissues are normal. The visualized thyroid gland is normal. The visualized lung apices are normal. IMPRESSION: 1. No acute intracranial abnormality. Chronic microangiopathy and volume loss. 2. Degenerative changes of the cervical spine without acute osseous abnormality. Dictated on workstation # [id number] Dict: 08/03/21 1230 Trans: 08/03/21 1244 [id number] Interpreted by: EVI BARDALES DO Electronically signed by: He does have some orthostatic syncope. While lying his blood pressure was 144/81 and when helped to standing his heart rate dropped to 109/79. Has been given 1 L of IV fluids. (SAM RODRIGUEZ APRN) Impression Primary Impression: Orthostatic syncope Additional Impression: Head injury Disposition: 01 HOME, SELF-CARE Condition: Stable Departure-Patient Inst. Decision time for Depature: 12:48 (SAM RODRIGUEZ APRN) Referrals: GIOVANNY CODY DO (PCP/Family) Primary Care Physician Patient Instructions: Minor Head Injury Add. Discharge Instructions: 1. Return to ER for any concerns. Follow-up with his doctor next week. All discharge instructions reviewed with patient and/or family. Voiced understanding. ATTENDING PHYSICIAN NOTE: I was physically present as attending physician in the emergency department during the care of this patient. I assisted with care of this patient when he had an episode unsteady on his feet. We transitioned him to a wheelchair. I was otherwise not directly involved in the decision making or delivery of care for this patient. (LYNDA SANTANA MD) SAM RODRIGUEZ APRN Aug 03, 2021 12:02 LYNDA SANTANA MD Aug 03, 2021 13:50
[2021-08-03] MEDS ORDERED: LACTATED RINGERS 1,000 ML IV SCH (12:15)
[2021-08-03 12:20] LABS: BASOPHILS % (AUTO) 1 % (0-10); EOSINOPHILS # (AUTO) 0.9 10^3/uL (0.0-0.3); EOSINOPHILS % (AUTO) 12 % (0-10); HEMATOCRIT 44 % (40-54); HEMOGLOBIN 14.4 g/dL (13.3-17.7); LYMPHOCYTES # (AUTO) 1.5 10^3/uL (1.0-4.0); LYMPHOCYTES % (AUTO) 19 % (12-44); MEAN CORPUSCULAR HEMOGLOBIN 29 pg (25-34); MEAN CORPUSCULAR HGB CONC 33 g/dL (32-36); MEAN CORPUSCULAR VOLUME 89 fL (80-99); MEAN PLATELET VOLUME 8.8 fL (9.0-12.2); MONOCYTES # (AUTO) 0.6 10^3/uL (0.0-1.0); MONOCYTES % (AUTO) 8 % (0-12); NEUTROPHILS # (AUTO) 4.8 10^3/uL (1.8-7.8); NEUTROPHILS % (AUTO) 61 % (42-75); PLATELET COUNT 224 10^3/uL (130-400); WHITE BLOOD COUNT 7.9 10^3/uL (4.3-11.0)
[2021-08-03 12:29] LABS: ALBUMIN 3.8 GM/DL (3.2-4.5)
[2021-08-03 12:30] LABS: POTASSIUM 4.9 MMOL/L (3.6-5.0)
[2021-08-03 12:32] LABS: TOTAL PROTEIN 7.5 GM/DL (6.4-8.2)
[2021-08-03 12:34] LABS: BILIRUBIN,TOTAL 0.2 MG/DL (0.1-1.0)
[2021-08-03 12:35] LABS: CREATININE SERUM 1.4 MG/DL (0.60-1.30)
--- NOTE | 2021-08-03 12:44 | Diagnostic Imaging Report ---
EXAMINATION: CT head and CT cervical spine without contrast. TECHNIQUE: Multiple contiguous axial images were obtained through the brain and cervical spine without the use of intravenous contrast. Sagittal and coronal reformations through the cervical spine were then performed. All CT scans use one or more of the following dose optimizing techniques: automated exposure control, MA and/or KvP adjustment based on patient size and exam type or iterative reconstruction. HISTORY: Head pain after fall. COMPARISON: None available. FINDINGS: HEAD: Mild diffuse cerebral volume loss with proportional enlargement of the ventricles and sulci. Mild hypodensities throughout the supratentorial white matter of both cerebral hemispheres. No acute intracranial hemorrhage or abnormal extra-axial fluid collections are present. Calcification of the intracranial ICAs. No hyperdense vessel. The calvarium is intact. The mastoid air cells are clear. The visualized paranasal sinuses are clear. The orbits are normal. C-SPINE: Vertebral body height and alignment are preserved. No acute fracture, dislocation, or destructive osseous process. Multilevel facet hypertrophy without perched facets. Mild multilevel cervical spondylosis. The paraspinous soft tissues are normal. The visualized thyroid gland is normal. The visualized lung apices are normal. IMPRESSION: 1. No acute intracranial abnormality. Chronic microangiopathy and volume loss. 2. Degenerative changes of the cervical spine without acute osseous abnormality. Dictated by: Dictated on workstation # [id number]
[2021-08-03 12:51] VITALS: BP_SYST 109; BP_SYST 116; BP_SYST 144; BP_DIAS 66; BP_DIAS 79; BP_DIAS 81
[2021-08-03 12:52] LABS: BILIRUBIN,URINE NEGATIVE (NEGATIVE); CLARITY,URINE CLEAR; COLOR,URINE YELLOW; GLUCOSE, URINE (UA) NEGATIVE (NEGATIVE); KETONES,URINE NEGATIVE (NEGATIVE); LEUKOCYTE ESTERASE ,URINE NEGATIVE (NEGATIVE); NITRITE,URINE NEGATIVE (NEGATIVE); PROTEIN,URINE NEGATIVE (NEGATIVE)
[2021-08-03 13:25] LABS: BACTERIA,URINE NEGATIVE /HPF
[2021-08-03 13:31] VITALS: BP 144/75
== END 2021-08-03 13:31 | disposition home or self-care (01) ==
LOC: EDUNIT# 11:47 → ER 11:48
DX: S09.90XA Unspecified injury of head, initial encounter (principal); R40.2410 Glasgow coma scale score 13-15, unspecified time; W22.8XXA Striking against or struck by other objects, initial encounter
CPT/HCPCS: 36415; 70450; 72125; 80053; 81000; 85025